=== PATIENT | male | born 1935 | race Caucasian/White ===

== ENCOUNTER 2017-02-12 16:46 | Inpatient (IN) | payer OTHER, MEDICARE ==
[~2017-02-12] VITALS: Ht 188 cm; Wt 109.4 kg
[~2017-02-12 16:46] MED LIST: ALLO300T2 PO; ASPI81TA82 PO; ATOR20TA PO; CALTTAB PO; FLOR250C PO; HYDR-2768 PO; ISOS30 PO; LEVA500T PO; LEVO.025 PO; LOSA50TA PO; METO100T PO; NITR0.4S SL; PERC5TAB12 PO; POTA-267 PO; PROBCAP4 PO; SERT100 PO; TAB-TAB PO; TEMA15 PO; ULTR50TA PO
[2017-02-12 16:50] VITALS: BP 180/85; PULSE 120; RESP 19; TEMP 100.6; O2SAT 95
[2017-02-12 17:00] VITALS: BP 134/66; PULSE 111; RESP 22; TEMP 101.2; O2SAT 93
[2017-02-12] MEDS ORDERED: VANCOMYCIN INJ 1,000 MG in SODIUM CHLOR 0.9% 250 ML INJ 250 ML IV STA (17:00)
[2017-02-12] MEDS ORDERED: ACETAMINOPHEN 650 MG SUPP RECTAL ONE ×2 (17:00→17:15)
[2017-02-12] MEDS ORDERED: PIPERACIL-TAZO 4.5 GM PREMIX 100 ML IV STA (17:00)
--- NOTE | 2017-02-12 17:00 | PD ---
HPI Chief Complaint: GI Complaint Time Seen by Provider: 17:00 Travel History International Travel<30 days: No Contact w/Intl Traveler<30days: No Traveled to known affect area: No History of Present Illness HPI 81-year-old male with history of CAD, hypertension, A. fib, CABG, stent placement, COPD, diabetes, presents to the emergency department today for evaluation of "not feeling well." Patient is an overall or historian regarding his is going on however he states that he has felt well for the last month ever last few days and has gotten worse. He states that his entire body aches. He contacted his daughter and told her that he was cold so when she came and checked on him he had a low-grade temperature. They were headed to urgent care for evaluation when the patient began to vomit. At that time she decided to bring him to the emergency department. Over the last month, patient has had 2 rounds of antibiotics for possible pneumonia, upper respiratory infection. He has not had any diarrhea. He denies a chest x-ray or tightness. No difficulty breathing. No abdominal pain. He does report a darker color in his urine. No other symptoms to report at this time. PFSH Past Medical History Hx Anticoagulant Therapy: Yes Arthritis: Yes Asthma: No Autoimmune Disease: No Blood Disorders: No Anxiety: Yes Depression: Yes Heart Rhythm Problems: Yes Cancer: Yes (PROSTATE (RADIATION)) Cardiac Catheterization: Yes (Stents x 3) Cardiovascular Problems: Yes (IA, CABG, ATR. FIB) High Cholesterol: Yes Chemotherapy: No Chest Pain: No COPD: No Cerebrovascular Accident: Yes (TIA) Diabetes: No (BORDERLINE) Diminished Hearing: No Endocrine: Yes Gastrointestinal Disorders: No GERD: Yes Genitourinary: Yes ( SOME INCONTINENCE, CALCULI) Headaches: No Hepatitis: No Hiatal Hernia: No Hypertension: Yes Immune Disorder: No Implanted Vascular Access Dvce: No Kidney Stones: Yes Musculoskeletal: Yes (ARTHRITIS) Neurologic: Yes (STROKE (FULL RECOVERY)) Psychiatric: No Reproductive: No Respiratory: Yes (MILD COPD) Immunizations Current: Yes Migraines: No Myocardial Infarction: Yes Pneumonia: Yes Radiation Therapy: Yes Renal Failure: No Seizures: No Sleep Apnea: No Thyroid Disease: Yes Ulcer: No Tetanus Vaccination: > 5 Years Influenza Vaccination: Yes PNEUMOCCOCAL Vaccine (Year): 2008 Past Surgical History Abdominal Surgery: No AICD: No Arteriovenous Shunt: No Cardiac Surgery: Yes (CABG) Coronary Artery Bypass Graft: Yes (4 VESSEL) Coronary Stent: Yes (x 3) Ear Surgery: No Endocrine Surgery: No Eye Surgery: No Genitourinary Surgery: No Gynecologic Surgery: No Insulin Pump: No Joint Replacement: Yes (LEFT HIP) Neurologic Surgery: No Oral Surgery: Yes (TONSILLECTOMY) Pacemaker: No Thoracic Surgery: No Tonsillectomy: Yes Other Surgery: Yes (RIGHT KIDNEY STENT, REMOVED TODAY) Family History Family Myocardial Infarction: Yes Social History Alcohol Use: No Tobacco Use: No Substance Use: No Allergies-Medications (Allergen,Severity, Reaction): Coded Allergies: Keflex (Verified Allergy, Severe, 02/12/17) rash Plavix (Verified Allergy, Severe, 02/12/17) rash Sulfa (Verified Allergy, Severe, 02/12/17) rash Reported Meds & Prescriptions Reported Meds & Active Scripts Active Reported Stiolto Respimat Inh (Tiotropium-Olodaterol Inh) 2.5-2.5 Mcg/Act Aero 2.5 Puff INH DAILY Levothyroxine (Levothyroxine Sodium) 50 Mcg Tab 50 Mcg PO DAILY Aspir-81 (Aspirin) 81 Mg Tabdr 81 Mg PO DAILY Vitamin C (Ascorbic Acid) 250 Mg Tab 500 Mg PO Hydrochlorothiazide 25 Mg Tab 25 Mg PO DAILY Ginkgo Biloba 500 Mg Capsule 500 Mg PO DAILY Metoprolol Tartrate 100 Mg Tab 100 Mg PO DAILY Losartan (Losartan Potassium) 50 Mg Tab 50 Mg PO DAILY Potassium Chlorate 1 Gm Powder 10 Meq PO DAILY PRN Allopurinol 300 Mg Tab 300 Mg PO DAILY Isosorbide Mononitrate 20 Mg Tab 30 Mg PO DAILY Take 2 doses 7 hours apart. Atorvastatin (Atorvastatin Calcium) 20 Mg Tab 20 Mg PO HS Sertraline (Sertraline HCl) 100 Mg Tab 100 Mg PO DAILY Review of Systems Except as stated in HPI: all other systems reviewed are Neg Physical Exam Narrative GENERAL: Well-nourished well-developed elderly male patient, in no acute distress. Patient does appear as though he does not feel well. His teeth are chattering. SKIN: Focused skin assessment warm/dry. Brown pigmentation of the distal left lower extremity. HEAD: Atraumatic. Normocephalic. EYES: Pupils equal and round. No scleral icterus. No injection or drainage. ENT: No nasal bleeding or discharge. Mucous membranes pink and moist. NECK: Trachea midline. No JVD. CARDIOVASCULAR: Tachycardic rate and rhythm. RESPIRATORY: No accessory muscle use. Diminished, likely due to poor inspiratory effort.. Breath sounds equal bilaterally. GASTROINTESTINAL: Abdomen soft, nondistended. Tenderness elicited to palpation right upper quadrant. Guarding. No rebound tenderness. Hepatic and splenic margins not palpable. MUSCULOSKELETAL: No obvious deformities. No clubbing. No cyanosis. No edema. NEUROLOGICAL: Awake and alert. No obvious cranial nerve deficits. Motor grossly within normal limits. Normal speech. PSYCHIATRIC: Appropriate mood and affect; insight and judgment normal. Data Data Last Documented VS Vital Signs Date Time Temp Pulse Resp B/P Pulse Ox O2 Delivery O2 Flow Rate FiO2 02/12/17 17:05 96 Nasal Cannula 2 02/12/17 17:00 101.2 111 22 134/66 Orders Electrocardiogram (02/12/17 17:00) Complete Blood Count With Diff (02/12/17 17:00) Comprehensive Metabolic Panel (02/12/17:00) Prothrombin Time / Inr (Pt) (02/12/17:00) Act Partial Throm Time (Ptt) (02/12/17 17:00) Lactic Acid Sepsis Protocol (02/12/17 17:00) Lipase (02/12/17 17:00) Urinalysis - C+S If Indicated (02/12/17 17:00) Blood Culture (02/12/17 17:00) Chest, Single Ap (02/12/17 17:00) Blood Glucose (02/12/17 17:00) Ecg Monitoring (02/12/17 17:00) Iv Access Insert/Monitor (02/12/17:00) Oximetry (02/12/17 17:00) Oxygen Administration (02/12/17 17:00) Acetaminophen Supp (Tylenol Supp) (02/12/17 17:00) Ct Abd/Pel W Iv Contrast(Rout) (02/12/17 17:00) Vancomycin Inj (Vancomycin Inj) (02/12/17 17:00) Piperacil-Tazo 4.5 Gm Premix (Zosyn 4.5 (02/12/17 17:00) Sodium Chlor 0.9% 1000 Ml Inj (Ns 1000 M (02/12/17 17:15) Acetaminophen Supp (Tylenol Supp) (7/4/17 17:15) Iohexol 350 Inj (Omnipaque 350 Inj) (02/12/17 18:00) Urine Culture (02/12/17 17:30) Us Abdomen Gallbladder (02/12/17 ) Labs Laboratory Tests Test 02/12/17 02/12/17 17:05 17:30 White Blood Count 23.6 TH/MM3 Red Blood Count 4.50 MIL/MM3 Hemoglobin 13.5 GM/DL Hematocrit 41.3 % Mean Corpuscular Volume 91.7 FL Mean Corpuscular Hemoglobin 29.9 PG Mean Corpuscular Hemoglobin 32.6 % Concent Red Cell Distribution Width 12.9 % Platelet Count 146 TH/MM3 Mean Platelet Volume 7.7 FL Neutrophils (%) (Auto) 54.0 % Lymphocytes (%) (Auto) 33.1 % Monocytes (%) (Auto) 12.4 % Eosinophils (%) (Auto) 0.2 % Basophils (%) (Auto) 0.3 % Neutrophils # (Auto) 12.8 TH/MM3 Lymphocytes # (Auto) 7.8 TH/MM3 Monocytes # (Auto) 2.9 TH/MM3 Eosinophils # (Auto) 0.1 TH/MM3 Basophils # (Auto) 0.1 TH/MM3 CBC Comment AUTO DIFF Differential Total Cells 100 Counted Neutrophils % (Manual) 71 % Band Neutrophils % 1 % Lymphocytes % 12 % Monocytes % 16 % Neutrophils # (Manual) 17.0 TH/MM3 Differential Comment FINAL DIFF MANUAL Platelet Estimate LOW Platelet Morphology Comment NORMAL Red Cell Morphology Comment NORMAL Prothrombin Time 10.7 SEC Prothromb Time International 1.0 RATIO Ratio Activated Partial 25.5 SEC Thromboplast Time Sodium Level 138 MEQ/L Potassium Level 4.0 MEQ/L Chloride Level 100 MEQ/L Carbon Dioxide Level 23.7 MEQ/L Anion Gap 14 MEQ/L Blood Urea Nitrogen 17 MG/DL Creatinine 0.96 MG/DL Estimat Glomerular Filtration 75 ML/MIN Rate Random Glucose 163 MG/DL Lactic Acid Level 2.1 mmol/L Calcium Level 9.5 MG/DL Total Bilirubin 1.0 MG/DL Aspartate Amino Transf 26 U/L (AST/SGOT) Alanine Aminotransferase 24 U/L (ALT/SGPT) Alkaline Phosphatase 94 U/L Total Protein 8.0 GM/DL Albumin 3.8 GM/DL Lipase 147 U/L Urine Color YELLOW Urine Turbidity HAZY Urine pH 6.0 Urine Specific [place] 1.014 Urine Protein 100 mg/dL Urine Glucose (UA) NEG mg/dL Urine Ketones 10 mg/dL Urine Occult Blood SMALL Urine Nitrite NEG Urine Bilirubin NEG Urine Urobilinogen LESS THAN 2.0 MG/DL Urine Leukocyte Esterase LARGE Urine RBC 17 /hpf Urine WBC /hpf Urine Bacteria MANY /hpf Microscopic Urinalysis Comment CATH-CULTURE IND MDM Medical Decision Making Medical Screen Exam Complete: Yes Emergency Medical Condition: Yes Medical Record Reviewed: Yes Differential Diagnosis Sepsis versus electrolyte abnormality versus pneumonia versus UTI versus cholecystitis versus pancreatitis Narrative Course 81-year-old male presents to the emergency department for evaluation. Patient appears as though he does not feel well. He is tachycardic and febrile. Sepsis workup was initiated. Patient is given 1 L of normal saline fluid at this time based on age and significant cardiac history. He is given Zosyn and vancomycin IV as we do not have it definitive source at this time. Patient does have right upper quadrant tenderness to palpation and he has been vomiting. CT imaging of the abdomen is ordered. Patient has a leukocytosis of 23.6. Neutrophilia of 17. CMP is without acute concern. Lactic acid is 2.1. Patient 's urine is hazy with 100 proteinuria, small occult blood, large leukocyte esterase, 17 RBC, innumerable WBC, culture is indicated. Laboratory Tests Test 02/12/17 02/12/17 17:05 17:30 White Blood Count 23.6 TH/MM3 Red Blood Count 4.50 MIL/MM3 Hemoglobin 13.5 GM/DL Hematocrit 41.3 % Mean Corpuscular Volume 91.7 FL Mean Corpuscular Hemoglobin 29.9 PG Mean Corpuscular Hemoglobin 32.6 % Concent Red Cell Distribution Width 12.9 % Platelet Count 146 TH/MM3 Mean Platelet Volume 7.7 FL Neutrophils (%) (Auto) 54.0 % Lymphocytes (%) (Auto) 33.1 % Monocytes (%) (Auto) 12.4 % Eosinophils (%) (Auto) 0.2 % Basophils (%) (Auto) 0.3 % Neutrophils # (Auto) 12.8 TH/MM3 Lymphocytes # (Auto) 7.8 TH/MM3 Monocytes # (Auto) 2.9 TH/MM3 Eosinophils # (Auto) 0.1 TH/MM3 Basophils # (Auto) 0.1 TH/MM3 CBC Comment AUTO DIFF Differential Total Cells 100 Counted Neutrophils % (Manual) 71 % Band Neutrophils % 1 % Lymphocytes % 12 % Monocytes % 16 % Neutrophils # (Manual) 17.0 TH/MM3 Differential Comment FINAL DIFF MANUAL Platelet Estimate LOW Platelet Morphology Comment NORMAL Red Cell Morphology Comment NORMAL Prothrombin Time 10.7 SEC Prothromb Time International 1.0 RATIO Ratio Activated Partial 25.5 SEC Thromboplast Time Sodium Level 138 MEQ/L Potassium Level 4.0 MEQ/L Chloride Level 100 MEQ/L Carbon Dioxide Level 23.7 MEQ/L Anion Gap 14 MEQ/L Blood Urea Nitrogen 17 MG/DL Creatinine 0.96 MG/DL Estimat Glomerular Filtration 75 ML/MIN Rate Random Glucose 163 MG/DL Lactic Acid Level 2.1 mmol/L Calcium Level 9.5 MG/DL Total Bilirubin 1.0 MG/DL Aspartate Amino Transf 26 U/L (AST/SGOT) Alanine Aminotransferase 24 U/L (ALT/SGPT) Alkaline Phosphatase 94 U/L Total Protein 8.0 GM/DL Albumin 3.8 GM/DL Lipase 147 U/L Urine Color YELLOW Urine Turbidity HAZY Urine pH 6.0 Urine Specific [place] 1.014 Urine Protein 100 mg/dL Urine Glucose (UA) NEG mg/dL Urine Ketones 10 mg/dL Urine Occult Blood SMALL Urine Nitrite NEG Urine Bilirubin NEG Urine Urobilinogen LESS THAN 2.0 MG/DL Urine Leukocyte Esterase LARGE Urine RBC 17 /hpf Urine WBC /hpf Urine Bacteria MANY /hpf Microscopic Urinalysis Comment CATH-CULTURE IND Last Impressions Chest X-Ray 02/12/[id number] Signed Impressions: Service Date/Time: Sunday, February 12, 2017 17:05 - CONCLUSION: Mild atelectasis or consolidation at the right medial base. Memo Washburn MD Abdomen/Pelvis CT [id number]/[id number] Signed Impressions: Service Date/Time: Sunday, February 12, 2017 17:55 - CONCLUSION: 1. No acute findings with an abdomen and pelvic CT. Stable rim calcified lower pole right renal cyst with nonobstructing renal calcifications. Colonic diverticula. Previous left hip replacement. Mild fatty liver. Advanced osteoarthritis right hip. Chris Palafox MD I discussed the patient my attending physician. Due to the patient having right upper quadrant tenderness, ultrasound is ordered. A call has been placed to [facility] for admission. The patient and his daughter are aware that he will be admitted to the hospital. Sepsis Criteria SIRS Criteria (2 or more): Temp > 100.9 or < 96.8, Heart rate over 90, WBC > 51291, < 4000 or > 10% bands Sepsis Criteria (SIRS+source): Infect source susp/known Severe Sepsis (+one): Lactate >2 Diagnosis Primary Impression: Severe sepsis Additional Impression: UTI (urinary tract infection) Qualified Code: N39.0 - Urinary tract infection with hematuria, site unspecified Admitting Information Admitting Physician Requests: Admit Condition: Stable Taylor Knowles Feb 12, 2017 17:00
[2017-02-12] MEDS ORDERED: SODIUM CHLOR 0.9% 1000 ML INJ 1,000 ML IV ONE ×2 (17:15→18:45)
[2017-02-12 17:16] LABS: AUTOMATED NEUTROPHIL # 12.8 TH/MM3 (1.8-7.7); BASOPHIL # 0.1 TH/MM3 (0-0.2); BASOPHIL % 0.3 % (0.0-2.0); EOSINOPHIL # 0.1 TH/MM3 (0-0.4); EOSINOPHIL % 0.2 % (0.0-4.0); HEMATOCRIT 41.3 % (39.0-51.0); LYMPH % 33.1 % (9.0-44.0); LYMPHOCYTE # 7.8 TH/MM3 (1.0-4.8); MEAN CELL VOLUME 91.7 FL (80.0-100.0); MEAN CORPUSCULAR HEMOGLOBIN 29.9 PG (27.0-34.0); MEAN CORPUSCULAR HGB CONC 32.6 % (32.0-36.0); MONO % 12.4 % (0.0-8.0); PLATELET COUNT 146 TH/MM3 (150-450); RED CELL DISTRIBUTION WIDTH 12.9 % (11.6-17.2); WHITE BLOOD COUNT 23.6 TH/MM3 (4.0-11.0)
[2017-02-12 17:18] LABS: HEMO FLAGS AUTO DIFF
[2017-02-12 17:28] LABS: APTT (PATIENT) 25.5 SEC (24.3-30.1); PROTHROMBIN TIME - PATIENT 10.7 SEC (9.8-11.6)
--- NOTE | 2017-02-12 17:29 | RADRPT ---
EXAM DATE/TIME: 02/12/2017 17:05 [facility] COMPARISON: CHEST SINGLE AP, October 12, 2015, 21:44. INDICATIONS : Fever, vomitting, chest pain. MEDICAL HISTORY : None. SURGICAL HISTORY : CABG. Stents. ENCOUNTER: Initial ACUITY: 1 day PAIN SCORE: 8/10 LOCATION: Left chest FINDINGS: The patient is status post sternotomy in the past. The heart size is normal. There is minimal increas ed density at the right medial base. The left lung is clear. CONCLUSION: Mild atelectasis or consolidation at the right medial base. Memo Washburn MD on February 12, 2017 at 17:26 Board Certified Radiologist. This report was verified electronically.
[2017-02-12 17:31] LABS: ANION GAP 14 MEQ/L (5-15); AST (GOT) 26 U/L (15-37); BICARBONATE 23.7 MEQ/L (21.0-32.0); BLOOD UREA NITROGEN 17 MG/DL (7-18); CHLORIDE 100 MEQ/L (98-107); GLOMERULAR FILTRATION RATE 75 ML/MIN (>89); SODIUM (NA) 138 MEQ/L (136-145)
[2017-02-12 17:35] LABS: ALKALINE PHOSPHATASE 94 U/L (45-117); ALT (GPT) 24 U/L (12-78)
[2017-02-12] MEDS ORDERED: ALLO300T2 PO (17:48)
[2017-02-12] MEDS ORDERED: HYDR25TA5 PO (17:48)
[2017-02-12] MEDS ORDERED: METO100T PO (17:48)
[2017-02-12] MEDS ORDERED: LOSA50TA PO (17:48)
[2017-02-12] MEDS ORDERED: TIOT1AER INH (17:48)
[2017-02-12] MEDS ORDERED: ISOS20TA PO (17:48)
[2017-02-12] MEDS ORDERED: POTA1POW PO (17:48)
[2017-02-12] MEDS ORDERED: SERT-129 PO (17:48)
[2017-02-12] MEDS ORDERED: VITA250T3 PO (17:48)
[2017-02-12] MEDS ORDERED: ASPI81TA81 PO (17:48)
[2017-02-12] MEDS ORDERED: GINK500C3 PO (17:48)
[2017-02-12] MEDS ORDERED: ATOR20TA15 PO (17:48)
[2017-02-12] MEDS ORDERED: LEVO50TA4 PO (17:48)
[2017-02-12] MEDS ORDERED: IOHEXOL 350 MG/ML 10 ML VIAL (for RAD DIAG) IV ONE (18:00)
[2017-02-12 18:09] LABS: BANDS 1 % (0-6); POLYS (SEG NEUTROPHILS) 71 % (16-70); WBC DIFF SAMPLE 100
[2017-02-12 18:10] LABS: PLATELET ESTIMATE SMEAR LOW (NORMAL); PLATELET MORPHOLOGY NORMAL (NORMAL); SCAN/DIFF FINAL DIFF MANUAL
[2017-02-12 18:17] LABS: BACTERIA, URINE MANY /hpf; BLOOD, URINE SMALL (NEG); GLUCOSE,URINE NEG (NEG); KETONE, URINE 10 mg/dL (NEG); NITRITE,URINE NEG (NEG); URINE COLOR YELLOW (YELLW/STRAW)
[2017-02-12 18:19] LABS: COMMENT (UR) CATH-CULTURE IND; CULTURE IF INDICATED CATH CULTURE IND
--- NOTE | 2017-02-12 18:31 | RADRPT ---
EXAM DATE/TIME: 02/12/2017 17:55 [facility] COMPARISON: No previous studies available for comparison. INDICATIONS : Abdomen pain with vomiting. IV CONTRAST: 95 cc Omnipaque 350 (iohexol) IV ORAL CONTRAST: No oral contrast ingested. RADIATION DOSE: 17.00 CTDIvol (mGy) MEDICAL HISTORY : Cardiovascular disease. Cerebrovascular disease. Carcinoma, prostate. SURGICAL HISTORY : CABG Renal Stent Left hip. ENCOUNTER: Initial ACUITY: 1 day PAIN SCALE: 7/10 LOCATION: Bilateral abdomen TECHNIQUE: Volumetric scanning of the abdomen and pelvis was performed. Using automated exposure control and ad justment of the mA and/or kV according to patient size, radiation dose was kept as low as reasonably achievable to obtain optimal diagnostic quality images. DICOM format image data is available electro nically for review and comparison. FINDINGS: There is dependent atelectasis in lungs. No pleural pericardial effusion. Previous median sternotomy. There is mild fatty liver. Spleen, adrenals and pancreas unremarkable. Rim calcified cyst lower pole right kidney similar to October 2015. Nonobstructing 4 mm calcification midpole right kidney and 1 mm n onobstructing calcification upper pole left kidney. No free fluid. No bowel obstruction. No free air. Previous left hip replacement. CONCLUSION: 1. No acute findings with an abdomen and pelvic CT. Stable rim calcified lower pole right renal cyst with nonobstructing renal calcifications. Colonic diverticula. Previous left hip replacement. Mild fa tty liver. Advanced osteoarthritis right hip. Chris Palafox MD on February 12, 2017 at 18:21 Board Certified Radiologist. This report was verified electronically.
[2017-02-12 19:02] VITALS: TEMP 99.8
[2017-02-12 19:12] LABS: LACTIC ACID GHOST NOT REPORTABLE
[2017-02-12] MEDS ORDERED: ACETAMINOPHEN 325 MG TAB PO PRN (19:45)
[2017-02-12] MEDS ORDERED: MAGNESIUM HYDROXIDE SUSP 30 ML CUP PO PRN (19:45)
[2017-02-12] MEDS ORDERED: SENNOSIDES 8.6 MG TAB PO PRN (19:45)
[2017-02-12] MEDS ORDERED: NALOXONE HCL 0.4 MG/ML AMP IV PRN (19:45)
[2017-02-12 20:00] VITALS: BP 181/72; PULSE 96; RESP 20; TEMP 97.4; O2SAT 100
[2017-02-12 20:15] VITALS: BP 152/67; PULSE 89; RESP 18; O2SAT 98
--- NOTE | 2017-02-12 20:25 | RADRPT ---
EXAM DATE/TIME: 02/12/2017 19:39 [facility] COMPARISON: CT ABDOMEN & PELVIS W CONTRAST, February 12, 2017, 17:55. INDICATIONS : Right upper quadrant pain. MEDICAL HISTORY : Myocardial infarction. Congestive heart failure. Hypercholesterolemia. Hearing loss. TIA. Hypertensio n. Afib. Pneumonia. Anticoagulant therapy. Thyroid disease. COPD. GERD. Renal calculi. Arthritis. Lady betes. Depression. Anxiety. Prostate cancer. Radiation therapy. Blood transfusion. Sepsis. SURGICAL HISTORY : Tonsillectomy. Coronary artery stent. CABG. Right kidney stent. Left hip replacement. ENCOUNTER: Initial ACUITY: 1 day PAIN SCORE: 4/10 LOCATION: Right upper quadrant MEASUREMENTS: LIVER: 13.5 cm length COMMON DUCT: 12 mm RIGHT KIDNEY: 10.8 x 5.7 x 5.3 cm FINDINGS: LIVER: There is diffuse increased echogenicity to the liver without focal lesion or intrahepatic ductal dila tation. COMMON DUCT: Common bile duct is distended measuring [address] examination, there is a questionable filling defect in the distal common bile duct. GALLBLADDER: The gallbladder is distended. No gallstones are seen. PANCREAS: Pancreas is not visualized. RIGHT KIDNEY: There is a 4.8 cm cyst at the lower pole, and 1.9 cm cyst at the lower pole, and a 0.9 cm nonobstruct ing renal stone. No hydronephrosis is seen. CONCLUSION: 1. Distended gallbladder and common bile duct. There is a questionable filling defect in the distal c ommon bile duct on the CT examination. Gallstones are not seen. 2. Right renal cyst and a nonobstructing right renal stone. 3. Hepatic steatosis. Memo Washburn MD on February 12, 2017 at 20:16 Board Certified Radiologist. This report was verified electronically.
[2017-02-12] MEDS: SODIUM CHLORIDE 0.9% FLUSH 10 ML FLUSH IV FLUSH SCH (21:14)
[2017-02-12] MEDS: HEPARIN SODIUM - SQ 10,000 UNITS/ML VIAL SQ SCH (23:30)
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
[2017-02-13] VITALS: BP 141/60; PULSE 99; RESP 20; TEMP 101.1; O2SAT 96
[2017-02-13] MEDS ORDERED: TEMAZEPAM 7.5 MG CAP PO ONE (01:00)
[2017-02-13] MEDS: LEVOFLOXACIN 750 MG PREMIX INJ 150 ML IV SCH (01:33)
[2017-02-13 04:00] VITALS: BP 169/70; PULSE 88; RESP 20; TEMP 98.9; O2SAT 98
[2017-02-13 04:15] LABS: AUTOMATED NEUTROPHIL # 14.7 TH/MM3 (1.8-7.7); BASOPHIL # 0.1 TH/MM3 (0-0.2); BASOPHIL % 0.3 % (0.0-2.0); HEMATOCRIT 40.3 % (39.0-51.0); LYMPH % 27.9 % (9.0-44.0); MEAN CELL VOLUME 92.6 FL (80.0-100.0); MEAN CORPUSCULAR HEMOGLOBIN 30.3 PG (27.0-34.0); MEAN CORPUSCULAR HGB CONC 32.7 % (32.0-36.0); MONO % 12.8 % (0.0-8.0); PLATELET COUNT 139 TH/MM3 (150-450); RED BLOOD COUNT 4.35 MIL/MM3 (4.50-5.90); RED CELL DISTRIBUTION WIDTH 13.3 % (11.6-17.2); WHITE BLOOD COUNT 24.9 TH/MM3 (4.0-11.0)
[2017-02-13 04:16] LABS: HEMO FLAGS AUTO DIFF
[2017-02-13 04:39] LABS: BICARBONATE 24.1 MEQ/L (21.0-32.0); POTASSIUM 3.7 MEQ/L (3.5-5.1)
[2017-02-13] MEDS: ISOSORBIDE MONONITRATE 30 MG TAB PO SCH (05:27)
[2017-02-13] MEDS: LEVOTHYROXINE SODIUM 50 MCG TAB PO SCH (05:28)
[2017-02-13 05:44] LABS: BANDS 10 % (0-6); NEUTROPHIL # MANUAL DIFF 17.7 TH/MM3 (1.8-7.7); PLATELET ESTIMATE SMEAR LOW (NORMAL); PLATELET MORPHOLOGY NORMAL (NORMAL); POLYS (SEG NEUTROPHILS) 61 % (16-70); SCAN/DIFF FINAL DIFF MANUAL; WBC DIFF SAMPLE 100
[2017-02-13 08:00] VITALS: BP 132/61; PULSE 87; RESP 18; TEMP 99; O2SAT 93
[2017-02-13] MEDS: SODIUM CHLORIDE 0.9% FLUSH 10 ML FLUSH IV FLUSH SCH ×2 (08:30→19:56)
[2017-02-13] MEDS: SERTRALINE HCL 100 MG TAB PO SCH (08:30)
[2017-02-13] MEDS: METOPROLOL TARTRATE 100 MG TAB PO SCH (08:30)
[2017-02-13] MEDS: LOSARTAN 50 MG TAB PO SCH (08:30)
[2017-02-13] MEDS: ASPIRIN EC 81 MG TABEC PO SCH (08:30)
[2017-02-13] MEDS: ALLOPURINOL 300 MG TAB PO SCH (08:30)
[2017-02-13] MEDS: HYDROCHLOROTHIAZIDE 25 MG TAB PO SCH (08:30)
[2017-02-13] MEDS ORDERED: TIOTROPIUM OLODATEROL INH SCH (09:00)
--- NOTE | 2017-02-13 09:50 | EKG ---
Date Performed: 02/12/2017 Time Performed: 17:09:02 PTAGE: 81 years EKG: SINUS TACHYCARDIA POSSIBLE LEFT ATRIAL ENLARGEMENT POSSIBLE RIGHT VENTRICULAR CONDUCTION DE LAY PROBABLE INFERIOR MYOCARDIAL INFARCTION MODERATE T-WAVE ABNORMALITY, CONSIDER ANTERIOR ISCHEMIA A BNORMAL ECG PREVIOUS TRACING : 10/12/2015 17.38 DOCTOR: Carlos Demarco Interpretating Date/Time 02/13/2017 09:48:52
--- NOTE | 2017-02-13 10:05 | RADRPT ---
EXAM DATE/TIME: 02/13/2017 08:59 [facility] COMPARISON: No previous studies available for comparison. INDICATIONS : History of prostate cancer. Cough for 6 months and loss of appetite. Evaluate for mass. RADIATION DOSE: 7.52 CTDIvol (mGy) MEDICAL HISTORY : Carcinoma, prostate. Chronic obstructive pulmonary disease. Ex-smoker SURGICAL HISTORY : CABG ENCOUNTER: Initial ACUITY: 4 - 6 months PAIN SCALE: 0/10 LOCATION: chest TECHNIQUE: Volumetric scanning of the chest was performed. Using automated exposure control and adjustment of t he mA and/or kV according to patient size, radiation dose was kept as low as reasonably achievable to obtain optimal diagnostic quality images. DICOM format image data is available electronically for r eview and comparison. FINDINGS: LUNGS: There is no consolidation or pneumothorax. No concerning pulmonary nodule is visualized. Small righ t upper lobe granuloma is noted. PLEURAE: There is no pleural thickening or pleural effusion. MEDIASTINUM: The heart and great vessels demonstrate no acute abnormality. There is no mediastinal or hilar lymph adenopathy. Moderate coronary artery calcifications are noted. AXILLAE: Within normal limits. No lymphadenopathy. MUSCULOSKELETAL: Within normal limits for patient age with moderate degenerative changes in the thoracic spine. MISCELLANEOUS: The visualized upper abdominal organs demonstrate no acute abnormality. CONCLUSION: Negative for acute process. Tano Ames MD FACR on February 13, 2017 at 10:01 Board Certified Radiologist. This report was verified electronically.
--- NOTE | 2017-02-13 10:18 | RADRPT ---
EXAM DATE/TIME: 02/13/2017 09:11 [facility] COMPARISON: No previous studies available for comparison. INDICATIONS : Left foot pain with history of diabetes. MEDICAL HISTORY : Carcinoma, prostatic. Chronic obstructive pulmonary disease. diabetes SURGICAL HISTORY : CABG. ENCOUNTER: Initial ACUITY: 1 month PAIN SCORE: 7/10 LOCATION: Left foot FINDINGS: Three view examination of the left foot demonstrates no soft tissue swelling, dislocation, or fractur e. The tarsal bones appear intact. There is some primary degenerative changes involving the foot. N o radiopaque foreign bodies are demonstrated. Small heel spur. Vascular calcifications are seen in th e soft tissues. CONCLUSION: 1. No acute fracture or joint dislocation. 2. Primary degenerative type changes. 3. PVD. Jeremiah Singh MD on February 13, 2017 at 10:14 Board Certified Radiologist. This report was verified electronically.
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
--- NOTE | 2017-02-13 10:46 | RADRPT ---
EXAM DATE/TIME: 02/13/2017 09:19 [facility] COMPARISON: No previous studies available for comparison. INDICATIONS : Carotid bruit. MEDICAL HISTORY : Myocardial infarction. Congestive heart failure. Renal calculi. Carcinoma, prostate. Thyroid disease. CVA. Afib. HTN. COPD. Pneumonia. Dyspnea. GERD. Arthritis. Diabetes. UTI Sepsis. Depression. Anxiety . Anticoagulant therapy. SURGICAL HISTORY : Tonsillectomy. CABG. Coronary artery stent. Cataract. Cardiac cath. Left hip replacement. Right kidne y stent. Radiation therapy. Blood transfusions. ENCOUNTER: Initial ACUITY: 1 day PAIN SCORE: 7/10 LOCATION: Bilateral neck PEAK SYSTOLIC VELOCITIES (cm/sec): ICA/CCA RATIO: Right: 1.6 Left: 0.9 ICA: Right: 106 Left: 122 CCA: Right: 65 Left: 140 ECA: Right: 126 Left: 122 VERTEBRAL: Right: 41 antegrade Left: 44 antegrade Elevated flow velocities and ICA/CCA ratios have been found to correlate with increased degrees of vessel stenosis, calculated as percentage of diameter relative to a normal segment of distal ICA/CCA FINDINGS: Ultrasound of the carotid arteries was performed bilaterally using real-time Doppler and color Dopple r imaging. Examination of the right carotid artery demonstrates mild fibrous plaque within the bifurcation. No w aveform abnormalities are identified and no spectral broadening is seen. Examination of the left trujillo tid artery demonstrates mild fibrous plaque within the bulb. No waveform abnormalities are identified and no spectral broadening is seen. There is antegrade flow in both vertebral arteries. CONCLUSION: No evidence of hemodynamically significant lesion. Ron Garcia MD on February 13, 2017 at 10:42 Board Certified Radiologist. This report was verified electronically.
[2017-02-13 11:10] LABS: INDIRECT BILIRUBIN 0.7 MG/DL (0.0-0.8); TOTAL BILIRUBIN ADULT 0.9 MG/DL (0.2-1.0)
[2017-02-13] MEDS: HEPARIN SODIUM - SQ 10,000 UNITS/ML VIAL SQ SCH ×2 (11:57→22:02)
[2017-02-13 12:00] VITALS: BP 110/58; PULSE 74; RESP 17; TEMP 96.9; O2SAT 94
--- NOTE | 2017-02-13 12:36 | HHI.PR ---
Subjective Remarks feeling better, no fever or chills minimal nausea +epigastric and right upper quadrant pain +burning on urination Objective Vitals Vital Signs Date Time Temp Pulse Resp B/P Pulse Ox O2 Delivery O2 Flow Rate FiO2 02/13/17 12:00 96.9 74 17 110/58 94 02/13/17 08:00 99.0 87 18 132/61 93 02/13/17 04:00 98.9 88 20 169/70 98 02/13/17 00:00 101.1 99 20 141/60 96 02/12/17 20:15 89 18 152/67 98 Nasal Cannula 2 02/12/17 20:00 97.4 96 20 181/72 100 02/12/17 19:02 99.8 02/12/17 17:05 96 Nasal Cannula 2 02/12/17 17:00 101.2 111 22 134/66 93 Nasal Cannula 2 02/12/17 16:57 20 02/12/17 16:50 100.6 120 19 180/85 95 Room Air I/O 02/12/17 02/12/17 02/12/17 02/13/17 02/13/17 02/13/17 07:00 15:00 23:00 07:00 15:00 23:00 Intake Total 240 ml 150 ml 120 ml Output Total 25 ml Balance 240 ml 150 ml 95 ml Intake Oral 240 ml 120 ml IV Total 150 ml Output Urine Total 25 ml # Voids 1 # Bowel Movements 0 Result Diagram: 02/13/17 0353 02/13/17 0353 Imaging Last Impressions Foot X-Ray 02/13/17 0000 Signed Impressions: Service Date/Time: Monday, February 13, 2017 09:11 - CONCLUSION: 1. No acute fracture or joint dislocation. 2. Primary degenerative type changes. 3. PVD. Jeremiah Singh MD Chest CT 02/13/17 0000 Signed Impressions: Service Date/Time: Monday, February 13, 2017 08:59 - CONCLUSION: Negative for acute process. Tano Ames MD FACR Carotid Artery Ultrasound 02/13/17 0000 Signed Impressions: Service Date/Time: Monday, February 13, 2017 09:19 - CONCLUSION: No evidence of hemodynamically significant lesion. Ron Garcia MD Chest X-Ray 02/12/17 1700 Signed Impressions: Service Date/Time: Sunday, February 12, 2017 17:05 - CONCLUSION: Mild atelectasis or consolidation at the right medial base. Memo Washburn MD Abdomen/Pelvis CT 02/12/17 1700 Signed Impressions: Service Date/Time: Sunday, February 12, 2017 17:55 - CONCLUSION: 1. No acute findings with an abdomen and pelvic CT. Stable rim calcified lower pole right renal cyst with nonobstructing renal calcifications. Colonic diverticula. Previous left hip replacement. Mild fatty liver. Advanced osteoarthritis right hip. Chris Palafox MD Gall Bladder Ultrasound 02/12/17 0000 Signed Impressions: Service Date/Time: Sunday, February 12, 2017 19:39 - CONCLUSION: 1. Distended gallbladder and common bile duct. There is a questionable filling defect in the distal common bile duct on the CT examination. Gallstones are not seen. 2. Right renal cyst and a nonobstructing right renal stone. 3. Hepatic steatosis. Memo Washburn MD Objective Remarks awake and alert, oriented x 3, NAD anicteric lungs no rales or wheezes regular rhythm abdomen+ tenderness on palpation of epigastric and right Upper quadrant area no flank tenderness extremities no edema neuro exam- non focal A/P Problem List: (1) UTI (urinary tract infection) ICD Code: N39.0 Status: Acute (2) Hypothyroidism ICD Code: E03.9 Status: Chronic (3) Fatigue ICD Code: R53.83 Status: Acute (4) Shortness of breath ICD Code: R06.02 Status: Acute (5) Carotid bruit ICD Code: R09.89 Status: Acute (6) Traumatic loss of toenail ICD Code: S91.203A Status: Acute Assessment and Plan Mr. Molina is an 81 y/o male with a history of CAD and DM who presented to the ER for evaluation of body aches, weakness, nausea with vomiting, and productive cough. Sepsis - - multifactorial - Urinary Tract Infection + GB pathology - Acute cholecystitis Persistent leukocytosis - leukocytosis - WBC 23.6. LFTs normal - Lactic acid 2.1 on admission, 1.2 on repeat - Levaquin 750 mg IV every 24 hours + IV Flagyl - recheck UA now - CT some renal cyst no hydronephrosis no obstruction - GS consult to evaluate for GB disease-/surgery - ID consult for recommendation Shortness of breath with fatigue, loss of appetite - check echocardiogram to evaluate cardiac structure and function - evaluate for possible endocarditis- pending - CXR with small consolidation vs atelectasis - order for Incentive spirometry hourly- patient no complains of cough - chest CT - - negative for any acute process - monitor I and O - BNP on admission normal at 61 - continuous cardiac telemetry to monitor for cardiac arrhythmias Carotid bruit bilateral - followed by Dr. Lester - patient states he is due for outpatient ultrasound - rept Bilateral carotid ultrasound - no significantly hemodynamic disease Hypothyroidism - - TSH- normal - continue home Synthroid left second toe with traumatic nail removal - consult podiatry - x-ray left foot - negative DVT prophylaxis - Heparin 5000 units subq q24h Problem Qualifiers (1) UTI (urinary tract infection): Qualified Code: N39.0 - Urinary tract infection with hematuria, site unspecified Hilda Panchal MD Feb 13, 2017 12:36
[2017-02-13] MEDS: metroNIDAZOLE 500 MG INJ 100 ML IV SCH ×2 (14:08→21:48)
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
--- NOTE | 2017-02-13 15:00 | MB ---
cc: RAÚL TOBIN M.D. DATE OF CONSULTATION: 02/13/2017 REASON FOR CONSULTATION Abnormal gallbladder. HISTORY OF PRESENT ILLNESS Mr. Molina is a very pleasant and entertaining 81-year-old gentleman who was admitted to the hospital on February 12 with complaints of not feeling well. Specifically, he reports he had some chills with associated nausea and vomiting. He reports this has been going on off and on for the last 6 months. He specifically denied any epigastric or right upper quadrant abdominal pain when I asked him about this. He states he is able to eat whatever he wants and as far as he knows has never had a problem with his gallbladder. He denies any fatty food intolerance. He denies any episodes of jaundice or acholic stools. He reports that he has had some changes in his appetite recently but as far as he knows he has never had a gallbladder attack or any problems with his gallbladder. Apparently, during his workup and evaluation, at some point ultrasound of the abdomen was ordered which showed a distended gallbladder and enlarged common bile duct but no obvious filling defect seen. He also had a CT scan of the abdomen and pelvis which was unremarkable. I was asked to see the patient for the ultrasound finding of the gallbladder. In reviewing the notes, I do not see any documentation of any epigastric or right upper quadrant abdominal pain on exam. As stated the patient denies any epigastric or right upper quadrant abdominal pain to me on several occasions. PAST MEDICAL HISTORY Past medical history includes: 1. Stroke. 2. Coronary artery disease. 3. Diabetes. 4. Atrial fib. 5. COPD. 6. Reflux. 7. Arthritis. 8. Hypothyroidism. 9. Hypertension. 10. Prostate cancer. PAST SURGICAL HISTORY 1. He reports a tonsillectomy. 2. He has had a previous cardiac bypass. 3. He has had a left total hip replacement. MEDICATION His medication list is well documented in the chart. ALLERGIES He reports KEFLEX, PLAVIX AND SULFA. SOCIAL HISTORY He lives here locally. Does not smoke, does not drink. FAMILY HISTORY Noncontributory. REVIEW OF SYSTEMS Please see HPI. PHYSICAL EXAMINATION VITAL SIGNS: Temperature is 96.9, his T-max documented is 101. His vital signs are stable. He has no evidence of tachycardia or hypotension. He is sating 94% on 2 liters nasal cannula. GENERAL: This is a pleasant elderly gentleman who likes to tell a lot of jokes and kid around, who does not appear to be in any distress whatsoever. He is currently watching television. HEENT: Sclerae are white. Oropharynx is clear and moist. NECK: Neck is supple. No masses. LUNGS: Clear to auscultation bilaterally. HEART: S1-S2, no murmur. ABDOMEN: Abdomen is completely soft, nontender, nondistended. Active bowel sounds are noted. No obvious hernias. Negative right upper quadrant pain. Negative Blum's sign. EXTREMITIES: Free range of motion x4. NEUROLOGIC: Alert and oriented x3. IMAGING STUDIES Gallbladder ultrasound reviewed, does show slightly enlarged gallbladder and common bile duct is 12 mm. There is no evidence of gallbladder wall thickening or pericholecystic fluid. CT abdomen and pelvis was reviewed. I see no gross abnormalities on the CT. Specifically no evidence of gallstones and no evidence of free air or free fluid. No edema is noted. LABORATORY DATA White blood cell count on admission 23, is currently 24, platelet counts are slightly low at 139. Electrolytes are unremarkable. LFTs are completely normal. IMPRESSION Abnormal ultrasound with no clinical signs or symptoms of cholecystitis. PLAN At this point I advised the patient I do not recommend cholecystectomy at this time. He essentially appears asymptomatic from this slightly enlarged gallbladder which could be secondary to a chronic cholecystitis. The patient gives no history of chronic cholecystitis of note. Apparently, an MRCP has been ordered for the dilated common bile duct to further evaluate it. I would find it interesting that the patient would have a dilated common bile duct with normal LFTs. At this point I advised him I would not recommend any surgical intervention at this time. We will gladly follow up on the MRCP tomorrow and if there is no gross abnormalities will likely defer any surgical intervention at this time. Thank you so much for allowing me to participate in his care. MD KLAUDIA Woods/THOMAS /1:37 PM /2:42 PM
--- NOTE | 2017-02-13 17:22 | RADRPT ---
EXAM DATE/TIME: 02/13/2017 16:03 [facility] COMPARISON: US ABDOMEN - GALLBLADDER, February 12, 2017, 19:39. CT ABDOMEN & PELVIS W CONTRAST, February 12, 2017, 17:[address] THORAX W/O CONTRAST, February 13, 2017, 8:59. INDICATIONS : Abdominal pain. MEDICAL HISTORY : Hypertension. Diabetes mellitus type 2. Chronic obstructive pulmonary disease. SURGICAL HISTORY : Tonsillectomy. CABG Left hip replacement. ENCOUNTER: Initial ACUITY: 2 day PAIN SCORE: 4/10 LOCATION: abdomen TECHNIQUE: Multiplanar, multisequence magnetic resonance imaging of the abdomen was performed. High-resolution 3D dataset was utilized to reconstruct maximum-intensity projection (MIP) images. FINDINGS: INTRAHEPATIC BILE DUCTS: Within normal limits. No significant anatomical variant is present. EXTRAHEPATIC BILE DUCTS: The common bile duct measures 9 mm. There appears to be a filling defect in the mid common bile duct. GALLBLADDER: No stones, wall thickening, or pericholecystic fluid. LIVER: Normal size and signal intensity. No concerning liver lesion is identified on this non-contrast exam. PANCREAS: The main pancreatic duct is normal in size. There is no significant anatomical variant. Signal inte nsity is within normal limits. No mass is visualized on this non-contrast exam. OTHER: Bilateral renal cysts. The largest cyst measures 4.9 cm along the lower pole the right kidney. CONCLUSION: 1. There is dilatation the common bile duct at approximately 9 mm. 2. There appears to be a filling defect within the mid common bile duct. This is suspicious for a com mon bile duct stone. 3. No definite gallstones are seen in the gallbladder. 4. Bilateral renal cysts. Jeremiah Singh MD on February 13, 2017 at 17:12 Board Certified Radiologist. This report was verified electronically.
[2017-02-13] MEDS: ACETAMINOPHEN/HYDROcodone 325 MG/5 MG TAB PO PRN (19:55)
[2017-02-13] MEDS: ATORVASTATIN 20 MG TAB PO SCH (19:56)
[2017-02-13 20:00] VITALS: BP 122/59; PULSE 69; PULSE 75; RESP 18; TEMP 97.2; O2SAT 97
[2017-02-13] MEDS: AZTREONAM INJ 2,000 MG in SODIUM CHLORIDE 0.9% INJ 100 ML IV SCH (21:48)
--- NOTE | 2017-02-13 22:09 | MB ---
cc: ROSEMARY MOSES DPM DATE OF CONSULTATION 02/13/17 TIME OF CONSULTATION 18:30 DATE OF 1935 REASON FOR PODIATRIC RELATED CONSULTATION Left second digit infection. HISTORY OF PRESENT ILLNESS The patient is an 81-year-old male with a history of prostate cancer status post XRT presented 1 day with nausea, vomiting, abdominal pain, leukocytosis. The reason for podiatric related consultation was left second digit infection. The patient notes that his toenail was loose, then he ___avulsed. No pain at the digit. REVIEW OF SYSTEMS Poor historian. ALLERGIES TO MEDICATIONS 1. KEFLEX. 2. PLAVIX. 3. SULFA. PAST MEDICAL HISTORY Hyperthyroidism, hypertension, CVA, CAD, DM, AF, hyperlipidemia, COPD, gastroesophageal reflux disease, DJD, prostate cancer. PAST SURGICAL HISTORY Tonsillectomy, CABG, coronary stents, left hip replacement, left eye surgery. MEDICATIONS Per EMR. FAMILY HISTORY Family history noncontributory. SOCIAL HISTORY Very remote EtOH, tobacco greater than 40 years. Denies alcohol, illicit drugs. PHYSICAL EXAMINATION DIRECTED EXAMINATION: DP and PT on the left foot is palpable. There is no erythema. The left second digit nail bed is well granulated. No erythema, no drainage. No acute sign of infection. There is no pain on palpation. No pain with range of motion. ASSESSMENT/PLAN 1. Diabetes. 2. Left second digit status post __ avulsion nail plate. There is no contributing infection to the left foot and to his WBC. There is no acute sign of infection. The nail bed is well granular, it is dry. My expectation is that a nail will populate itself in about 3-4 months. There is no additional treatment that is needed at this point in time. The patient continue activity as tolerated regarding left foot. Rosemary Moses DPM SR/EO /9:18 PM /9:54 PM
[2017-02-14] VITALS: BP 129/60; PULSE 72; RESP 18; TEMP 97.9; O2SAT 95
[2017-02-14] MEDS: LEVOFLOXACIN 750 MG PREMIX INJ 150 ML IV SCH (01:16)
[2017-02-14] MEDS: SODIUM CHLORIDE 0.9% FLUSH 10 ML FLUSH IV FLUSH PRN ×2 (01:16→06:20)
[2017-02-14] MEDS: AZTREONAM INJ 2,000 MG in SODIUM CHLORIDE 0.9% INJ 100 ML IV SCH ×4 (01:25→20:27)
[2017-02-14] MEDS: ACETAMINOPHEN/HYDROcodone 325 MG/5 MG TAB PO PRN ×4 (01:30→18:19)
[2017-02-14 05:43] LABS: AUTOMATED NEUTROPHIL # 6.8 TH/MM3 (1.8-7.7); BASOPHIL % 0.2 % (0.0-2.0); EOSINOPHIL # 0.2 TH/MM3 (0-0.4); EOSINOPHIL % 1.2 % (0.0-4.0); LYMPH % 32.1 % (9.0-44.0); LYMPHOCYTE # 4.3 TH/MM3 (1.0-4.8); MEAN CELL VOLUME 92.5 FL (80.0-100.0); MEAN CORPUSCULAR HEMOGLOBIN 29.7 PG (27.0-34.0); MEAN CORPUSCULAR HGB CONC 32.2 % (32.0-36.0); NEUT % 50.5 % (16.0-70.0); PLATELET COUNT 122 TH/MM3 (150-450); WHITE BLOOD COUNT 13.5 TH/MM3 (4.0-11.0)
[2017-02-14 05:52] LABS: HEMO FLAGS AUTO DIFF
[2017-02-14] MEDS: LEVOTHYROXINE SODIUM 50 MCG TAB PO SCH (06:19)
[2017-02-14] MEDS: ISOSORBIDE MONONITRATE 30 MG TAB PO SCH (06:19)
[2017-02-14] MEDS: metroNIDAZOLE 500 MG INJ 100 ML IV SCH ×3 (06:20→20:29)
[2017-02-14 08:00] VITALS: BP 118/58; PULSE 76; RESP 16; TEMP 96.1; O2SAT 96
[2017-02-14 09:11] LABS: BANDS 8 % (0-6); EOSINOPHILS 1 % (0-4); NEUTROPHIL # MANUAL DIFF 6.9 TH/MM3 (1.8-7.7); PLATELET ESTIMATE SMEAR LOW (NORMAL); PLATELET MORPHOLOGY NORMAL (NORMAL); POLYS (SEG NEUTROPHILS) 43 % (16-70); SMUDGE CELLS PRESENT PRESENT; WBC DIFF SAMPLE 100
[2017-02-14 09:12] LABS: SCAN/DIFF FINAL DIFF MANUAL
[2017-02-14] MEDS ORDERED: SINCALIDE 5 MCG/5 ML VIAL IV PUSH ONE (09:32)
--- NOTE | 2017-02-14 10:04 | HHI.PR ---
Addendum to Inpatient Note Additional Information Attempted to see the pt Pt is in HIDA scan judith RN and Dr Wong pt is afebrile cont current abx will see pt tomorrow Yael Turner MD Feb 14, 2017 10:04
[2017-02-14] MEDS: HEPARIN SODIUM - SQ 10,000 UNITS/ML VIAL SQ SCH ×2 (10:28→20:29)
[2017-02-14] MEDS: METOPROLOL TARTRATE 100 MG TAB PO SCH (10:29)
[2017-02-14] MEDS: SERTRALINE HCL 100 MG TAB PO SCH (10:29)
[2017-02-14] MEDS: ASPIRIN EC 81 MG TABEC PO SCH (10:29)
[2017-02-14] MEDS: LOSARTAN 50 MG TAB PO SCH (10:29)
[2017-02-14] MEDS: HYDROCHLOROTHIAZIDE 25 MG TAB PO SCH (10:29)
[2017-02-14] MEDS: ALLOPURINOL 300 MG TAB PO SCH (10:29)
[2017-02-14] MEDS: SODIUM CHLORIDE 0.9% FLUSH 10 ML FLUSH IV FLUSH SCH ×2 (10:30→20:28)
[2017-02-14 12:00] VITALS: BP 116/58; PULSE 68; RESP 18; TEMP 96.7; O2SAT 95
--- NOTE | 2017-02-14 12:54 | RADRPT ---
EXAM DATE/TIME: 02/14/2017 08:18 [facility] COMPARISON: No previous studies available for comparison. INDICATIONS : Abdominal pain, nausea and vomiting. MRCP exam demonstrated a filling defect in the distal common roseann e duct consistent with potential choledocholithiasis. DOSE: 4.1 mCi Tc99m Mebrofenin IV MEDICATION: 2.2 mcg Cholecystokinin IV; No symptomatic response. Cholecystokinin was administered by slow infusion over 8 minutes beginning at 60 minutes. MEDICAL HISTORY : Myocardial infarction. Cardiovascular disease Carcinoma, prostate. SURGICAL HISTORY : CABG Coronary artery stent. ENCOUNTER: Initial ACUITY: 1 day PAIN SCALE: 1/10 LOCATION: Right upper quadrant TECHNIQUE: Following the intravenous administration of radiotracer, dynamic sequential image were performed with continuous acquisition. Time-activity curves were generated. FINDINGS: HEPATIIC KINETICS: There is prompt uptake of radiotracer in the liver. No focal defects are seen. There is normal rate of washout from the hepatic parenchyma. BILIARY CLEARANCE: Activity is first seen in the extrahepatic biliary system at 15 minutes. There is normal excretion i nto the small bowel. GALLBLADDER: Activity is first seen in the gallbladder at 25 minutes. POST CHOLECYSTOKININ: After Cholecystokinin administration, there is delayed emptying of the gallbladder with a 25% ejectio n fraction. Common bile duct kinetics are normal and there is no evidence of biliary obstruction. BILIARY ENTERIC REFLUX: Minimal. CLINICAL: The patient was asymptomatic after Cholecystokinin administration. CONCLUSION: 1. Normal common bile duct kinetics without significant CBD obstruction. 2. Poor gallbladder contractility with 25% EF consistent with functional gallbladder disorder. Patien t was asymptomatic with CCK administration. Clint Medina MD on February 14, 2017 at 10:20 Board Certified Radiologist. This report was verified electronically.
--- NOTE | 2017-02-14 14:06 | HHI.PR ---
Subjective Subjective Notes Just back from HIDA scan No abdominal pain Objective Vitals/I&O Vital Signs Date Time Temp Pulse Resp B/P Pulse Ox O2 Delivery O2 Flow Rate FiO2 02/14/17 12:00 96.7 68 18 116/58 95 02/12/17 20:15 Nasal Cannula 2 Labs Laboratory Tests Test 02/14/17 03:53 White Blood Count 13.5 Red Blood Count 3.90 Hemoglobin 11.6 Hematocrit 36.0 Mean Corpuscular Volume 92.5 Mean Corpuscular Hemoglobin 29.7 Mean Corpuscular Hemoglobin 32.2 Concent Red Cell Distribution Width 13.0 Platelet Count 122 Mean Platelet Volume 8.4 Neutrophils (%) (Auto) 50.5 Lymphocytes (%) (Auto) 32.1 Monocytes (%) (Auto) 16.0 Eosinophils (%) (Auto) 1.2 Basophils (%) (Auto) 0.2 Neutrophils # (Auto) 6.8 Lymphocytes # (Auto) 4.3 Monocytes # (Auto) 2.2 Eosinophils # (Auto) 0.2 Basophils # (Auto) 0.0 CBC Comment AUTO DIFF Differential Total Cells 100 Counted Neutrophils % (Manual) 43 Band Neutrophils % 8 Lymphocytes % 39 Monocytes % 9 Eosinophils % 1 Neutrophils # (Manual) 6.9 Differential Comment FINAL DIFF MANUAL Smudge Cells PRESENT Platelet Estimate LOW Platelet Morphology Comment NORMAL Red Cell Morphology Comment NORMAL Date/Time Procedure Status Source Growth 02/12/17 17:30 Urine Culture - Final Complete Urine Catheterized Urine Escherichia Coli 02/12/17 17:05 Aerobic Blood Culture - Preliminary Resulted Blood Peripheral NO GROWTH IN 2 DAYS 02/12/17 17:05 Anaerobic Blood Culture - Preliminary Resulted Blood Peripheral NO GROWTH IN 2 DAYS Cardiovascular: Regular Lungs: Clear Abdomen: Non-distended, Non-tender Extremities: No edema A/P Assessment and Plan 81 year old male with malaise; abnormal gallbladder -Labs reviewed -Would recommend ERCP -CARLY -No operative plans for laparoscopic cholecystectomy Xochitl Franks Feb 14, 2017 14:05
--- NOTE | 2017-02-14 14:14 | HHI.PR ---
Subjective Remarks Follow-up for abdominal pain and infection Patient just Back from a HIDA scan. He denies any abdominal pain, nausea vomiting. Patient remains afebrile. He stated that he hit his left knee yesterday against the bed and started to have pain. She and is icing at the moment. Patient also complained of lower back pain after getting multiple imaging study. He stated that he feels like the bed worsened his back pain. Otherwise denies any lower extremity weakness or any urinary or fecal incontinence. Patient also complained of a chronic cough. He says sometimes he has clear mucus and sometimes he doesn't. He thinks he feels congested. Patient also asking medication for insomnia. Objective Vitals Vital Signs Date Time Temp Pulse Resp B/P Pulse Ox O2 Delivery O2 Flow Rate FiO2 02/14/17 12:00 96.7 68 18 116/58 95 02/14/17 08:00 96.1 76 16 118/58 96 02/14/17 00:00 97.9 72 18 129/60 95 02/13/17 20:00 69 02/13/17 20:00 97.2 75 18 122/59 97 I/O 02/13/17 02/13/17 02/13/17 02/14/17 02/14/17 02/14/17 07:00 15:00 23:00 07:00 15:00 23:00 Intake Total 150 ml 120 ml 240 ml 240 ml Output Total 575 ml 450 ml Balance 150 ml -455 ml 240 ml -210 ml Intake Oral 120 ml 240 ml 240 ml IV Total 150 ml Output Urine Total 575 ml 450 ml # Voids 1 # Bowel Movements 0 1 Result Diagram: 02/14/17 0353 02/13/17 0353 Imaging Last Impressions Hepatobiliary Scan Nuclear Medicine 02/14/17 0000 Signed Impressions: Service Date/Time: February 08:18 - CONCLUSION: 1. Normal common bile duct kinetics without significant CBD obstruction. 2. Poor gallbladder contractility with 25%% EF consistent with functional gallbladder disorder. Patient was asymptomatic with CCK administration. Clint Medina MD Foot X-Ray 02/13/17 0000 Signed Impressions: Service Date/Time: Monday, February 13, 2017 09:11 - CONCLUSION: 1. No acute fracture or joint dislocation. 2. Primary degenerative type changes. 3. PVD. Jeremiah J. Siragusa, MD Cholangiopancreatography MRI 02/13/17 Signed Impressions: Service Date/Time: Monday, February 13, 2017 16:03 - CONCLUSION: 1. There is dilatation the common bile duct at approximately 9 mm. 2. There appears to be a filling defect within the mid common bile duct. This is suspicious for a common bile duct stone. 3. No definite gallstones are seen in the gallbladder. 4. Bilateral renal cysts. Jeremiah Singh MD Chest CT 02/13/17 Signed Impressions: Service Date/Time: Monday, February 13, 2017 08:59 - CONCLUSION: Negative for acute process. Tano Ames MD FACR Carotid Artery Ultrasound 02/13/17 Signed Impressions: Service Date/Time: Monday, February 13, 2017 09:19 - CONCLUSION: No evidence of hemodynamically significant lesion. Ron Garcia MD Chest X-Ray [id number] Signed Impressions: Service Date/Time: Sunday, February 12, 2017 17:05 - CONCLUSION: Mild atelectasis or consolidation at the right medial base. Memo Washburn MD Abdomen/Pelvis CT [id number] Signed Impressions: Service Date/Time: Sunday, February 12, 2017 17:55 - CONCLUSION: 1. No acute findings with an abdomen and pelvic CT. Stable rim calcified lower pole right renal cyst with nonobstructing renal calcifications. Colonic diverticula. Previous left hip replacement. Mild fatty liver. Advanced osteoarthritis right hip. Chris Palafox MD Gall Bladder Ultrasound 02/12/17 Signed Impressions: Service Date/Time: Sunday, February 12, 2017 19:39 - CONCLUSION: 1. Distended gallbladder and common bile duct. There is a questionable filling defect in the distal common bile duct on the CT examination. Gallstones are not seen. 2. Right renal cyst and a nonobstructing right renal stone. 3. Hepatic steatosis. Memo Washburn MD Objective Remarks GENERAL: in NAD SKIN: Warm and dry. HEAD: Normocephalic. EYES: No scleral icterus. No injection or drainage. NECK: Supple, trachea midline. No JVD or lymphadenopathy. CARDIOVASCULAR: Regular rate and rhythm without murmurs, gallops, or rubs. RESPIRATORY: Breath sounds equal bilaterally. No accessory muscle use. GASTROINTESTINAL: Abdomen soft, non-tender, nondistended. MUSCULOSKELETAL: No cyanosis, or edema. BACK: Nontender without obvious deformity. No CVA tenderness. Medications and IVs Current Medications Acetaminophen 650 mg 650 mg ONCE ONCE RECTAL ; Start 02/12/17 at 17:00; Stop 02/12/17 at 17:08; Status DC Vancomycin HCl 1000 mg/Sodium Chloride 250 ml @ 250 mls/hr ONCE STAT IV Last administered on 02/12/17 17:23; Start 02/12/17 at 17:00; Stop 02/12/17 at 17:59; Status DC Piperacillin Sod/ Tazobactam Sod 100 ml @ 200 mls/hr ONCE STAT IV Last administered on 02/12/17 17:23; Start 02/12/17 at 17:00; Stop 02/12/17 at 17:29; Status DC Sodium Chloride (NS 1000 ml Inj) 1,000 ml @ 999 mls/hr BOLUS ONCE IV Last administered on 02/12/17 17:24; Start 02/12/17 at 17:15; Stop 02/12/17 at 18:15; Status DC Acetaminophen (Tylenol Supp) 650 mg ONCE ONCE RECTAL Last administered on 17:24; Start 02/12/17 at 17:15; Stop 02/12/17 at 17:16; Status DC Iohexol 95 ml 95 ml STK-MED ONCE IV Last administered on 02/12/17 18:00; Start 02/12/17 at 18:00; Stop 02/12/17 at 18:01; Status DC Sodium Chloride (NS 1000 ml Inj) 1,000 ml @ 999 mls/hr BOLUS ONCE IV Last administered on 02/12/17 18:45; Start 02/12/17 at 18:45; Stop 02/12/17 at 19:45; Status DC Sodium Chloride (NS Flush) 2 ml UNSCH PRN IV FLUSH FLUSH AFTER USING IV ACCESS Last administered on 02/14/17 06:20; Start 02/12/17 at 19:45 Sodium Chloride (NS Flush) 2 ml BID IV FLUSH Last administered on 02/14/17 10: 30; Start 02/12/17 at 21:00 Acetaminophen (Tylenol) 650 mg Q4H PRN PO TEMP > 100.4 Last administered on 02/12 23:30; Start 02/12/17 at 19:45 Ondansetron HCl (Zofran Inj) 4 mg Q6H PRN IVP NAUSEA OR VOMITING; Start at 19:45 Heparin Sodium (Porcine) (Heparin Inj) 5,000 units Q12H SQ Last administered on 02/14/17 10:28; Start 02/12/17 at 23:00 Naloxone HCl (Narcan Inj) 0.4 mg UNSCH PRN IV SEE LABEL COMMENTS; Start at 19:45 Magnesium Hydroxide (Milk Of Magnesia Liq) 30 ml Q12H PRN PO MILD - MODERATE CONSTIPATION; Start 02/12/17 at 19:45 Sennosides (Senokot) 17.2 mg Q12H PRN PO NAUSEA OR VOMITING; Start 02/12/17 at 19:45 Temazepam 7.5 mg 7.5 mg ONCE ONCE PO Last administered on 02/13/17 01:33; Start 02/13/17 at 01:00; Stop 02/13/17 at 01:01; Status DC Levofloxacin/ Dextrose (Levaquin 750 Mg Premix Inj) 150 ml @ 100 mls/hr Q24H IV Last administered on 02/14/17 01:16; Start 02/13/17 at 02:00 Allopurinol (Zyloprim) 300 mg DAILY PO Last administered on 02/14/17 10:29; Start 02/13/17 at 09:00 Aspirin (Ecotrin Ec) 81 mg DAILY PO Last administered on 02/14/17 10:29; Start 02/13/17 at 09:00 Atorvastatin Calcium (Lipitor) 20 mg HS PO Last administered on 02/13/17 19:56 ; Start 02/13/17 at 21:00 Hydrochlorothiazide (Hydrodiuril) 25 mg DAILY PO Last administered on 02/14/17 10:29; Start 02/13/17 at 09:00 Isosorbide Mononitrate (Imdur) 30 mg DAILY@0700 PO Last administered on 06:19; Start 02/13/17 at 07:00 Levothyroxine Sodium (Synthroid) 50 mcg DAILY@0600 PO Last administered on 06:19; Start 02/13/17 at 06:00 Losartan Potassium (Cozaar) 50 mg DAILY PO Last administered on 02/14/17 10:29 ; Start 02/13/17 at 09:00 Metoprolol Tartrate (Lopressor) 100 mg DAILY PO Last administered on 02/14/17 10:29; Start 02/13/17 at 09:00 Sertraline HCl (Zoloft) 100 mg DAILY PO Last administered on 02/14/17 10:29; Start 02/13/17 at 09:00 Patient Own Medication PT OWN [email or web address]... DAILY INH ; Start 02/13/17 at 09:00; Status Hold Metronidazole (Flagyl 500 Mg Inj) 100 ml @ 100 mls/hr Q8H IV Last administered on 02/14/17 13:56; Start 02/13/17 at 14:00 Acetaminophen/ Hydrocodone Bitart 1 tab 1 tab Q4H PRN PO PAIN SCALE 1 TO 7 Last administered on 02/14/17 10:28; Start 02/13/17 at 18:30 Aztreonam/Sodium Chloride (Azactam Inj/NS Inj) 100 ml @ 200 mls/hr Q6H IV Last administered on 02/14/17 10:37; Start 02/13/17 at 21:00 Sincalide (Kinevac Inj) 2.2 mcg STK-MED ONCE IV PUSH Last administered on 09:32; Start 02/14/17 at 09:32; Stop 02/14/17 at 09:33; Status DC A/P Problem List: (1) UTI (urinary tract infection) ICD Code: N39.0 Status: Acute (2) Hypothyroidism ICD Code: E03.9 Status: Chronic (3) Fatigue ICD Code: R53.83 Status: Acute (4) Shortness of breath ICD Code: R06.02 Status: Acute (5) Carotid bruit ICD Code: R09.89 Status: Acute (6) Traumatic loss of toenail ICD Code: S91.203A Status: Acute Assessment and Plan Mr. Molina is an 81 y/o male with a history of CAD and DM who presented to the ER for evaluation of body aches, weakness, nausea with vomiting, and productive cough Sepsis - - multifactorial - Urinary Tract Infection + GB pathology - Acute cholecystitis - leukocytosis - WBC 23.6. LFTs normal. Leukocytosis is improving. - Lactic acid 2.1 on admission, 1.2 on repeat - Levaquin 750 mg IV every 24 hours + IV Flagyl - UA suggest UTI. - CT some renal cyst no hydronephrosis no obstruction - HIDA scan showed poor gallbladder contractility. General surgeon recommend ERCP. GI is following. He is asymptomatic. Shortness of breath with fatigue, loss of appetite -Today patient seems to be complaining more of cough. - Pending echo. - CXR with small consolidation vs atelectasis - order for Incentive spirometry hourly- patient no complains of cough - chest CT - - negative for any acute process - monitor I and O - BNP on admission normal at 61 - continuous cardiac telemetry to monitor for cardiac arrhythmias -Will give Tessalon Perles. Carotid bruit bilateral - followed by Dr. 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 DVT prophylaxis - Heparin 5000 units subq q24h Problem Qualifiers (1) UTI (urinary tract infection): Qualified Code: N39.0 - Urinary tract infection with hematuria, site unspecified Abeab Wong MD Feb 14, 2017 14:14
[2017-02-14] MEDS ORDERED: TEMAZEPAM 7.5 MG CAP PO PRN (14:15)
--- NOTE | 2017-02-14 15:52 | HHI.GIFU ---
Subjective Remarks Resting in bed. States he is sick of the clear liquid diet, would like diet advanced. No n/v. Does have some epigastric/ruq/luq discomfort- mild. Dr. Lovett reviewed MRCP with radiology- has common bile duct stone. Objective Vitals I&O Vital Signs Date Time Temp Pulse Resp B/P Pulse Ox O2 Delivery O2 Flow Rate FiO2 02/14/17 12:00 96.7 68 18 116/58 95 02/14/17 08:00 96.1 76 16 118/58 96 02/14/17 00:00 97.9 72 18 129/60 95 02/13/17 20:00 69 02/13/17 20:00 97.2 75 18 122/59 97 I/O 02/13/17 02/13/17 02/13/17 02/14/17 02/14/17 02/14/17 07:00 15:00 23:00 07:00 15:00 23:00 Intake Total 150 ml 120 ml 240 ml 240 ml 240 ml Output Total 575 ml 450 ml 300 ml Balance 150 ml -455 ml 240 ml -210 ml -60 ml Intake Oral 120 ml 240 ml 240 ml 240 ml IV Total 150 ml Output Urine Total 575 ml 450 ml 300 ml # Voids 1 # Bowel Movements 0 1 0 Laboratory Laboratory Tests Test 02/14/17 03:53 White Blood Count 13.5 Red Blood Count 3.90 Hemoglobin 11.6 Hematocrit 36.0 Mean Corpuscular Volume 92.5 Mean Corpuscular Hemoglobin 29.7 Mean Corpuscular Hemoglobin 32.2 Concent Red Cell Distribution Width 13.0 Platelet Count 122 Mean Platelet Volume 8.4 Neutrophils (%) (Auto) 50.5 Lymphocytes (%) (Auto) 32.1 Monocytes (%) (Auto) 16.0 Eosinophils (%) (Auto) 1.2 Basophils (%) (Auto) 0.2 Neutrophils # (Auto) 6.8 Lymphocytes # (Auto) 4.3 Monocytes # (Auto) 2.2 Eosinophils # (Auto) 0.2 Basophils # (Auto) 0.0 CBC Comment AUTO DIFF Differential Total Cells 100 Counted Neutrophils % (Manual) 43 Band Neutrophils % 8 Lymphocytes % 39 Monocytes % 9 Eosinophils % 1 Neutrophils # (Manual) 6.9 Differential Comment FINAL DIFF MANUAL Smudge Cells PRESENT Platelet Estimate LOW Platelet Morphology Comment NORMAL Red Cell Morphology Comment NORMAL Date/Time Procedure Status Source Growth 02/12/17 17:30 Urine Culture - Final Complete Urine Catheterized Urine Escherichia Coli 02/12/17 17:05 Aerobic Blood Culture - Preliminary Resulted Blood Peripheral NO GROWTH IN 2 DAYS 02/12/17 17:05 Anaerobic Blood Culture - Preliminary Resulted Blood Peripheral NO GROWTH IN 2 DAYS Imaging Last Impressions Hepatobiliary Scan Nuclear Medicine 02/14/17 0000 Signed Impressions: Service Date/Time: February 08:18 - CONCLUSION: 1. Normal common bile duct kinetics without significant CBD obstruction. 2. Poor gallbladder contractility with 25%% EF consistent with functional gallbladder disorder. Patient was asymptomatic with CCK administration. Clint Medina MD Foot X-Ray 02/13/17 0000 Signed Impressions: Service Date/Time: Monday, February 13, 2017 09:11 - CONCLUSION: 1. No acute fracture or joint dislocation. 2. Primary degenerative type changes. 3. PVD. Jeremiah Singh MD Cholangiopancreatography MRI 02/13/17 0000 Signed Impressions: Service Date/Time: Monday, February 13, 2017 16:03 - CONCLUSION: 1. There is dilatation the common bile duct at approximately 9 mm. 2. There appears to be a filling defect within the mid common bile duct. This is suspicious for a common bile duct stone. 3. No definite gallstones are seen in the gallbladder. 4. Bilateral renal cysts. Jeremiah Singh MD Chest CT 02/13/17 0000 Signed Impressions: Service Date/Time: Monday, February 13, 2017 08:59 - CONCLUSION: Negative for acute process. Tano Ames MD FACR Carotid Artery Ultrasound 02/13/17 0000 Signed Impressions: Service Date/Time: Monday, February 13, 2017 09:19 - CONCLUSION: No evidence of hemodynamically significant lesion. Ron Garcia MD Chest X-Ray 02/12/17 1700 Signed Impressions: Service Date/Time: Sunday, February 12, 2017 17:05 - CONCLUSION: Mild atelectasis or consolidation at the right medial base. Memo Washburn MD Abdomen/Pelvis CT 02/12/17 1700 Signed Impressions: Service Date/Time: Sunday, February 12, 2017 17:55 - CONCLUSION: 1. No acute findings with an abdomen and pelvic CT. Stable rim calcified lower pole right renal cyst with nonobstructing renal calcifications. Colonic diverticula. Previous left hip replacement. Mild fatty liver. Advanced osteoarthritis right hip. Chris Palafox MD Gall Bladder Ultrasound 02/12/17 0000 Signed Impressions: Service Date/Time: Sunday, February 12, 2017 19:39 - CONCLUSION: 1. Distended gallbladder and common bile duct. There is a questionable filling defect in the distal common bile duct on the CT examination. Gallstones are not seen. 2. Right renal cyst and a nonobstructing right renal stone. 3. Hepatic steatosis. Memo Washburn MD Physical Exam HEENT: Normocephalic; atraumatic; no jaundice. CHEST: CTA CARDIAC: RRR ABDOMEN: Soft, nondistended, mild RUQ/LUQ/epigastric discomfort; no hepatosplenomegaly; bowel sounds are present in all four quadrants. EXTREMITIES: No clubbing, cyanosis, or edema. SKIN: Normal; no rash; no jaundice. MEDICAL ADVISOR: No focal deficits; alert and oriented times three. Assessment and Plan Plan ASSESSMENT: - RUQ tenderness, N/V with decreased appetite/fever/chills with abnormal imaging of the biliary tract. Pt has had intermittent symptoms x 6 months. He does not know if he has lost weight. CT scan abdomen and pelvis (02/10/17)-----> right lower quadrant hematoma involving the iliac is musculature extending inferiorly to the hip as well as adjacent to hematoma along the superior margin. This is best appreciated on coronal images, small amount of ascites and body wall edema, bilateral pleural effusions, right greater than left with basilar atelectasis and airspace disease, cholelithiasis. Gallbladder ultrasound (02/12/17)----> 1. Distended gallbladder and common bile duct. There is a questionable filling defect in the distal common bile duct on the CT examination. Gallstones are not seen. 2. Right renal cyst and a nonobstructing right renal stone. 3. Hepatic steatosis. He denies any known history of gallbladder issues or pancreatitis in the past. No ETOH use. He does not drink any alcohol. MRCP (02/13/17)------> 1. There is dilatation the common bile duct at approximately 9 mm. 2. There appears to be a filling defect within the mid common bile duct. This is suspicious for a common bile duct stone. 3. No definite gallstones are seen in the gallbladder. 4. Bilateral renal cysts. HIDA (02/14/17)----> 1. Normal common bile duct kinetics without significant CBD obstruction. 2. Poor gallbladder contractility with 25%% EF consistent with functional gallbladder disorder. Patient was asymptomatic with CCK administration. MRCP reviewed by Dr. Lovett/radiology, does have CBD stone. LFT stable, within normal limit. Plan for ERCP tomorrow- d/w patient procedure, risks, benefits and he is agreeable. Azactam, levaquin. - Dilated CBD with distended GB. CT report mentions cholelithiasis, US with distended gb and cbd, a notes questionable filling defect in the distal common bile duct on the CT examination. LFT were normal on exam. Will recheck LFT and get MRCP. - Leukocytosis, fevers, chills. WBC 13.5. U/A abnormal, urine cx pending. Bcx pending. Questionable biliary obstruction noted as above. MRCP with CBD stone. Will plan for ERCP tomorrow. On levaquin, azactam. - UTI, E.coli. Levaquin, Azactam. - CAD, Hx CVA, DM, Hypothyroidism, HTN, DM, Atrial fibrillation, Hyperlipidemia , COPD per attending. PLAN: - Plan for ERCP with possible sphincterotomy, possible stent placement- d/w patient procedure, risks, benefits and he would like to proceed. - Obtain consents - NPO after MN - Can have heart healthy diet today (diabetic) - Hold heparin after MN - Cont. Levaquin, Azactam - PPI - Monitor labs - Supportive care - Further recommendations to follow based on results of above - Pt seen and examined by Dr. Lovett and myself and this note is written on his behalf Krystina Crump Feb 14, 2017 15:52
[2017-02-14 16:00] VITALS: BP 122/60; PULSE 68; RESP 17; TEMP 96.3; O2SAT 99
[2017-02-14] MEDS: BENZONATATE 100 MG CAP PO PRN ×2 (16:16→16:36)
[2017-02-14] MEDS: LIDOCAINE HCL 5% PATCH T-DERMAL SCH (16:36)
--- NOTE | 2017-02-14 18:55 | ECHRPT ---
Indication: LVEF, ?VALVES CONCLUSIONS Normal left ventricular size. The left ventricular systolic function is hyperdynamic with an estimated ejection fraction in the ra nge of 65- 70%. No regional wall motion abnormalities are present. Left ventricular diastolic function parameters are normal. . There is trace tricuspid valve regurgitation. Normal estimated pulmonary pressures. BP: 169 / 70 HR: 88 Rhythm: Atrial fibrillation MEASUREMENTS (Male / Female) Normal Values Technical Quality:Fair 2D ECHO LV Diastolic Diameter PLAX 4.8 cm 4.2 - 5.9 / 3.9 - 5.3 cm LV Systolic Diameter PLAX 3.1 cm IVS Diastolic Thickness 1.1 cm 0.6 - 1.0 / 0.6 - 0.9 cm LVPW Diastolic Thickness 1.1 cm 0.6 - 1.0 / 0.6 - 0.9 cm LV Relative Wall Thickness 0.4 RV Internal Dim ED PLAX 3.5 cm LVOT Diameter 1.9 cm Aortic Root Diameter 3.3 cm LA Systolic Diameter LX 3.4 cm 3.0 - 4.0 / 2.7 - 3.8 cm M-MODE AV Cusp Separation MM 2.0 cm DOPPLER AV Peak Velocity 105.0 cm/s AV Peak Gradient 4.4 mmHg AV Mean Gradient 3.0 mmHg AV Velocity Time Integral 23.1 cm LVOT Peak Velocity 85.0 cm/s LVOT Peak Gradient 2.9 mmHg LVOT Velocity Time Integral 17.3 cm LVOT Cardiac Index 1811.3 cm/minm AV Area Cont Eq vti 2.1 cm AV Area Cont Eq pk 2.3 cm Mitral E Point Velocity 74.5 cm/s Mitral A Point Velocity 59.2 cm/s Mitral E to A Ratio 1.3 LV E' Lateral Velocity 10.7 cm/s Mitral E to LV E' Lateral Ratio 7.0 LV E' Septal Velocity 7.1 cm/s Mitral E to LV E' Septal Ratio 10.5 TR Peak Velocity 238.0 cm/s TR Peak Gradient 22.7 mmHg PV Peak Velocity 36.8 cm/s PV Peak Gradient 0.5 mmHg FINDINGS LEFT VENTRICLE Normal left ventricular size. Mild concentric left ventricular hypertrophy. The left ventricular systolic function is hyperdynamic with an estimated ejection fraction in the ra nge of 65- 70%. No regional wall motion abnormalities are present. Left ventricular diastolic function parameters are normal. . RIGHT VENTRICLE Normal right ventricular size and systolic function. LEFT ATRIUM The left atrial size is normal. RIGHT ATRIUM The right atrial size is normal. ATRIAL SEPTUM Normal atrial septal thickness without atrial level shunting by limited color doppler interrogation. AORTA The aortic root and proximal ascending aorta are normal in size on limited imaging. MITRAL VALVE Structurally normal mitral valve. No mitral valve stenosis or regurgitation. AORTIC VALVE Trileaflet aortic valve. No aortic valve stenosis or regurgitation. TRICUSPID VALVE Structurally normal tricuspid valve. There is trace tricuspid valve regurgitation. Normal estimated pulmonary pressures. PULMONARY VALVE The pulmonary valve is not well visualized. VESSELS The inferior vena cava is normal in size. PERICARDIUM No pericardial effusion. Hunter Gonzalez MD (Electronically Signed) Final Date:14 February 2017 18:53
[2017-02-14 19:59] VITALS: PULSE 58
[2017-02-14 20:00] VITALS: BP 137/63; PULSE 66; RESP 20; TEMP 97.1; O2SAT 99
[2017-02-14] MEDS: ATORVASTATIN 20 MG TAB PO SCH (20:28)
[2017-02-14] MEDS ORDERED: POVIDONE IODINE 5% (ANTISEPSIS KIT) 4 APPLICATIONS EACH NARE PRN (23:00)
[2017-02-14] MEDS ORDERED: INSULIN HUMAN REGULAR 1,000 UNITS/10 ML VIAL SQ PRN (23:00)
[2017-02-14] MEDS ORDERED: LACTATED RINGER'S 1000 ML IV PRN (23:00)
[2017-02-14] MEDS ORDERED: SODIUM CHLORID 0.9% 500 ML IV PRN (23:00)
[2017-02-14] MEDS ORDERED: METOPROLOL TARTRATE 25 MG TAB PO PRN (23:00)
[2017-02-14] MEDS ORDERED: CHLORHEXIDINE GLUCONATE 2 % 1 PACK (2 CLOTHS) TOPICAL PRN (23:00)
[2017-02-14] MEDS: DEXT 5%-NACL 0.45% 1000 ML INJ 1,000 ML IV SCH (23:26)
[2017-02-15] VITALS (8 sets, daily range): BP systolic 127–174; BP diastolic 60–74; PULSE 60–66; RESP 11–20; TEMP 96.2–97.5; O2SAT 95–97
[2017-02-15] MEDS: AZTREONAM INJ 2,000 MG in SODIUM CHLORIDE 0.9% INJ 100 ML IV SCH ×5 (02:05→20:26)
[2017-02-15] MEDS: LEVOFLOXACIN 750 MG PREMIX INJ 150 ML IV SCH (02:05)
[2017-02-15] MEDS: LEVOTHYROXINE SODIUM 50 MCG TAB PO SCH (04:44)
[2017-02-15] MEDS: metroNIDAZOLE 500 MG INJ 100 ML IV SCH (04:44)
[2017-02-15] MEDS: ISOSORBIDE MONONITRATE 30 MG TAB PO SCH (05:28)
[2017-02-15 05:41] LABS: HEMATOCRIT 35.3 % (39.0-51.0); MEAN CELL VOLUME 92.7 FL (80.0-100.0); MEAN CORPUSCULAR HGB CONC 32.3 % (32.0-36.0); PLATELET COUNT 146 TH/MM3 (150-450); RED CELL DISTRIBUTION WIDTH 13.1 % (11.6-17.2); REVIEW FLAG FINAL; WHITE BLOOD COUNT 9.7 TH/MM3 (4.0-11.0)
[2017-02-15 05:59] LABS: BICARBONATE 30.1 MEQ/L (21.0-32.0); POTASSIUM 3.6 MEQ/L (3.5-5.1)
[2017-02-15] MEDS: SERTRALINE HCL 100 MG TAB PO SCH (08:18)
[2017-02-15] MEDS: ALLOPURINOL 300 MG TAB PO SCH (08:18)
[2017-02-15] MEDS: LOSARTAN 50 MG TAB PO SCH (08:18)
[2017-02-15] MEDS: HYDROCHLOROTHIAZIDE 25 MG TAB PO SCH (08:18)
[2017-02-15] MEDS: ASPIRIN EC 81 MG TABEC PO SCH (08:18)
[2017-02-15] MEDS: METOPROLOL TARTRATE 100 MG TAB PO SCH (08:18)
[2017-02-15] MEDS: SODIUM CHLORIDE 0.9% FLUSH 10 ML FLUSH IV FLUSH SCH ×2 (08:19→20:26)
[2017-02-15] MEDS: LIDOCAINE HCL 5% PATCH T-DERMAL SCH (08:20)
[2017-02-15] MEDS: REMOVE OLD LIDOCAINE PATCH T-DERMAL SCH (08:20)
--- NOTE | 2017-02-15 10:24 | HHI.PR ---
Subjective Remarks Patient continued to complain of left knee pain. He stated that he feels worse. Patient also stated that Restoril did help with his insomnia but is asking for increased dosage. He said it only lasted for 2 hours. Denies any abdominal pain, nausea vomiting. Patient remains afebrile. Objective Vitals Vital Signs Date Time Temp Pulse Resp B/P Pulse Ox O2 Delivery O2 Flow Rate FiO2 02/15/17 08:00 96.6 64 11 127/60 96 02/15/17 04:00 97.2 65 20 147/67 97 02/15/17 00:00 97.2 62 20 143/66 96 02/14/17 20:00 97.1 66 20 137/63 99 02/14/17 19:59 58 02/14/17 16:00 96.3 68 17 122/60 99 02/14/17 12:00 96.7 68 18 116/58 95 I/O 02/14/17 02/14/17 02/14/17 02/15/17 02/15/17 02/15/17 07:00 15:00 23:00 07:00 15:00 23:00 Intake Total 240 ml 240 ml 1407 ml 492 ml Output Total 450 ml 300 ml 600 ml 700 ml Balance -210 ml -60 ml 807 ml -208 ml Intake Oral 240 ml 240 ml 240 ml 0 ml IV Total 1167 ml 492 ml Output Urine Total 450 ml 300 ml 600 ml 700 ml # Bowel Movements 0 Result Diagram: 02/15/17 0454 02/15/17 0454 Objective Remarks GENERAL: in NAD CARDIOVASCULAR: Regular rate and rhythm without murmurs, gallops, or rubs. RESPIRATORY: Breath sounds equal bilaterally. No accessory muscle use. GASTROINTESTINAL: Abdomen soft, non-tender, nondistended. MUSCULOSKELETAL: left knee no swelling noted. Pain with range of motion. No erythema the joint. BACK: Nontender without obvious deformity. No CVA tenderness. Medications and IVs Current Medications Acetaminophen 650 mg 650 mg ONCE ONCE RECTAL ; Start 02/12/17 at 17:00; Stop 02/12/17 at 17:08; Status DC Vancomycin HCl 1000 mg/Sodium Chloride 250 ml @ 250 mls/hr ONCE STAT IV Last administered on 02/12/17t 17:23; Start 02/12/17 at 17:00; Stop 02/12/17 at 17:59; Status DC Piperacillin Sod/ Tazobactam Sod 100 ml @ 200 mls/hr ONCE STAT IV Last administered on 02/12/17 17:23; Start 02/12/17 at 17:00; Stop 02/12/17 at 17:29; Status DC Sodium Chloride (NS 1000 ml Inj) 1,000 ml @ 999 mls/hr BOLUS ONCE IV Last administered on 02/12/17 17:24; Start 02/12/17 at 17:15; Stop 02/12/17 at 18:15; Status DC Acetaminophen (Tylenol Supp) 650 mg ONCE ONCE RECTAL Last administered on 17:24; Start 02/12/17 at 17:15; Stop 02/12/17 at 17:16; Status DC Iohexol 95 ml 95 ml STK-MED ONCE IV Last administered on 02/12/17 18:00; Start 02/12/17 at 18:00; Stop 02/12/17 at 18:01; Status DC Sodium Chloride (NS 1000 ml Inj) 1,000 ml @ 999 mls/hr BOLUS ONCE IV Last administered on 02/12/17 18:45; Start 02/12/17 at 18:45; Stop 02/12/17 at 19:45; Status DC Sodium Chloride (NS Flush) 2 ml UNSCH PRN IV FLUSH FLUSH AFTER USING IV ACCESS Last administered on 02/14/17 06:20; Start 02/12/17 at 19:45 Sodium Chloride (NS Flush) 2 ml BID IV FLUSH Last administered on 02/14/17 20: 28; Start 02/12/17 at 21:00 Acetaminophen (Tylenol) 650 mg Q4H PRN PO TEMP > 100.4 Last administered on 02/12 23:30; Start 02/12/17 at 19:45 Ondansetron HCl (Zofran Inj) 4 mg Q6H PRN IVP NAUSEA OR VOMITING; Start at 19:45 Heparin Sodium (Porcine) (Heparin Inj) 5,000 units Q12H SQ Last administered on 02/14/17 10:28; Start 02/12/17 at 23:00; Status Hold Naloxone HCl (Narcan Inj) 0.4 mg UNSCH PRN IV SEE LABEL COMMENTS; Start at 19:45 Magnesium Hydroxide (Milk Of Magnsoumya Liq) 30 ml Q12H PRN PO MILD - MODERATE CONSTIPATION; Start 02/12/17 at 19:45 Sennosides (Senokot) 17.2 mg Q12H PRN PO NAUSEA OR VOMITING; Start 02/12/17 at 19:45 Temazepam 7.5 mg 7.5 mg ONCE ONCE PO Last administered on 02/13/17 01:33; Start 02/13/17 at 01:00; Stop 02/13/17 at 01:01; Status DC Levofloxacin/ Dextrose (Levaquin 750 Mg Premix Inj) 150 ml @ 100 mls/hr Q24H IV Last administered on 02/15/17 02:05; Start 02/13/17 at 02:00 Allopurinol (Zyloprim) 300 mg DAILY PO Last administered on 02/15/17 08:18; Start 02/13/17 at 09:00 Aspirin (Ecotrin Ec) 81 mg DAILY PO Last administered on 02/15/17 08:18; Start 02/13/17 at 09:00 Atorvastatin Calcium (Lipitor) 20 mg HS PO Last administered on 02/14/17 20:28 ; Start 02/13/17 at 21:00 Hydrochlorothiazide (Hydrodiuril) 25 mg DAILY PO Last administered on 02/15/17 08:18; Start 02/13/17 at 09:00 Isosorbide Mononitrate (Imdur) 30 mg DAILY@0700 PO Last administered on 05:28; Start 02/13/17 at 07:00 Levothyroxine Sodium (Synthroid) 50 mcg DAILY@0600 PO Last administered on 04:44; Start 02/13/17 at 06:00 Losartan Potassium (Cozaar) 50 mg DAILY PO Last administered on 02/15/17 08:18 ; Start 02/13/17 at 09:00 Metoprolol Tartrate (Lopressor) 100 mg DAILY PO Last administered on 02/15/17 08:18; Start 02/13/17 at 09:00 Sertraline HCl (Zoloft) 100 mg DAILY PO Last administered on 02/15/17 08:18; Start 02/13/17 at 09:00 Patient Own Medication PT [facility]WN [facility] D... DAILY INH ; Start 02/13/17 at 09:00; Status Hold Metronidazole (Flagyl 500 Mg Inj) 100 ml @ 100 mls/hr Q8H IV Last administered on 02/15/17 04:44; Start 02/13/17 at 14:00 Acetaminophen/ Hydrocodone Bitart 1 tab 1 tab Q4H PRN PO PAIN SCALE 1 TO 7 Last administered on 02/14/17 18:19; Start 02/13/17 at 18:30 Aztreonam/Sodium Chloride (Azactam Inj/NS Inj) 100 ml @ 200 mls/hr Q6H IV Last administered on 02/15/17 08:17; Start 02/13/17 at 21:00 Sincalide (Kinevac Inj) 2.2 mcg STK-MED ONCE IV PUSH Last administered on 09:32; Start 02/14/17 at 09:32; Stop 02/14/17 at 09:33; Status DC Benzonatate (Tessalon) 100 mg Q8H PRN PO COUGH Last administered on 02/14/17 16 :36; Start 02/14/17 at 14:15 Temazepam (Restoril) 7.5 mg HS PRN PO insomnia; Start 02/14/17 at 14:15 Lidocaine HCl (Lidoderm 5% Patch.12 Hr) 1 patch DAILY T-DERMAL Last administered on 02/15/17 08:20; Start 02/14/17 at 14:15 Miscellaneous Information 1 1 Q24H T-DERMAL Last administered on 02/15/17 08:20 ; Start 02/15/17 at 09:00 Lactated Ringer's 1,000 ml @ 30 mls/hr Q24H PRN IV SEE LABEL COMMENTS; Start at 23:00; Stop 02/17/17 at 22:59 Sodium Chloride (NS 500 ml Inj) 500 ml @ 30 mls/hr [id number] PRN IV SEE LABEL COMMENTS; Start 02/14/17 at 23:00; Stop 02/17/17 at 22:59 Metoprolol Tartrate (Lopressor) 25 mg BUCKET HOOKER PRN PO SEE LABEL COMMENTS; Start 02/14/17 at 23:00; Stop 02/17/17 at 22:59 Povidone Iodine (Betadine 5% Antisepsis Kit) 1 applic BUCKET HOOKER PRN EACH NARE SEE LABEL COMMENTS; Start 02/14/17 at 23:00; Stop 02/17/17 at 22:59 Chlorhexidine Gluconate (Chlorhexidine 2% Cloth) 3 pack BUCKET HOOKER PRN TOPICAL SEE LABEL COMMENTS; Start 02/14/17 at 23:00; Stop 02/17/17 at 22:59 Insulin Human Regular See Protocol Table ... BUCKET HOOKER PRN SQ SEE PROTOCOL TABLE ; Start 02/14/17 at 23:00; Stop 02/17/17 at 22:59 Dextrose/Sodium Chloride (D5W-1/2 NS 1000 ml Inj) 1,000 ml @ 42 mls/hr [id number] IV Last administered on 02/14/17t 23:26; Start 02/14/17 at 23:15 A/P Problem List: (1) UTI (urinary tract infection) ICD Code: N39.0 Status: Acute (2) Hypothyroidism ICD Code: E03.9 Status: Chronic (3) Fatigue ICD Code: R53.83 Status: Acute (4) Shortness of breath ICD Code: R06.02 Status: Acute (5) Carotid bruit ICD Code: R09.89 Status: Acute (6) Traumatic loss of toenail ICD Code: S91.203A Status: Acute Assessment and Plan Mr. Molina is an 81 y/o male with a history of CAD and DM who presented to the ER for evaluation of body aches, weakness, nausea with vomiting, and productive cough Sepsis -multifactorial - Urinary Tract Infection + GB pathology - Acute cholecystitis - leukocytosis resolved. - Lactic acid 2.1 on admission, 1.2 on repeat - on Levaquin 750 mg IV every 24 hours + IV Flagyl + aztreonam - UA suggest UTI. - CT some renal cyst no hydronephrosis no obstruction - HIDA scan showed poor gallbladder contractility. -Patient schedule for ERCP this morning. Cough -Seemed to resolve. - ECHO on 02/14 EF 65-70%. Otherwise echo was normal. - CXR with small consolidation vs atelectasis - on Incentive spirometry hourly- patient no complains of cough - chest CT - - negative for any acute process - monitor I and O - BNP on admission normal at 61 - continuous cardiac telemetry to monitor for cardiac arrhythmias -on Tessalon Perles. Carotid bruit bilateral - followed by Dr. Lester - patient states he is due for outpatient ultrasound - rept Bilateral carotid ultrasound - no significantly hemodynamic disease Hypothyroidism - - TSH- normal - continue home Synthroid left second toe with traumatic nail removal - x-ray left foot - negative -Staff Scientist's cleared patient. Left knee pain -Most likely secondary to osteoarthritis. Will get an x-ray. Continue with icing, elevation and rest. DVT prophylaxis - Heparin 5000 units subq q24h Discharge Planning Patient scheduled for ERCP today. Problem Qualifiers (1) UTI (urinary tract infection): Qualified Code: N39.0 - Urinary tract infection with hematuria, site unspecified Abeba Wong MD Feb 15, 2017 10:24
--- NOTE | 2017-02-15 11:28 | RADRPT ---
EXAM DATE/TIME: 02/15/2017 11:11 [facility] COMPARISON: No previous studies available for comparison. INDICATIONS : Left knee pain after bumping it. MEDICAL HISTORY : Carcinoma, prostate. Chronic obstructive pulmonary disease. SURGICAL HISTORY : CABG. ENCOUNTER: Initial ACUITY: 2 days PAIN SCORE: 8/10 LOCATION: Left Knee. FINDINGS: Four view examination of the left knee demonstrates no evidence of fracture or dislocation. Bony min eralization is normal. The articular surfaces are intact. There are some mild primary degenerative c hanges at the knee joint. No joint effusion is seen. The suprapatellar soft tissues have a normal con figuration. There are vascular calcifications in the soft tissues. CONCLUSION: Normal examination for a patient of this age. Jeremiah Singh MD on February 15, 2017 at 11:24 Board Certified Radiologist. This report was verified electronically.
--- NOTE | 2017-02-15 11:37 | HHI.IDPN ---
Subjective Subjective Remarks doing good HIDA negative for obstruction afebrile co LLE pain Antibiotics azactam levaquine Allergies: Coded Allergies: Keflex (Verified Allergy, Severe, 02/12/17) rash Plavix (Verified Allergy, Severe, 02/12/17) rash Sulfa (Verified Allergy, Severe, 02/12/17) rash Objective . Vital Signs Date Time Temp Pulse Resp B/P Pulse Ox O2 Delivery O2 Flow Rate FiO2 02/15/17 08:00 96.6 64 11 127/60 96 02/15/17 04:00 97.2 65 20 147/67 97 02/15/17 00:00 97.2 62 20 143/66 96 02/14/17 20:00 97.1 66 20 137/63 99 02/14/17 19:59 58 02/14/17 16:00 96.3 68 17 122/60 99 02/14/17 12:00 96.7 68 18 116/58 95 02/14/17 02/14/17 02/15/17 15:00 23:00 07:00 Intake Total 240 ml 1407 ml 492 ml Output Total 300 ml 600 ml 700 ml Balance -60 ml 807 ml -208 ml Intake Oral 240 ml 240 ml 0 ml IV Total 1167 ml 492 ml Output Urine Total 300 ml 600 ml 700 ml # Bowel Movements 0 . Laboratory Tests Test 02/14/17 02/15/17 03:53 04:54 White Blood Count 13.5 TH/MM3 9.7 TH/MM3 Red Blood Count 3.90 MIL/MM3 3.80 MIL/MM3 Hemoglobin 11.6 GM/DL 11.4 GM/DL Hematocrit 36.0 % 35.3 % Mean Corpuscular Volume 92.5 FL 92.7 FL Mean Corpuscular Hemoglobin 29.7 PG 30.0 PG Mean Corpuscular Hemoglobin 32.2 % 32.3 % Concent Red Cell Distribution Width 13.0 % 13.1 % Platelet Count 122 TH/MM3 146 TH/MM3 Mean Platelet Volume 8.4 FL 8.0 FL Neutrophils (%) (Auto) 50.5 % Lymphocytes (%) (Auto) 32.1 % Monocytes (%) (Auto) 16.0 % Eosinophils (%) (Auto) 1.2 % Basophils (%) (Auto) 0.2 % Neutrophils # (Auto) 6.8 TH/MM3 Lymphocytes # (Auto) 4.3 TH/MM3 Monocytes # (Auto) 2.2 TH/MM3 Eosinophils # (Auto) 0.2 TH/MM3 Basophils # (Auto) 0.0 TH/MM3 CBC Comment AUTO DIFF Differential Total Cells 100 Counted Neutrophils % (Manual) 43 % Band Neutrophils % 8 % Lymphocytes % 39 % Monocytes % 9 % Eosinophils % 1 % Neutrophils # (Manual) 6.9 TH/MM3 Differential Comment FINAL DIFF MANUAL Smudge Cells PRESENT Platelet Estimate LOW Platelet Morphology Comment NORMAL Red Cell Morphology Comment NORMAL Laboratory Tests Test 02/15/17 04:54 Sodium Level 140 MEQ/L Potassium Level 3.6 MEQ/L Chloride Level 104 MEQ/L Carbon Dioxide Level 30.1 MEQ/L Anion Gap 6 MEQ/L Blood Urea Nitrogen 22 MG/DL Creatinine 1.07 MG/DL Estimat Glomerular Filtration 66 ML/MIN Rate Random Glucose 120 MG/DL Calcium Level 8.6 MG/DL Microbiology Date/Time Procedure Status Source Growth 02/12/17 17:00 Aerobic Blood Culture - Preliminary Resulted Blood Peripheral NO GROWTH IN 3 DAYS 02/12/17 17:00 Anaerobic Blood Culture - Preliminary Resulted Blood Peripheral NO GROWTH IN 3 DAYS 02/12/17 17:05 Aerobic Blood Culture - Preliminary Resulted Blood Peripheral NO GROWTH IN 3 DAYS 02/12/17 17:05 Anaerobic Blood Culture - Preliminary Resulted Blood Peripheral NO GROWTH IN 3 DAYS 02/12/17 17:30 Urine Culture - Final Complete Urine Catheterized Urine Escherichia Coli Imaging Last Impressions Hepatobiliary Scan Nuclear Medicine 02/14/17 0000 Signed Impressions: Service Date/Time: February 08:18 - CONCLUSION: 1. Normal common bile duct kinetics without significant CBD obstruction. 2. Poor gallbladder contractility with 25%% EF consistent with functional gallbladder disorder. Patient was asymptomatic with CCK administration. Clint Medina MD Foot X-Ray 02/13/17 0000 Signed Impressions: Service Date/Time: Monday, February 13, 2017 09:11 - CONCLUSION: 1. No acute fracture or joint dislocation. 2. Primary degenerative type changes. 3. PVD. Jeremiah Singh MD Cholangiopancreatography MRI 02/13/17 0000 Signed Impressions: Service Date/Time: Monday, February 13, 2017 16:03 - CONCLUSION: 1. There is dilatation the common bile duct at approximately 9 mm. 2. There appears to be a filling defect within the mid common bile duct. This is suspicious for a common bile duct stone. 3. No definite gallstones are seen in the gallbladder. 4. Bilateral renal cysts. Jeremiah Singh MD Chest CT 02/13/17 0000 Signed Impressions: Service Date/Time: Monday, February 13, 2017 08:59 - CONCLUSION: Negative for acute process. Tano Ames MD FACR Carotid Artery Ultrasound 02/13/17 0000 Signed Impressions: Service Date/Time: Monday, February 13, 2017 09:19 - CONCLUSION: No evidence of hemodynamically significant lesion. Ron Garcia MD Chest X-Ray 02/12/17 1700 Signed Impressions: Service Date/Time: Sunday, February 12, 2017 17:05 - CONCLUSION: Mild atelectasis or consolidation at the right medial base. Memo Washburn MD Abdomen/Pelvis CT 02/12/17 1700 Signed Impressions: Service Date/Time: Sunday, February 12, 2017 17:55 - CONCLUSION: 1. No acute findings with an abdomen and pelvic CT. Stable rim calcified lower pole right renal cyst with nonobstructing renal calcifications. Colonic diverticula. Previous left hip replacement. Mild fatty liver. Advanced osteoarthritis right hip. Chris Palafox MD Gall Bladder Ultrasound 02/12/17 0000 Signed Impressions: Service Date/Time: Sunday, February 12, 2017 19:39 - CONCLUSION: 1. Distended gallbladder and common bile duct. There is a questionable filling defect in the distal common bile duct on the CT examination. Gallstones are not seen. 2. Right renal cyst and a nonobstructing right renal stone. 3. Hepatic steatosis. Memo Washburn MD Physical Exam CONSTITUTIONAL/GENERAL: This is an adequately nourished patient, in no apparent distress. SKIN: No jaundice, rashes, or lesions. Ecchymoses on upper extremities. No wounds seen anteriorly. Skin temperature appropriate. Not diaphoretic. EYES: Pupils equal and round and reactive. Extraocular motions intact. No scleral icterus. No injection or drainage. Fundi not examined. ENT: Hearing grossly normal.Oral mucosae moist without visible erythema, exudates, masses, or lesions. CARDIOVASCULAR: Regular rate and rhythm without murmurs, gallops, or rubs. No JVD. Peripheral pulses symmetric. RESPIRATORY/CHEST: Symmetric, unlabored respirations. Clear to auscultation. Breath sounds equal bilaterally. No wheezes, rales, or rhonchi. GASTROINTESTINAL: Abdomen soft, minimal RUQ tenderness, nondistended. No hepato- splenomegaly, or palpable masses. No guarding. Bowel sounds present. GENITOURINARY: Without palpable bladder distension. No CBVA tenderness b/l MUSCULOSKELETAL: Extremities without clubbing, + b/l feet cyanosis joseline feet in dependent position + avulsion of 2nd toe nail, toe is not appearing infected , + trace edema. No mottling or clubbing. NEUROLOGICAL: Awake and alert. Motor and sensory grossly within normal limits. Follows commands. Clear speech. Moves all extremities. PSYCHIATRIC: No obvious anxiety/depression. no apparent hallucinations or other psychotic thought process. Assessment & Plan Remarks UTI, E.coli allergic to cephalosporins R T/S and levaquine pt has infx with the same organism back in October (severe compliated bacteremic UTI in the settings of urolithiasis with obstructions) Clinically asymptomatic CBD dilation MRCP with filing defect Sepsis - source is urinary Keflex allergic reaction, type reaction unknown karmen levaquine cont azactam for now - o/p tx options will be azactam vs ertapenem 2/2 allergic rx and known resistance Yael Jason MD Feb 15, 2017 11:36
--- NOTE | 2017-02-15 14:24 | HHI.PR ---
Subjective Subjective Notes hungry, wants to eat. denies RUQ pain Objective Vitals/I&O Vital Signs Date Time Temp Pulse Resp B/P Pulse Ox O2 Delivery O2 Flow Rate FiO2 02/15/17 12:00 97.1 60 12 140/64 95 02/12/17 20:15 Nasal Cannula 2 Labs Laboratory Tests Test 02/15/17 04:54 White Blood Count 9.7 Red Blood Count 3.80 Hemoglobin 11.4 Hematocrit 35.3 Mean Corpuscular Volume 92.7 Mean Corpuscular Hemoglobin 30.0 Mean Corpuscular Hemoglobin 32.3 Concent Red Cell Distribution Width 13.1 Platelet Count 146 Mean Platelet Volume 8.0 Sodium Level 140 Potassium Level 3.6 Chloride Level 104 Carbon Dioxide Level 30.1 Anion Gap 6 Blood Urea Nitrogen 22 Creatinine 1.07 Estimat Glomerular Filtration 66 Rate Random Glucose 120 Calcium Level 8.6 Date/Time Procedure Status Source Growth 02/12/17 17:30 Urine Culture - Final Complete Urine Catheterized Urine Escherichia Coli 02/12/17 17:05 Aerobic Blood Culture - Preliminary Resulted Blood Peripheral NO GROWTH IN 3 DAYS 02/12/17 17:05 Anaerobic Blood Culture - Preliminary Resulted Blood Peripheral NO GROWTH IN 3 DAYS Abdomen: Non-distended, Non-tender, BS normal A/P Assessment and Plan dilated CBD - ? etiology. normal LFTS, HIDA does not show any obstruction, was asymptomatic with CCK. no indications for surgical intervention - all gallbladder studies normal, pt denies RUQ pain/fatty food intolerance. recommend ERCP to evaluate CBD will FU next week. please call supervisor wire rope fabrication surgeon for any questions over the weekend Lauro Simmons MD Feb 15, 2017 14:24
--- NOTE | 2017-02-15 15:53 | GIPROC ---
[facility] [address] [facility]. [facility], [address] ERCP PROCEDURE REPORT EXAM DATE: 02/15/2017 PATIENT NAME: Fbaiano Molina MR #: [id number] BIRTHDATE: 1935 ATTENDING: Jovany Ball MD ORDER #: [id number] [place] CREWMEMBER: Eliceo Cage and Park Deras STATUS: inpatient INDICATIONS: The patient is a 81 yr old male here for an ERCP due to abdominal pain of suspected biliary origin, abnormal MRCP, and suspected or rule out bile duct stones PROCEDURE PERFORMED: ERCP with sphincterotomy/papillotomy ERCP with stent placement ERCP with balloon dilation MEDICATIONS: None and Per Anesthesia. CONSENT: The patient understands the risks and benefits of the procedure and understands that these risks include, but are not limited to: sedation, allergic reaction, infection, perforation and/or bleeding. Alternative means of evaluation and treatment include, among others: physical exam, x-rays, and/or surgical intervention. The patient elects to proceed with this endoscopic procedure. medical equipment was checked for proper function. Hand hygiene and appropriate measures for infection prevention was taken. After the risks, benefits and alternatives of the procedure were thoroughly explained, Informed was verified, confirmed and timeout was successfully executed by the treatment team. With the patient in left semi-prone position, medications were administered intravenously.The Pentax [id number] was passed from the mouth into the esophagus and further advanced from the esophagus into the stomach. From stomach scope was directed to the second portion of the duodenum. Major papilla was aligned with the duodenoscope. The scope position was confirmed fluoroscopically. Rest of the findings/therapeutics are given below. The scope was then completely withdrawn from the patient and the procedure completed. The pulse, BP, and O2 saturation were monitored and documented by the physician and the nursing staff throughout the entire procedure. The patient was cared for as planned according to standard protocol. The patient was then discharged to recovery in stable condition and with appropriate post procedure care. There was a medium sized periampullary diverticulum. A short stricture was noted in the distal common bile duct with upstream dilation. Dilated CBD to 9mm, No clear filling defect seen but very tight ampulla. Dilated with 8mm balloon, and sphincterotomy made. Balloon sweep didnot result in drainage of CBD. 8.5 x 9 cm stent left in place with good drainage. ADVERSE EVENT: There were no complications. IMPRESSIONS: 1. Medium periampullary diverticulum 2. 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 Dilated CBD to 9mm, No clear filling defect seen but very tight ampulla. Dilated with 8mm balloon, and sphincterotomy made. Balloon sweep didnot result in drainage of CBD. 8.5 x 9 cm stent left in place with good drainage RECOMMENDATIONS: Liver enzymes REPEAT EXAM: Return 3 months ERCP Jovany Ball MD eSigned: Jovany Ball MD 02/15/2017 3:53 PM cc: PATIENT NAME: Fabiano Molina MR#: [id number]
[2017-02-15] MEDS ORDERED: PROPOFOL 200 MG/20 ML AMP IV ONE (16:33)
[2017-02-15] MEDS: ONDANSETRON HCL 4 MG/2 ML VIAL IVP PRN ×2 (16:52→22:56)
--- NOTE | 2017-02-15 16:59 | RADRPT ---
EXAM DATE/TIME: 02/15/2017 15:37 [facility] COMPARISON: No previous studies available for comparison. INDICATIONS : Biliary obstruction, stent placement FLUORO TIME: 2.6 minutes IMAGE COUNT: 5 CONTRAST: Instilled by Ordering Physician MEDICAL HISTORY : Sepsis. Urinary tract infection, Myocardial infarction. Cardiovascular disease Carcinoma, prost ate SURGICAL HISTORY : CABG. ENCOUNTER: Subsequent ACUITY: 3 days PAIN SCORE: Non-responsive. LOCATION: Bilateral abdomen FINDINGS: An ERCP was performed by the ordering physician. The images demonstrate contrast in the common bile duct. An internal biliary stent has been placed on the final image. CONCLUSION: ERCP as above. Jeremiah Singh MD on February 15, 2017 at 16:57 Board Certified Radiologist. This report was verified electronically.
[2017-02-15] MEDS: ACETAMINOPHEN/HYDROcodone 325 MG/5 MG TAB PO PRN ×2 (17:07→22:56)
[2017-02-15] MEDS ORDERED: DO NOT ADM ANY ANTICOAGULANT DRUGS PRN (19:00)
[2017-02-15] MEDS: ATORVASTATIN 20 MG TAB PO SCH (20:27)
[2017-02-15] MEDS: DEXT 5%-NACL 0.45% 1000 ML INJ 1,000 ML IV SCH (22:57)
[2017-02-16] VITALS (9 sets, daily range): BP systolic 100–141; BP diastolic 48–63; PULSE 60–68; RESP 16–20; TEMP 95.3–98; O2SAT 93–98
[2017-02-16] MEDS: TEMAZEPAM 15 MG CAP PO PRN (00:09)
[2017-02-16] MEDS: AZTREONAM INJ 2,000 MG in SODIUM CHLORIDE 0.9% INJ 100 ML IV SCH ×3 (02:32→15:37)
[2017-02-16] MEDS: ISOSORBIDE MONONITRATE 30 MG TAB PO SCH ×2 (04:47→11:22)
[2017-02-16] MEDS: LEVOTHYROXINE SODIUM 50 MCG TAB PO SCH (04:47)
[2017-02-16] MEDS: ACETAMINOPHEN/HYDROcodone 325 MG/5 MG TAB PO PRN ×2 (04:47→21:01)
[2017-02-16 05:37] LABS: HEMATOCRIT 38.1 % (39.0-51.0); MEAN CELL VOLUME 93.1 FL (80.0-100.0); MEAN CORPUSCULAR HEMOGLOBIN 29.4 PG (27.0-34.0); MEAN CORPUSCULAR HGB CONC 31.6 % (32.0-36.0); PLATELET COUNT 179 TH/MM3 (150-450); RED BLOOD COUNT 4.09 MIL/MM3 (4.50-5.90); RED CELL DISTRIBUTION WIDTH 13.1 % (11.6-17.2); REVIEW FLAG FINAL; WHITE BLOOD COUNT 12.9 TH/MM3 (4.0-11.0)
[2017-02-16 06:59] LABS: BICARBONATE 26.8 MEQ/L (21.0-32.0); POTASSIUM 3.6 MEQ/L (3.5-5.1)
[2017-02-16] MEDS: SODIUM CHLORIDE 0.9% FLUSH 10 ML FLUSH IV FLUSH SCH ×2 (09:00→21:00)
[2017-02-16] MEDS: REMOVE OLD LIDOCAINE PATCH T-DERMAL SCH (09:00)
--- NOTE | 2017-02-16 09:01 | HHI.PR ---
Subjective Remarks Follow-up for abdominal pain and UTI Patient very upset because he stated that he did not like the diet that he was put on. When I explained his diet he stated that the grits is not cook. He also complains of lower abdominal pain. Denied any nausea or vomiting. He remains afebrile. Dealt with patient's nurse Krystina. Objective Vitals Vital Signs Date Time Temp Pulse Resp B/P Pulse Ox O2 Delivery O2 Flow Rate FiO2 02/16/17 08:00 96.9 60 20 100/48 93 02/16/17 04:00 97.9 67 20 109/63 93 02/16/17 00:00 97.4 60 20 141/63 98 02/15/17 20:53 21 02/15/17 20:30 66 02/15/17 20:00 97.5 65 20 131/63 95 02/15/17 18:00 96.2 62 15 174/74 96 02/15/17 17:00 97 Nasal Cannula 2.00 02/15/17 16:33 97.7 62 18 123/59 98 Nasal Cannula 2 02/15/17 16:15 67 16 136/56 99 Nasal Cannula 2 02/15/17 16:12 97.7 68 12 148/65 98 Nasal Cannula 2 02/15/17 12:00 97.1 60 12 140/64 95 I/O 02/15/17 02/15/17 02/15/17 02/16/17 02/16/17 02/16/17 07:00 15:00 23:00 07:00 15:00 23:00 Intake Total 492 ml 442 ml 1250 ml 569 ml Output Total 700 ml 650 ml 200 ml 700 ml Balance -208 ml -208 ml 1050 ml -131 ml Intake Oral 0 ml 240 ml 120 ml IV Total 492 ml 442 ml 210 ml 449 ml Other 800 ml Output Urine Total 700 ml 650 ml 200 ml 700 ml Result Diagram: 02/16/17 0443 02/16/173 Imaging Last Impressions Knee X-Ray 02/15/17 0000 Signed Impressions: Service Date/Time: Wednesday, February 15, 2017 11:11 - CONCLUSION: Normal examination for a patient of this age. Jeremiah Singh MD GI Procedure 02/15/17 0000 Signed Impressions: Service Date/Time: Wednesday, February 15, 2017 15:37 - CONCLUSION: ERCP as above. Jeremiah Singh MD Hepatobiliary Scan Nuclear Medicine 02/14/17 Signed Impressions: Service Date/Time: February 08:18 - CONCLUSION: 1. Normal common bile duct kinetics without significant CBD obstruction. 2. Poor gallbladder contractility with 25%% EF consistent with functional gallbladder disorder. Patient was asymptomatic with CCK administration. Clint Medina MD Foot X-Ray 02/13/17 Signed Impressions: Service Date/Time: Monday, February 13, 2017 09:11 - CONCLUSION: 1. No acute fracture or joint dislocation. 2. Primary degenerative type changes. 3. PVD. Jeremiah Singh MD Cholangiopancreatography MRI 02/13/17 Signed Impressions: Service Date/Time: Monday, February 13, 2017 16:03 - CONCLUSION: 1. There is dilatation the common bile duct at approximately 9 mm. 2. There appears to be a filling defect within the mid common bile duct. This is suspicious for a common bile duct stone. 3. No definite gallstones are seen in the gallbladder. 4. Bilateral renal cysts. Jeremiah Singh MD Chest CT 02/13/17 Signed Impressions: Service Date/Time: Monday, February 13, 2017 08:59 - CONCLUSION: Negative for acute process. Tano Ames MD FACR Carotid Artery Ultrasound 02/13/17 Signed Impressions: Service Date/Time: Monday, February 13, 2017 09:19 - CONCLUSION: No evidence of hemodynamically significant lesion. Ron Garcia MD Chest X-Ray [id number]/12/[id number] Signed Impressions: Service Date/Time: Sunday, February 12, 2017 17:05 - CONCLUSION: Mild atelectasis or consolidation at the right medial base. Memo Washburn MD Abdomen/Pelvis CT [id number]/[id number] Signed Impressions: Service Date/Time: Sunday, February 12, 2017 17:55 - CONCLUSION: 1. No acute findings with an abdomen and pelvic CT. Stable rim calcified lower pole right renal cyst with nonobstructing renal calcifications. Colonic diverticula. Previous left hip replacement. Mild fatty liver. Advanced osteoarthritis right hip. Chris Palafox MD Gall Bladder Ultrasound 02/12/17 0000 Signed Impressions: Service Date/Time: Sunday, February 12, 2017 19:39 - CONCLUSION: 1. Distended gallbladder and common bile duct. There is a questionable filling defect in the distal common bile duct on the CT examination. Gallstones are not seen. 2. Right renal cyst and a nonobstructing right renal stone. 3. Hepatic steatosis. Memo Washburn MD Objective Remarks GENERAL: in NAD CARDIOVASCULAR: Regular rate and rhythm without murmurs, gallops, or rubs. RESPIRATORY: Breath sounds equal bilaterally. No accessory muscle use. GASTROINTESTINAL: Abdomen soft, nondistended. Mild suprapubic tenderness palpation. MUSCULOSKELETAL: left knee no swelling noted. Pain with range of motion. No erythema the joint. BACK: Nontender without obvious deformity. No CVA tenderness. Medications and IVs Current Medications Acetaminophen 650 mg 650 mg ONCE ONCE RECTAL ; Start 02/12/17 at 17:00; Stop 02/12/17 at 17:08; Status DC Vancomycin HCl 1000 mg/Sodium Chloride 250 ml @ 250 mls/hr ONCE STAT IV Last administered on 02/12/17 17:23; Start 02/12/17 at 17:00; Stop 02/12/17 at 17:59; Status DC Piperacillin Sod/ Tazobactam Sod 100 ml @ 200 mls/hr ONCE STAT IV Last administered on 02/12/17 17:23; Start 02/12/17 at 17:00; Stop 02/12/17 at 17:29; Status DC Sodium Chloride (NS 1000 ml Inj) 1,000 ml @ 999 mls/hr BOLUS ONCE IV Last administered on 02/12/17 17:24; Start 02/12/17 at 17:15; Stop 02/12/17 at 18:15; Status DC Acetaminophen (Tylenol Supp) 650 mg ONCE ONCE RECTAL Last administered on 17:24; Start 02/12/17 at 17:15; Stop 02/12/17 at 17:16; Status DC Iohexol 95 ml 95 ml STK-MED ONCE IV Last administered on 02/12/17 18:00; Start 02/12/17 at 18:00; Stop 02/12/17 at 18:01; Status DC Sodium Chloride (NS 1000 ml Inj) 1,000 ml @ 999 mls/hr BOLUS ONCE IV Last administered on 02/12/17 18:45; Start 02/12/17 at 18:45; Stop 02/12/17 at 19:45; Status DC Sodium Chloride (NS Flush) 2 ml UNSCH PRN IV FLUSH FLUSH AFTER USING IV ACCESS Last administered on 02/14/17 06:20; Start 02/12/17 at 19:45 Sodium Chloride (NS Flush) 2 ml BID IV FLUSH Last administered on 02/14/17 20: 28; Start 02/12/17 at 21:00 Acetaminophen (Tylenol) 650 mg Q4H PRN PO TEMP > 100.4 Last administered on 02/12 23:30; Start 02/12/17 at 19:45 Ondansetron HCl (Zofran Inj) 4 mg Q6H PRN IVP NAUSEA OR VOMITING Last administered on 02/15/17 22:56; Start 02/12/17 at 19:45 Heparin Sodium (Porcine) (Heparin Inj) 5,000 units Q12H SQ Last administered on 02/14/17 10:28; Start 02/12/17 at 23:00; Status Hold Naloxone HCl (Narcan Inj) 0.4 mg UNSCH PRN IV SEE LABEL COMMENTS; Start at 19:45 Magnesium Hydroxide (Milk Of Magnsoumya Liq) 30 ml Q12H PRN PO MILD - MODERATE CONSTIPATION; Start 02/12/17 at 19:45 Sennosides (Senokot) 17.2 mg Q12H PRN PO NAUSEA OR VOMITING; Start 02/12/17 at 19:45 Temazepam 7.5 mg 7.5 mg ONCE ONCE PO Last administered on 02/13/17 01:33; Start 02/13/17 at 01:00; Stop 02/13/17 at 01:01; Status DC Levofloxacin/ Dextrose (Levaquin 750 Mg Premix Inj) 150 ml @ 100 mls/hr Q24H IV Last administered on 02/15/17 02:05; Start 02/13/17 at 02:00; Stop 02/15/17 at 11:37; Status DC Allopurinol (Zyloprim) 300 mg DAILY PO Last administered on 02/15/17 08:18; Start 02/13/17 at 09:00 Aspirin (Ecotrin Ec) 81 mg DAILY PO Last administered on 02/15/17 08:18; Start 02/13/17 at 09:00 Atorvastatin Calcium (Lipitor) 20 mg HS PO Last administered on 02/15/17 20:27 ; Start 02/13/17 at 21:00 Hydrochlorothiazide (Hydrodiuril) 25 mg DAILY PO Last administered on 02/15/17 08:18; Start 02/13/17 at 09:00 Isosorbide Mononitrate (Imdur) 30 mg DAILY@0700 PO Last administered on 04:47; Start 02/13/17 at 07:00 Levothyroxine Sodium (Synthroid) 50 mcg DAILY@0600 PO Last administered on 04:47; Start 02/13/17 at 06:00 Losartan Potassium (Cozaar) 50 mg DAILY PO Last administered on 02/15/17 08:18 ; Start 02/13/17 at 09:00 Metoprolol Tartrate (Lopressor) 100 mg DAILY PO Last administered on 02/15/17 08:18; Start 02/13/17 at 09:00 Sertraline HCl (Zoloft) 100 mg DAILY PO Last administered on 02/15/17 08:18; Start 02/13/17 at 09:00 Patient Own Medication PT OWN [employer]-FORMULARY D... DAILY INH ; Start 02/13/17 at 09:00; Status Hold Metronidazole (Flagyl 500 Mg Inj) 100 ml @ 100 mls/hr Q8H IV Last administered on 02/15/17 04:44; Start 02/13/17 at 14:00; Stop 02/15/17 at 11:38; Status DC Acetaminophen/ Hydrocodone Bitart 1 tab 1 tab Q4H PRN PO PAIN SCALE 1 TO 7 Last administered on 02/16/17 04:47; Start 02/13/17 at 18:30 Aztreonam/Sodium Chloride (Azactam Inj/NS Inj) 100 ml @ 200 mls/hr Q6H IV Last administered on 02/16/17 02:32; Start 02/13/17 at 21:00 Sincalide (Kinevac Inj) 2.2 mcg STK-MED ONCE IV PUSH Last administered on 09:32; Start 02/14/17 at 09:32; Stop 02/14/17 at 09:33; Status DC Benzonatate (Tessalon) 100 mg Q8H PRN PO COUGH Last administered on 02/14/17 16 :36; Start 02/14/17 at 14:15 Temazepam (Restoril) 7.5 mg HS PRN PO insomnia; Start 02/14/17 at 14:15; Stop at 10:20; Status DC Lidocaine HCl (Lidoderm 5% Patch.12 Hr) 1 patch DAILY T-DERMAL Last administered on 02/15/17 08:20; Start 02/14/17 at 14:15 Miscellaneous Information 1 1 Q24H T-DERMAL Last administered on 02/15/17 08:20 ; Start 02/15/17 at 09:00 Lactated Ringer's 1,000 ml @ 30 mls/hr Q24H PRN IV SEE LABEL COMMENTS; Start at 23:00; Stop 02/17/17 at 22:59 Sodium Chloride (NS 500 ml Inj) 500 ml @ 30 mls/hr [id number] PRN IV SEE LABEL COMMENTS; Start 02/14/17 at 23:00; Stop 02/17/17 at 22:59 Metoprolol Tartrate (Lopressor) 25 mg TORPEDO SHOOTER PRN PO SEE LABEL COMMENTS; Start 02/14/17 at 23:00; Stop 02/17/17 at 22:59 Povidone Iodine (Betadine 5% Antisepsis Kit) 1 applic TORPEDO SHOOTER PRN EACH NARE SEE LABEL COMMENTS; Start 02/14/17 at 23:00; Stop 02/17/17 at 22:59 Chlorhexidine Gluconate (Chlorhexidine 2% Cloth) 3 pack TORPEDO SHOOTER PRN TOPICAL SEE LABEL COMMENTS; Start 02/14/17 at 23:00; Stop 02/17/17 at 22:59 Insulin Human Regular See Protocol Table ... TORPEDO SHOOTER PRN SQ SEE PROTOCOL TABLE ; Start 02/14/17 at 23:00; Stop 02/17/17 at 22:59 Dextrose/Sodium Chloride (D5W-1/2 NS 1000 ml Inj) 1,000 ml @ 42 mls/hr [id number] IV Last administered on 02/15/17 22:57; Start 02/14/17 at 23:15 Temazepam (Restoril) 15 mg HS PRN PO insomnia Last administered on 02/16/17t 00: 09; Start 02/15/17 at 10:30 Fentanyl Citrate (fentaNYL INJ) 100 mcg STK-MED ONCE .ROUTE ; Start 02/15/17 at 16:28; Stop 02/15/17 at 16:29; Status DC Propofol (Diprivan 200 Mg/20 ml Inj) 200 mg STK-MED ONCE IV ; Start 02/15/17 at 16:33; Stop 02/15/17 at 16:34; Status DC Miscellaneous Information ALL NURSING DEPARTME... UNSCH PRN .XX SEE LABEL COMMENTS; Start 02/15/17 at 19:00; Stop 02/16/17 at 18:59 A/P Problem List: (1) UTI (urinary tract infection) ICD Code: N39.0 Status: Acute (2) Hypothyroidism ICD Code: E03.9 Status: Chronic (3) Fatigue ICD Code: R53.83 Status: Acute (4) Shortness of breath ICD Code: R06.02 Status: Acute (5) Carotid bruit ICD Code: R09.89 Status: Acute (6) Traumatic loss of toenail ICD Code: S91.203A Status: Acute Assessment and Plan Mr. Molina is an 81 y/o male with a history of CAD and DM who presented to the ER for evaluation of body aches, weakness, nausea with vomiting, and productive cough Sepsis -multifactorial - Urinary Tract Infection - leukocytosis mildly increased secondary to ERCP. - Lactic acid 2.1 on admission, 1.2 on repeat - s/ Levaquin 750 mg IV every 24 hours + IV Flagyl and not just on aztreonam -Urine cultures growing Escherichia coli. 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 --s/p ERCP with sphincterotomy/papillotomy on 02/15 Cough -Seemed to resolve. - ECHO on 02/14 EF 65-70%. Otherwise echo was normal. - CXR with small consolidation vs atelectasis - on Incentive spirometry hourly- patient no complains of cough - chest CT - - negative for any acute process - monitor I and O - BNP on admission normal at 61 - continuous cardiac telemetry to monitor for cardiac arrhythmias -on Tessalon Perles. Carotid bruit bilateral - followed by Dr. Lester - patient states he is due for outpatient ultrasound - rept Bilateral carotid ultrasound - no significantly hemodynamic disease Hypothyroidism - - TSH- normal - continue home Synthroid left second toe with traumatic nail removal - x-ray left foot - negative -Assistant City Attorney's cleared patient. Left knee pain -Most likely secondary to osteoarthritis. -X-ray negative. -No pain today. DVT prophylaxis - Heparin 5000 units subq q24h Discharge Planning Patient on aztreonam so requires continual hospitalization. Problem Qualifiers (1) UTI (urinary tract infection): Qualified Code: N39.0 - Urinary tract infection with hematuria, site unspecified Abeba Wong MD Feb 16, 2017 09:01
--- NOTE | 2017-02-16 09:46 | HHI.GIFU ---
Subjective Remarks Patient is resting in bed, with some abd pain, better than yesterday. Denies nausea or vomiting. (Nolvia Figueroa XOCHITL) Objective Vitals I&O Vital Signs Date Time Temp Pulse Resp B/P Pulse Ox O2 Delivery O2 Flow Rate FiO2 02/16/17 09:15 93 02/16/17 08:00 96.9 60 20 100/48 93 02/16/17 04:00 97.9 67 20 109/63 93 02/16/17 00:00 97.4 60 20 141/63 98 02/15/17 20:53 21 02/15/17 20:30 66 02/15/17 20:00 97.5 65 20 131/63 95 02/15/17 18:00 96.2 62 15 174/74 96 02/15/17 17:00 97 Nasal Cannula 2.00 02/15/17 16:33 97.7 62 18 123/59 98 Nasal Cannula 2 02/15/17 16:15 67 16 136/56 99 Nasal Cannula 2 02/15/17 16:12 97.7 68 12 148/65 98 Nasal Cannula 2 02/15/17 12:00 97.1 60 12 140/64 95 I/O 02/15/17 02/15/17 02/15/17 02/16/17 02/16/17 02/16/17 07:00 15:00 23:00 07:00 15:00 23:00 Intake Total 492 ml 442 ml 1250 ml 569 ml Output Total 700 ml 650 ml 200 ml 700 ml Balance -208 ml -208 ml 1050 ml -131 ml Intake Oral 0 ml 240 ml 120 ml IV Total 492 ml 442 ml 210 ml 449 ml Other 800 ml Output Urine Total 700 ml 650 ml 200 ml 700 ml Laboratory Laboratory Tests Test 02/16/17 04:43 White Blood Count 12.9 Red Blood Count 4.09 Hemoglobin 12.0 Hematocrit 38.1 Mean Corpuscular Volume 93.1 Mean Corpuscular Hemoglobin 29.4 Mean Corpuscular Hemoglobin 31.6 Concent Red Cell Distribution Width 13.1 Platelet Count 179 Mean Platelet Volume 7.9 Sodium Level 138 Potassium Level 3.6 Chloride Level 103 Carbon Dioxide Level 26.8 Anion Gap 8 Blood Urea Nitrogen 19 Creatinine 0.88 Estimat Glomerular Filtration 83 Rate Random Glucose 131 Calcium Level 8.8 Date/Time Procedure Status Source Growth 02/12/17 17:30 Urine Culture - Final Complete Urine Catheterized Urine Escherichia Coli 02/12/17 17:05 Aerobic Blood Culture - Preliminary Resulted Blood Peripheral NO GROWTH IN 3 DAYS 02/12/17 17:05 Anaerobic Blood Culture - Preliminary Resulted Blood Peripheral NO GROWTH IN 3 DAYS Imaging Last Impressions Knee X-Ray 02/15/17 0000 Signed Impressions: Service Date/Time: Wednesday, February 15, 2017 11:11 - CONCLUSION: Normal examination for a patient of this age. Jeremiah Singh MD GI Procedure 02/15/17 0000 Signed Impressions: Service Date/Time: Wednesday, February 15, 2017 15:37 - CONCLUSION: ERCP as above. Jeremiah Singh MD Hepatobiliary Scan Nuclear Medicine 02/14/17 Signed Impressions: Service Date/Time: February 08:18 - CONCLUSION: 1. Normal common bile duct kinetics without significant CBD obstruction. 2. Poor gallbladder contractility with 25%% EF consistent with functional gallbladder disorder. Patient was asymptomatic with CCK administration. Clint Medina MD Foot X-Ray 02/13/17 Signed Impressions: Service Date/Time: Monday, February 13, 2017 09:11 - CONCLUSION: 1. No acute fracture or joint dislocation. 2. Primary degenerative type changes. 3. PVD. Jeremiah Singh MD Cholangiopancreatography MRI 02/13/17 Signed Impressions: Service Date/Time: Monday, February 13, 2017 16:03 - CONCLUSION: 1. There is dilatation the common bile duct at approximately 9 mm. 2. There appears to be a filling defect within the mid common bile duct. This is suspicious for a common bile duct stone. 3. No definite gallstones are seen in the gallbladder. 4. Bilateral renal cysts. Jeremiah Singh MD Chest CT 02/13/17 Signed Impressions: Service Date/Time: Monday, February 13, 2017 08:59 - CONCLUSION: Negative for acute process. Tano Ames MD FACR Carotid Artery Ultrasound 02/13/17 0000 Signed Impressions: Service Date/Time: Monday, February 13, 2017 09:19 - CONCLUSION: No evidence of hemodynamically significant lesion. Ron Garcia MD Chest X-Ray 02/12/170 Signed Impressions: Service Date/Time: Sunday, February 12, 2017 17:05 - CONCLUSION: Mild atelectasis or consolidation at the right medial base. Memo Washburn MD Abdomen/Pelvis CT 02/12/17 1700 Signed Impressions: Service Date/Time: Sunday, February 12, 2017 17:55 - CONCLUSION: 1. No acute findings with an abdomen and pelvic CT. Stable rim calcified lower pole right renal cyst with nonobstructing renal calcifications. Colonic diverticula. Previous left hip replacement. Mild fatty liver. Advanced osteoarthritis right hip. Chris Palafox MD Gall Bladder Ultrasound 02/12/17 0000 Signed Impressions: Service Date/Time: Sunday, February 12, 2017 19:39 - CONCLUSION: 1. Distended gallbladder and common bile duct. There is a questionable filling defect in the distal common bile duct on the CT examination. Gallstones are not seen. 2. Right renal cyst and a nonobstructing right renal stone. 3. Hepatic steatosis. Memo Washburn MD Physical Exam HEENT: Normocephalic; atraumatic; no jaundice. CHEST: CTA CARDIAC: RRR ABDOMEN: Soft, nondistended, mild RUQ/LUQ/epigastric discomfort; no hepatosplenomegaly; bowel sounds are present in all four quadrants. EXTREMITIES: No clubbing, cyanosis, or edema. SKIN: Normal; no rash; no jaundice. CITY DRIVER: No focal deficits; alert and oriented times three. (Henry,Nolvia STRAP STITCHER) Assessment and Plan Plan ASSESSMENT: - RUQ tenderness, N/V with decreased appetite/fever/chills with abnormal imaging of the biliary tract. Pt has had intermittent symptoms x 6 months. He does not know if he has lost weight. CT scan abdomen and pelvis (02/10/17)-----> right lower quadrant hematoma involving the iliac is musculature extending inferiorly to the hip as well as adjacent to hematoma along the superior margin. This is best appreciated on coronal images, small amount of ascites and body wall edema, bilateral pleural effusions, right greater than left with basilar atelectasis and airspace disease, cholelithiasis. Gallbladder ultrasound (02/12/17)----> 1. Distended gallbladder and common bile duct. There is a questionable filling defect in the distal common bile duct on the CT examination. Gallstones are not seen. 2. Right renal cyst and a nonobstructing right renal stone. 3. Hepatic steatosis. He denies any known history of gallbladder issues or pancreatitis in the past. No ETOH use. He does not drink any alcohol. MRCP (02/13/17)------> 1. There is dilatation the common bile duct at approximately 9 mm. 2. There appears to be a filling defect within the mid common bile duct. This is suspicious for a common bile duct stone. 3. No definite gallstones are seen in the gallbladder. 4. Bilateral renal cysts. HIDA (02/14/17)----> 1. Normal common bile duct kinetics without significant CBD obstruction. 2. Poor gallbladder contractility with 25%% EF consistent with functional gallbladder disorder. Patient was asymptomatic with CCK administration. MRCP reviewed by Dr. Lovett/radiology, does have CBD stone. LFT stable, within normal limit. Plan for ERCP tomorrow- d/w patient procedure, risks, benefits and he is agreeable. Azactam, levaquin. - Dilated CBD with distended GB. CT report mentions cholelithiasis, US with distended gb and cbd, a notes questionable filling defect in the distal common bile duct on the CT examination. LFT were normal on exam. Will recheck LFT and get MRCP. - Leukocytosis, fevers, chills. WBC 13.5. U/A abnormal, urine cx pending. Bcx pending. Questionable biliary obstruction noted as above. MRCP with CBD stone. Will plan for ERCP tomorrow. On levaquin, azactam. - UTI, E.coli. Levaquin, Azactam. - CAD, Hx CVA, DM, Hypothyroidism, HTN, DM, Atrial fibrillation, Hyperlipidemia , COPD per attending. 02-16-17 Patient s/p ERCP/stent on (02/15/17)--->Medium periampullary diverticulum, Stricture in the distal common bile duct Dilated CBD to 9mm, No clear filling defect seen but very tight ampulla. Dilated with 8mm balloon, and sphincterotomy made. Balloon sweep did not result in drainage of CBD. 8.5 x 9 cm stent left in place with good drainage PLAN: - Full liquids - PPI - CBC, CMP - ERCP/stent removal in 3 months - Consider EUS - Surgery on the case, no plans for cholecystectomy - Supportive care - Further recommendations to follow based on results of above - Pt seen and examined by Dr. Alexander and myself and this note is written on her behalf (Nolvia Figueroa) Physician Comments seen, examined agree with above wants his food advanced tumor marker-ca 19-9, cea, AFP (Vianey Alexander MD) Nolvia Figueroa Feb 16, 2017 09:46 Vianey Alexander MD Feb 16, 2017 15:04
[2017-02-16] MEDS: ASPIRIN EC 81 MG TABEC PO SCH (11:22)
[2017-02-16] MEDS: METOPROLOL TARTRATE 100 MG TAB PO SCH (11:22)
[2017-02-16] MEDS: ALLOPURINOL 300 MG TAB PO SCH (11:22)
[2017-02-16] MEDS: HYDROCHLOROTHIAZIDE 25 MG TAB PO SCH (11:22)
[2017-02-16] MEDS: LOSARTAN 50 MG TAB PO SCH (11:22)
[2017-02-16] MEDS: SERTRALINE HCL 100 MG TAB PO SCH (11:22)
[2017-02-16] MEDS: LIDOCAINE HCL 5% PATCH T-DERMAL SCH (11:24)
[2017-02-16 13:05] LABS: AUTOMATED NEUTROPHIL # 4.1 TH/MM3 (1.8-7.7); BASOPHIL % 0.2 % (0.0-2.0); EOSINOPHIL # 0.4 TH/MM3 (0-0.4); EOSINOPHIL % 3.5 % (0.0-4.0); HEMATOCRIT 36.4 % (39.0-51.0); HEMO FLAGS DIFF FINAL; LYMPH % 47.3 % (9.0-44.0); LYMPHOCYTE # 4.8 TH/MM3 (1.0-4.8); MEAN CELL VOLUME 93.8 FL (80.0-100.0); MEAN CORPUSCULAR HEMOGLOBIN 29.7 PG (27.0-34.0); MEAN CORPUSCULAR HGB CONC 31.7 % (32.0-36.0); MONO % 8.6 % (0.0-8.0); NEUT % 40.4 % (16.0-70.0); PLATELET COUNT 175 TH/MM3 (150-450); RED BLOOD COUNT 3.88 MIL/MM3 (4.50-5.90); RED CELL DISTRIBUTION WIDTH 13.4 % (11.6-17.2); WHITE BLOOD COUNT 10.2 TH/MM3 (4.0-11.0)
[2017-02-16 13:34] LABS: ALKALINE PHOSPHATASE 70 U/L (45-117); ALT (GPT) 21 U/L (12-78); ANION GAP 6 MEQ/L (5-15); AST (GOT) 26 U/L (15-37); BICARBONATE 29.6 MEQ/L (21.0-32.0); BLOOD UREA NITROGEN 15 MG/DL (7-18); CHLORIDE 105 MEQ/L (98-107); GLOMERULAR FILTRATION RATE 86 ML/MIN (>89); POTASSIUM 3.7 MEQ/L (3.5-5.1); SODIUM (NA) 141 MEQ/L (136-145); TOTAL BILIRUBIN ADULT 0.4 MG/DL (0.2-1.0)
[2017-02-16] MEDS: ONDANSETRON HCL 4 MG/2 ML VIAL IVP PRN (15:37)
--- NOTE | 2017-02-16 17:08 | HHI.IDPN ---
Subjective Subjective Remarks doing good HIDA negative for obstruction afebrile co LLE pain WBC went slightly up now is paulette; Pt reports that he had rash with hives while taking keflex, unable to recall if he took PCN Antibiotics azactam Allergies: Coded Allergies: Keflex (Verified Allergy, Severe, 02/12/17) rash Plavix (Verified Allergy, Severe, 02/12/17) rash Sulfa (Verified Allergy, Severe, 02/12/17) rash Objective . Vital Signs Date Time Temp Pulse Resp B/P Pulse Ox O2 Delivery O2 Flow Rate FiO2 02/16/17 12:00 95.3 64 17 109/51 94 02/16/17 09:15 93 02/16/17 08:00 96.9 60 20 100/48 93 02/16/17 04:00 97.9 67 20 109/63 93 02/16/17 00:00 97.4 60 20 141/63 98 02/15/17 20:53 21 02/15/17 20:30 66 02/15/17 20:00 97.5 65 20 131/63 95 02/15/17 18:00 96.2 62 15 174/74 96 02/15/17 02/15/17 02/16/17 15:00 23:00 07:00 Intake Total 442 ml 1250 ml 569 ml Output Total 650 ml 200 ml 700 ml Balance -208 ml 1050 ml -131 ml Intake Oral 240 ml 120 ml IV Total 442 ml 210 ml 449 ml Other 800 ml Output Urine Total 650 ml 200 ml 700 ml . Laboratory Tests Test 02/15/17 02/16/17 02/16/17 04:54 04:43 12:00 White Blood Count 9.7 TH/MM3 12.9 TH/MM3 10.2 TH/MM3 Red Blood Count 3.80 MIL/MM3 4.09 MIL/MM3 3.88 MIL/MM3 Hemoglobin 11.4 GM/DL 12.0 GM/DL 11.5 GM/DL Hematocrit 35.3 % 38.1 % 36.4 % Mean Corpuscular Volume 92.7 FL 93.1 FL 93.8 FL Mean Corpuscular Hemoglobin 30.0 PG 29.4 PG 29.7 PG Mean Corpuscular Hemoglobin 32.3 % 31.6 % 31.7 % Concent Red Cell Distribution Width 13.1 % 13.1 % 13.4 % Platelet Count 146 TH/MM3 179 TH/MM3 175 TH/MM3 Mean Platelet Volume 8.0 FL 7.9 FL 8.0 FL Neutrophils (%) (Auto) 40.4 % Lymphocytes (%) (Auto) 47.3 % Monocytes (%) (Auto) 8.6 % Eosinophils (%) (Auto) 3.5 % Basophils (%) (Auto) 0.2 % Neutrophils # (Auto) 4.1 TH/MM3 Lymphocytes # (Auto) 4.8 TH/MM3 Monocytes # (Auto) 0.9 TH/MM3 Eosinophils # (Auto) 0.4 TH/MM3 Basophils # (Auto) 0.0 TH/MM3 CBC Comment DIFF FINAL Differential Comment Laboratory Tests Test 02/15/17 02/16/17 02/16/17 04:54 04:43 12:00 Sodium Level 140 MEQ/L 138 MEQ/L 141 MEQ/L Potassium Level 3.6 MEQ/L 3.6 MEQ/L 3.7 MEQ/L Chloride Level 104 MEQ/L 103 MEQ/L 105 MEQ/L Carbon Dioxide Level 30.1 MEQ/L 26.8 MEQ/L 29.6 MEQ/L Anion Gap 6 MEQ/L 8 MEQ/L 6 MEQ/L Blood Urea Nitrogen 22 MG/DL 19 MG/DL 15 MG/DL Creatinine 1.07 MG/DL 0.88 MG/DL 0.86 MG/DL Estimat Glomerular Filtration 66 ML/MIN 83 ML/MIN 86 ML/MIN Rate Random Glucose 120 MG/DL 131 MG/DL 143 MG/DL Calcium Level 8.6 MG/DL 8.8 MG/DL 8.7 MG/DL Total Bilirubin 0.4 MG/DL Aspartate Amino Transf 26 U/L (AST/SGOT) Alanine Aminotransferase 21 U/L (ALT/SGPT) Alkaline Phosphatase 70 U/L Total Protein 6.2 GM/DL Albumin 2.5 GM/DL Imaging Last Impressions Knee X-Ray 02/15/17 0000 Signed Impressions: Service Date/Time: Wednesday, February 15, 2017 11:11 - CONCLUSION: Normal examination for a patient of this age. Jeremiah Singh MD GI Procedure 02/15/17 0000 Signed Impressions: Service Date/Time: Wednesday, February 15, 2017 15:37 - CONCLUSION: ERCP as above. Jeremiah Singh MD Hepatobiliary Scan Nuclear Medicine 02/14/17 Signed Impressions: Service Date/Time: February 08:18 - CONCLUSION: 1. Normal common bile duct kinetics without significant CBD obstruction. 2. Poor gallbladder contractility with 25%% EF consistent with functional gallbladder disorder. Patient was asymptomatic with CCK administration. Clint Medina MD Foot X-Ray 02/13/17 Signed Impressions: Service Date/Time: Monday, February 13, 2017 09:11 - CONCLUSION: 1. No acute fracture or joint dislocation. 2. Primary degenerative type changes. 3. PVD. Jeremiah Singh MD Cholangiopancreatography MRI 02/13/17 Signed Impressions: Service Date/Time: Monday, February 13, 2017 16:03 - CONCLUSION: 1. There is dilatation the common bile duct at approximately 9 mm. 2. There appears to be a filling defect within the mid common bile duct. This is suspicious for a common bile duct stone. 3. No definite gallstones are seen in the gallbladder. 4. Bilateral renal cysts. Jeremiah Singh MD Chest CT 02/13/17 Signed Impressions: Service Date/Time: Monday, February 13, 2017 08:59 - CONCLUSION: Negative for acute process. Tano Ames MD FACR Carotid Artery Ultrasound 02/13/17 Signed Impressions: Service Date/Time: Monday, February 13, 2017 09:19 - CONCLUSION: No evidence of hemodynamically significant lesion. Ron Garcia MD Chest X-Ray 02/12/170 Signed Impressions: Service Date/Time: Sunday, February 12, 2017 17:05 - CONCLUSION: Mild atelectasis or consolidation at the right medial base. Memo Washburn MD Abdomen/Pelvis CT 02/12/170 Signed Impressions: Service Date/Time: Sunday, February 12, 2017 17:55 - CONCLUSION: 1. No acute findings with an abdomen and pelvic CT. Stable rim calcified lower pole right renal cyst with nonobstructing renal calcifications. Colonic diverticula. Previous left hip replacement. Mild fatty liver. Advanced osteoarthritis right hip. Chris Palafox MD Gall Bladder Ultrasound 02/12/17 0000 Signed Impressions: Service Date/Time: Sunday, February 12, 2017 19:39 - CONCLUSION: 1. Distended gallbladder and common bile duct. There is a questionable filling defect in the distal common bile duct on the CT examination. Gallstones are not seen. 2. Right renal cyst and a nonobstructing right renal stone. 3. Hepatic steatosis. Memo Washburn MD Physical Exam CONSTITUTIONAL/GENERAL: This is an adequately nourished patient, in no apparent distress. SKIN: No jaundice, rashes, or lesions. Ecchymoses on upper extremities. No wounds seen anteriorly. Skin temperature appropriate. Not diaphoretic. EYES: Pupils equal and round and reactive. Extraocular motions intact. No scleral icterus. No injection or drainage. Fundi not examined. ENT: Hearing decreased. Oral mucosae moist CARDIOVASCULAR: Regular rate and rhythm without murmurs, gallops, or rubs. No JVD. Peripheral pulses symmetric. RESPIRATORY/CHEST: Symmetric, unlabored respirations. Clear to auscultation. GASTROINTESTINAL: Abdomen soft, minimal RUQ tenderness, nondistended. Bowel sounds present. GENITOURINARY: Without palpable bladder distension. MUSCULOSKELETAL: Extremities without clubbing, trace edema. NEUROLOGICAL: Awake and alert. non focal Assessment & Plan Remarks UTI, E.coli allergic to cephalosporins, high grade allergy R T/S and levaquine pt has infx with the same organism back in October 2015 (severe compliated bacteremic UTI in the settings of urolithiasis with obstructions); was Rx with Levaquine Clinically asymptomatic CBD dilation sp ERCP with biliary stent placement Sepsis - source is urinary Keflex allergic reaction, type reaction hives switch to ertapenem 2/2 allergic rx and known resistance If toleartas OK will arrange d/c on Ertapenem to complete treatmetn for recurrnt UTI OK for PICC Yael Turner MD Feb 16, 2017 17:08
--- NOTE | 2017-02-16 17:12 | HHI.FF ---
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 [] May leave port accessed during therapy. [] May leave peripheral site accessed for duration of therapy. [x] If patient has SOB or respiratory distress, check oxygen saturation. If less than 90% or clinical signs of respiratory distress, administer oxygen at 2 L/min. via nasal cannula and notify physician. [x] Anaphylaxis/Reaction orders: * Stop infusion. * Keep IV line open with saline flush. * Notify physician. * Monitor vital signs every 15 minutes until symptoms resolve. * Check Oxygen saturation; Oxygen at 2 L/min. via nasal cannula if less than 90% or clinical signs of respiratory distress. * Administer diphenhydramine (Benadryl) 25 mg IV STAT, (unless patient has received as pre-med). May repeat once, if necessary. * Solu-Cortef 250 mg IVP over 30-60 seconds, use 100 mg vials for each dissolution. * Epinephrine (1mg/1 ml) 0.3 mg subcutaneously or IVP now with any signs of respiratory distress. * Check with physician for new additional pre-med orders if patient is re- challenged or re-treated. [x] May remove PICC line when treatment complete, after confirming with Physician. [x] If the patient is admitted to the hospital, the ED, or transferred via [facility] , complete transfer form including medication reconciliation order sheet. Laboratory Tests Weekly Labs: CBC w/diff, Creatinine Yael Turner MD Feb 16, 2017 17:12
[2017-02-16] MEDS ORDERED: ASP: Documented allergy to Penicillins or Cephalosporins PRN (17:15)
[2017-02-16] MEDS ORDERED: ASP: Path resistant to other antimicrobials, culture proven PRN (17:15)
[2017-02-16] MEDS ORDERED: MISCELLANEOUS PHARMACY INFORMATION XX PRN (17:15)
[2017-02-16] MEDS: ERTAPENEM INJ 1,000 MG in SODIUM CHLORIDE 0.9% INJ 100 ML IV SCH (18:53)
[2017-02-16] MEDS: ATORVASTATIN 20 MG TAB PO SCH (21:01)
[2017-02-16] MEDS: DEXT 5%-NACL 0.45% 1000 ML INJ 1,000 ML IV SCH (21:04)
[2017-02-17] VITALS (7 sets, daily range): BP systolic 122–168; BP diastolic 61–72; PULSE 61–76; RESP 17–20; TEMP 96.7–98.7; O2SAT 93–97
[2017-02-17] MEDS: TEMAZEPAM 15 MG CAP PO PRN ×2 (00:14→20:53)
[2017-02-17 04:14] LABS: HEMATOCRIT 35.8 % (39.0-51.0); MEAN CELL VOLUME 92.2 FL (80.0-100.0); MEAN CORPUSCULAR HEMOGLOBIN 30.7 PG (27.0-34.0); MEAN CORPUSCULAR HGB CONC 33.3 % (32.0-36.0); PLATELET COUNT 196 TH/MM3 (150-450); RED BLOOD COUNT 3.89 MIL/MM3 (4.50-5.90); RED CELL DISTRIBUTION WIDTH 13.4 % (11.6-17.2)
[2017-02-17 04:15] LABS: REVIEW FLAG FINAL
[2017-02-17 04:35] LABS: ALKALINE PHOSPHATASE 78 U/L (45-117); ALT (GPT) 44 U/L (12-78); ANION GAP 5 MEQ/L (5-15); AST (GOT) 67 U/L (15-37); BICARBONATE 31.3 MEQ/L (21.0-32.0); BLOOD UREA NITROGEN 15 MG/DL (7-18); CHLORIDE 104 MEQ/L (98-107); GLOMERULAR FILTRATION RATE 84 ML/MIN (>89); POTASSIUM 3.8 MEQ/L (3.5-5.1); SODIUM (NA) 140 MEQ/L (136-145); TOTAL BILIRUBIN ADULT 0.3 MG/DL (0.2-1.0)
[2017-02-17] MEDS: LEVOTHYROXINE SODIUM 50 MCG TAB PO SCH (06:06)
[2017-02-17] MEDS: ACETAMINOPHEN/HYDROcodone 325 MG/5 MG TAB PO PRN ×2 (06:06→17:23)
[2017-02-17] MEDS: SERTRALINE HCL 100 MG TAB PO SCH (08:03)
[2017-02-17] MEDS: SODIUM CHLORIDE 0.9% FLUSH 10 ML FLUSH IV FLUSH SCH ×2 (08:03→20:53)
[2017-02-17] MEDS: REMOVE OLD LIDOCAINE PATCH T-DERMAL SCH (08:04)
[2017-02-17] MEDS: ALLOPURINOL 300 MG TAB PO SCH (08:04)
[2017-02-17] MEDS: LOSARTAN 50 MG TAB PO SCH (08:04)
[2017-02-17] MEDS: LIDOCAINE HCL 5% PATCH T-DERMAL SCH (08:04)
[2017-02-17] MEDS: ASPIRIN EC 81 MG TABEC PO SCH (08:04)
[2017-02-17] MEDS: METOPROLOL TARTRATE 100 MG TAB PO SCH (08:04)
[2017-02-17] MEDS: HYDROCHLOROTHIAZIDE 25 MG TAB PO SCH (08:04)
[2017-02-17] MEDS ORDERED: COLA100C PO (10:44)
[2017-02-17] MEDS ORDERED: HYDR-3516 PO (10:44)
--- NOTE | 2017-02-17 10:49 | HHI.PR ---
Subjective Remarks Follow-up for abdominal pain Patient stated that abdominal pain has improved. Denied any nausea/ vomiting. Tolerating oral intake. Deny any rashes or any acute events. Patient's tolerating ertapenem. He remains afebrile. Objective Vitals Vital Signs Date Time Temp Pulse Resp B/P Pulse Ox O2 Delivery O2 Flow Rate FiO2 02/17/17 08:00 97.2 69 17 136/63 93 02/17/17 04:00 97.7 67 20 122/64 95 02/17/17 00:00 97.1 65 18 159/69 95 02/16/17 20:00 98.0 68 20 136/61 96 02/16/17 19:55 66 02/16/17 18:05 94 21 02/16/17 16:00 96.6 63 16 121/58 97 02/16/17 12:00 95.3 64 17 109/51 94 I/O 02/16/17 02/16/17 02/16/17 02/17/17 02/17/17 02/17/17 07:00 15:00 23:00 07:00 15:00 23:00 Intake Total 569 ml 1498 ml 320 ml 1057 ml Output Total 700 ml 900 ml 300 ml 1025 ml Balance -131 ml 598 ml 20 ml 32 ml Intake Oral 120 ml 1200 ml 320 ml 240 ml IV Total 449 ml 298 ml 817 ml Output Urine Total 700 ml 900 ml 300 ml 1025 ml # Bowel Movements 0 0 Result Diagram: 02/17/176 02/17/17315 Objective Remarks GENERAL: in NAD CARDIOVASCULAR: Regular rate and rhythm without murmurs, gallops, or rubs. RESPIRATORY: Breath sounds equal bilaterally. No accessory muscle use. GASTROINTESTINAL: Abdomen soft, nondistended. Mild TTP in mid abdomen. Negative for any peritoneal signs. MUSCULOSKELETAL: left knee no swelling noted. No pain with range of motion. BACK: Nontender without obvious deformity. No CVA tenderness. Medications and IVs Current Medications Acetaminophen 650 mg 650 mg ONCE ONCE RECTAL ; Start 02/12/17 at 17:00; Stop 02/12/17 at 17:08; Status DC Vancomycin HCl 1000 mg/Sodium Chloride 250 ml @ 250 mls/hr ONCE STAT IV Last administered on 02/12/17t 17:23; Start 02/12/17 at 17:00; Stop 02/12/17 at 17:59; Status DC Piperacillin Sod/ Tazobactam Sod 100 ml @ 200 mls/hr ONCE STAT IV Last administered on 02/12/17 17:23; Start 02/12/17 at 17:00; Stop 02/12/17 at 17:29; Status DC Sodium Chloride (NS 1000 ml Inj) 1,000 ml @ 999 mls/hr BOLUS ONCE IV Last administered on 02/12/17 17:24; Start 02/12/17 at 17:15; Stop 02/12/17 at 18:15; Status DC Acetaminophen (Tylenol Supp) 650 mg ONCE ONCE RECTAL Last administered on 17:24; Start 02/12/17 at 17:15; Stop 02/12/17 at 17:16; Status DC Iohexol 95 ml 95 ml STK-MED ONCE IV Last administered on 02/12/17 18:00; Start 02/12/17 at 18:00; Stop 02/12/17 at 18:01; Status DC Sodium Chloride (NS 1000 ml Inj) 1,000 ml @ 999 mls/hr BOLUS ONCE IV Last administered on 02/12/17 18:45; Start 02/12/17 at 18:45; Stop 02/12/17 at 19:45; Status DC Sodium Chloride (NS Flush) 2 ml UNSCH PRN IV FLUSH FLUSH AFTER USING IV ACCESS Last administered on 02/14/17 06:20; Start 02/12/17 at 19:45 Sodium Chloride (NS Flush) 2 ml BID IV FLUSH Last administered on 02/14/17 20: 28; Start 02/12/17 at 21:00 Acetaminophen (Tylenol) 650 mg Q4H PRN PO TEMP > 100.4 Last administered on 02/12 23:30; Start 02/12/17 at 19:45 Ondansetron HCl (Zofran Inj) 4 mg Q6H PRN IVP NAUSEA OR VOMITING Last administered on 02/16/17 15:37; Start 02/12/17 at 19:45 Heparin Sodium (Porcine) (Heparin Inj) 5,000 units Q12H SQ Last administered on 02/14/17 10:28; Start 02/12/17 at 23:00; Status Hold Naloxone HCl (Narcan Inj) 0.4 mg UNSCH PRN IV SEE LABEL COMMENTS; Start at 19:45 Magnesium Hydroxide (Milk Of Magnsoumya Liq) 30 ml Q12H PRN PO MILD - MODERATE CONSTIPATION; Start 02/12/17 at 19:45 Sennosides (Senokot) 17.2 mg Q12H PRN PO NAUSEA OR VOMITING; Start 02/12/17 at 19:45 Temazepam 7.5 mg 7.5 mg ONCE ONCE PO Last administered on 02/13/17 01:33; Start 02/13/17 at 01:00; Stop 02/13/17 at 01:01; Status DC Levofloxacin/ Dextrose (Levaquin 750 Mg Premix Inj) 150 ml @ 100 mls/hr Q24H IV Last administered on 02/15/17 02:05; Start 02/13/17 at 02:00; Stop 02/15/17 at 11:37; Status DC Allopurinol (Zyloprim) 300 mg DAILY PO Last administered on 02/17/17 08:04; Start 02/13/17 at 09:00 Aspirin (Ecotrin Ec) 81 mg DAILY PO Last administered on 02/17/17 08:04; Start 02/13/17 at 09:00 Atorvastatin Calcium (Lipitor) 20 mg HS PO Last administered on 02/16/17 21:01 ; Start 02/13/17 at 21:00 Hydrochlorothiazide (Hydrodiuril) 25 mg DAILY PO Last administered on 02/17/17 08:04; Start 02/13/17 at 09:00 Isosorbide Mononitrate (Imdur) 30 mg DAILY@0700 PO Last administered on 11:22; Start 02/13/17 at 07:00 Levothyroxine Sodium (Synthroid) 50 mcg DAILY@0600 PO Last administered on 06:06; Start 02/13/17 at 06:00 Losartan Potassium (Cozaar) 50 mg DAILY PO Last administered on 02/17/17 08:04 ; Start 02/13/17 at 09:00 Metoprolol Tartrate (Lopressor) 100 mg DAILY PO Last administered on 02/17/17 08:04; Start 02/13/17 at 09:00 Sertraline HCl (Zoloft) 100 mg DAILY PO Last administered on 02/17/17 08:03; Start 02/13/17 at 09:00 [facility] DAILY INH ; Start 02/13/17 at 09:00; Status Hold Metronidazole (Flagyl 500 Mg Inj) 100 ml @ 100 mls/hr Q8H IV Last administered on 02/15/17 04:44; Start 02/13/17 at 14:00; Stop 02/15/17 at 11:38; Status DC Acetaminophen/ Hydrocodone Bitart 1 tab 1 tab Q4H PRN PO PAIN SCALE 1 TO 7 Last administered on 02/17/17 06:06; Start 02/13/17 at 18:30 Aztreonam/Sodium Chloride (Azactam Inj/NS Inj) 100 ml @ 200 mls/hr Q6H IV Last administered on 02/16/17 15:37; Start 02/13/17 at 21:00; Stop 02/16/17 at 17: 11; Status DC Sincalide (Kinevac Inj) 2.2 mcg STK-MED ONCE IV PUSH Last administered on 09:32; Start 02/14/17 at 09:32; Stop 02/14/17 at 09:33; Status DC Benzonatate (Tessalon) 100 mg Q8H PRN PO COUGH Last administered on 02/14/17 16 :36; Start 02/14/17 at 14:15 Temazepam (Restoril) 7.5 mg HS PRN PO insomnia; Start 02/14/17 at 14:15; Stop at 10:20; Status DC Lidocaine HCl (Lidoderm 5% Patch.12 Hr) 1 patch DAILY T-DERMAL Last administered on 02/17/17 08:04; Start 02/14/17 at 14:15 Miscellaneous Information 1 1 Q24H T-DERMAL Last administered on 02/17/17 08:04 ; Start 02/15/17 at 09:00 Lactated Ringer's 1,000 ml @ 30 mls/hr Q24H PRN IV SEE LABEL COMMENTS; Start at 23:00; Stop 02/17/17 at 22:59 Sodium Chloride (NS 500 ml Inj) 500 ml @ 30 mls/hr [id number] PRN IV SEE LABEL COMMENTS; Start 02/14/17 at 23:00; Stop 02/17/17 at 22:59 Metoprolol Tartrate (Lopressor) 25 mg HOUSE PRINCIPAL PRN PO SEE LABEL COMMENTS; Start 02/14/17 at 23:00; Stop 02/17/17 at 22:59 Povidone Iodine (Betadine 5% Antisepsis Kit) 1 applic HOUSE PRINCIPAL PRN EACH NARE SEE LABEL COMMENTS; Start 02/14/17 at 23:00; Stop 02/17/17 at 22:59 Chlorhexidine Gluconate (Chlorhexidine 2% Cloth) 3 pack HOUSE PRINCIPAL PRN TOPICAL SEE LABEL COMMENTS; Start 02/14/17 at 23:00; Stop 02/17/17 at 22:59 Insulin Human Regular See Protocol Table ... HOUSE PRINCIPAL PRN SQ SEE PROTOCOL TABLE ; Start 02/14/17 at 23:00; Stop 02/17/17 at 22:59 Dextrose/Sodium Chloride (D5W-1/2 NS 1000 ml Inj) 1,000 ml @ 42 mls/hr [id number] IV Last administered on 02/16/17 21:04; Start 02/14/17 at 23:15 Temazepam (Restoril) 15 mg HS PRN PO insomnia Last administered on 02/17/17 00: 14; Start 02/15/17 at 10:30 Fentanyl Citrate (fentaNYL INJ) 100 mcg STK-MED ONCE .ROUTE ; Start 02/15/17 at 16:28; Stop 02/15/17 at 16:29; Status DC Propofol (Diprivan 200 Mg/20 ml Inj) 200 mg STK-MED ONCE IV ; Start 02/15/17 at 16:33; Stop 02/15/17 at 16:34; Status DC Miscellaneous Information ALL NURSING DEPARTME... UNSCH PRN .XX SEE LABEL COMMENTS; Start 02/15/17 at 19:00; Stop 02/16/17 at 19:00; Status DC Miscellaneous Medication (ASP Crit: Doc allergy to Penicillin/ Cephalosp) 1 UNSCH X1 PRN .XX PHARMACY DOCUMENTATION; Start 02/16/17 at 17:15; Stop 02/17/17 at 17:14 Miscellaneous Medication (ASP Crit: Path resist to other, cult proven) 1 UNSCH X1 PRN .XX PHARMACY DOCUMENTATION; Start 02/16/17 at 17:15; Stop 02/17/17 at 17: 14 Miscellaneous Medication 1 1 UNSCH X1 PRN XX PHARMACY DOCUMENTATION; Start 02/16 at 17:15; Stop 02/17/17 at 17:14 Ertapenem/Sodium Chloride (INVanz INJ/NS Inj) 100 ml @ 200 mls/hr Q24H IV Last administered on 02/16/17t 18:53; Start 02/16/17 at 18:00 A/P Problem List: (1) UTI (urinary tract infection) ICD Code: N39.0 Status: Acute (2) Hypothyroidism ICD Code: E03.9 Status: Chronic (3) Fatigue ICD Code: R53.83 Status: Acute (4) Shortness of breath ICD Code: R06.02 Status: Acute (5) Carotid bruit ICD Code: R09.89 Status: Acute (6) Traumatic loss of toenail ICD Code: S91.203A Status: Acute Assessment and Plan Mr. Molina is an 81 y/o male with a history of CAD and DM who presented to the ER for evaluation of body aches, weakness, nausea with vomiting, and productive cough Sepsis -multifactorial - Urinary Tract Infection - leukocytosis mildly increased secondary to ERCP. - Lactic acid 2.1 on admission, 1.2 on repeat - s/ Levaquin 750 mg IV every 24 hours + IV Flagyl and aztreonam. -Urine cultures growing Escherichia coli. -Patient was started on ertapenem on 02/16/2017 and continues to do well. -Per Dr. Yue buckley to place PICC line. PICC line ordered. Abdominal pain -Due to procedure. Improving. Continue pain control. -Clinically doing well. 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 -s/p ERCP with sphincterotomy/papillotomy on 02/15 -Per GI patient can have EUS done as outpatient in 2 weeks. Tumor markers ordered by GI in which AFP 1.6, CEA 1, CA 199 67.8. Follow-up with GI in regards to results and biopsy results. Cough -Resolved. - ECHO on 02/14 EF 65-70%. Otherwise echo was normal. - CXR with small consolidation vs atelectasis - on Incentive spirometry hourly- patient no complains of cough - chest CT - - negative for any acute process - monitor I and O - BNP on admission normal at 61 - continuous cardiac telemetry to monitor for cardiac arrhythmias -on Tessalon Perles. Carotid bruit bilateral - followed by Dr. 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 Left knee pain -Most likely secondary to osteoarthritis. -X-ray negative. -No pain today. DVT prophylaxis - Heparin 5000 units subq q24h Discharge Planning Patient medically clear for discharge once PICC line is place and IV infusion set up by case management. Dealt with patient's nurse. Problem Qualifiers (1) UTI (urinary tract infection): Qualified Code: N39.0 - Urinary tract infection with hematuria, site unspecified Abeba Wong MD Feb 17, 2017 10:49
--- NOTE | 2017-02-17 10:51 | HHI.FF ---
Face to Face Verification Diagnosis: (1) UTI (urinary tract infection) Home Health Nursing Order: Medical education Signs/symptoms of disease process Medication education-adverse effect IV medication administration I have seen patient Fabiano Molina on 02/17/17. My clinical findings support the need for the requested home health care services because: Infection w/ risk of complications Injectable med education/admin I certify that my clinical findings support that this patient is homebound because: Post-op weakness Abeba Wong MD Feb 17, 2017 10:51
[2017-02-17] MEDS ORDERED: INVA1INJ IV (13:14)
[2017-02-17] MEDS ORDERED: EPIN1INJ21 IV PUSH (13:14)
[2017-02-17] MEDS ORDERED: SOLU250I IV PUSH (13:14)
[2017-02-17] MEDS ORDERED: EPIN1INJ21 SQ (13:14)
--- NOTE | 2017-02-17 13:29 | HHI.DS ---
Discharge Summary Admission Date Feb 12, 2017 at 19:19 Admitting Diagnosis SEPSIS; UTI; RUQ pain (1) UTI (urinary tract infection) ICD Code: N39.0 (2) Hypothyroidism ICD Code: E03.9 (3) Fatigue ICD Code: R53.83 (4) Shortness of breath ICD Code: R06.02 (5) Carotid bruit ICD Code: R09.89 (6) Traumatic loss of toenail ICD Code: S91.203A Brief History - From Admission Written by Celine Burrell, acting as scribe for Dr. Atwood on 02/12/17 at 12:58. Mr. Molina reports that he was "getting cold, couldn't get warm, and hurting all over my body" followed by episode of nausea with vomiting. He reports appetite prior to coming to hospital. Chills have been intermittently occurring for the past 6 months to a year according to the patient. Coughed and sneezed "all night long" with expectoration of barron to yellowish and at times clear sputum. Complains of shortness of breath. Denies hemoptysis. He doesn't know if he's lost weight. Appetite loss for the past 6 months. Denies diarrhea. Reports dysuria described as burning with urination. Reports fatigue , loss of energy. Reports some generalized weakness and inability to stand "like I used to" - needs support to stand up. Some back pain radiating into legs. Patient reports he is supposed to have DARON done by Dr. Lester. CBC/BMP: 02/17/17 0316 02/17/17 0316 Significant Findings Laboratory Tests Test 02/15/17 02/16/17 02/16/17 02/16/17 04:54 04:43 12:00 18:00 Red Blood Count 3.80 MIL/MM3 4.09 MIL/MM3 3.88 MIL/MM3 (4.50-5.90) (4.50-5.90) (4.50-5.90) Hemoglobin 11.4 GM/DL 12.0 GM/DL 11.5 GM/DL (13.0-17.0) (13.0-17.0) (13.0-17.0) Hematocrit 35.3 % 38.1 % 36.4 % (39.0-51.0) (39.0-51.0) (39.0-51.0) Platelet Count 146 TH/MM3 (150-450) Blood Urea Nitrogen 22 MG/DL (7-18) 19 MG/DL (7-18) Estimat Glomerular Filtration 66 ML/MIN (>89) 83 ML/MIN (>89) 86 ML/MIN (>89) Rate Random Glucose 120 MG/DL 131 MG/DL 143 MG/DL (74-106) (74-106) (74-106) White Blood Count 12.9 TH/MM3 (4.0-11.0) Mean Corpuscular Hemoglobin 31.6 % 31.7 % Concent (32.0-36.0) (32.0-36.0) Lymphocytes (%) (Auto) 47.3 % (9.0-44.0) Monocytes (%) (Auto) 8.6 % (0.0-8.0) Total Protein 6.2 GM/DL (6.4-8.2) Albumin 2.5 GM/DL (3.4-5.0) CA 19-9 Antigen 67.8 U/ML (0.0-35.0) Test 02/17/17 03:16 White Blood Count 13.0 TH/MM3 (4.0-11.0) Red Blood Count 3.89 MIL/MM3 (4.50-5.90) Hemoglobin 11.9 GM/DL (13.0-17.0) Hematocrit 35.8 % (39.0-51.0) Estimat Glomerular Filtration 84 ML/MIN (>89) Rate Random Glucose 140 MG/DL (74-106) Aspartate Amino Transf 67 U/L (15-37) (AST/SGOT) Albumin 2.7 GM/DL (3.4-5.0) PE at Discharge GENERAL: in NAD CARDIOVASCULAR: Regular rate and rhythm without murmurs, gallops, or rubs. RESPIRATORY: Breath sounds equal bilaterally. No accessory muscle use. GASTROINTESTINAL: Abdomen soft, nondistended. Mild TTP in mid abdomen. Negative for any peritoneal signs. MUSCULOSKELETAL: left knee no swelling noted. No pain with range of motion. BACK: Nontender without obvious deformity. No CVA tenderness. Discharge Disposition: Discharge Home Discharge Instructions DIET: Follow Instructions for: Heart Healthy Diet Activities you can perform: Regular-No Restrictions Abeba Wong MD Feb 17, 2017 13:29
--- NOTE | 2017-02-17 17:14 | HHI.GIFU ---
GI Follow-up Note Consult Follow-up Subjective: Patient laying in bed comfortably, feeling better .Waiting to be discharged home on IV antibiotics.Tolerating diet well Objective: PHYSICAL EXAMINATION: Vitals signs stable No fever Vital Signs Date Time Temp Pulse Resp B/P Pulse Ox O2 Delivery O2 Flow Rate FiO2 02/17/17 16:00 98.7 72 17 132/63 96 02/17/17 12:00 96.7 61 17 130/61 97 02/17/17 10:56 97 21 HEENT: Pupils round and reactive to light; normocephalic; atraumatic; no jaundice. Throat is clear. NECK: Neck is supple, no JVD, no lymphadenopathy. CHEST: Chest is clear to auscultation and percussion. CARDIAC: Regular rate and rhythm with no murmur gallop or rubs. ABDOMEN: Soft, nondistended, nontender; no hepatosplenomegaly; bowel sounds are present in all four quadrants. EXTREMITIES: No clubbing, cyanosis, or edema. SKIN: Normal; no rash; no jaundice. FRUIT VENDOR: No focal deficits; alert and oriented times three. Available Data (labs, X- Rays, Procedues) : Laboratory Tests Test 02/16/17 02/16/17 02/16/17 02/17/17 04:43 12:00 18:00 03:16 White Blood Count 12.9 TH/MM3 10.2 TH/MM3 13.0 TH/MM3 Red Blood Count 4.09 MIL/MM3 3.88 MIL/MM3 3.89 MIL/MM3 Hemoglobin 12.0 GM/DL 11.5 GM/DL 11.9 GM/DL Hematocrit 38.1 % 36.4 % 35.8 % Mean Corpuscular Volume 93.1 FL 93.8 FL 92.2 FL Mean Corpuscular Hemoglobin 29.4 PG 29.7 PG 30.7 PG Mean Corpuscular Hemoglobin 31.6 % 31.7 % 33.3 % Concent Red Cell Distribution Width 13.1 % 13.4 % 13.4 % Platelet Count 179 TH/MM3 175 TH/MM3 196 TH/MM3 Mean Platelet Volume 7.9 FL 8.0 FL 8.0 FL Sodium Level 138 MEQ/L 141 MEQ/L 140 MEQ/L Potassium Level 3.6 MEQ/L 3.7 MEQ/L 3.8 MEQ/L Chloride Level 103 MEQ/L 105 MEQ/L 104 MEQ/L Carbon Dioxide Level 26.8 MEQ/L 29.6 MEQ/L 31.3 MEQ/L Anion Gap 8 MEQ/L 6 MEQ/L 5 MEQ/L Blood Urea Nitrogen 19 MG/DL 15 MG/DL 15 MG/DL Creatinine 0.88 MG/DL 0.86 MG/DL 0.87 MG/DL Estimat Glomerular Filtration 83 ML/MIN 86 ML/MIN 84 ML/MIN Rate Random Glucose 131 MG/DL 143 MG/DL 140 MG/DL Calcium Level 8.8 MG/DL 8.7 MG/DL 8.9 MG/DL Neutrophils (%) (Auto) 40.4 % Lymphocytes (%) (Auto) 47.3 % Monocytes (%) (Auto) 8.6 % Eosinophils (%) (Auto) 3.5 % Basophils (%) (Auto) 0.2 % Neutrophils # (Auto) 4.1 TH/MM3 Lymphocytes # (Auto) 4.8 TH/MM3 Monocytes # (Auto) 0.9 TH/MM3 Eosinophils # (Auto) 0.4 TH/MM3 Basophils # (Auto) 0.0 TH/MM3 CBC Comment DIFF FINAL Differential Comment Total Bilirubin 0.4 MG/DL 0.3 MG/DL Aspartate Amino Transf 26 U/L 67 U/L (AST/SGOT) Alanine Aminotransferase 21 U/L 44 U/L (ALT/SGPT) Alkaline Phosphatase 70 U/L 78 U/L Total Protein 6.2 GM/DL 6.8 GM/DL Albumin 2.5 GM/DL 2.7 GM/DL Tumor Marker Alpha Fetoprotein 1.6 NG/ML Carcinoembryonic Antigen 1.0 NG/ML CA 19-9 Antigen 67.8 U/ML ASSESSMENT/PLAN: sepsis multifactorial on antibiotics , ID following cbd stricture s/p stent Recommendations ok to dc home from gi point gi will sign off fu office ercp with stent removal;/change in 3 month eus op monitor lfts closely It was a pleasure seeing Fabiano Molina. Thank you for this consult. Entered by: Vianey Law MD Feb 17, 2017 17:14
[2017-02-17] MEDS: ERTAPENEM INJ 1,000 MG in SODIUM CHLORIDE 0.9% INJ 100 ML IV SCH (17:23)
[2017-02-17] MEDS: ATORVASTATIN 20 MG TAB PO SCH (20:53)
[2017-02-17] MEDS: DEXT 5%-NACL 0.45% 1000 ML INJ 1,000 ML IV SCH (20:54)
[2017-02-18] VITALS (7 sets, daily range): BP systolic 122–186; BP diastolic 57–66; PULSE 66–74; RESP 16–22; TEMP 96–97; O2SAT 93–97
[2017-02-18] MEDS: LEVOTHYROXINE SODIUM 50 MCG TAB PO SCH (06:14)
[2017-02-18] MEDS: ISOSORBIDE MONONITRATE 30 MG TAB PO SCH (06:14)
[2017-02-18] MEDS: SERTRALINE HCL 100 MG TAB PO SCH (08:32)
[2017-02-18] MEDS: LOSARTAN 50 MG TAB PO SCH (08:32)
[2017-02-18] MEDS: SODIUM CHLORIDE 0.9% FLUSH 10 ML FLUSH IV FLUSH SCH (08:32)
[2017-02-18] MEDS: METOPROLOL TARTRATE 100 MG TAB PO SCH (08:32)
[2017-02-18] MEDS: ASPIRIN EC 81 MG TABEC PO SCH (08:32)
[2017-02-18] MEDS: HYDROCHLOROTHIAZIDE 25 MG TAB PO SCH (08:32)
[2017-02-18] MEDS: ALLOPURINOL 300 MG TAB PO SCH (08:32)
[2017-02-18] MEDS: REMOVE OLD LIDOCAINE PATCH T-DERMAL SCH (08:34)
[2017-02-18] MEDS: LIDOCAINE HCL 5% PATCH T-DERMAL SCH (08:34)
--- NOTE | 2017-02-18 09:43 | HHI.PR ---
Subjective Remarks Follow-up for abdominal pain and UTI Patient stated that he feels a lot better today. He denies any abdominal pain. Denies any nausea or vomiting. He is tolerating oral intake. He has no questions or concerns. Patient remained afebrile. Objective Vitals Vital Signs Date Time Temp Pulse Resp B/P Pulse Ox O2 Delivery O2 Flow Rate FiO2 02/18/17 08:00 96.2 74 16 136/61 93 02/18/17 04:00 97.0 71 22 127/58 95 02/18/17 00:00 97.0 72 22 149/66 95 02/17/17 20:00 97.5 75 20 168/72 96 02/17/17 20:00 76 02/17/17 16:00 98.7 72 17 132/63 96 02/17/17 12:00 96.7 61 17 130/61 97 02/17/17 10:56 97 21 I/O 02/17/17 02/17/17 02/17/17 02/18/17 02/18/17 02/18/17 07:00 15:00 23:00 07:00 15:00 23:00 Intake Total 1057 ml 480 ml 480 ml 1187 ml Output Total 1025 ml 575 ml 425 ml 1250 ml Balance 32 ml -95 ml 55 ml -63 ml Intake Oral 240 ml 480 ml 480 ml 240 ml IV Total 817 ml 947 ml Output Urine Total 1025 ml 575 ml 425 ml 1250 ml # Bowel Movements 0 0 0 0 Result Diagram: 02/17/1731502/17/17315 Objective Remarks GENERAL: in NAD CARDIOVASCULAR: Regular rate and rhythm without murmurs, gallops, or rubs. RESPIRATORY: Breath sounds equal bilaterally. No accessory muscle use. GASTROINTESTINAL: Abdomen soft, nondistended. no TTP. Negative for any peritoneal signs. MUSCULOSKELETAL: left knee no swelling noted. No pain with range of motion. BACK: Nontender without obvious deformity. No CVA tenderness. Medications and IVs Current Medications Acetaminophen 650 mg 650 mg ONCE ONCE RECTAL ; Start 02/12/17 at 17:00; Stop 02/12/17 at 17:08; Status DC Vancomycin HCl 1000 mg/Sodium Chloride 250 ml @ 250 mls/hr ONCE STAT IV Last administered on 02/12/17t 17:23; Start 02/12/17 at 17:00; Stop 02/12/17 at 17:59; Status DC Piperacillin Sod/ Tazobactam Sod 100 ml @ 200 mls/hr ONCE STAT IV Last administered on 02/12/17 17:23; Start 02/12/17 at 17:00; Stop 02/12/17 at 17:29; Status DC Sodium Chloride (NS 1000 ml Inj) 1,000 ml @ 999 mls/hr BOLUS ONCE IV Last administered on 02/12/17 17:24; Start 02/12/17 at 17:15; Stop 02/12/17 at 18:15; Status DC Acetaminophen (Tylenol Supp) 650 mg ONCE ONCE RECTAL Last administered on 17:24; Start 02/12/17 at 17:15; Stop 02/12/17 at 17:16; Status DC Iohexol 95 ml 95 ml STK-MED ONCE IV Last administered on 02/12/17 18:00; Start 02/12/17 at 18:00; Stop 02/12/17 at 18:01; Status DC Sodium Chloride (NS 1000 ml Inj) 1,000 ml @ 999 mls/hr BOLUS ONCE IV Last administered on 02/12/17 18:45; Start 02/12/17 at 18:45; Stop 02/12/17 at 19:45; Status DC Sodium Chloride (NS Flush) 2 ml UNSCH PRN IV FLUSH FLUSH AFTER USING IV ACCESS Last administered on 02/14/17 06:20; Start 02/12/17 at 19:45 Sodium Chloride (NS Flush) 2 ml BID IV FLUSH Last administered on 02/18/17 08: 32; Start 02/12/17 at 21:00 Acetaminophen (Tylenol) 650 mg Q4H PRN PO TEMP > 100.4 Last administered on 02/12 23:30; Start 02/12/17 at 19:45 Ondansetron HCl (Zofran Inj) 4 mg Q6H PRN IVP NAUSEA OR VOMITING Last administered on 02/16/17 15:37; Start 02/12/17 at 19:45 Heparin Sodium (Porcine) (Heparin Inj) 5,000 units Q12H SQ Last administered on 02/14/17 10:28; Start 02/12/17 at 23:00; Status Hold Naloxone HCl (Narcan Inj) 0.4 mg UNSCH PRN IV SEE LABEL COMMENTS; Start at 19:45 Magnesium Hydroxide (Milk Of Magnesia Liq) 30 ml Q12H PRN PO MILD - MODERATE CONSTIPATION; Start 02/12/17 at 19:45 Sennosides (Senokot) 17.2 mg Q12H PRN PO NAUSEA OR VOMITING; Start 02/12/17 at 19:45 Temazepam 7.5 mg 7.5 mg ONCE ONCE PO Last administered on 02/13/17 01:33; Start 02/13/17 at 01:00; Stop 02/13/17 at 01:01; Status DC Levofloxacin/ Dextrose (Levaquin 750 Mg Premix Inj) 150 ml @ 100 mls/hr Q24H IV Last administered on 02/15/17 02:05; Start 02/13/17 at 02:00; Stop 02/15/17 at 11:37; Status DC Allopurinol (Zyloprim) 300 mg DAILY PO Last administered on 02/18/17 08:32; Start 02/13/17 at 09:00 Aspirin (Ecotrin Ec) 81 mg DAILY PO Last administered on 02/18/17 08:32; Start 02/13/17 at 09:00 Atorvastatin Calcium (Lipitor) 20 mg HS PO Last administered on 02/17/17 20:53 ; Start 02/13/17 at 21:00 Hydrochlorothiazide (Hydrodiuril) 25 mg DAILY PO Last administered on 08:32; Start 02/13/17 at 09:00 Isosorbide Mononitrate (Imdur) 30 mg DAILY@0700 PO Last administered on 06:14; Start 02/13/17 at 07:00 Levothyroxine Sodium (Synthroid) 50 mcg DAILY@0600 PO Last administered on 02/18 06:14; Start 02/13/17 at 06:00 Losartan Potassium (Cozaar) 50 mg DAILY PO Last administered on 02/18/17 08:32 ; Start 02/13/17 at 09:00 Metoprolol Tartrate (Lopressor) 100 mg DAILY PO Last administered on 02/18/17 08:32; Start 02/13/17 at 09:00 Sertraline HCl (Zoloft) 100 mg DAILY PO Last administered on 02/18/17 08:32; Start 02/13/17 at 09:00 Patient Own Medication PT OWN MEDNON-FORMULARY D... DAILY INH ; Start 02/13/17 at 09:00; Status Hold Metronidazole (Flagyl 500 Mg Inj) 100 ml @ 100 mls/hr Q8H IV Last administered on 02/15/17 04:44; Start 02/13/17 at 14:00; Stop 02/15/17 at 11:38; Status DC Acetaminophen/ Hydrocodone Bitart 1 tab 1 tab Q4H PRN PO PAIN SCALE 1 TO 7 Last administered on 02/17/17 17:23; Start 02/13/17 at 18:30 Aztreonam/Sodium Chloride (Azactam Inj/NS Inj) 100 ml @ 200 mls/hr Q6H IV Last administered on 02/16/17 15:37; Start 02/13/17 at 21:00; Stop 02/16/17 at 17: 11; Status DC Sincalide (Kinevac Inj) 2.2 mcg STK-MED ONCE IV PUSH Last administered on 09:32; Start 02/14/17 at 09:32; Stop 02/14/17 at 09:33; Status DC Benzonatate (Tessalon) 100 mg Q8H PRN PO COUGH Last administered on 02/14/17 16 :36; Start 02/14/17 at 14:15 Temazepam (Restoril) 7.5 mg HS PRN PO insomnia; Start 02/14/17 at 14:15; Stop at 10:20; Status DC Lidocaine HCl (Lidoderm 5% Patch.12 Hr) 1 patch DAILY T-DERMAL Last administered on 02/18/17 08:34; Start 02/14/17 at 14:15 Miscellaneous Information 1 1 Q24H T-DERMAL Last administered on 02/18/17 08: 34; Start 02/15/17 at 09:00 Lactated Ringer's 1,000 ml @ 30 mls/hr Q24H PRN IV SEE LABEL COMMENTS; Start at 23:00; Stop 02/17/17 at 22:59; Status DC Sodium Chloride (NS 500 ml Inj) 500 ml @ 30 mls/hr [id number] PRN IV SEE LABEL COMMENTS; Start 02/14/17 at 23:00; Stop 02/17/17 at 22:59; Status DC Metoprolol Tartrate (Lopressor) 25 mg MENTAL HE[employer] PROFESSIONAL PRN PO SEE LABEL COMMENTS; Start 02/14/17 at 23:00; Stop 02/17/17 at 22:59; Status DC Povidone Iodine (Betadine 5% Antisepsis Kit) 1 applic MENTAL HE[employer] PROFESSIONAL PRN EACH NARE SEE LABEL COMMENTS; Start 02/14/17 at 23:00; Stop 02/17/17 at 22:59; Status DC Chlorhexidine Gluconate (Chlorhexidine 2% Cloth) 3 pack MENTAL HE[employer] PROFESSIONAL PRN TOPICAL SEE LABEL COMMENTS; Start 02/14/17 at 23:00; Stop 02/17/17 at 22:59; Status DC Insulin Human Regular See Protocol Table ... MENTAL HE[employer] PROFESSIONAL PRN SQ SEE PROTOCOL TABLE ; Start 02/14/17 at 23:00; Stop 02/17/17 at 22:59; Status DC Dextrose/Sodium Chloride (D5W-1/2 NS 1000 ml Inj) 1,000 ml @ 42 mls/hr [id number] IV Last administered on 02/17/17 20:54; Start 02/14/17 at 23:15 Temazepam (Restoril) 15 mg HS PRN PO insomnia Last administered on 02/17/17 20: 53; Start 02/15/17 at 10:30 Fentanyl Citrate (fentaNYL INJ) 100 mcg STK-MED ONCE .ROUTE ; Start 02/15/17 at 16:28; Stop 02/15/17 at 16:29; Status DC Propofol (Diprivan 200 Mg/20 ml Inj) 200 mg STK-MED ONCE IV ; Start 02/15/17 at 16:33; Stop 02/15/17 at 16:34; Status DC Miscellaneous Information ALL NURSING DEPARTME... UNSCH PRN .XX SEE LABEL COMMENTS; Start 02/15/17 at 19:00; Stop 02/16/17 at 19:00; Status DC Miscellaneous Medication (ASP Crit: Doc allergy to Penicillin/ Cephalosp) 1 UNSCH X1 PRN .XX PHARMACY DOCUMENTATION; Start 02/16/17 at 17:15; Stop 02/17/17 at 17:14; Status DC Miscellaneous Medication (ASP Crit: Path resist to other, cult proven) 1 UNSCH X1 PRN .XX PHARMACY DOCUMENTATION; Start 02/16/17 at 17:15; Stop 02/17/17 at 17: 14; Status DC Miscellaneous Medication 1 1 UNSCH X1 PRN XX PHARMACY DOCUMENTATION; Start 02/16 at 17:15; Stop 02/17/17 at 17:14; Status DC Ertapenem/Sodium Chloride (INVanz INJ/NS Inj) 100 ml @ 200 mls/hr Q24H IV Last administered on 02/17/17t 17:23; Start 02/16/17 at 18:00 A/P Problem List: (1) UTI (urinary tract infection) ICD Code: N39.0 Status: Acute (2) Hypothyroidism ICD Code: E03.9 Status: Chronic (3) Fatigue ICD Code: R53.83 Status: Acute (4) Shortness of breath ICD Code: R06.02 Status: Acute (5) Carotid bruit ICD Code: R09.89 Status: Acute (6) Traumatic loss of toenail ICD Code: S91.203A Status: Acute Assessment and Plan Mr. Molina is an 81 y/o male with a history of CAD and DM who presented to the ER for evaluation of body aches, weakness, nausea with vomiting, and productive cough Sepsis -multifactorial - Urinary Tract Infection - leukocytosis mildly increased secondary to ERCP. - Lactic acid 2.1 on admission, 1.2 on repeat - s/ Levaquin 750 mg IV every 24 hours + IV Flagyl and aztreonam. -Urine cultures growing Escherichia coli. -Patient was started on ertapenem on 02/16/2017 and continues to do well. -Patient has midline place pending home health for ertapenem infusion. Abdominal pain -Due to procedure. Improving. Continue pain control. -Clinically doing well. 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 -s/p ERCP with sphincterotomy/papillotomy on 02/15 -Per GI patient can have EUS done as outpatient in 2 weeks. Tumor markers ordered by GI in which AFP 1.6, CEA 1, CA 199 67.8. Follow-up with GI in regards to results and biopsy results. -Educated patient on results of tumor marker CA-19-9. Told him the importance of follow-up with GI in regards to this ruling out cancer since CA 19-9 is elevated. Patient stated that he understood. Cough -Resolved. - ECHO on 02/14 EF 65-70%. Otherwise echo was normal. - CXR with small consolidation vs atelectasis - on Incentive spirometry hourly- patient no complains of cough - chest CT - - negative for any acute process - monitor I and O - BNP on admission normal at 61 - continuous cardiac telemetry to monitor for cardiac arrhythmias -on Tessalon Perles. Carotid bruit bilateral - followed by Dr. Lester - patient states he is due for outpatient ultrasound - rept Bilateral carotid ultrasound - no significantly hemodynamic disease Hypothyroidism - - TSH- normal - continue home Synthroid left second toe with traumatic nail removal - x-ray left foot - negative -Engineering Drafter's cleared patient. Left knee pain -Most likely secondary to osteoarthritis. -X-ray negative. -No pain today. DVT prophylaxis - Heparin 5000 units subq q24h Discharge Planning Waiting for home health to be set up before discharge. Patient is medically clear for discharge. Problem Qualifiers (1) UTI (urinary tract infection): Qualified Code: N39.0 - Urinary tract infection with hematuria, site unspecified Abeba Wong MD Feb 18, 2017 09:43
--- NOTE | 2017-02-18 15:25 | HHI.PR ---
Subjective Subjective Notes No complaints Planning to go home today Objective Vitals/I&O Vital Signs Date Time Temp Pulse Resp B/P Pulse Ox O2 Delivery O2 Flow Rate FiO2 02/18/17 13:00 145/65 02/18/17 12:00 96.4 72 16 95 02/17/17 10:56 21 02/15/17 17:00 Nasal Cannula 2.00 Cardiovascular: Regular Lungs: Clear Abdomen: Non-distended, Non-tender Extremities: No edema A/P Assessment and Plan 81 year old male with malaise; +UTI; abnormal gallbladder -s/p ERCP with stent placement -Tolerating regular diet -Plan for PICC placement and IV antibiotics per ID for UTI -No operative plans for laparoscopic cholecystectomy -GS clear for Xochitl Sharif [facility] Feb 18, 2017 15:25
[2017-02-18] MEDS: ACETAMINOPHEN/HYDROcodone 325 MG/5 MG TAB PO PRN (15:34)
[2017-02-18] MEDS: ERTAPENEM INJ 1,000 MG in SODIUM CHLORIDE 0.9% INJ 100 ML IV SCH (17:17)
== END 2017-02-18 18:13 | disposition home or self-care (01) | DRG 871 ==
LOC: NEPE 16:46 → NEDA 19:19 → N07A 20:37
PROVIDERS: ADMIT Family Medicine; ATTEND Family Medicine
PROC: 0F798DZ Dilation of Common Bile Duct with Intraluminal Device, Via Natural or Artificial Opening Endoscopic (ICD-10-PCS; principal; 2017-02-15 14:49)
DX: A41.51 Sepsis due to Escherichia coli [E. coli] (principal); K83.1 Obstruction of bile duct; J90 Pleural effusion, not elsewhere classified; N39.0 Urinary tract infection, site not specified; J98.11 Atelectasis; N28.1 Cyst of kidney, acquired; J44.9 Chronic obstructive pulmonary disease, unspecified; K76.0 Fatty (change of) liver, not elsewhere classified; E03.9 Hypothyroidism, unspecified; I25.10 Atherosclerotic heart disease of native coronary artery without angina pectoris; E11.9 Type 2 diabetes mellitus without complications; E78.5 Hyperlipidemia, unspecified; I10 Essential (primary) hypertension; K21.9 Gastro-esophageal reflux disease without esophagitis; I25.2 Old myocardial infarction; R32 Unspecified urinary incontinence; R63.0 Anorexia; K82.8 Other specified diseases of gallbladder; S91.202A Unspecified open wound of left great toe with damage to nail, initial encounter; R09.89 Other specified symptoms and signs involving the circulatory and respiratory systems; G47.00 Insomnia, unspecified; M79.81 Nontraumatic hematoma of soft tissue; N20.0 Calculus of kidney; M17.11 Unilateral primary osteoarthritis, right knee; K57.90 Diverticulosis of intestine, part unspecified, without perforation or abscess without bleeding; F32.9 Major depressive disorder, single episode, unspecified; F41.9 Anxiety disorder, unspecified; Z85.46 Personal history of malignant neoplasm of prostate; Z82.49 Family history of ischemic heart disease and other diseases of the circulatory system; Z86.73 Personal history of transient ischemic attack (TIA), and cerebral infarction without residual deficits; Z87.891 Personal history of nicotine dependence; Z88.1 Allergy status to other antibiotic agents; Z88.2 Allergy status to sulfonamides; Z92.3 Personal history of irradiation; Z95.1 Presence of aortocoronary bypass graft; Z95.5 Presence of coronary angioplasty implant and graft; Z96.642 Presence of left artificial hip joint
CPT/HCPCS: 36569; 71010; 71250; 73564; 73630; 74177; 74181; 74330; 76377; 76705; 76937; 78227; 80048; 80053; 80076; 81001; 82105; 82378; 82948; 83605; 83690; 83880; 84443; 85007; 85025; 85027; 85610; 85730; 86301; 87040; 87077; 87086; 87186; 93005; 93306; 93880; 96365; 96375; A9537; C1769; C2625; J1335; J1644; J1956; J2405; J2543; J2805; J3010; J3370; J7030; J7050; Q9967

== ENCOUNTER 2017-02-23 17:45 | Inpatient (IN) | payer OTHER, MEDICARE ==
[~2017-02-23] VITALS: Ht 188 cm; Wt 116.2 kg
[~2017-02-23 17:45] MED LIST changes: +ASPI81TA81 PO; -ASPI81TA82 PO; -ATOR20TA PO; +ATOR20TA15 PO; -CALTTAB PO; +COLA100C PO; +EPIN1INJ21 IV PUSH; +EPIN1INJ21 SQ; -FLOR250C PO; -HYDR-2768 PO; +HYDR-3516 PO; +HYDR25TA5 PO; +INVA1INJ IV; +ISOS20TA PO; -ISOS30 PO; -LEVA500T PO; -LEVO.025 PO; +LEVO50TA4 PO; -NITR0.4S SL; -PERC5TAB12 PO; -POTA-267 PO; +POTA1POW PO; -PROBCAP4 PO; +SERT-129 PO; -SERT100 PO; +SOLU250I IV PUSH; -TAB-TAB PO; -TEMA15 PO; +TIOT1AER INH; -ULTR50TA PO; +VITA250T3 PO
[2017-02-23 17:48] VITALS: BP 153/70; PULSE 64; RESP 24; TEMP 97.8; O2SAT 97
[2017-02-23] MEDS ORDERED: SODIUM CHLORIDE 0.9% FLUSH 10 ML FLUSH IV FLUSH PRN ×2 (18:45→23:15)
[2017-02-23 18:47] VITALS: RESP 18; O2SAT 96
[2017-02-23 19:00] VITALS: BP 147/67; PULSE 59; RESP 16; O2SAT 96
[2017-02-23 19:09] LABS: AUTOMATED NEUTROPHIL # 4.8 TH/MM3 (1.8-7.7); BASOPHIL # 0.1 TH/MM3 (0-0.2); BASOPHIL % 0.3 % (0.0-2.0); EOSINOPHIL # 0.5 TH/MM3 (0-0.4); EOSINOPHIL % 2.5 % (0.0-4.0); HEMATOCRIT 36.6 % (39.0-51.0); MEAN CELL VOLUME 91.5 FL (80.0-100.0); MEAN CORPUSCULAR HEMOGLOBIN 30.9 PG (27.0-34.0); MEAN CORPUSCULAR HGB CONC 33.8 % (32.0-36.0); NEUT % 26.2 % (16.0-70.0); PLATELET COUNT 366 TH/MM3 (150-450); RED CELL DISTRIBUTION WIDTH 12.9 % (11.6-17.2); WHITE BLOOD COUNT 18.2 TH/MM3 (4.0-11.0)
[2017-02-23 19:13] LABS: HEMO FLAGS AUTO DIFF
[2017-02-23] MEDS ORDERED: MORPHINE SULFATE 4 MG/ML INJ IV PUSH ONE (19:15)
[2017-02-23] MEDS ORDERED: ONDANSETRON HCL 4 MG/2 ML VIAL IVP ONE (19:15)
[2017-02-23 19:21] LABS: ANION GAP 5 MEQ/L (5-15); AST (GOT) 32 U/L (15-37); BICARBONATE 29.7 MEQ/L (21.0-32.0); BLOOD UREA NITROGEN 22 MG/DL (7-18); CHLORIDE 101 MEQ/L (98-107); GLOMERULAR FILTRATION RATE 72 ML/MIN (>89); POTASSIUM 4.6 MEQ/L (3.5-5.1); SODIUM (NA) 136 MEQ/L (136-145)
[2017-02-23 19:22] LABS: ALT (GPT) 40 U/L (12-78)
[2017-02-23 19:24] LABS: ALKALINE PHOSPHATASE 90 U/L (45-117); APTT (PATIENT) 25.3 SEC (24.3-30.1); INTERNATIONAL NORMALIZED RATIO 0.9 RATIO; PROTHROMBIN TIME - PATIENT 10.3 SEC (9.8-11.6); TOTAL BILIRUBIN ADULT 0.3 MG/DL (0.2-1.0)
[2017-02-23] MEDS ORDERED: MORPHINE SULFATE 8 MG/ML INJ IV PUSH ONE (19:30)
--- NOTE | 2017-02-23 20:03 | PD ---
HPI Chief Complaint: Abdominal Pain Time Seen by Provider: 19:02 Travel History International Travel<30 days: No Contact w/Intl Traveler<30days: No Traveled to known affect area: No History of Present Illness HPI Patient is a 81-year-old male who presents to the emergency department with complaint of abdominal pain. Patient was recently hospitalized here, discharged on February 19 for sepsis. Patient had Escherichia coli UTI, and ultimately was treated with ertapenem, discharged with PICC line for IV ertapenem which patient has been getting. During his hospital stay he did also have common bile duct dilatation and common bile duct stone, and had ERCP with sphincterotomy/papillotomy and stent placement. Patient states that really ever since he was discharged home he has not felt well. He describes pain primarily in the lower abdomen, left greater than right. This is an achy pressure. He notes some burning with urination and despite drinking 4 large bottles of water daily states that he does not feel he is making appropriate amount of urine. PICC line in the right upper extremity, patient has not noticed any redness. No fevers or chills. No nausea or vomiting. PFSH Past Medical History Hx Anticoagulant Therapy: Yes Arthritis: Yes Asthma: No Autoimmune Disease: No Blood Disorders: No Anxiety: Yes Depression: Yes Heart Rhythm Problems: Yes (AFIB) Cancer: Yes (prostate, thyroid) Cardiac Catheterization: Yes (Stents x 3) Cardiovascular Problems: Yes High Cholesterol: Yes Chemotherapy: No Chest Pain: No COPD: Yes Cerebrovascular Accident: Yes (NO RESIDUAL ) Diabetes: Yes (DIET CONTROLLED) Patient Takes Glucophage: No Diminished Hearing: No Endocrine: Yes Gastrointestinal Disorders: No GERD: Yes Genitourinary: Yes Headaches: No Hepatitis: No Hiatal Hernia: Yes Hypertension: Yes Immune Disorder: No Implanted Vascular Access Dvce: Yes Kidney Stones: Yes Musculoskeletal: Yes Neurologic: No Psychiatric: No Reproductive: No Respiratory: Yes Immunizations Current: Yes Migraines: No Myocardial Infarction: Yes Pneumonia: Yes Radiation Therapy: No Renal Failure: No Seizures: No Sleep Apnea: No Thyroid Disease: Yes Ulcer: Yes Tetanus Vaccination: > 5 Years Influenza Vaccination: Yes PNEUMOCCOCAL Vaccine (Year): 2008 Past Surgical History Abdominal Surgery: Yes (appendectomy) AICD: No Arteriovenous Shunt: No Body Medical Devices: cardiac stents Cardiac Surgery: Yes Coronary Artery Bypass Graft: Yes (4 VESSEL) Coronary Stent: Yes (x 3) Ear Surgery: No Endocrine Surgery: Yes Eye Surgery: No Genitourinary Surgery: Yes (prostatectomy) Gynecologic Surgery: No Insulin Pump: No Joint Replacement: Yes (LEFT HIP) Neurologic Surgery: No Oral Surgery: No Pacemaker: No Thoracic Surgery: No Tonsillectomy: Yes Other Surgery: Yes (RIGHT KIDNEY STENT, REMOVED TODAY) Family History Family Myocardial Infarction: Yes Social History Alcohol Use: No (PT DENIES) Tobacco Use: No Substance Use: No (PT DENIES ) Allergies-Medications (Allergen,Severity, Reaction): Coded Allergies: Keflex (Verified Allergy, Severe, RASH, 02/23/17) rash Plavix (Verified Allergy, Severe, RASH, 02/23/17) Sulfa (Verified Allergy, Severe, RASH, 02/23/17) Reported Meds & Prescriptions Reported Meds & Active Scripts Active Invanz Inj (Ertapenem) 1 Gm Addvial 1 Gm IV Q24H 10 Days ADMINISTER IN 100ML NS Colace (Docusate Sodium) 100 Mg Capsule 100 Mg PO BID PRN Hydrocodone-Acetaminophen 5-325 mg Tab 1 Tab PO Q4H PRN Reported Stiolto Respimat Inh (Tiotropium-Olodaterol Inh) 2.5-2.5 Mcg/Act Aero 2.5 Puff INH DAILY Levothyroxine (Levothyroxine Sodium) 50 Mcg Tab 50 Mcg PO DAILY Aspir-81 (Aspirin) 81 Mg Tabdr 81 Mg PO DAILY Vitamin C (Ascorbic Acid) 250 Mg Tab 500 Mg PO Hydrochlorothiazide 25 Mg Tab 25 Mg PO DAILY Metoprolol Tartrate 100 Mg Tab 100 Mg PO DAILY Losartan (Losartan Potassium) 50 Mg Tab 50 Mg PO DAILY Allopurinol 300 Mg Tab 300 Mg PO DAILY Isosorbide Mononitrate 20 Mg Tab 30 Mg PO DAILY Take 2 doses 7 hours apart. Atorvastatin (Atorvastatin Calcium) 20 Mg Tab 20 Mg PO HS Sertraline (Sertraline HCl) 100 Mg Tab 100 Mg PO DAILY Review of Systems Except as stated in HPI: all other systems reviewed are Neg Physical Exam Narrative GENERAL: Well-appearing male in no acute distress SKIN: Focused skin assessment warm/dry. HEAD: Normocephalic. EYES: No scleral icterus. No injection or drainage. ENT: Mucous membranes pink and moist. NECK: Supple CARDIOVASCULAR: Regular rate and rhythm. No murmur appreciated. RESPIRATORY: No accessory muscle use. Clear to auscultation. Breath sounds equal bilaterally. GASTROINTESTINAL: Abdomen soft, low abdominal tenderness to palpation without rebound or guarding, greatest left lower quadrant/suprapubic abdomen. He does have ecchymosis of the abdominal wall from Lovenox injections from previous hospitalization MUSCULOSKELETAL: No obvious deformities. No edema. NEUROLOGICAL: Awake and alert. Normal speech. PSYCHIATRIC: Appropriate mood and affect; insight and judgment normal. Data Data Last Documented VS Vital Signs Date Time Temp Pulse Resp B/P Pulse Ox O2 Delivery O2 Flow Rate FiO2 02/23/17 18:47 18 96 02/23/17 17:48 97.8 64 153/70 Room Air Orders Complete Blood Count With Diff (02/23/17 18:41) Comprehensive Metabolic Panel (02/23/17 18:41) Lipase (02/23/17 18:41) Prothrombin Time / Inr (Pt) (02/23/17 18:41) Act Partial Throm Time (Ptt) (02/23/17 18:41) Urinalysis - C+S If Indicated (02/23/17 18:41) Iv Access Insert/Monitor (02/23/17 18:41) Ecg Monitoring (02/23/17 18:41) Oximetry (02/23/17 18:41) NPO (02/23/17 18:41) Sodium Chloride 0.9% Flush (Ns Flush) (02/23/17 18:45) Electrocardiogram (02/23/17 18:41) Lactic Acid Sepsis Protocol (02/23/17 19:04) Blood Culture (02/23/17 19:04) Cath For Specimen (02/23/17 19:11) Ct Abd/Pel W/O Iv Contrast (02/23/17 19:11) Ondansetron Inj (Zofran Inj) (02/23/17 19:15) Morphine Inj (Morphine Inj) (02/23/17 19:30) Sodium Chlorid 0.9% 500 Ml Inj (Ns 500 M (02/23/17 20:15) Urine Culture (02/23/17 22:00) Labs Laboratory Tests Test 02/23/17 02/23/17 02/23/17 18:41 19:15 22:00 White Blood Count 18.2 TH/MM3 Red Blood Count 4.00 MIL/MM3 Hemoglobin 12.4 GM/DL Hematocrit 36.6 % Mean Corpuscular Volume 91.5 FL Mean Corpuscular Hemoglobin 30.9 PG Mean Corpuscular Hemoglobin 33.8 % Concent Red Cell Distribution Width 12.9 % Platelet Count 366 TH/MM3 Mean Platelet Volume 7.6 FL Neutrophils (%) (Auto) 26.2 % Lymphocytes (%) (Auto) 66.0 % Monocytes (%) (Auto) 5.0 % Eosinophils (%) (Auto) 2.5 % Basophils (%) (Auto) 0.3 % Neutrophils # (Auto) 4.8 TH/MM3 Lymphocytes # (Auto) 12.0 TH/MM3 Monocytes # (Auto) 0.9 TH/MM3 Eosinophils # (Auto) 0.5 TH/MM3 Basophils # (Auto) 0.1 TH/MM3 CBC Comment AUTO DIFF Differential Total Cells 100 Counted Neutrophils % (Manual) 25 % Lymphocytes % 68 % Monocytes % 7 % Neutrophils # (Manual) 4.6 TH/MM3 Differential Comment FINAL DIFF MANUAL Platelet Estimate NORMAL Platelet Morphology Comment NORMAL Red Cell Morphology Comment NORMAL Prothrombin Time 10.3 SEC Prothromb Time International 0.9 RATIO Ratio Activated Partial 25.3 SEC Thromboplast Time Sodium Level 136 MEQ/L Potassium Level 4.6 MEQ/L Chloride Level 101 MEQ/L Carbon Dioxide Level 29.7 MEQ/L Anion Gap 5 MEQ/L Blood Urea Nitrogen 22 MG/DL Creatinine 1.00 MG/DL Estimat Glomerular Filtration 72 ML/MIN Rate Random Glucose 125 MG/DL Calcium Level 9.0 MG/DL Total Bilirubin 0.3 MG/DL Aspartate Amino Transf 32 U/L (AST/SGOT) Alanine Aminotransferase 40 U/L (ALT/SGPT) Alkaline Phosphatase 90 U/L Total Protein 7.2 GM/DL Albumin 3.1 GM/DL Lipase 423 U/L Lactic Acid Level 1.3 mmol/L Urine Color YELLOW Urine Turbidity HAZY Urine pH 6.0 Urine Specific [place] 1.016 Urine Protein 30 mg/dL Urine Glucose (UA) NEG mg/dL Urine Ketones NEG mg/dL Urine Occult Blood MOD Urine Nitrite NEG Urine Bilirubin NEG Urine Urobilinogen LESS THAN 2.0 MG/DL Urine Leukocyte Esterase SMALL Urine RBC 146 /hpf Urine WBC 32 /hpf Urine Squamous Epithelial 1 /hpf Cells Urine Bacteria RARE /hpf Urine Hyaline Casts 16 /lpf Microscopic Urinalysis Comment CULTURE INDICATED MDM Medical Decision Making Medical Screen Exam Complete: Yes Emergency Medical Condition: Yes Medical Record Reviewed: Yes Differential Diagnosis 81-year-old male here with abdominal pain after recent admission for Escherichia coli UTI sepsis, common bile duct stone/fracture status post stent placement. Differential includes persistent UTI, urosepsis, ureterolithiasis, pancreatitis, hepatobiliary pathology, bacteremia, line infection, bowel obstruction Narrative Course Patient placed on monitor, IV established and blood obtained. Patient was given 4 mg morphine, 4 mg Zofran. Twelve-lead EKG showed sinus rhythm with first-degree AV block, right bundle branch block but no acute ST abnormality's, normal intervals. CBC, CMP, lipase, coags, lactate, blood cultures and urinalysis were notable for WBC 18.2, up from 13 on 02/17 prior to discharge. Patient does have a lymphocytosis on differential. CT of the abdomen and pelvis showed left inguinal hernia not present previously. Placement of biliary stent otherwise unchanged. Urine is improving but still appears infected with red cells, white cells and rare bacteria. Patient however is well -appearing. I called to speak with Dr. Turner of infectious disease, but she stated that she could not consult and given an opinion over the phone despite knowing the patient's case. Unfortunately with his new leukocytosis and persistent UTI I feel patient warrants admission. Diagnosis Primary Impression: UTI (urinary tract infection) Qualified Code: N30.01 - Acute cystitis with hematuria Additional Impressions: Leukocytosis Qualified Code: D72.829 - Leukocytosis, unspecified type Abdominal pain Qualified Code: R10.30 - Lower abdominal pain Admitting Information Admitting Physician Requests: Admit Silke Hughes MD Feb 23, 2017 20:02
--- NOTE | 2017-02-23 20:06 | RADRPT ---
EXAM DATE/TIME: 02/23/2017 19:44 [facility] COMPARISON: CT ABDOMEN & PELVIS W CONTRAST, February 12, 2017, 17:55. INDICATIONS : Abdominal pain and vomiting after gallbladder stent removal. ORAL CONTRAST: No oral contrast ingested. RADIATION DOSE: 17.00 CTDIvol (mGy) MEDICAL HISTORY : Cardiovascular disease. Congestive heart failure. Hypertension. SURGICAL HISTORY : Prostatectomy. Appendectomy.CABG ENCOUNTER: Initial ACUITY: 1 week PAIN SCALE: 8/10 LOCATION: abdomen TECHNIQUE: Volumetric scanning of the abdomen and pelvis was performed. Using automated exposure control and ad justment of the mA and/or kV according to patient size, radiation dose was kept as low as reasonably achievable to obtain optimal diagnostic quality images. DICOM format image data is available electro nically for review and comparison. FINDINGS: CT Abdomen: There is an approximate 2 mm stone in the left kidney with an approximate 4 mm stone in r ight kidney. Approximate 5 cm cyst is present in the right lower pole exophytically rim like calcific ations and scattered smaller cysts in both kidneys. The liver, spleen, pancreas, adrenals are unremar kable. There is no evidence for any appreciable pathological adenopathy, free fluid, or bowel obstruc tion. Slight degree of somewhat linear irregular opacity is seen in the right lung base mostly consis tent with scarring. Slight bibasilar dependent atelectasis is seen. Coronary artery calcifications ar e seen typically seen with CAD and need to be evaluated clinically. There is pneumobilia with gas wit hin the gallbladder. Biliary stent is in place. Chronic vascular calcifications are present involving the aorta, iliac arteries without any significant stenosis or aneurysmal dilatations for technique. CT pelvis: There is no evidence for mass, abscess formation, or any significant adenopathy within the pelvis. There are degenerative changes and possible bulging discs in the lower lumbosacral spine not adequately characterized. Left inguinal hernia is present with herniation loops of bowel and no sign s of incarceration or obstruction. CONCLUSION: 1. Left inguinal hernia not present previously. 2. Placement of a biliary stent, otherwise not changed. Lev Dueñas MD on February 23, 2017 at 19:58 Board Certified Radiologist. This report was verified electronically.
[2017-02-23] MEDS ORDERED: SODIUM CHLORID 0.9% 500 ML INJ 500 ML IV ONE (20:15)
[2017-02-23 20:54] LABS: NEUTROPHIL # MANUAL DIFF 4.6 TH/MM3 (1.8-7.7); PLATELET ESTIMATE SMEAR NORMAL (NORMAL); PLATELET MORPHOLOGY NORMAL (NORMAL); POLYS (SEG NEUTROPHILS) 25 % (16-70); SCAN/DIFF FINAL DIFF MANUAL; WBC DIFF SAMPLE 100
[2017-02-23 21:00] VITALS: BP 133/63; PULSE 53; RESP 18; O2SAT 96
[2017-02-23 22:26] LABS: BACTERIA, URINE RARE /hpf; BLOOD, URINE MOD (NEG); COMMENT (UR) CULTURE INDICATED; CULTURE IF INDICATED CULTURE INDICATED; GLUCOSE,URINE NEG (NEG); HYALINE CAST, URINE 16 /lpf (RARE); KETONE, URINE NEG (NEG); NITRITE,URINE NEG (NEG); SQUAMOUS EPITHELIAL CELL URINE 1 /hpf (0-5); URINE COLOR YELLOW (YELLW/STRAW)
[2017-02-23] MEDS ORDERED: BISACODYL 10 MG SUPP RECTAL PRN (23:15)
[2017-02-23] MEDS ORDERED: LACTULOSE SYRUP 20 GM/30 ML CUP PO PRN (23:15)
[2017-02-23] MEDS ORDERED: SENNOSIDES 8.6 MG TAB PO PRN (23:15)
[2017-02-23] MEDS ORDERED: ACETAMINOPHEN 325 MG TAB PO PRN (23:15)
[2017-02-23] MEDS ORDERED: MAGNESIUM HYDROXIDE SUSP 30 ML CUP PO PRN (23:15)
[2017-02-24] VITALS (7 sets, daily range): BP systolic 130–161; BP diastolic 53–70; PULSE 42–93; RESP 16–18; TEMP 96–97; O2SAT 96–100
[2017-02-24] MEDS: SODIUM CHLOR 0.9% 1000 ML INJ 1,000 ML IV SCH ×3 (00:43→23:49)
[2017-02-24] MEDS: ACETAMINOPHEN/HYDROcodone 325 MG/10 MG TAB PO PRN ×5 (01:17→20:37)
--- NOTE | 2017-02-24 02:08 | HHI.HP ---
H[facility]ician Sapna Gardner MD Admission Diagnosis UTI failing outpt, leukocytosis Diagnoses: (1) UTI (urinary tract infection) Diagnosis: Principal (2) Failure of outpatient treatment Diagnosis: Principal (3) Symptomatic bradycardia Diagnosis: Principal Travel History International Travel<30 Days: No Contact w/Intl Traveler <30 Da: No Traveled to Known Affected Are: No History of Present Illness This is an 81-year-old male with a PMH of Anxiety, Depression, A. fib, HTN, Diet Controlled DM, COPD and UTI who presented to the ER with complaints of abdominal pain. Recent admit 02/12-02/18/17 for similar complaints, found to have UTI and abnormal Gallbladder US w/ questionable filling defect, s/p ERCP 02/13/17 w/ findings suspicious for CBD stone, s/p Stent Placement. Eval by ID for E. Coli UTI, +Allergy to Keflex, ultimately d/c'd home w/ Ertapenem 1gm IV qd via PICC Line. Today w/ abdominal pain and some dysuria. Denies fever, chills. On arrival, BP 153/70, HR 64, O2 sat 97% on RA, Afebrile. While in ER, patient noted to have episodes of bradycardia with HR 40s. Does report associated dizziness/lightheadedness x4 days when standing from sitting position. Denies syncope. No h/o similar symptoms, does not follow w/ Cardiology. WBC 18.2. Chemistry essentially unremarkable except for GFR 72. Lactic Acid normal. Lipase 423. INR 0.9. UA positive for UTI. CT Abd/Pelvis with inguinal hernia not present previously, biliary stent otherwise not changed. S/p Blood/Urine Culture in ER. Review of Systems Except as stated in HPI: all other systems reviewed are Neg ROS: 14 point review of systems otherwise negative. Past Family Social History Past Medical History PMH: Anxiety, Depression, A. fib, HTN, Diet Controlled DM, COPD and UTI Past Surgical History PAST SURGICAL HISTORY: CABG, Prostatectomy, Left Hip Replacement Allergies: Coded Allergies: Keflex (Verified Allergy, Severe, RASH, 02/23/17) rash Plavix (Verified Allergy, Severe, RASH, 02/23/17) Sulfa (Verified Allergy, Severe, RASH, 02/23/17) Family History PAST FAMILY HISTORY: Reviewed. No h/o DM or CAD Social History PAST SOCIAL HISTORY: Negative for alcohol, tobacco or drugs. Physical Exam Vital Signs Vital Signs Date Time Temp Pulse Resp B/P Pulse Ox O2 Delivery O2 Flow Rate FiO2 02/24/17 00:30 42 16 130/59 96 Nasal Cannula 2 02/23/17 21:00 53 18 133/63 96 Nasal Cannula 2 02/23/17 19:00 59 16 147/67 96 Nasal Cannula 2 02/23/17 18:47 18 96 02/23/17 18:29 18 02/23/17 17:48 97.8 64 24 153/70 97 Room Air Physical Exam PE: GENERAL: Very pleasant elderly white male in no acute distress. HEENT: PERRLA, EOMI. No scleral icterus or conjunctival pallor. No lid lag or facial droop. CARDIOVASCULAR: Bradycardia, HR 40-50's. No obvious murmurs to auscultation. No chest tenderness to palpation. RESPIRATORY: No obvious rhonchi or wheezing. Clear to auscultation. Breath sounds equal bilaterally. GASTROINTESTINAL: Abdomen soft, generalized tenderness to palpation, nondistended. BS normal. MUSCULOSKELETAL: Extremities without clubbing, cyanosis, or edema. No obvious deformities. NEUROLOGICAL: Awake, alert and oriented x4. No focal neurologic deficits. Moving both upper and lower extremities spontaneously. Laboratory Laboratory Tests Test 02/23/17 02/23/17 02/23/17 18:41 19:15 22:00 White Blood Count 18.2 Red Blood Count 4.00 Hemoglobin 12.4 Hematocrit 36.6 Mean Corpuscular Volume 91.5 Mean Corpuscular Hemoglobin 30.9 Mean Corpuscular Hemoglobin 33.8 Concent Red Cell Distribution Width 12.9 Platelet Count 366 Mean Platelet Volume 7.6 Neutrophils (%) (Auto) 26.2 Lymphocytes (%) (Auto) 66.0 Monocytes (%) (Auto) 5.0 Eosinophils (%) (Auto) 2.5 Basophils (%) (Auto) 0.3 Neutrophils # (Auto) 4.8 Lymphocytes # (Auto) 12.0 Monocytes # (Auto) 0.9 Eosinophils # (Auto) 0.5 Basophils # (Auto) 0.1 CBC Comment AUTO DIFF Differential Total Cells 100 Counted Neutrophils % (Manual) 25 Lymphocytes % 68 Monocytes % 7 Neutrophils # (Manual) 4.6 Differential Comment FINAL DIFF MANUAL Platelet Estimate NORMAL Platelet Morphology Comment NORMAL Red Cell Morphology Comment NORMAL Prothrombin Time 10.3 Prothromb Time International 0.9 Ratio Activated Partial 25.3 Thromboplast Time Sodium Level 136 Potassium Level 4.6 Chloride Level 101 Carbon Dioxide Level 29.7 Anion Gap 5 Blood Urea Nitrogen 22 Creatinine 1.00 Estimat Glomerular Filtration 72 Rate Random Glucose 125 Calcium Level 9.0 Total Bilirubin 0.3 Aspartate Amino Transf 32 (AST/SGOT) Alanine Aminotransferase 40 (ALT/SGPT) Alkaline Phosphatase 90 Total Protein 7.2 Albumin 3.1 Lipase 423 Lactic Acid Level 1.3 Urine Color YELLOW Urine Turbidity HAZY Urine pH 6.0 Urine Specific [place] 1.016 Urine Protein 30 Urine Glucose (UA) NEG Urine Ketones NEG Urine Occult Blood MOD Urine Nitrite NEG Urine Bilirubin NEG Urine Urobilinogen LESS THAN 2.0 Urine Leukocyte Esterase SMALL Urine RBC 146 Urine WBC 32 Urine Squamous Epithelial 1 Cells Urine Bacteria RARE Urine Hyaline Casts 16 Microscopic Urinalysis Comment CULTURE INDICATED Date/Time Procedure Status Source Growth 02/23/17 22:00 Urine Culture Received Urine Clean Catch Pending 02/23/17 19:15 Aerobic Blood Culture Received Blood Peripheral Pending 02/23/17 19:15 Anaerobic Blood Culture Received Blood Peripheral Pending Result Diagram: 02/23/17 1841 02/23/17 1841 Assessment and Plan Problem List: (1) UTI (urinary tract infection) ICD Code: N39.0 Status: Acute (2) Failure of outpatient treatment ICD Code: Z78.9 Status: Acute (3) Symptomatic bradycardia ICD Code: R00.1 Status: Acute Assessment and Plan A/P: 1. UTI: Recurrent. +dysuria/abdominal pain, U/a w/ UTI. WBC 18. Afebrile. Recent admit 02/12-02/18/17 w/ E. Coli UTI, currently on Ertapenem 1gm IV qd per ID , following w/ Dr. Turner. Will consult ID for further recommendations, continue w/ Ertapenem for the time being as pt w/ Keflex Allergy. Follow up Blood/Urine Cultures. Repeat labs in am. 2. Failed Outpt Tx: Recent admit w/ E. Coli UTI, +dysuria, U/a w/ persistent UTI. Will continue w/ treatment as above. Follow up cultures. 3. Symptomatic Bradycardia: HR 40-50's while in ER, c/o dizziness/ lightheadedness upon standing x4 days. Will monitor. Check Echo. Cardiology consult for further eval. Hold Metoprolol. 4. DVT Prophylaxis: SCD/Teds. 5. Social work for d/c planning as needed. 6. Case discussed w/ ER physician at length. Physician Certification 2 Midnight Certification Type: Admission for Inpatient Services Order for Inpatient Services The services are ordered in accordance with Medicare regulations or non- Medicare payer requirements, as applicable. In the case of services not specified as inpatient-only, they are appropriately provided as inpatient services in accordance with the 2-midnight benchmark. Estimated LOS (days): 2 days is the estimated time the patient will need to remain in the hospital, assuming treatment plan goals are met and no additional complications. Post-Hospital Plan: Not yet determined Problem Qualifiers (1) UTI (urinary tract infection): Qualified Code: N30.01 - Acute cystitis with hematuria Evon Banuelos MD Feb 24, 2017 02:08
[2017-02-24] MEDS: LEVOTHYROXINE SODIUM 50 MCG TAB PO SCH (06:16)
[2017-02-24 07:12] LABS: AUTOMATED NEUTROPHIL # 4.3 TH/MM3 (1.8-7.7); BASOPHIL % 0.3 % (0.0-2.0); EOSINOPHIL # 0.5 TH/MM3 (0-0.4); EOSINOPHIL % 3.1 % (0.0-4.0); HEMATOCRIT 37.4 % (39.0-51.0); LYMPH % 61.2 % (9.0-44.0); LYMPHOCYTE # 9.4 TH/MM3 (1.0-4.8); MEAN CELL VOLUME 94.4 FL (80.0-100.0); MEAN CORPUSCULAR HEMOGLOBIN 30.6 PG (27.0-34.0); MEAN CORPUSCULAR HGB CONC 32.4 % (32.0-36.0); MONO % 7.5 % (0.0-8.0); NEUT % 27.9 % (16.0-70.0); PLATELET COUNT 326 TH/MM3 (150-450); RED BLOOD COUNT 3.96 MIL/MM3 (4.50-5.90); WHITE BLOOD COUNT 15.3 TH/MM3 (4.0-11.0)
[2017-02-24 07:18] LABS: HEMO FLAGS AUTO DIFF
[2017-02-24 07:35] LABS: ANION GAP 5 MEQ/L (5-15); AST (GOT) 28 U/L (15-37); BICARBONATE 27.8 MEQ/L (21.0-32.0); BLOOD UREA NITROGEN 24 MG/DL (7-18); CHLORIDE 104 MEQ/L (98-107); GLOMERULAR FILTRATION RATE 71 ML/MIN (>89); POTASSIUM 4.1 MEQ/L (3.5-5.1); SODIUM (NA) 137 MEQ/L (136-145)
[2017-02-24 07:37] LABS: ALT (GPT) 34 U/L (12-78)
[2017-02-24 07:39] LABS: ALKALINE PHOSPHATASE 84 U/L (45-117); TOTAL BILIRUBIN ADULT 0.2 MG/DL (0.2-1.0)
[2017-02-24 08:56] LABS: EOSINOPHILS 5 % (0-4); MYELOCYTES 1 % (0-0); NEUTROPHIL # MANUAL DIFF 4.1 TH/MM3 (1.8-7.7); POLYS (SEG NEUTROPHILS) 26 % (16-70); WBC DIFF SAMPLE 100
[2017-02-24 09:00] LABS: SCAN/DIFF FINAL DIFF MANUAL
[2017-02-24] MEDS: SERTRALINE HCL 100 MG TAB PO SCH (09:00)
[2017-02-24] MEDS ORDERED: TIOTROPIUM OLODATEROL INH SCH (09:00)
[2017-02-24] MEDS ORDERED: ERTAPENEM 1,000 MG/NS 100 ML IV SCH ×2 (09:00)
[2017-02-24] MEDS ORDERED: METOPROLOL TARTRATE 100 MG TAB PO SCH (09:00)
--- NOTE | 2017-02-24 11:14 | HHI.PR ---
Subjective Remarks No acute events overnight. Afebrile, vital signs stable. Patient complains of dysuria; pain on urination and urinary leakage. He also complains of intermittent back pain. He states he feels very tired and complains of a cough productive of yellow/green sputum. Denies subjective fever/chills. Denies nausea vomiting today. Objective Vitals Vital Signs Date Time Temp Pulse Resp B/P Pulse Ox O2 Delivery O2 Flow Rate FiO2 02/24/17 08:00 96.5 48 18 132/57 100 02/24/17 04:25 96.2 56 18 147/64 99 02/24/17 00:55 96.0 45 18 147/60 96 02/24/17 00:30 42 16 130/59 96 Nasal Cannula 2 02/23/17 21:00 53 18 133/63 96 Nasal Cannula 2 02/23/17 19:00 59 16 147/67 96 Nasal Cannula 2 02/23/17 18:47 18 96 02/23/17 18:29 18 02/23/17 17:48 97.8 64 24 153/70 97 Room Air I/O 02/23/17 02/23/17 02/23/17 02/24/17 02/24/17 02/24/17 07:00 15:00 23:00 07:00 15:00 23:00 Intake Total 480 ml Output Total 250 ml Balance 230 ml Intake Oral 480 ml Output Urine Total 250 ml # Bowel Movements 0 Result Diagram: 02/24/1761802/24/1719 Objective Remarks Gen.: No acute distress Head: Normocephalic. Atraumatic. EENT: Pupils equal round and reactive to light. Nose without drainage. Airway intact. Throat without injection. Cardiovascular: Regular rate and rhythm. No murmurs, rubs or gallops. Respiratory: Lungs clear to auscultation bilaterally. No wheezes or rhonchi. Productive cough. Abdomen: Soft, nontender, nondistended. No peritoneal signs. Musculoskeletal: No gross deformities. No edema. Skin: No obvious rashes or erythema. Neuro: Sensory and motor grossly intact. Cranial nerves II through XII grossly intact. Psych: Appropriate mood and affect A/P Problem List: (1) UTI (urinary tract infection) ICD Code: N39.0 Status: Acute (2) Failure of outpatient treatment ICD Code: Z78.9 Status: Acute (3) Symptomatic bradycardia ICD Code: R00.1 Status: Acute Assessment and Plan 1. UTI: Recurrent. +dysuria/abdominal pain, U/a w/ UTI. Leukocytosis downtrending. Afebrile. Recent admit 02/12-02/18/17 w/ E. Coli UTI, currently on Ertapenem 1gm IV qd per ID, following w/ Dr. Turner. Will consult ID for further recommendations, continue w/ Ertapenem for the time being as pt w/ Keflex Allergy. Follow up Blood/Urine Cultures. 2. Failed Outpt Tx: Recent admit w/ E. Coli UTI, +dysuria, U/a w/ persistent UTI. Will continue w/ treatment as above. Follow up cultures. 3. Symptomatic Bradycardia: HR 40-50's while in ER, c/o dizziness/ lightheadedness upon standing x4 days. Will monitor. Check Echo. Cardiology consult for further eval. Hold Metoprolol. 4. Productive cough: Concern for pneumonia, sputum culture pending. Check chest x-ray. 5. DVT Prophylaxis: SCD/Teds. 6. Social work for d/c planning as needed. Problem Qualifiers (1) UTI (urinary tract infection): Qualified Code: N30.01 - Acute cystitis with hematuria Lurdes Calderón MD R3 Feb 24, 2017 11:14
[2017-02-24] MEDS: ONDANSETRON HCL 4 MG/2 ML VIAL IVP PRN (12:00)
[2017-02-24] MEDS: HYDROCHLOROTHIAZIDE 25 MG TAB PO SCH (12:05)
[2017-02-24] MEDS: DOCUSATE SODIUM 50 MG/SENNA 8.6 MG TAB PO SCH ×2 (12:05→20:11)
[2017-02-24] MEDS: ISOSORBIDE MONONITRATE 30 MG TAB PO SCH (12:05)
[2017-02-24] MEDS: ASPIRIN EC 81 MG TABEC PO SCH (12:06)
[2017-02-24] MEDS: LOSARTAN 50 MG TAB PO SCH (12:06)
[2017-02-24] MEDS: ALLOPURINOL 300 MG TAB PO SCH (12:06)
[2017-02-24] MEDS: SODIUM CHLORIDE 0.9% FLUSH 10 ML FLUSH IV FLUSH SCH ×2 (12:07→20:11)
--- NOTE | 2017-02-24 13:13 | EKG ---
Date Performed: 02/23/2017 Time Performed: 18:56:52 PTAGE: 81 years EKG: SINUS BRADYCARDIA WITH FIRST DEGREE AV BLOCK WITH OCCASIONAL SUPRAVENTRICULAR PREMATURE COM PLEXES POSSIBLE RIGHT VENTRICULAR CONDUCTION DELAY INFERIOR MYOCARDIAL INFARCTION Compared to PREVIOUS TRACING , sinus rate has slowed. Previously seen precordial ST depression has im proved though V6 is absent ABNORMAL ECG WARNING: DATA QUALITY MAY AFFECT INTERPRETATION PREVIOUS TRAC IN02/12/2017 17.09 DOCTOR: Chinedu Masterson Interpretating Date/Time 02/24/2017 13:13:11
--- NOTE | 2017-02-24 13:15 | EKG ---
Date Performed: 02/23/2017 Time Performed: 20:02:09 PTAGE: 81 years EKG: Sinus rhythm WITH FIRST DEGREE AV BLOCK WITH OCCASIONAL SUPRAVENTRICULAR PREMATURE COMPLEXES RIGHT BUNDLE BRANCH BLOCK Compared to previous tracing, QRS duration is minimally longer, now qualifying for Right bundle branch block ABNORMAL ECG PREVIOUS TRACING : 02/23/2017 18.56 DOCTOR: Chinedu Masterson Interpretating Date/Time 02/24/2017 13:13:57
--- NOTE | 2017-02-24 15:13 | RADRPT ---
EXAM DATE/TIME: 02/24/2017 13:28 [facility] COMPARISON: CHEST SINGLE AP, February 12, 2017, 17:05. INDICATIONS : Cough. MEDICAL HISTORY : Myocardial infarction. Congestive heart failure. Carcinoma, prostatic. SURGICAL HISTORY : CABG. Coronary artery stent. ENCOUNTER: Subsequent ACUITY: 2 days PAIN SCORE: 0/10 LOCATION: Bilateral chest FINDINGS: There is slight cardiomegaly and perivascular pulmonary edema. Focal consolidation is not seen. There is evidence for prior median sternotomy. CONCLUSION: Slight CHF. K. Rishi Dueñas MD on February 24, 2017 at 15:11 Board Certified Radiologist. This report was verified electronically.
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
--- NOTE | 2017-02-24 17:37 | MB ---
cc: KALINA FUENTES MD DATE OF CONSULTATION 02/24/2017 REASON FOR CONSULTATION Bradycardia and atypical chest pain. HISTORY OF PRESENT ILLNESS The patient is a pleasant 81-year-old gentleman with a complex past medical history but apparently a cardiac history for atrial fibrillation. The patient is unclear of this diagnosis. He presented with vague abdominal pain and was found to have fairly low heart rates in sinus rhythm. His beta jaiden was held and his heart rates have improved. The patient is a rather difficult historian as he essentially has a positive review of symptoms. He says that he has a lot of chronic pain including sharp pain in the chest as well as lightheadedness, dizziness and coughing all of which have lasted the better part of a year, though he endorses all of these symptoms currently he does appear nontoxic. PAST MEDICAL HISTORY 1. Anxiety. 2. Depression. 3. History of atrial fibrillation although I do not see any anticoagulation. 4. Hypertension. 5. Diabetes. 6. COPD. 7. UTI. CURRENT MEDICATIONS 1. Lipitor. 2. Aztreonam. 3. Allopurinol. 4. Aspirin. 5. Hydrochlorothiazide. 6. Imdur. 7. Losartan. 8. Zoloft. 9. Synthroid. ALLERGIES KEFLEX, PLAVIX, SULFA. PHYSICAL EXAMINATION VITAL SIGNS: Afebrile, pulse 60, respiratory rate 18, BP 145/60, sating 99% on 2 liters. GENERAL: Pleasant, elderly gentleman in no distress. NECK: No JVD. LUNGS: Clear to auscultation bilaterally. CARDIOVASCULAR: Regular rhythm. No significant murmur is appreciated. ABDOMEN: Benign. EXTREMITIES: No edema. LABORATORY DATA White count 15.3 down from 18.2, hematocrit 37.4, platelets 326. Sodium 137, potassium 4.1, chloride 104, bicarb 27.8, BUN 24, creatinine 1.01, glucose 132. EKG shows sinus rhythm with first-degree AV block and right bundle-branch block. IMPRESSION 1. Bradycardia. The patient apparently had bradycardia questionably symptomatic as he is poly symptomatic. It is difficult to tell but his beta jaiden was held and his heart rates have improved. 2. Atrial fibrillation. This is unclear diagnosis. I will see if he has ever been to our office. 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 3. Atypical chest pain. I will have undergo nuclear stress test. Further recommendations based on his clinical course. Thank you again for the opportunity to participate in this patient's care. MD LIVIER Camargo/ADIEL /5:27 PM /5:34 PM
[2017-02-24] MEDS: AZTREONAM INJ 2,000 MG in SODIUM CHLORIDE 0.9% INJ 100 ML IV SCH (20:09)
[2017-02-24] MEDS: ATORVASTATIN 20 MG TAB PO SCH (20:10)
[2017-02-25 00:40] VITALS: BP 163/66; PULSE 59; RESP 17; TEMP 96.9; O2SAT 98
[2017-02-25] MEDS: ACETAMINOPHEN/HYDROcodone 325 MG/10 MG TAB PO PRN ×4 (00:55→20:30)
[2017-02-25] MEDS: AZTREONAM INJ 2,000 MG in SODIUM CHLORIDE 0.9% INJ 100 ML IV SCH ×3 (03:05→18:00)
[2017-02-25] MEDS: SODIUM CHLOR 0.9% 1000 ML INJ 1,000 ML IV SCH ×3 (05:13→20:19)
[2017-02-25] MEDS: LEVOTHYROXINE SODIUM 50 MCG TAB PO SCH (05:51)
[2017-02-25 08:00] VITALS: BP 138/65; PULSE 54; RESP 17; TEMP 95.7; O2SAT 100
[2017-02-25] MEDS: SODIUM CHLORIDE 0.9% FLUSH 10 ML FLUSH IV FLUSH SCH ×2 (09:00→20:19)
[2017-02-25] MEDS: HYDROCHLOROTHIAZIDE 25 MG TAB PO SCH (10:20)
[2017-02-25] MEDS: DOCUSATE SODIUM 50 MG/SENNA 8.6 MG TAB PO SCH ×2 (10:21→20:19)
[2017-02-25] MEDS: ALLOPURINOL 300 MG TAB PO SCH (10:21)
[2017-02-25] MEDS: ASPIRIN EC 81 MG TABEC PO SCH (10:21)
[2017-02-25] MEDS: LOSARTAN 50 MG TAB PO SCH (10:21)
[2017-02-25] MEDS: SERTRALINE HCL 100 MG TAB PO SCH (10:22)
[2017-02-25] MEDS ORDERED: REGADENOSON INJ 0.4 MG/5 ML SYR ONE (11:44)
[2017-02-25 12:55] VITALS: BP 144/65; PULSE 66; RESP 18; TEMP 95.6; O2SAT 98
--- NOTE | 2017-02-25 13:09 | RADRPT ---
EXAM DATE/TIME: 02/25/2017 10:43 [facility] COMPARISON: No previous studies available for comparison. INDICATIONS : Susbternal chest pain with dizziness. CABG and coronary artery disease. Angina. Abnormal EKG. DOSE: 30.1 mCi Tc99m Myoview at stress. 10.0 mCi Tc99m Myoview at rest. 0.4 mg Lexiscan STRESS SYMPTOMS: Dyspnea. EJECTION FRACTION: 66% MEDICAL HISTORY : Hypertension. Diabetes mellitus type 2. Chronic obstructive pulmonary disease. Prostate cancer. SURGICAL HISTORY : Tonsillectomy. CABG Coronary artery stent. ENCOUNTER: Initial ACUITY: 3 days PAIN SCALE: 5/10 LOCATION: Substernal chest TECHNIQUE: The patient underwent pharmacologic stress with infusion of prescribed dose. Continuous ECG tracing was monitored during stress. Gated SPECT imaging was performed after stress and conventional SPECT i maging was performed at rest. The examination was performed on a SPECT/CT scanner, both attenuation and non-corrected datasets were reviewed. FINDINGS: DISTRIBUTION: The maximum perfused segment at stress is in the <mid anterior and mid posterior galan. PERFUSION STUDY: There is marked decreased perfusion to the septum beginning in the mid heart extending into the apex. There is better perfusion at rest. GATED STUDY: There is intact wall motion and thickening without hypokinetic or dyskinetic segments despite the pat ient's had a CABG. CONCLUSION: There is decreased perfusion at stress to the septum which appears to heart at rest suggesting LAD is chemia to the septum. Ejection fraction is normal at 66%. It is new since 2013. RISK CATEGORY: Intermediate (1-3% Annual Mortality Rate) Carlos Israel MD on February 25, 2017 at 13:04 Board Certified Radiologist. This report was verified electronically.
[2017-02-25] MEDS: ISOSORBIDE MONONITRATE 30 MG TAB PO SCH (13:38)
[2017-02-25] MEDS ORDERED: CYCLOBENZAPRINE HCL 10 MG TAB PO ONE (14:30)
--- NOTE | 2017-02-25 14:38 | HHI.PR ---
Subjective Remarks Pt tells me that he is having terrible back pain, rates it a 8/10 mid back down the lower back. denies any current chest pain, SOB, nausea or vomiting. Objective Vitals Vital Signs Date Time Temp Pulse Resp B/P Pulse Ox O2 Delivery O2 Flow Rate FiO2 02/25/17 12:55 95.6 66 18 144/65 98 02/25/17 08:00 95.7 54 17 138/65 100 02/25/17 00:40 96.9 59 17 163/66 98 02/24/17 20:40 97.0 57 17 161/70 99 02/24/17 16:00 96.3 60 18 145/60 99 I/O 02/24/17 02/24/17 02/24/17 02/25/17 02/25/17 02/25/17 07:00 15:00 23:00 07:00 15:00 23:00 Intake Total 2207 ml 600 ml 740 ml 240 ml Output Total 1500 ml 650 ml 300 ml Balance 707 ml -50 ml 740 ml -60 ml Intake Oral 1200 ml 600 ml 240 ml IV Total 1007 ml 740 ml Output Urine Total 1500 ml 650 ml 300 ml # Bowel Movements 0 0 0 Result Diagram: 02/24/17 0619 02/24/17 0619 Imaging Last Impressions Myocardial Perfusion Scan Nuc Med 02/25/17 0000 Signed Impressions: Service Date/Time: Saturday, February 25, 2017 10:43 - CONCLUSION: There is decreased perfusion at stress to the septum which appears to heart at rest suggesting LAD ischemia to the septum. Ejection fraction is normal at 66%%. It is new since 2013. RISK CATEGORY: Intermediate (1-3%% Annual Mortality Rate) Carlos Israel MD Chest X-Ray 02/24/17 0000 Signed Impressions: Service Date/Time: Friday, February 24, 2017 13:28 - CONCLUSION: Slight CHF. Lev Dueñas MD Abdomen/Pelvis CT 02/23/17 191 Signed Impressions: Service Date/Time: Thursday, February 23, 2017 19:44 - CONCLUSION: 1. Left inguinal hernia not present previously. 2. Placement of a biliary stent, otherwise not changed. Lev Dueñas MD Objective Remarks Gen.: No acute distress Head: Normocephalic. Atraumatic. EENT: EOMI. Nose without drainage. Airway intact. Throat without injection. Cardiovascular: Regular rate and rhythm. No murmurs Respiratory: Lungs clear to auscultation bilaterally. No wheezes or rhonchi. Productive cough. Abdomen: Soft, some discomfort w deep palpation mid abdomen, right lower quadrant, nondistended. No peritoneal signs. Musculoskeletal: tenderness along the paraspinal muscles bilaterally mid back to lower back Skin: No obvious rashes or erythema. Neuro: Sensory and motor grossly intact. Cranial nerves II through XII grossly intact. Psych: Appropriate mood and affect A/P Problem List: (1) UTI (urinary tract infection) ICD Code: N39.0 Status: Acute (2) Failure of outpatient treatment ICD Code: Z78.9 Status: Acute (3) Symptomatic bradycardia ICD Code: R00.1 Status: Acute Assessment and Plan 1. UTI: Recurrent. +dysuria/abdominal pain, U/a w/ UTI. Leukocytosis downtrending. Afebrile. Recent admit 02/12-02/18/17 w/ E. Coli UTI, currently on Ertapenem 1gm IV qd per ID, following w/ Dr. Turner. ID following, abx switched to aztreonam. Blood/Urine Cultures neg x 2 days. Per their rec, anticipate to be d/c on ertapenen if clx either remai negative or have the same isolate. awaiting final recs 2. Failed Outpt Tx: Recent admit w/ E. Coli UTI, +dysuria, U/a w/ persistent UTI. Will continue w/ treatment as above. 3. Symptomatic Bradycardia: HR 40-50's while in ER, c/o dizziness/ lightheadedness upon standing x4 days. cards following, nuclear stress test "There is decreased perfusion at stress to the septum which appears to heart at rest suggesting LAD ischemia to the septum". ECHO pending. Cardiology following, awaiting final recs. Hold Metoprolol. 4. Productive cough: Concern for pneumonia, sputum culture pending. Chest x- ray concerning for slight CHF. 5. DVT Prophylaxis: SCD/Teds. 6. Back pain, per exam, concerning for muscle spasms, will try short course of flexeril and monitor. Discharge Planning awaiting final recs from ID and cards Problem Qualifiers (1) UTI (urinary tract infection): Qualified Code: N30.01 - Acute cystitis with hematuria Cha Huitron MD Feb 25, 2017 14:38
[2017-02-25 16:00] VITALS: BP 160/59; PULSE 70; RESP 18; TEMP 97.5; O2SAT 98
--- NOTE | 2017-02-25 16:06 | PD.CARD.PN ---
Subjective Subjective Remarks Patient this morning, resting comfortably, no complaints Objective Medications Current Medications Medications (Trade) Dose Ordered Sig/Emily Route Start Time Stop Time Status Last Admin (NS 1000 ml Inj) 1,000 ml @ 100 mls/hr Q10H IV 02/23/17 23:13 02/24/17 23:49 (NS Flush) 2 ml UNSCH PRN IV FLUSH 02/23/17 23:15 (NS Flush) 2 ml BID IV FLUSH 02/24/17 09:00 02/25/17 09:00 (Zofran Inj) 4 mg Q6H PRN IVP 02/23/17 23:15 02/24/17 12:00 (Tylenol) 650 mg Q6H PRN PO 02/23/17 23:15 ([place] 5-325 Mg) 1 tab Q4H PRN PO 02/23/17 23:15 ([place] 10-325 Mg) 1 tab Q4H PRN PO 02/23/17 23:15 02/25/17 13:11 (Christina-Colace) 1 tab BID PO 02/24/17 09:00 02/25/17 10:21 (Milk Of Magnesia Liq) 30 ml Q12H PRN PO 02/23/17 23:15 (Senokot) 17.2 mg Q12H PRN PO 02/23/17 23:15 (Dulcolax Supp) 10 mg DAILY PRN RECTAL 02/23/17 23:15 (Lactulose Liq) 30 ml DAILY PRN PO 02/23/17 23:15 (Zyloprim) 300 mg DAILY PO 02/24/17 09:00 02/25/17 10:21 (Ecotrin Ec) 81 mg DAILY PO 02/24/17 09:00 02/25/17 10:21 (Lipitor) 20 mg HS PO 02/24/17 21:00 02/24/17 20:10 (Hydrodiuril) 25 mg DAILY PO 02/24/17 09:00 02/25/17 10:20 (Imdur) 30 mg DAILY PO 02/24/17 09:00 02/25/17 13:38 (Synthroid) 50 mcg DAILY@0600 PO 02/24/17 06:00 02/25/17 05:51 (Cozaar) 50 mg DAILY PO 02/24/17 09:00 02/25/17 10:21 (Lopressor) 100 mg DAILY PO 02/24/17 09:00 Hold (Zoloft) 100 mg DAILY PO 02/24/17 09:00 02/25/17 10:22 Patient Own Medication PT OWN MED: NON-FORMULARY ... DAILY INH 02/24/17 09:00 Hold (Azactam Inj/NS Inj) 100 ml @ 200 mls/hr Q8H IV 02/24/17 18:00 02/25/17 13:39 (Flexeril) 10 mg Q8H PRN PO 02/25/17 14:30 Vital Signs / I&O Vital Signs Date Time Temp Pulse Resp B/P Pulse Ox O2 Delivery O2 Flow Rate FiO2 02/25/17 15:05 16 02/25/17 12:55 95.6 66 18 144/65 98 02/25/17 08:00 95.7 54 17 138/65 100 02/25/17 00:40 96.9 59 17 163/66 98 02/24/17 20:40 97.0 57 17 161/70 99 I/O 02/24/17 02/24/17 02/24/17 02/25/17 02/25/17 02/25/17 07:00 15:00 23:00 07:00 15:00 23:00 Intake Total 2207 ml 600 ml 740 ml 240 ml Output Total 1500 ml 650 ml 300 ml Balance 707 ml -50 ml 740 ml -60 ml Intake Oral 1200 ml 600 ml 240 ml IV Total 1007 ml 740 ml Output Urine Total 1500 ml 650 ml 300 ml # Bowel Movements 0 0 0 Physical Exam GENERAL: AAO, NAD SKIN: Warm and dry. HEAD: Atraumatic. Normocephalic. EYES: Pupils equal and round. No scleral icterus. No injection or drainage. ENT: No nasal bleeding or discharge. Mucous membranes pink and moist. NECK: Trachea midline. No JVD. CARDIOVASCULAR: Regularly regular RESPIRATORY: No accessory muscle use. Decreased breath sounds bilaterally GASTROINTESTINAL: Abdomen soft, non-tender, nondistended. Hepatic and splenic margins not palpable. MUSCULOSKELETAL: Extremities without clubbing, cyanosis, or edema. No obvious deformities. NEUROLOGICAL: Awake and alert. No obvious cranial nerve deficits. Motor grossly within normal limits. Five out of 5 muscle strength in the arms and legs. Normal speech. PSYCHIATRIC: Appropriate mood and affect; insight and judgment normal. Assessment and Plan Problem List: (1) Chest pain (2) HTN (hypertension) (3) HLD (hyperlipidemia) (4) UTI (urinary tract infection) (5) Abdominal pain Assessment and Plan 1) ?Sympotomatic bradycardia, but appears to have multiple symptoms Heart rates better off BB 2) ?Afib by history Patient unsure where this is from No previous notes showing Afib Patient previously saw Dr. Tinoco in the office (2014) and no documentation of Afib, would not anticoagulate unless further evidence 3) Abnormal stress test, anterior ischemia Will make NPO after midnight Plan cath tomorrow, called [id number] who takes care of his medical issues, but no answer, will attempt to reach again Problem Qualifiers (1) UTI (urinary tract infection): Qualified Code: N30.01 - Acute cystitis with hematuria (2) Abdominal pain: Qualified Code: R10.30 - Lower abdominal pain Dakota Carmen DO Feb 25, 2017 16:06
[2017-02-25 17:49] LABS: AUTOMATED NEUTROPHIL # 6.4 TH/MM3 (1.8-7.7); BASOPHIL # 0.1 TH/MM3 (0-0.2); BASOPHIL % 0.3 % (0.0-2.0); EOSINOPHIL # 0.4 TH/MM3 (0-0.4); EOSINOPHIL % 2.7 % (0.0-4.0); HEMATOCRIT 35.8 % (39.0-51.0); LYMPH % 52.3 % (9.0-44.0); LYMPHOCYTE # 8.4 TH/MM3 (1.0-4.8); MEAN CELL VOLUME 93.1 FL (80.0-100.0); MEAN CORPUSCULAR HEMOGLOBIN 31.2 PG (27.0-34.0); MEAN CORPUSCULAR HGB CONC 33.5 % (32.0-36.0); MONO % 5.1 % (0.0-8.0); NEUT % 39.6 % (16.0-70.0); PLATELET COUNT 310 TH/MM3 (150-450); RED BLOOD COUNT 3.85 MIL/MM3 (4.50-5.90); WHITE BLOOD COUNT 16.1 TH/MM3 (4.0-11.0)
[2017-02-25 17:52] LABS: HEMO FLAGS AUTO DIFF
[2017-02-25 18:02] LABS: ANION GAP 7 MEQ/L (5-15); BICARBONATE 27.4 MEQ/L (21.0-32.0); BLOOD UREA NITROGEN 19 MG/DL (7-18); CHLORIDE 104 MEQ/L (98-107); POTASSIUM 4.6 MEQ/L (3.5-5.1); SODIUM (NA) 138 MEQ/L (136-145)
[2017-02-25 18:05] LABS: ALKALINE PHOSPHATASE 93 U/L (45-117); ALT (GPT) 31 U/L (12-78); AST (GOT) 22 U/L (15-37); GLOMERULAR FILTRATION RATE 86 ML/MIN (>89); TOTAL BILIRUBIN ADULT 0.2 MG/DL (0.2-1.0)
[2017-02-25 18:45] LABS: BASOPHILS 1 % (0-2); EOSINOPHILS 5 % (0-4); NEUTROPHIL # MANUAL DIFF 8.1 TH/MM3 (1.8-7.7); PLATELET ESTIMATE SMEAR NORMAL (NORMAL); PLATELET MORPHOLOGY NORMAL (NORMAL); POLYS (SEG NEUTROPHILS) 50 % (16-70); SCAN/DIFF FINAL DIFF MANUAL; WBC DIFF SAMPLE 100
[2017-02-25 20:00] VITALS: BP 189/74; PULSE 66; RESP 16; TEMP 96.4; O2SAT 94
[2017-02-25] MEDS: ATORVASTATIN 20 MG TAB PO SCH (20:19)
--- NOTE | 2017-02-25 21:42 | ECHRPT ---
Indication: CARDIOMYOPATHY CONCLUSIONS Normal left ventricular size. The left ventricular systolic function is grossly normal on limited imaging. No regional wall motion abnormalities are present. Doppler parameters are consistent with a restrictive left ventricular filling pattern indicative of decreased left ventricular diastolic compliance and increase left atrial pressure (grade 3 diastolic dysfuncti on). Mild to moderate concentric left ventricular hypertrophy. Aortic sclerosis without stenosis. BP: 163 / 66 HR: 59 Rhythm: Sinus MEASUREMENTS (Male / Female) Normal Values Technical Quality:Technically difficult study 2D ECHO LV Diastolic Diameter PLAX 4.4 cm 4.2 - 5.9 / 3.9 - 5.3 cm LV Systolic Diameter PLAX 2.7 cm IVS Diastolic Thickness 1.3 cm 0.6 - 1.0 / 0.6 - 0.9 cm LVPW Diastolic Thickness 1.3 cm 0.6 - 1.0 / 0.6 - 0.9 cm LV Relative Wall Thickness 0.6 LVOT Diameter 1.7 cm Aortic Root Diameter 2.5 cm LA Systolic Diameter LX 4.0 cm 3.0 - 4.0 / 2.7 - 3.8 cm M-MODE AV Cusp Separation MM 1.6 cm DOPPLER AV Peak Velocity 131.0 cm/s AV Peak Gradient 6.9 mmHg AV Mean Gradient 4.0 mmHg AV Velocity Time Integral 25.2 cm LVOT Peak Velocity 67.7 cm/s LVOT Peak Gradient 1.8 mmHg LVOT Velocity Time Integral 14.9 cm LVOT Cardiac Index 813.9 cm/minm AV Area Cont Eq vti 1.3 cm AV Area Cont Eq pk 1.2 cm Mitral E Point Velocity 65.2 cm/s Mitral A Point Velocity 62.7 cm/s Mitral E to A Ratio 1.0 PV Peak Velocity 103.0 cm/s PV Peak Gradient 4.2 mmHg FINDINGS LEFT VENTRICLE Normal left ventricular size. The left ventricular systolic function is grossly normal on limited imaging. No regional wall motion abnormalities are present. Doppler parameters are consistent with a restrictive left ventricular filling pattern indicative of decreased left ventricular diastolic compliance and increase left atrial pressure (grade 3 diastolic dysfuncti on). Mild to moderate concentric left ventricular hypertrophy. Kemi Velez MD, FACC (Electronically Signed) Final Date:25 February 2017 21:41
[2017-02-26] VITALS (7 sets, daily range): BP systolic 145–177; BP diastolic 55–74; PULSE 57–81; RESP 17–19; TEMP 95.7–96.9; O2SAT 94–99
[2017-02-26] MEDS: AZTREONAM INJ 2,000 MG in SODIUM CHLORIDE 0.9% INJ 100 ML IV SCH ×3 (00:28→18:00)
[2017-02-26] MEDS: CYCLOBENZAPRINE HCL 10 MG TAB PO PRN ×2 (00:29→21:03)
[2017-02-26] MEDS: ACETAMINOPHEN/HYDROcodone 325 MG/10 MG TAB PO PRN ×3 (00:29→21:04)
[2017-02-26] MEDS: LEVOTHYROXINE SODIUM 50 MCG TAB PO SCH (05:46)
[2017-02-26 05:55] LABS: AUTOMATED NEUTROPHIL # 4.4 TH/MM3 (1.8-7.7); BASOPHIL # 0.1 TH/MM3 (0-0.2); BASOPHIL % 0.7 % (0.0-2.0); EOSINOPHIL # 0.5 TH/MM3 (0-0.4); EOSINOPHIL % 3.5 % (0.0-4.0); LYMPHOCYTE # 8.5 TH/MM3 (1.0-4.8); MEAN CELL VOLUME 93.6 FL (80.0-100.0); MONO % 6.1 % (0.0-8.0); NEUT % 30.7 % (16.0-70.0); PLATELET COUNT 316 TH/MM3 (150-450); RED BLOOD COUNT 3.85 MIL/MM3 (4.50-5.90); RED CELL DISTRIBUTION WIDTH 12.9 % (11.6-17.2); WHITE BLOOD COUNT 14.4 TH/MM3 (4.0-11.0)
[2017-02-26 06:02] LABS: HEMO FLAGS AUTO DIFF
[2017-02-26 06:25] LABS: BICARBONATE 29.5 MEQ/L (21.0-32.0); POTASSIUM 5.3 MEQ/L (3.5-5.1)
[2017-02-26 06:40] LABS: CORRECTED NUCLEATED RBC 1 /100 WBC (0-0); EOSINOPHILS 3 % (0-4); METAMYELOCYTES 1 % (0-1); NEUTROPHIL # MANUAL DIFF 6.6 TH/MM3 (1.8-7.7); POLYS (SEG NEUTROPHILS) 45 % (16-70); WBC DIFF SAMPLE 100
[2017-02-26 06:41] LABS: PLATELET ESTIMATE SMEAR NORMAL (NORMAL); PLATELET MORPHOLOGY NORMAL (NORMAL); SCAN/DIFF FINAL DIFF MANUAL
[2017-02-26] MEDS: ASPIRIN EC 81 MG TABEC PO SCH (08:48)
[2017-02-26] MEDS: SERTRALINE HCL 100 MG TAB PO SCH (08:48)
[2017-02-26] MEDS: HYDROCHLOROTHIAZIDE 25 MG TAB PO SCH (08:48)
[2017-02-26] MEDS: ISOSORBIDE MONONITRATE 30 MG TAB PO SCH (08:48)
[2017-02-26] MEDS: ALLOPURINOL 300 MG TAB PO SCH (08:48)
[2017-02-26] MEDS: LOSARTAN 50 MG TAB PO SCH (08:48)
[2017-02-26] MEDS: DOCUSATE SODIUM 50 MG/SENNA 8.6 MG TAB PO SCH ×2 (08:48→21:01)
[2017-02-26] MEDS: SODIUM CHLORIDE 0.9% FLUSH 10 ML FLUSH IV FLUSH SCH ×2 (08:55→21:00)
[2017-02-26] MEDS: SODIUM CHLOR 0.9% 1000 ML INJ 1,000 ML IV SCH ×2 (11:13→21:04)
--- NOTE | 2017-02-26 11:53 | PD.CARD.PN ---
Subjective Subjective Remarks No events overnight Less back pain ?Chest pain Objective Medications Current Medications Medications (Trade) Dose Ordered Sig/Emily Route Start Time Stop Time Status Last Admin (NS 1000 ml Inj) 1,000 ml @ 100 mls/hr Q10H IV 02/23/17 23:13 02/24/17 23:49 (NS Flush) 2 ml UNSCH PRN IV FLUSH 02/23/17 23:15 (NS Flush) 2 ml BID IV FLUSH 02/24/17 09:00 02/26/17 08:55 (Zofran Inj) 4 mg Q6H PRN IVP 02/23/17 23:15 02/24/17 12:00 (Tylenol) 650 mg Q6H PRN PO 02/23/17 23:15 (Constantia 5-325 Mg) 1 tab Q4H PRN PO 02/23/17 23:15 (Constantia 10-325 Mg) 1 tab Q4H PRN PO 02/23/17 23:15 02/26/17 08:49 (Christina-Colace) 1 tab BID PO 02/24/17 09:00 02/26/17 08:48 (Milk Of Magnesia Liq) 30 ml Q12H PRN PO 02/23/17 23:15 (Senokot) 17.2 mg Q12H PRN PO 02/23/17 23:15 (Dulcolax Supp) 10 mg DAILY PRN RECTAL 02/23/17 23:15 (Lactulose Liq) 30 ml DAILY PRN PO 02/23/17 23:15 (Zyloprim) 300 mg DAILY PO 02/24/17 09:00 02/26/17 08:48 (Ecotrin Ec) 81 mg DAILY PO 02/24/17 09:00 02/26/17 08:48 (Lipitor) 20 mg HS PO 02/24/17 21:00 02/25/17 20:19 (Hydrodiuril) 25 mg DAILY PO 02/24/17 09:00 Future Hold 02/26/17 08:48 (Imdur) 30 mg DAILY PO 02/24/17 09:00 02/26/17 08:48 (Synthroid) 50 mcg DAILY@0600 PO 02/24/17 06:00 02/26/17 05:46 (Cozaar) 50 mg DAILY PO 02/24/17 09:00 Future Hold 02/26/17 08:48 (Lopressor) 100 mg DAILY PO 02/24/17 09:00 Hold (Zoloft) 100 mg DAILY PO 02/24/17 09:00 02/26/17 08:48 Patient Own Medication PT OWN MED: NON-FORMULARY ... DAILY INH 02/24/17 09:00 Hold (Azactam Inj/NS Inj) 100 ml @ 200 mls/hr Q8H IV 02/24/17 18:00 02/26/17 08:52 (Flexeril) 10 mg Q8H PRN PO 02/25/17 14:30 02/26/17 00:29 Vital Signs / I&O Vital Signs Date Time Temp Pulse Resp B/P Pulse Ox O2 Delivery O2 Flow Rate FiO2 02/26/17 08:00 95.9 61 18 174/74 99 02/26/17 04:05 96.1 57 18 146/68 94 02/26/17 00:10 96.9 60 17 145/67 97 02/25/17 20:00 96.4 66 16 189/74 94 02/25/17 16:00 97.5 70 18 160/59 98 02/25/17 15:05 16 02/25/17 12:55 95.6 66 18 144/65 98 I/O 02/25/17 02/25/17 02/25/17 02/26/17 02/26/17 02/26/17 06:59 14:59 22:59 06:59 14:59 22:59 Intake Total 740 ml 240 ml 720 ml 0 ml Output Total 300 ml 600 ml Balance 740 ml -60 ml 120 ml 0 ml Intake Oral 240 ml 720 ml 0 ml IV Total 740 ml Output Urine Total 300 ml 600 ml # Voids 1 4 # Bowel Movements 0 0 0 Physical Exam GENERAL: AAO, NAD SKIN: Warm and dry. HEAD: Atraumatic. Normocephalic. EYES: Pupils equal and round. No scleral icterus. No injection or drainage. ENT: No nasal bleeding or discharge. Mucous membranes pink and moist. NECK: Trachea midline. No JVD. CARDIOVASCULAR: Regularly regular RESPIRATORY: No accessory muscle use. Decreased breath sounds bilaterally GASTROINTESTINAL: Abdomen soft, non-tender, nondistended. Hepatic and splenic margins not palpable. MUSCULOSKELETAL: Extremities without clubbing, cyanosis, or edema. No obvious deformities. NEUROLOGICAL: Awake and alert. No obvious cranial nerve deficits. Motor grossly within normal limits. Five out of 5 muscle strength in the arms and legs. Normal speech. PSYCHIATRIC: Appropriate mood and affect; insight and judgment normal. Laboratory Laboratory Tests Test 02/25/17 02/26/17 17:04 05:45 White Blood Count 16.1 TH/MM3 14.4 TH/MM3 Red Blood Count 3.85 MIL/MM3 3.85 MIL/MM3 Hemoglobin 12.0 GM/DL 11.5 GM/DL Hematocrit 35.8 % 36.0 % Mean Corpuscular Volume 93.1 FL 93.6 FL Mean Corpuscular Hemoglobin 31.2 PG 30.0 PG Mean Corpuscular Hemoglobin 33.5 % 32.0 % Concent Red Cell Distribution Width 13.0 % 12.9 % Platelet Count 310 TH/MM3 316 TH/MM3 Mean Platelet Volume 7.6 FL 7.3 FL Neutrophils (%) (Auto) 39.6 % 30.7 % Lymphocytes (%) (Auto) 52.3 % 59.0 % Monocytes (%) (Auto) 5.1 % 6.1 % Eosinophils (%) (Auto) 2.7 % 3.5 % Basophils (%) (Auto) 0.3 % 0.7 % Neutrophils # (Auto) 6.4 TH/MM3 4.4 TH/MM3 Lymphocytes # (Auto) 8.4 TH/MM3 8.5 TH/MM3 Monocytes # (Auto) 0.8 TH/MM3 0.9 TH/MM3 Eosinophils # (Auto) 0.4 TH/MM3 0.5 TH/MM3 Basophils # (Auto) 0.1 TH/MM3 0.1 TH/MM3 CBC Comment AUTO DIFF AUTO DIFF Differential Total Cells 100 100 Counted Neutrophils % (Manual) 50 % 45 % Lymphocytes % 41 % 45 % Monocytes % 3 % 6 % Eosinophils % 5 % 3 % Basophils % 1 % Neutrophils # (Manual) 8.1 TH/MM3 6.6 TH/MM3 Differential Comment FINAL DIFF FINAL DIFF MANUAL MANUAL Platelet Estimate NORMAL NORMAL Platelet Morphology Comment NORMAL NORMAL Red Cell Morphology Comment NORMAL NORMAL Sodium Level 138 MEQ/L 139 MEQ/L Potassium Level 4.6 MEQ/L 5.3 MEQ/L Chloride Level 104 MEQ/L 105 MEQ/L Carbon Dioxide Level 27.4 MEQ/L 29.5 MEQ/L Anion Gap 7 MEQ/L 5 MEQ/L Blood Urea Nitrogen 19 MG/DL 18 MG/DL Creatinine 0.86 MG/DL 0.78 MG/DL Estimat Glomerular Filtration 86 ML/MIN 96 ML/MIN Rate Random Glucose 113 MG/DL 105 MG/DL Calcium Level 9.0 MG/DL 8.9 MG/DL Total Bilirubin 0.2 MG/DL Aspartate Amino Transf 22 U/L (AST/SGOT) Alanine Aminotransferase 31 U/L (ALT/SGPT) Alkaline Phosphatase 93 U/L Total Protein 7.1 GM/DL Albumin 3.1 GM/DL Metamyelocytes 1 % Nucleated Red Blood Cells 1 /100 WBC Assessment and Plan Problem List: (1) Chest pain (2) HTN (hypertension) (3) HLD (hyperlipidemia) (4) UTI (urinary tract infection) (5) Abdominal pain Assessment and Plan 1) ?Sympotomatic bradycardia, but appears to have multiple symptoms Heart rates better off BB Appeared to be a combination of BB and Morphine 2) ?Afib by history Patient unsure where this is from No previous notes showing Afib Patient previously saw Dr. Tinoco in the office (2014) and no documentation of Afib, would not anticoagulate unless further evidence 3) Abnormal stress test, anterior ischemia Will make NPO after midnight Plan cath tomorrow (Sat), called [id number] who takes care of his medical issues, agrees that it is reasonable for cardiac catheterization Will hold Losartan/HCTZ in the am Plavix allergy, [id number] is unsure of allergy... will most likely need Brilinta if intervention Problem Qualifiers (1) UTI (urinary tract infection): Qualified Code: N30.01 - Acute cystitis with hematuria (2) Abdominal pain: Qualified Code: R10.30 - Lower abdominal pain Dakota Carmen DO Feb 26, 2017 11:52
--- NOTE | 2017-02-26 16:49 | HHI.PR ---
Subjective Remarks Patient denies any chest pain, shortness of breath, nausea or vomiting. He has no concerns at this time except wonders if he will be asleep during the cardiac catheter. Objective Vitals Vital Signs Date Time Temp Pulse Resp B/P Pulse Ox O2 Delivery O2 Flow Rate FiO2 02/26/17 12:00 95.7 73 18 158/55 95 02/26/17 08:00 95.9 61 18 174/74 99 02/26/17 04:05 96.1 57 18 146/68 94 02/26/17 00:10 96.9 60 17 145/67 97 02/25/17 20:00 96.4 66 16 189/74 94 I/O 02/25/17 02/25/17 02/25/17 02/26/17 02/26/17 02/26/17 07:00 15:00 23:00 07:00 15:00 23:00 Intake Total 740 ml 240 ml 720 ml 0 ml Output Total 300 ml 600 ml Balance 740 ml -60 ml 120 ml 0 ml Intake Oral 240 ml 720 ml 0 ml IV Total 740 ml Output Urine Total 300 ml 600 ml # Voids 1 4 # Bowel Movements 0 0 0 Result Diagram: 02/26/17 0545 02/26/17 0545 Imaging Last Impressions Myocardial Perfusion Scan Nuc Med 02/25/17 0000 Signed Impressions: Service Date/Time: Saturday, February 25, 2017 10:43 - CONCLUSION: There is decreased perfusion at stress to the septum which appears to heart at rest suggesting LAD ischemia to the septum. Ejection fraction is normal at 66%%. It is new since 2013. RISK CATEGORY: Intermediate (1-3%% Annual Mortality Rate) Carlos Israel MD Chest X-Ray 02/24/17 0000 Signed Impressions: Service Date/Time: Friday, February 24, 2017 13:28 - CONCLUSION: Slight CHF. Lev Dueñas MD Abdomen/Pelvis CT 02/23/17 191 Signed Impressions: Service Date/Time: Thursday, February 23, 2017 19:44 - CONCLUSION: 1. Left inguinal hernia not present previously. 2. Placement of a biliary stent, otherwise not changed. Lev Dueñas MD Objective Remarks Gen.: No acute distress Head: Normocephalic. Atraumatic. EENT: EOMI. Nose without drainage. Airway intact. Throat without injection. Cardiovascular: Regular rate and rhythm. No murmurs Respiratory: Lungs clear to auscultation bilaterally. No wheezes or rhonchi. Productive cough. Abdomen: Soft, nontender, right lower quadrant, nondistended. No peritoneal signs. Musculoskeletal: No complaints of back pain today. Able to sit up without difficulty. Skin: No obvious rashes or erythema. Neuro: Sensory and motor grossly intact. Cranial nerves II through XII grossly intact. Psych: Appropriate mood and affect A/P Problem List: (1) UTI (urinary tract infection) ICD Code: N39.0 Status: Acute (2) Failure of outpatient treatment ICD Code: Z78.9 Status: Acute (3) Symptomatic bradycardia ICD Code: R00.1 Status: Acute Assessment and Plan 1. UTI: Recurrent. +dysuria/abdominal pain, U/a w/ UTI. Leukocytosis downtrending. Afebrile. Recent admit 02/12-02/18/17 w/ E. Coli UTI, currently on Ertapenem 1gm IV qd per ID, following w/ Dr. Turner. ID following, abx switched to aztreonam. Blood/Urine Cultures neg x 2 days. Per their rec, anticipate to be d/c on ertapenen if clx either remai negative or have the same isolate. awaiting final recs 2. Failed Outpt Tx: Recent admit w/ E. Coli UTI, +dysuria, U/a w/ persistent UTI. Will continue w/ treatment as above. 3. Symptomatic Bradycardia: HR 40-50's while in ER, c/o dizziness/ lightheadedness upon standing x4 days. cards following, nuclear stress test "There is decreased perfusion at stress to the septum which appears to heart at rest suggesting LAD ischemia to the septum". ECHO showed grade 3 diastolic dysfunction with concentric ventricular hypertrophy. Cardiology following, scheduled for cardiac cath tomorrow. Hold Metoprolol. 4. Productive cough: Resolved. 5. DVT Prophylaxis: SCD/Teds. 6. Back pain, resolved. Discharge Planning Going for cardiac catheterization tomorrow Problem Qualifiers (1) UTI (urinary tract infection): Qualified Code: N30.01 - Acute cystitis with hematuria Cha Huitron MD Feb 26, 2017 16:49
[2017-02-26] MEDS: ATORVASTATIN 20 MG TAB PO SCH (21:01)
[2017-02-27] MEDS: AZTREONAM INJ 2,000 MG in SODIUM CHLORIDE 0.9% INJ 100 ML IV SCH ×3 (02:32→17:47)
[2017-02-27] MEDS: ACETAMINOPHEN/HYDROcodone 325 MG/10 MG TAB PO PRN (02:33)
[2017-02-27 03:00] VITALS: BP 164/66; PULSE 68; RESP 18; TEMP 96.3; O2SAT 97
[2017-02-27] MEDS: LEVOTHYROXINE SODIUM 50 MCG TAB PO SCH (05:55)
[2017-02-27] MEDS: SODIUM CHLOR 0.9% 1000 ML INJ 1,000 ML IV SCH ×2 (05:55→17:52)
[2017-02-27 06:58] LABS: BICARBONATE 28.1 MEQ/L (21.0-32.0); POTASSIUM 4.5 MEQ/L (3.5-5.1)
[2017-02-27 07:13] LABS: AUTOMATED NEUTROPHIL # 4.6 TH/MM3 (1.8-7.7); BASOPHIL % 0.3 % (0.0-2.0); EOSINOPHIL # 0.5 TH/MM3 (0-0.4); EOSINOPHIL % 3.2 % (0.0-4.0); LYMPH % 58.2 % (9.0-44.0); LYMPHOCYTE # 8.5 TH/MM3 (1.0-4.8); MEAN CELL VOLUME 92.5 FL (80.0-100.0); MEAN CORPUSCULAR HEMOGLOBIN 30.5 PG (27.0-34.0); MONO % 6.7 % (0.0-8.0); NEUT % 31.6 % (16.0-70.0); PLATELET COUNT 294 TH/MM3 (150-450); RED BLOOD COUNT 3.89 MIL/MM3 (4.50-5.90); RED CELL DISTRIBUTION WIDTH 12.6 % (11.6-17.2); WHITE BLOOD COUNT 14.6 TH/MM3 (4.0-11.0)
[2017-02-27 08:00] VITALS: BP 161/69; PULSE 65; RESP 18; TEMP 96.4; O2SAT 97
[2017-02-27 08:04] LABS: HEMO FLAGS AUTO DIFF
[2017-02-27] MEDS: SODIUM CHLORIDE 0.9% FLUSH 10 ML FLUSH IV FLUSH SCH ×2 (09:00→20:44)
[2017-02-27] MEDS: DOCUSATE SODIUM 50 MG/SENNA 8.6 MG TAB PO SCH ×2 (10:09→20:44)
[2017-02-27] MEDS: ISOSORBIDE MONONITRATE 30 MG TAB PO SCH (10:09)
[2017-02-27] MEDS: ASPIRIN EC 81 MG TABEC PO SCH (10:10)
[2017-02-27] MEDS: SERTRALINE HCL 100 MG TAB PO SCH (10:10)
[2017-02-27] MEDS: ALLOPURINOL 300 MG TAB PO SCH (10:10)
[2017-02-27] MEDS ORDERED: MIDAZOLAM HCL 2 MG/2 ML VIAL ONE (11:07)
[2017-02-27] MEDS ORDERED: HEPARIN-NS/PF INJ 500 ML ONE (11:07)
[2017-02-27 11:23] LABS: BANDS 1 % (0-6); BASOPHILS 1 % (0-2); EOSINOPHILS 3 % (0-4); NEUTROPHIL # MANUAL DIFF 4.4 TH/MM3 (1.8-7.7); POLYS (SEG NEUTROPHILS) 29 % (16-70); WBC DIFF SAMPLE 100
[2017-02-27 11:24] LABS: PLATELET ESTIMATE SMEAR NORMAL (NORMAL); PLATELET MORPHOLOGY NORMAL (NORMAL); SCAN/DIFF FINAL DIFF MANUAL; SMUDGE CELLS PRESENT PRESENT
[2017-02-27] MEDS ORDERED: VERAPAMIL HCL 5 MG/2 ML VIAL ONE (11:26)
[2017-02-27] MEDS ORDERED: HEPARIN SODIUM - IV 10,000 UNITS/10 ML VIAL ONE (11:26)
[2017-02-27] MEDS ORDERED: NITROGLYCERIN INJ 5 ML ONE (11:26)
[2017-02-27] MEDS ORDERED: hydrALAZINE HCL 20 MG/ML VIAL ONE (11:30)
[2017-02-27] MEDS ORDERED: ONDANSETRON HCL 4 MG/2 ML VIAL ONE (11:48)
--- NOTE | 2017-02-27 13:20 | CATHPROC ---
[facility] HIS Report Study Information Study Number Admission Scheduled Start Study Start [id number] Feb 23 2017 10:57PM 02/27/2017 Feb 27 2017 11:05AM [place] [facility] Cardiac Catheterization Admit Source Facility Department Emergency department [facility] - [facility] [employer] Supervisor Physician and Clinical Staff Initial Dakota Lam Ct Scan Special Procedures Technologist Abdulaziz RN, Garcia Ct Scan Special Procedures TechnologistJuanjo Sanchez,GERMANIA Recorder Mal Srinivasan,RT(R) Recorder Milla Beasley,SKIVER HAND TECH2 Scrub Chelsea Carvajal RCIS TECH2 Procedures Performed Procedure Location (Site) Vessel Name Coronary Angiograms LCA Left Coronary Coronary Angiograms RCA Right Coronary Coronary Angiograms CALVILLO-LAD Left Coronary Coronary Angiograms SVG-OM CIRC Coronary Angiograms SVG-RCA Right Coronary Coronary Angiograms DIAG Prox Left Coronary Coronary Angiograms Gft, CIRC Mid CIRC Coronary Angiograms Subclav. Art. (Lft.) Subclavian Art. L Heart Cath Wire insertion Fem Art (right) Femoral Art Wire insertion Radial (left) Radial Art. Equipment Time Home Day Care Provider Description Size Mfg Part Number Used/Scraped TRANSDUCER, TRUWAVE [id number] 11:13 CAMPA HUYNH * Used W/STOCKCOCK *[id number] [id number] *[id number] 534-548T *[id number] 534-560T *[id number] 534-520T *[id number] 534-521T *[id number] [id number] *[id number] 11:13 [employer] IND[employer] PACK, CCL CUSTOM * Used *[id number] 11:13 [employer] SUPPORT, ARTERIAL ADULT [id number] Used BAND, RADIAL COMPRESSION TR [id number] 12:55 [employer] MEDICAL 29CM Used LARGE 29 *[id number] 11:17 [employer] WIRE, EXCHANGE 260CM 3MMJ 260CM Used *[id number] 11:13 NAMIC MANIFOLD, 4 PORT * Used *[id number] 12:55 NAMIC TUBING, HIGH PRESSURE 20" 20" Used *[id number] 11:13 [employer] OMNIPAQUE, 350 MG, 150ML 150ML [id number] Used 12:51 [employer] OMNIPAQUE, 350 MG, 50ML 50ML [id number] Used [id number] 11:13 [facility] BLANKET,WARM AIR CCL * Used *[id number] SHEATH, FR6 TRANSRADIAL 11:13 [employer] FR 6 [id number] Used SLENDER 10CM SHEATH, FR6 TRANSRADIAL 11:17 [employer] FR 6 [id number] Used SLENDER 10CM Equipment Model, Serial, Lot Number and Expiration Data Description Model Number Serial Number Lot Number Expiration Date WIRE, EXCHANGE 260CM 3MMJ [id number] 12-10-2019 History: Current Medications Medication Dosage/Unit Route Frequency Last Date/Time Taken ASA Statins (any) History: Allergies Allergy Reaction Keflex RASH Plavix RASH Sulfa RASH History: Risk Factors Family History of Hypertension Dyslipidemia Previous PA Previous Heart Failure Premature CAD Yes Yes Yes Yes Yes Prior Valve Prior PCI Prior CABG Prior CABGDate Surgery No No Yes 04/17/2005 Cerebrovascular Peripheral Artery Chronic Lung On Dialysis Diabetes Diabetes Therapy Disease Disease Disease No Yes No Yes Yes Diet History: Symptoms/Diagnosis Selection Items Chest pain History: CV Disease Selection Items Known CAD History: Stress Tests Stress or Imaging Studies Performed Yes Standard Exercise Stress Test No Stress Echo No Stress Test SPECT Stress Test SPECT Result Stress Test SPECT Ischemia Risk/Extent Yes Positive Intermediate Stress Test CMR No Cardiac CTA Coronary Calcium Score No No History: Arrhythmias Selection Items Atrial fibrillation History: Other Disease Selection Items CAD COPD HTN History: Other Current Smoker Method Quit Packs a Day Years Used Pack Years No Cigarettes 4 Years Ago 1 15 15 Labs Hgb (g/dl) Hct (%) RBC (MIL/MM3) WBC (l/cumm) Platelets (thousands) 11.60-17.00 35.00-51.00 4.00-5.90 4.00-11.00 150.00-450.00 12.4 36.6 4 18.2 366 Glucose (mg/dl) BUN (mg/dl) Creatinine (mg/dl) BUN:Creatinine (1:x) 74.00-106.00 7.00-18.00 0.50-1.30 10.00-20.00 125 22 1.0 22 Na (meq/l) K (meq/l) Cl (meq/l) CO2 (mmol/L) Ca (mg/dl) 136.00-145.00 3.50-5.10 98.00-107.00 21.00-32.00 8.50-10.10 136 4.6 101 29.7 9 PT (sec) PTT (sec) INR (PTT:PT) 9.80-11.60 24.30-30.10 0.90-1.10 10.3 25.3 0.9 Troponin I (ng/ml) CPK-MB (ng/ML) 0.02-0.05 0.50-3.60 0.02 Not Drawn Medication Medication Total Dose (Bolus/Oral) Medication Total Dosage/Unit 1% XYLOCAINE 5 mL FENTANYL 100 mcg HYDRALAZINE 20 mg RADIAL COCKTAIL 5 mL (Bolus) VERSED 0.5 mg ZOFRAN 4 mg Medications (Bolus/Oral) Medication Time Given Dosage/Unit Administered By Reason FENTANYL 02/27/2017 11:24:32 AM 50 mcg Juanjo Nava 50 mcg FENTANYL given in lab by Juanjo Nava RN in Right Arm via Peripheral IV. VERSED 02/27/2017 11:25:50 AM 0.5 mg Garcia Cintron RN 0.5 mg VERSED given in lab by Garcia Cintron RN via Peripheral IV. 1% XYLOCAINE 02/27/2017 11:26:34 AM 5 mL Patient arrived on 5 mL 1% XYLOCAINE via Subcutaneous. Ntg 200mcg Verapamil 2.5mg Heparin RADIAL COCKTAIL 02/27/2017 11:30:25 AM 5 mL (Bolus) Dakota Carmen 2000U Patient arrived on 5 mL (Bolus) RADIAL COCKTAIL given by Dakota Carmen via Radial. Using [Solutio n Name]. Reason: Ntg 200mcg Verapamil 2.5mg Heparin 2000U. HYDRALAZINE 02/27/2017 11:30:46 AM 10 mg Garcia Cintron RN 10 mg HYDRALAZINE given in lab by Garcia Cintron RN in Right Arm via Peripheral IV. HYDRALAZINE 02/27/2017 11:35:14 AM 10 mg Garcia Cintron RN 10 mg HYDRALAZINE given in lab by Garcia Cintron RN in Right Arm via Peripheral IV. FENTANYL 02/27/2017 11:42:33 AM 25 mcg Garcia Cintron RN 25 mcg FENTANYL given in lab by Garcia Cintron RN in Right Antecubital via Peripheral IV. ZOFRAN 02/27/2017 12:02:27 PM 4 mg Garcia Cintron RN 4 mg ZOFRAN given in lab by Garcia Cintron RN in Right Antecubital via Central IV. FENTANYL 02/27/2017 12:15:49 PM 25 mcg Ferlitto, Juanjo 25 mcg FENTANYL given in lab by Juanjo Nava, RN in Right Arm via Peripheral IV. Medication (Drip) Medication Time Given Dosage/Unit Concentration/Unit Diluent (ml) Solution IV Solutions 02/27/2017 11:08:54 AM 0 mL (IV) 500 NaCl .9 Patient arrived on IV Solutions in Right Arm via Peripheral IV. Pump/Drip Flow = 20 ml/hr using NaCl .9. Initial Case Assessment Cardiovascular HR Rhythm NIBP Chest Pain 81 Sinus 224/107 0 Edema Present Skin color Skin None Normal Warm Dry Circulatory - Right Pulses Dorsalis Pedis Femoral 1 1 Scale (0,1,2,3,4,d) Circulatory - Left Pulses Dorsalis Pedis Femoral 1 1 Scale (0,1,2,3,4,d) Neurological State Oriented to time-place- Alert Moves all extremities person Respiration - General Respiration Rate SpO2 (%) O2 (lpm) (B/min) 24 95 0 Final Case Assessment Cardiovascular HR Rhythm NIBP Chest Pain 24 sinus 130/60 0 Edema Present Skin color Skin None Normal Warm Dry Circulatory - Right Pulses Dorsalis Pedis Femoral 1 1 Scale (0,1,2,3,4,d) Circulatory - Left Pulses Dorsalis Pedis Femoral 1 1 Scale (0,1,2,3,4,d) Neurological State Oriented to time-place- Alert Moves all extremities person Respiration - General Respiration Rate O2 (lpm) (B/min) 12 2 Chronological Log Time Study Chronological Log 10:57:31 Patient arrived via Bed. 11:00:08 MD arrived. 11:05:32 Patient Name, D.O.B, / Armband Verified By R.N. 11:05:33 Consent signed by the physician and the patient and verified by the [employer] Supervisor staff. 11:05:34 Pre-op and post- op instructions given; patient acknowledges understanding of instructions. 11:05:36 Verbal Stimulation=2 Physical Stimulation=2 Airway=2 Respiration=2 TOTAL=8. (0=absent, 1=li mited, 2=present) 11:06:25 Presedation assessment performed by [employer] Supervisor RN. 11:06:30 Patient has been NPO for More than 6Hrs. 11:06:31 Skin Breakdown- red inflamed groins. 11:08:42 Allens test performed on the right radial and ulnar artery. 11:08:45 Osmin Prominences Protected 11:08:47 Patient Warmer Placed on the Table. 11:08:52 A Picc line IV was noted in the Brach. Vein (right). 11:08:54 Patient arrived on IV Solutions in Right Arm via Peripheral IV. Pump/Drip Flow = 20 ml/hr u sing NaCl .9. 11:08:55 History and physical on the chart or being dictated. Assessment: Initial Case, HR=81 BPM, Rhythm=Sinus, HFAR=243/107 mmhg, Chest Pain=0, Edema=None, Color=Normal, Skin = Warm, Dry Right Pulses: Dylan Ped=1, Femoral=1 11:09:20 Left Pulses: Dylan Ped=1, Femoral=1, Radial=2 Neurological: State=Alert, Ox3, CHÁVEZ Respiration: Resp=24 B/min, SpO2=95 %, O2=0 lpm Vitals capture started with the following parameters, Patient=Adult, Interval=5 min, Initial Pr tfxkvp=439 mmHg, ::22 Deflation Rate=5 mmHg 11:09:29 Vitals capture stopped. 11:09:43 Reference ECG taken Vitals capture started with the following parameters, Patient=Adult, Interval=5 min, Initial Pr wwvchq=211 mmHg, 11:11:20 Deflation Rate=5 mmHg 11:12:46 ADCF=990/107 mmhg, SpO2=96.0 %, Pain=0, Liz=10, Willis=2 11:17:08 Left Radial and groin(s) prepped with 2% chlorhexidine, and with a 3 min. waiting time. 11:17:14 HR=83 bpm, DXRO=116/109 mmhg, SpO2=94.0 %, Resp=18 B/min, Pain=0, Liz=10, Willis=2 11:22:15 HR=91 bpm, BOCD=446/103 mmhg, SpO2=97.0 %, Resp=18 B/min, Pain=0, Liz=10, Willis=2 Time Out. Correct patient, correct procedure,correct physician, ,power injector loaded or not l oaded with contrast with 11:23:53 surgical team present. Time Out Concurred by MD, individual staff and REPAIRER CONTROLLER TESTER in procedure 11:24:16 Pressure channel 1 zeroed. 11:24:32 50 mcg FENTANYL given in lab by Juanjo Nava RN in Right Arm via Peripheral IV. 11:25:50 0.5 mg VERSED given in lab by Garcia Cintron RN via Peripheral IV. 11:25:51 Case Start 11:26:34 Patient arrived on 5 mL 1% XYLOCAINE via Subcutaneous. 11:27:16 HR=87 bpm, NNFH=905/102 mmhg, SpO2=95.0 %, Resp=21 B/min, Pain=0, Liz=10, Willis=2 11:29:08 Access site was Radial Artery. A SHEATH, FR6 TRANSRADIAL SLENDER 10CM FR 6 was advanced into the Radial (left) using the Gigi castillo 11:30:06 technique. Patient arrived on 5 mL (Bolus) RADIAL COCKTAIL given by Dakota Carmen via Radial. Using [S olution Name]. 11:30:25 Reason: Ntg 200mcg Verapamil 2.5mg Heparin 2000U. 11:30:46 10 mg HYDRALAZINE given in lab by Garcia Cintron RN in Right Arm via Peripheral IV. 11:32:13 HR=88 bpm, XFOU=511/89 mmhg, SpO2=92.0 %, Resp=20 B/min, Pain=0, Liz=10, Willis=2 A JR 4.0 INFINITI CATHETER FR 5 was advanced over a wire. OMNIPAQUE, 350 MG, 150ML 150ML was us ed for 11:33:17 injections. 11:35:14 10 mg HYDRALAZINE given in lab by Garcia Cintron RN in Right Arm via Peripheral IV. 11:37:10 HR=83 bpm, JLLJ=800/77 mmhg, SpO2=96.0 %, Resp=15 B/min, Pain=0, Liz=10, Willis=2 11:42:11 HR=86 bpm, VOAW=295/77 mmhg, SpO2=98.0 %, Resp=14 B/min, Pain=0, Liz=10, Willis=2 11:42:33 25 mcg FENTANYL given in lab by Garcia Cintron RN in Right Antecubital via Peripheral IV. 11:43:17 A WIRE, EXCHANGE 260CM 3MMJ 260CM was inserted via Radial (left). 11:45:55 The RCA was injected and visualized at various angles. OMNIPAQUE, 350 MG, 150ML 150ML used . 11:47:08 HR=94 bpm, TMLF=467/95 mmhg, SpO2=98.0 %, Resp=15 B/min, Pain=0, Liz=10, Willis=2 11:47:23 The DIAG Prox was injected and visualized at various angles. OMNIPAQUE, 350 MG, 150ML 150ML used. 11:49:11 The SVG-RCA was injected and visualized at various angles. OMNIPAQUE, 350 MG, 150ML 150ML u sed. 11:52:48 HR=96 bpm, LVWB=146/74 mmhg, SpO2=97.0 %, Resp=15 B/min, Pain=0, Liz=10, Willis=2 Recorded Pressure: Ao, HR=95, Condition=Condition 1 11:52:59 (Aorta) Ao 164/64/107 After removing the current catheter a JL 4.0 INFINITI CATHETER FR 5 was advanced over a WIRE, E XCHANGE 260CM 11:55:47 3MMJ 260CM. 11:57:02 HR=92 bpm, BKTV=411/70 mmhg, SpO2=97.0 %, Resp=15 B/min, Pain=0, Liz=10, Willis=2 11:57:46 The LCA was injected and visualized at various angles. OMNIPAQUE, 350 MG, 150ML 150ML used . After removing the current catheter a AR MOD INFINITI CATHETER FR 5 was advanced over a WIRE, E XCHANGE 260CM 11:58:59 3MMJ 260CM. 12:02:08 HR=86 bpm, XIFS=399/63 mmhg, SpO2=98.0 %, Resp=15 B/min, Pain=0, Liz=10, Willis=2 12:02:27 4 mg ZOFRAN given in lab by Garcia Cintron RN in Right Antecubital via Central IV. After removing the current catheter a AL 1 INFINITI CATHETER FR 5 was advanced over a WIRE, EXC HANGE 260CM 12:05:02 3MMJ 260CM. 12:07:02 HR=84 bpm, XWHC=214/57 mmhg, SpO2=97.0 %, Resp=20 B/min, Pain=0, Liz=10, Willis=2 12:08:31 The SVG-OM was injected and visualized at various angles. OMNIPAQUE, 350 MG, 150ML 150ML us ed. 12:08:45 The Gft, CIRC Mid was injected and visualized at various angles. OMNIPAQUE, 350 MG, 150ML 1 50ML used. After removing the current catheter a PIGTAIL ANG. INFINITI CATHETER FR 5 was advanced over a W BERNADETTE, EXCHANGE 12:09:38 260CM 3MMJ 260CM. Recorded Pressure: LV, HR=82, Condition=Condition 1 12:11:57 (Left Ventricle) LV 118/13/18 12:12:02 HR=80 bpm, OBRD=865/53 mmhg, SpO2=97.0 %, Resp=12 B/min, Pain=0, Liz=10, Willis=2 Recorded Pressure: LV, Ao, HR=75, Condition=Condition 1 12:12:19 (Left Ventricle) LV 119/11/19, (Aorta) Ao 88/35/60 12:13:25 A WIRE, EXCHANGE 260CM 3MMJ 260CM was inserted via Fem Art (right). After removing the current catheter a ELIANA INFINITI CATHETER FR 5 was advanced over a WIRE, EXCH DEVAN 260CM 12:13:55 3MMJ 260CM. 12:15:49 25 mcg FENTANYL given in lab by Juanjo Nava RN in Right Arm via Peripheral IV. 12:16:56 HR=83 bpm, ZHEB=419/65 mmhg, SpO2=97.0 %, Resp=33 B/min, Pain=0, Liz=10, Willis=2 12:22:02 HR=82 bpm, RUVJ=692/56 mmhg, SpO2=96.0 %, Resp=25 B/min, Pain=0, Liz=10, Willis=2 12:27:03 HR=83 bpm, JFCH=879/55 mmhg, SpO2=97.0 %, Resp=30 B/min, Pain=0, Liz=10, Willis=2 12:28:19 The Subclav. Art. (Lft.) was injected and visualized at various angles. OMNIPAQUE, 350 MG, 150ML 150ML used. 12:32:02 HR=82 bpm, AMYJ=528/60 mmhg, SpO2=96.0 %, Resp=22 B/min, Pain=0, Liz=10, Willis=2 12:37:05 HR=80 bpm, UITX=189/53 mmhg, SpO2=97.0 %, Resp=25 B/min, Pain=0, Liz=10, Willis=2 After removing the current catheter a PIGTAIL ANG. INFINITI CATHETER FR 5 was advanced over a W BERNADETTE, EXCHANGE 12:41:44 260CM 3MMJ 260CM. 12:42:00 HR=84 bpm, BJUG=251/55 mmhg, SpO2=96.0 %, Resp=30 B/min, Pain=0, Liz=10, Willis=2 12:42:56 The Subclav. Art. (Lft.) was injected and visualized at various angles. OMNIPAQUE, 350 MG, 150ML 150ML used. 12:47:01 HR=83 bpm, EJPK=438/57 mmhg, SpO2=97.0 %, Resp=33 B/min, Pain=0, Liz=10, Willis=2 12:49:45 The Subclav. Art. (Lft.) was injected and visualized at various angles. OMNIPAQUE, 350 MG, 50ML 50ML used. After removing the current catheter a ELIANA INFINITI CATHETER FR 5 was advanced over a WIRE, EXCH DEVAN 260CM 12:51:37 3MMJ 260CM. 12:52:04 HR=86 bpm, MSUL=680/59 mmhg, SpO2=96.0 %, Resp=24 B/min, Pain=0, Liz=10, Willis=2 12:53:28 The CALVILLO-LAD was injected and visualized at various angles. OMNIPAQUE, 350 MG, 150ML 150ML used. 12:55:32 Catheter was removed 12:57:05 HR=83 bpm, QHDJ=742/60 mmhg, SpO2=96.0 %, Resp=15 B/min, Pain=0, Liz=10, Willis=2 Radial Compression Device Used. 10 mLs of air placed in BAND, RADIAL COMPRESSION TR LARGE 29 29 CM. Affected 12:57:29 hand ~O2 SATURATION~ % O2 saturation. 12:59:38 Case End Assessment: Final Case, HR=24 BPM, Rhythm=sinus, BYLU=948/60 mmhg, Chest Pain=0, Edema=None, Color=Normal, Skin = Warm, Dry Right Pulses: Dylan Ped=1, Femoral=1 13:00:43 Left Pulses: Dylan Ped=1, Femoral=1, Radial=2 Neurological: State=Alert, Ox3, CHÁVEZ Respiration: Resp=12 B/min, O2=2 lpm 13:01:59 Vitals capture stopped. 13:03:20 No case complications noted. 13:03:22 Cine recording checked. 13:03:24 Bedside Report will be given. 13:03:33 A Left Heart Cath was performed. 13:03:[facility] - Contrast Media Used In Study Contrast Total Opened (mL) Total Used (mL) Total Wasted (mL) Omnipaque 300 250 50 End Study - Maximum Contrast Load Max Contrast Load (mL) 575.0 End Study - Radiation Exposure Fluoro Time (minutes) 35.7 End Study - Patient Disposition Complications Transferred To Interventional Outcome No Telemetry Bed No attempt made
[2017-02-27] MEDS ORDERED: SODIUM CHLORID 0.9% 500 ML INJ 500 ML IV SCH (13:30)
[2017-02-27] MEDS: CYCLOBENZAPRINE HCL 10 MG TAB PO PRN ×2 (13:42→20:47)
--- NOTE | 2017-02-27 15:22 | PD.CARD.PN ---
Subjective Subjective Remarks Post-cath, doing well other than back pain Objective Medications Current Medications Medications (Trade) Dose Ordered Sig/Emily Route Start Time Stop Time Status Last Admin (NS 1000 ml Inj) 1,000 ml @ 100 mls/hr Q10H IV 02/23/17 23:13 02/27/17 05:55 (NS Flush) 2 ml UNSCH PRN IV FLUSH 02/23/17 23:15 (NS Flush) 2 ml BID IV FLUSH 02/24/17 09:00 02/26/17 08:55 (Zofran Inj) 4 mg Q6H PRN IVP 02/23/17 23:15 02/24/17 12:00 (Tylenol) 650 mg Q6H PRN PO 02/23/17 23:15 (Bern 5-325 Mg) 1 tab Q4H PRN PO 02/23/17 23:15 (Bern 10-325 Mg) 1 tab Q4H PRN PO 02/23/17 23:15 02/27/17 02:33 (Christina-Colace) 1 tab BID PO 02/24/17 09:00 02/27/17 10:09 (Milk Of Magnesia Liq) 30 ml Q12H PRN PO 02/23/17 23:15 (Senokot) 17.2 mg Q12H PRN PO 02/23/17 23:15 (Dulcolax Supp) 10 mg DAILY PRN RECTAL 02/23/17 23:15 (Lactulose Liq) 30 ml DAILY PRN PO 02/23/17 23:15 (Zyloprim) 300 mg DAILY PO 02/24/17 09:00 02/27/17 10:10 (Ecotrin Ec) 81 mg DAILY PO 02/24/17 09:00 02/27/17 10:10 (Lipitor) 20 mg HS PO 02/24/17 21:00 02/26/17 21:01 (Hydrodiuril) 25 mg DAILY PO 02/24/17 09:00 Hold 02/26/17 08:48 (Imdur) 30 mg DAILY PO 02/24/17 09:00 02/27/17 10:09 (Synthroid) 50 mcg DAILY@0600 PO 02/24/17 06:00 02/27/17 05:55 (Cozaar) 50 mg DAILY PO 02/24/17 09:00 Hold 02/26/17 08:48 (Lopressor) 100 mg DAILY PO 02/24/17 09:00 Hold (Zoloft) 100 mg DAILY PO 02/24/17 09:00 02/27/17 10:10 Patient Own Medication PT OWN MED: NON-FORMULARY ... DAILY INH 02/24/17 09:00 Hold (Azactam Inj/NS Inj) 100 ml @ 200 mls/hr Q8H IV 02/24/17 18:00 02/27/17 10:10 Cyclobenzaprine HCl 10 mg 10 mg Q8H PRN PO 02/25/17 14:30 02/27/17 13:42 (NS 500 ml Inj) 500 ml @ 50 mls/hr Q10H IV 02/27/17 13:30 02/27/17 23:29 Vital Signs / I&O Vital Signs Date Time Temp Pulse Resp B/P Pulse Ox O2 Delivery O2 Flow Rate FiO2 02/27/17 13:17 98 Room Air 02/27/17 08:00 96.4 65 18 161/69 97 02/27/17 03:00 96.3 68 18 164/66 97 02/26/17 23:49 96.7 79 18 177/70 98 02/26/17 20:41 96.7 81 19 171/68 97 02/26/17 16:00 96.3 71 18 161/62 99 I/O 02/26/17 02/26/17 02/26/17 02/27/17 02/27/17 02/27/17 07:00 15:00 23:00 07:00 15:00 23:00 Intake Total 0 ml 1991 ml 971 ml Output Total 1600 ml 600 ml Balance 0 ml 391 ml 371 ml Intake Oral 0 ml 1320 ml 360 ml IV Total 671 ml 611 ml Output Urine Total 1600 ml 600 ml # Voids 4 2 # Bowel Movements 0 0 0 Physical Exam GENERAL: AAO, NAD SKIN: Warm and dry. HEAD: Atraumatic. Normocephalic. EYES: Pupils equal and round. No scleral icterus. No injection or drainage. ENT: No nasal bleeding or discharge. Mucous membranes pink and moist. NECK: Trachea midline. No JVD. CARDIOVASCULAR: Regularly regular RESPIRATORY: No accessory muscle use. Decreased breath sounds bilaterally GASTROINTESTINAL: Abdomen soft, non-tender, nondistended. Hepatic and splenic margins not palpable. MUSCULOSKELETAL: Extremities without clubbing, cyanosis, or edema. No obvious deformities. Left radial no hematoma, neurovascularly intact distally NEUROLOGICAL: Awake and alert. No obvious cranial nerve deficits. Motor grossly within normal limits. Five out of 5 muscle strength in the arms and legs. Normal speech. PSYCHIATRIC: Appropriate mood and affect; insight and judgment normal. Laboratory Laboratory Tests Test 02/27/17 05:20 White Blood Count 14.6 TH/MM3 Red Blood Count 3.89 MIL/MM3 Hemoglobin 11.9 GM/DL Hematocrit 36.0 % Mean Corpuscular Volume 92.5 FL Mean Corpuscular Hemoglobin 30.5 PG Mean Corpuscular Hemoglobin 33.0 % Concent Red Cell Distribution Width 12.6 % Platelet Count 294 TH/MM3 Mean Platelet Volume 7.8 FL Neutrophils (%) (Auto) 31.6 % Lymphocytes (%) (Auto) 58.2 % Monocytes (%) (Auto) 6.7 % Eosinophils (%) (Auto) 3.2 % Basophils (%) (Auto) 0.3 % Neutrophils # (Auto) 4.6 TH/MM3 Lymphocytes # (Auto) 8.5 TH/MM3 Monocytes # (Auto) 1.0 TH/MM3 Eosinophils # (Auto) 0.5 TH/MM3 Basophils # (Auto) 0.0 TH/MM3 CBC Comment AUTO DIFF Differential Total Cells 100 Counted Neutrophils % (Manual) 29 % Band Neutrophils % 1 % Lymphocytes % 60 % Monocytes % 6 % Eosinophils % 3 % Basophils % 1 % Neutrophils # (Manual) 4.4 TH/MM3 Differential Comment FINAL DIFF MANUAL Smudge Cells PRESENT Platelet Estimate NORMAL Platelet Morphology Comment NORMAL Red Cell Morphology Comment NORMAL Sodium Level 139 MEQ/L Potassium Level 4.5 MEQ/L Chloride Level 104 MEQ/L Carbon Dioxide Level 28.1 MEQ/L Anion Gap 7 MEQ/L Blood Urea Nitrogen 19 MG/DL Creatinine 0.75 MG/DL Estimat Glomerular Filtration 100 ML/MIN Rate Random Glucose 105 MG/DL Calcium Level 9.1 MG/DL Magnesium Level 2.0 MG/DL Assessment and Plan Problem List: (1) Chest pain (2) HTN (hypertension) (3) HLD (hyperlipidemia) (4) UTI (urinary tract infection) (5) Abdominal pain Assessment and Plan 1) ?Sympotomatic bradycardia, but appears to have multiple symptoms Heart rates better off BB Appeared to be a combination of BB and Morphine 2) ?Afib by history Patient unsure where this is from No previous notes showing Afib Patient previously saw Dr. Tinoco in the office (2014) and no documentation of Afib, would not anticoagulate unless further evidence 3) Abnormal stress test, anterior ischemia Post-cath showing no significant lesions, con't with medical management of CAD Did receive a large dose of contrast (250 cc) due to difficult anatomy Will plan on gentle hydration Hold HCTZ, Losartan in the morning until BUN/Cr back and relatively stable Problem Qualifiers (1) UTI (urinary tract infection): Qualified Code: N30.01 - Acute cystitis with hematuria (2) Abdominal pain: Qualified Code: R10.30 - Lower abdominal pain Dakota Carmen DO Feb 27, 2017 15:22
[2017-02-27 16:00] VITALS: BP 132/69; PULSE 85; RESP 20; TEMP 97.2; O2SAT 95
[2017-02-27] MEDS ORDERED: IOHEXOL 350 MG/ML 100 ML BTL (for Cath Lab) OTHER ONE (16:15)
--- NOTE | 2017-02-27 17:57 | MA ---
cc: DAKOTA FERGUSON DO DATE February 27, 2017 PROCEDURE Left heart catheterization, coronary angiogram, coronary bypass angiogram, moderate sedation 90 minutes. PREPROCEDURE DIAGNOSIS Chest pain which was atypical for insufficiency, abnormal stress test, history of coronary artery bypass grafting x4 (2004). POSTPROCEDURE DIAGNOSIS History of coronary artery bypass grafting x4 (2004, 4/4 bypasses patent), no significant lesions for intervention. MEDICATIONS 1. Verapamil 2.5 milligrams. 2. Nitro 200 micrograms. 3. Heparin 5000 units. 4. Hydralazine 20 milligrams. 5. Fentanyl 100 micrograms. 6. Versed 0.5 milligrams. 7. Zofran 4 milligrams. CONTRAST 250 cc. FLUOROSCOPY 35.7 minutes. SEDATION Moderate sedation 90 minutes. ESTIMATED BLOOD LOSS 20 cc. PROCEDURAL SUMMARY Fabiano Molina is a pleasant 81-year-old male who came in with multiple complaints but one of them being chest pain and so he was recommended pharmacologic nuclear stress testing. On this they noted some possible septal ischemia and because of this he was recommended cardiac catheterization. I did speak to Mr. Molina about the procedure and he asked that I touch such base with the [id number] as he has a limited education and does not understand any of this. I did discuss this with his [id number], Noelle, and she agreed that this was a reasonable consideration. Risks, benefits and alternatives were discussed and he consented after talking with his [id number]. He was brought to the lab and prepped in the usual sterile fashion. As he does have extensive back pain and a history of coronary artery bypass grafting I felt left radial access was a better option than him having to lay flat after a femoral stick. Left radial artery was accessed using a modified Seldinger technique and placement of a 5/6 [place] sheath. This was easily aspirated and flushed. A JR-4 was advanced over a J-wire to the left subclavian but was unable to access the CALVILLO. JR-4 was then advanced into the ascending aorta and was used for selective angiography of the [place] RCA, SVG to diagonal and SVG to PDA. JR-4 was unable to access the SVG to the obtuse marginal and at that time a JR-4 was then exchanged for a JL-4 which was used for selective angiography of the [place] left coronary system. JL-4 was exchanged out for an AR mod which was unable to access the SVG to obtuse marginal and so this was exchanged for an AL-1 which was used for selective angiography of the SVG to the obtuse marginal. The AL-1 was exchanged for a pigtail which was advanced into the left ventricle for measurement of left ventricular end-diastolic pressure. This was pulled back across the aortic valve showing no significant gradient of aortic stenosis. The takeoff of the CALVILLO was difficult to find and so an IM catheter was used but was unable to find the takeoff. Finally, this was exchanged for a pigtail catheter and with arteriotomy of the subclavian the takeoff of the CALVILLO was found. Pigtail was then exchanged for the IM catheter which was used for selective angiography of the [place] to LAD. The IM catheter was then removed over a J-wire. A radial sheath was placed over the arteriotomy site for hemostasis. The patient left the central lab technician cardiovascularly stable. FINDINGS LEFT MAIN Overall small vessel with 30% disease distally. It bifurcates into an LAD and circumflex. LAD 99% proximal disease with competitive flow distally from the CALVILLO. This portion of the LAD does not seem to apply much other than a small septal metal spinner. LEFT CIRCUMFLEX Small vessel with a 90% lesion at the proximal portion and 100% just distal to that. RCA 100% occluded at the proximal portion. CALVILLO to LAD No significant disease throughout the CALVILLO. At the anastomosis there does not appear to be a significant disease and it fills retrogradely into the mid-LAD. There is a 50% lesion in the distal LAD but overall this is a small vessel around 2 mm. SVG to diagonal with no significant disease throughout. Overall, the diagonal is diffusely diseased 70%. It does retrogradely fills but appears to be a second diagonal. SVG to OM shows no significant disease. Overall, the obtuse marginal is a relatively small vessel which retrogradely fills one other obtuse marginal which is overall small. SVG to PDA with no significant disease. It does retrogradely fill part of the distal and midportion of the RCA. LVEDP 18. IMPRESSION 1. Chest pain atypical for coronary insufficiency. 2. Abnormal stress test showing possible septal ischemia. 3. Coronary artery disease with a history of coronary artery bypass grafting x4 (2004, / bypass grafts patent). RECOMMENDATIONS 1. Mr. Molina' catheterization shows no significant disease correlating with his current ischemia. At this time he has no significant lesions that need to be intervened upon. 2. We will continue medical management of his coronary artery disease. 3. He did receive a large amount of contrast as his overall anatomy was difficult. We will plan on watching him overnight and gently hydrating him and if stable in the morning can be discharged from a cardiovascular standpoint. I will have them hold his hydrochlorothiazide and losartan in the morning to make sure that his creatinine is within an acceptable range before giving his medications. 4. I discussed this with the primary team and his [id number] about my findings. 5. Upon discharge, the patient can follow up with Dr. Tinoco in the outpatient office. Thank you for allowing me to see Fabiano Jesse. If there are any questions please do not hesitate to call. Dakota Ferguson DO VGP/EO /3:30 PM /5:38 PM
--- NOTE | 2017-02-27 18:56 | HHI.PR ---
Subjective Remarks Patient complaining of some back pain however he says "I will survive ". Denies any chest pain, shortness of breath, nausea or vomiting. He complains about the food he is eating, wishes to have something else to eat. Objective Vitals Vital Signs Date Time Temp Pulse Resp B/P Pulse Ox O2 Delivery O2 Flow Rate FiO2 02/27/17 16:00 97.2 85 20 132/69 95 02/27/17 13:17 98 Room Air 02/27/17 08:00 96.4 65 18 161/69 97 02/27/17 03:00 96.3 68 18 164/66 97 02/26/17 23:49 96.7 79 18 177/70 98 02/26/17 20:41 96.7 81 19 171/68 97 I/O 02/26/17 02/26/17 02/26/17 02/27/17 02/27/17 02/27/17 07:00 15:00 23:00 07:00 15:00 23:00 Intake Total 0 ml 1991 ml 971 ml 0 ml Output Total 1600 ml 600 ml 850 ml Balance 0 ml 391 ml 371 ml -850 ml Intake Oral 0 ml 1320 ml 360 ml 0 ml IV Total 671 ml 611 ml Output Urine Total 1600 ml 600 ml 850 ml # Voids 4 2 # Bowel Movements 0 0 0 1 Result Diagram: 02/27/17 0520 02/27/17 0520 Imaging Last Impressions Myocardial Perfusion Scan Nuc Med 02/25/17 0000 Signed Impressions: Service Date/Time: Saturday, February 25, 2017 10:43 - CONCLUSION: There is decreased perfusion at stress to the septum which appears to heart at rest suggesting LAD ischemia to the septum. Ejection fraction is normal at 66%%. It is new since 2013. RISK CATEGORY: Intermediate (1-3%% Annual Mortality Rate) Carlos Israel MD Chest X-Ray 02/24/17 0000 Signed Impressions: Service Date/Time: Friday, February 24, 2017 13:28 - CONCLUSION: Slight CHF. Lev Dueñas MD Abdomen/Pelvis CT 02/23/17 1911 Signed Impressions: Service Date/Time: Thursday, February 23, 2017 19:44 - CONCLUSION: 1. Left inguinal hernia not present previously. 2. Placement of a biliary stent, otherwise not changed. Lev Dueñas MD Objective Remarks Gen.: No acute distress Head: Normocephalic. Atraumatic. EENT: EOMI. Nose without drainage. Airway intact. Cardiovascular: Regular rate and rhythm. No murmurs Respiratory: Lungs clear to auscultation bilaterally. No wheezes or rhonchi. Abdomen: Soft, nontender nondistended. No peritoneal signs. Musculoskeletal: back pain today. Skin: No obvious rashes or erythema. Neuro: Sensory and motor grossly intact. Cranial nerves II through XII grossly intact. Psych: Appropriate mood and affect A/P Problem List: (1) UTI (urinary tract infection) ICD Code: N39.0 Status: Acute (2) Failure of outpatient treatment ICD Code: Z78.9 Status: Acute (3) Symptomatic bradycardia ICD Code: R00.1 Status: Acute Assessment and Plan 1. UTI: Recurrent. +dysuria/abdominal pain, U/a w/ UTI. Leukocytosis downtrending. Afebrile. Recent admit 02/12-02/18/17 w/ E. Coli UTI, currently on Ertapenem 1gm IV qd per ID, following w/ Dr. Turner. ID following, abx switched to aztreonam. Blood/Urine Cultures neg x 2 days. Per their rec, anticipate to be d/c on ertapenen if clx either remai negative or have the same isolate. awaiting final recs 2. Failed Outpt Tx: Recent admit w/ E. Coli UTI, +dysuria, U/a w/ persistent UTI. Will continue w/ treatment as above. 3. Symptomatic Bradycardia: HR 40-50's while in ER, c/o dizziness/ lightheadedness upon standing x4 days. per cards bradycardia could be a combination of BB and morphine. hold BB Nuclear stress test showed "decreased perfusion at stress to the septum which appears to heart at rest suggesting LAD ischemia to the septum". ECHO showed grade 3 diastolic dysfunction with concentric ventricular hypertrophy. Cardiology following, he is s/p cardiac cath today which showed no significant lesions, con't with medical management of CAD. Discussed w Dr. Carmen, and since pt did receive a large dose of contrast due to difficult anatomy, he recommended monitoring BUN/Cr level tomorrow morning, give gentle hydration and holding HCTZ, Losartan in the morning until BUN/Cr back and relatively stable 4. Productive cough: Resolved. 5. DVT Prophylaxis: SCD/Teds. 6. Back pain, improved but still present post cardiac cath. suspect spasms, flexeril available prn. Discharge Planning s/p cardiac cath today medical management. monitor overnight and repeat BMP to monitor kidney function in AM. May be discharge tomorrow if stable. Problem Qualifiers (1) UTI (urinary tract infection): Qualified Code: N30.01 - Acute cystitis with hematuria Cha Huitron MD Feb 27, 2017 18:56
[2017-02-27 19:20] VITALS: BP 157/68; PULSE 87; RESP 19; TEMP 96.4; O2SAT 98
[2017-02-27] MEDS: ATORVASTATIN 20 MG TAB PO SCH (20:44)
[2017-02-27] MEDS: ACETAMINOPHEN/HYDROcodone 325 MG/5 MG TAB PO PRN (20:48)
[2017-02-28 00:04] VITALS: BP 171/62; PULSE 79; RESP 18; TEMP 97; O2SAT 99
[2017-02-28] MEDS: AZTREONAM INJ 2,000 MG in SODIUM CHLORIDE 0.9% INJ 100 ML IV SCH ×2 (02:10→10:14)
[2017-02-28] MEDS: SODIUM CHLOR 0.9% 1000 ML INJ 1,000 ML IV SCH ×2 (02:13→13:45)
[2017-02-28] MEDS: LEVOTHYROXINE SODIUM 50 MCG TAB PO SCH (05:19)
[2017-02-28] MEDS: ACETAMINOPHEN/HYDROcodone 325 MG/5 MG TAB PO PRN (05:19)
[2017-02-28] MEDS: CYCLOBENZAPRINE HCL 10 MG TAB PO PRN ×3 (05:19→23:53)
[2017-02-28 06:01] LABS: AUTOMATED NEUTROPHIL # 5.8 TH/MM3 (1.8-7.7); BASOPHIL % 0.2 % (0.0-2.0); EOSINOPHIL # 0.3 TH/MM3 (0-0.4); EOSINOPHIL % 1.7 % (0.0-4.0); HEMATOCRIT 35.3 % (39.0-51.0); LYMPH % 51.2 % (9.0-44.0); LYMPHOCYTE # 7.7 TH/MM3 (1.0-4.8); MEAN CELL VOLUME 92.3 FL (80.0-100.0); MEAN CORPUSCULAR HEMOGLOBIN 30.1 PG (27.0-34.0); MEAN CORPUSCULAR HGB CONC 32.7 % (32.0-36.0); MONO % 8.4 % (0.0-8.0); NEUT % 38.5 % (16.0-70.0); PLATELET COUNT 276 TH/MM3 (150-450); RED BLOOD COUNT 3.83 MIL/MM3 (4.50-5.90); RED CELL DISTRIBUTION WIDTH 12.7 % (11.6-17.2)
[2017-02-28 06:18] LABS: HEMO FLAGS AUTO DIFF
[2017-02-28 06:26] LABS: BICARBONATE 27.9 MEQ/L (21.0-32.0); POTASSIUM 4.4 MEQ/L (3.5-5.1)
[2017-02-28 08:00] VITALS: BP 151/58; PULSE 68; RESP 20; TEMP 95.6; O2SAT 94
[2017-02-28 08:56] LABS: EOSINOPHILS 1 % (0-4); METAMYELOCYTES 1 % (0-1); NEUTROPHIL # MANUAL DIFF 10.7 TH/MM3 (1.8-7.7); POLYS (SEG NEUTROPHILS) 70 % (16-70); WBC DIFF SAMPLE 100
[2017-02-28 08:57] LABS: PLATELET ESTIMATE SMEAR NORMAL (NORMAL); PLATELET MORPHOLOGY NORMAL (NORMAL); SCAN/DIFF FINAL DIFF MANUAL; SMUDGE CELLS PRESENT PRESENT
[2017-02-28] MEDS: SODIUM CHLORIDE 0.9% FLUSH 10 ML FLUSH IV FLUSH SCH ×2 (09:00→21:00)
[2017-02-28] MEDS: SERTRALINE HCL 100 MG TAB PO SCH (10:14)
[2017-02-28] MEDS: HYDROCHLOROTHIAZIDE 25 MG TAB PO SCH (10:15)
--- NOTE | 2017-02-28 10:15 | PD.CARD.PN ---
Subjective Subjective Remarks No chest pain, no shortness of breath Some of his normal back pain, sat up in bed and felt better Objective Medications Current Medications Medications (Trade) Dose Ordered Sig/Emily Route Start Time Stop Time Status Last Admin (NS 1000 ml Inj) 1,000 ml @ 100 mls/hr Q10H IV 02/23/17 23:13 02/28/17 02:13 (NS Flush) 2 ml UNSCH PRN IV FLUSH 02/23/17 23:15 (NS Flush) 2 ml BID IV FLUSH 02/24/17 09:00 02/26/17 08:55 (Zofran Inj) 4 mg Q6H PRN IVP 02/23/17 23:15 02/24/17 12:00 (Tylenol) 650 mg Q6H PRN PO 02/23/17 23:15 ([place] 5-325 Mg) 1 tab Q4H PRN PO 02/23/17 23:15 02/28/17 05:19 (Christina-Colace) 1 tab BID PO 02/24/17 09:00 02/27/17 20:44 (Milk Of Magnesia Liq) 30 ml Q12H PRN PO 02/23/17 23:15 (Senokot) 17.2 mg Q12H PRN PO 02/23/17 23:15 (Dulcolax Supp) 10 mg DAILY PRN RECTAL 02/23/17 23:15 (Lactulose Liq) 30 ml DAILY PRN PO 02/23/17 23:15 (Zyloprim) 300 mg DAILY PO 02/24/17 09:00 02/27/17 10:10 (Ecotrin Ec) 81 mg DAILY PO 02/24/17 09:00 02/27/17 10:10 (Lipitor) 20 mg HS PO 02/24/17 21:00 02/27/17 20:44 (Hydrodiuril) 25 mg DAILY PO 02/24/17 09:00 02/26/17 08:48 (Imdur) 30 mg DAILY PO 02/24/17 09:00 02/27/17 10:09 (Synthroid) 50 mcg DAILY@0600 PO 02/24/17 06:00 02/28/17 05:19 (Cozaar) 50 mg DAILY PO 02/24/17 09:00 02/26/17 08:48 (Lopressor) 100 mg DAILY PO 02/24/17 09:00 Hold (Zoloft) 100 mg DAILY PO 02/24/17 09:00 02/27/17 10:10 Patient Own Medication PT OWN MED: NON-FORMULARY ... DAILY INH 02/24/17 09:00 Hold (Azactam Inj/NS Inj) 100 ml @ 200 mls/hr Q8H IV 02/24/17 18:00 02/28/17 02:10 (Flexeril) 10 mg Q8H PRN PO 02/25/17 14:30 02/28/17 05:19 ([place] 10-325 Mg) 1 tab Q6H PRN PO 02/28/17 01:15 Vital Signs / I&O Vital Signs Date Time Temp Pulse Resp B/P Pulse Ox O2 Delivery O2 Flow Rate FiO2 02/28/17 08:00 95.6 68 20 151/58 94 02/28/17 00:04 97.0 79 18 171/62 99 02/27/17 19:20 96.4 87 19 157/68 98 02/27/17 16:00 97.2 85 20 132/69 95 02/27/17 13:17 98 Room Air I/O 02/27/17 02/27/17 02/27/17 02/28/17 02/28/17 02/28/17 07:00 15:00 23:00 07:00 15:00 23:00 Intake Total 971 ml 0 ml 480 ml 959 ml Output Total 600 ml 850 ml 250 ml 900 ml Balance 371 ml -850 ml 230 ml 59 ml Intake Oral 360 ml 0 ml 480 ml 480 ml IV Total 611 ml 479 ml Output Urine Total 600 ml 850 ml 250 ml 900 ml # Voids 2 # Bowel Movements 0 1 1 0 Physical Exam GENERAL: AAO, NAD SKIN: Warm and dry. HEAD: Atraumatic. Normocephalic. EYES: Pupils equal and round. No scleral icterus. No injection or drainage. ENT: No nasal bleeding or discharge. Mucous membranes pink and moist. NECK: Trachea midline. No JVD. CARDIOVASCULAR: Regularly regular RESPIRATORY: No accessory muscle use. Decreased breath sounds bilaterally GASTROINTESTINAL: Abdomen soft, non-tender, nondistended. Hepatic and splenic margins not palpable. MUSCULOSKELETAL: Extremities without clubbing, cyanosis, or edema. No obvious deformities. Left radial no hematoma, neurovascularly intact distally NEUROLOGICAL: Awake and alert. No obvious cranial nerve deficits. Motor grossly within normal limits. Five out of 5 muscle strength in the arms and legs. Normal speech. PSYCHIATRIC: Appropriate mood and affect; insight and judgment normal. Laboratory Laboratory Tests Test 02/28/17 05:28 White Blood Count 15.0 TH/MM3 Red Blood Count 3.83 MIL/MM3 Hemoglobin 11.5 GM/DL Hematocrit 35.3 % Mean Corpuscular Volume 92.3 FL Mean Corpuscular Hemoglobin 30.1 PG Mean Corpuscular Hemoglobin 32.7 % Concent Red Cell Distribution Width 12.7 % Platelet Count 276 TH/MM3 Mean Platelet Volume 7.5 FL Neutrophils (%) (Auto) 38.5 % Lymphocytes (%) (Auto) 51.2 % Monocytes (%) (Auto) 8.4 % Eosinophils (%) (Auto) 1.7 % Basophils (%) (Auto) 0.2 % Neutrophils # (Auto) 5.8 TH/MM3 Lymphocytes # (Auto) 7.7 TH/MM3 Monocytes # (Auto) 1.3 TH/MM3 Eosinophils # (Auto) 0.3 TH/MM3 Basophils # (Auto) 0.0 TH/MM3 CBC Comment AUTO DIFF Differential Total Cells 100 Counted Neutrophils % (Manual) 70 % Lymphocytes % 22 % Monocytes % 6 % Eosinophils % 1 % Neutrophils # (Manual) 10.7 TH/MM3 Metamyelocytes 1 % Differential Comment FINAL DIFF MANUAL Smudge Cells PRESENT Platelet Estimate NORMAL Platelet Morphology Comment NORMAL Red Cell Morphology Comment NORMAL Sodium Level 138 MEQ/L Potassium Level 4.4 MEQ/L Chloride Level 103 MEQ/L Carbon Dioxide Level 27.9 MEQ/L Anion Gap 7 MEQ/L Blood Urea Nitrogen 18 MG/DL Creatinine 0.84 MG/DL Estimat Glomerular Filtration 88 ML/MIN Rate Random Glucose 125 MG/DL Calcium Level 9.1 MG/DL Assessment and Plan Problem List: (1) Chest pain (2) HTN (hypertension) (3) HLD (hyperlipidemia) (4) UTI (urinary tract infection) (5) Abdominal pain Assessment and Plan 1) ?Sympotomatic bradycardia, but appears to have multiple symptoms Heart rates better off BB Appeared to be a combination of BB and Morphine 2) ?Afib by history Patient unsure where this is from No previous notes showing Afib Patient previously saw Dr. Tinoco in the office (2014) and no documentation of Afib, would not anticoagulate unless further evidence 3) Abnormal stress test, anterior ischemia Post-cath showing no significant lesions, con't with medical management of CAD Creatinine stable Mildly hypertensive, restarted on HCTZ/Losartan today Problem Qualifiers (1) UTI (urinary tract infection): Qualified Code: N30.01 - Acute cystitis with hematuria (2) Abdominal pain: Qualified Code: R10.30 - Lower abdominal pain Dakota Carmen DO Feb 28, 2017 10:15
[2017-02-28] MEDS: LOSARTAN 50 MG TAB PO SCH (10:16)
[2017-02-28] MEDS: ASPIRIN EC 81 MG TABEC PO SCH (10:16)
[2017-02-28] MEDS: ISOSORBIDE MONONITRATE 30 MG TAB PO SCH (10:16)
[2017-02-28] MEDS: ALLOPURINOL 300 MG TAB PO SCH (10:16)
[2017-02-28] MEDS: DOCUSATE SODIUM 50 MG/SENNA 8.6 MG TAB PO SCH ×2 (10:16→23:54)
[2017-02-28 12:00] VITALS: PULSE 74; RESP 22; TEMP 95.7; O2SAT 99
--- NOTE | 2017-02-28 12:01 | HHI.PR ---
Subjective Remarks Follow-up for back pain. The patient continues to complain of left flank pain, states it has improved some since admission, but is still present. He states that he had a normal bowel movement earlier this morning, and recently had one loose bowel movement. He is still having urinary frequency and difficulty holding his urine. He denies any fevers or chills. He denies any chest pain or shortness of breath. He states he hasn't really been able to ambulate much here. States he has been having generalized leg pain, which has been present for some time. He states he mostly lives alone. Objective Vitals Vital Signs Date Time Temp Pulse Resp B/P Pulse Ox O2 Delivery O2 Flow Rate FiO2 02/28/17 08:00 95.6 68 20 151/58 94 02/28/17 00:04 97.0 79 18 171/62 99 02/27/17 19:20 96.4 87 19 157/68 98 02/27/17 16:00 97.2 85 20 132/69 95 02/27/17 13:17 98 Room Air I/O 02/27/17 02/27/17 02/27/17 02/28/17 02/28/17 02/28/17 07:00 15:00 23:00 07:00 15:00 23:00 Intake Total 971 ml 0 ml 480 ml 959 ml Output Total 600 ml 850 ml 250 ml 900 ml Balance 371 ml -850 ml 230 ml 59 ml Intake Oral 360 ml 0 ml 480 ml 480 ml IV Total 611 ml 479 ml Output Urine Total 600 ml 850 ml 250 ml 900 ml # Voids 2 # Bowel Movements 0 1 1 0 Result Diagram: 02/28/17 0528 02/28/17 0528 Imaging Last Impressions Myocardial Perfusion Scan Nuc Med 02/25/17 0000 Signed Impressions: Service Date/Time: Saturday, February 25, 2017 10:43 - CONCLUSION: There is decreased perfusion at stress to the septum which appears to heart at rest suggesting LAD ischemia to the septum. Ejection fraction is normal at 66%%. It is new since 2013. RISK CATEGORY: Intermediate (1-3%% Annual Mortality Rate) Carlos Israel MD Chest X-Ray 02/24/17 0000 Signed Impressions: Service Date/Time: Friday, February 24, 2017 13:28 - CONCLUSION: Slight CHF. Lev Dueñas MD Abdomen/Pelvis CT 02/23/17 191 Signed Impressions: Service Date/Time: Thursday, February 23, 2017 19:44 - CONCLUSION: 1. Left inguinal hernia not present previously. 2. Placement of a biliary stent, otherwise not changed. Lev Dueñas MD Objective Remarks GENERAL: Well-developed well-nourished obese. In no acute distress. SKIN: Warm and dry. No lesions noted. HEENT: Normocephalic. Pupils equal and round. Mucous membranes pink and moist. CARDIOVASCULAR: Regular rate and rhythm. No murmur appreciated. RESPIRATORY: No accessory muscle use. Clear to auscultation. Breath sounds equal bilaterally. GASTROINTESTINAL: Abdomen soft, non-tender, nondistended. Bowel sounds x4. MUSCULOSKELETAL: No obvious deformities. No clubbing or cyanosis. No edema. NEUROLOGICAL: Awake and alert. Normal speech. Appears generally weak. Doesn't really persist the patient with neuro exam as he recently urinated and defecated himself. PSYCHIATRIC: Appropriate mood and affect; insight and judgment fair to normal. Procedures None Medications and IVs Current Medications Medications (Trade) Dose Ordered Sig/Emily Route Start Time Stop Time Status Last Admin (NS 1000 ml Inj) 1,000 ml @ 70 mls/hr [id number] IV 02/23/17 23:13 02/28/17 02:13 (NS Flush) 2 ml UNSCH PRN IV FLUSH 02/23/17 23:15 (NS Flush) 2 ml BID IV FLUSH 02/24/17 09:00 02/26/17 08:55 (Zofran Inj) 4 mg Q6H PRN IVP 02/23/17 23:15 02/24/17 12:00 (Tylenol) 650 mg Q6H PRN PO 02/23/17 23:15 ([place] 5-325 Mg) 1 tab Q4H PRN PO 02/23/17 23:15 02/28/17 05:19 (Christina-Colace) 1 tab BID PO 02/24/17 09:00 02/28/17 10:16 (Milk Of Magnesia Liq) 30 ml Q12H PRN PO 02/23/17 23:15 (Senokot) 17.2 mg Q12H PRN PO 02/23/17 23:15 (Dulcolax Supp) 10 mg DAILY PRN RECTAL 02/23/17 23:15 (Lactulose Liq) 30 ml DAILY PRN PO 02/23/17 23:15 (Zyloprim) 300 mg DAILY PO 02/24/17 09:00 02/28/17 10:16 (Ecotrin Ec) 81 mg DAILY PO 02/24/17 09:00 02/28/17 10:16 (Lipitor) 20 mg HS PO 02/24/17 21:00 02/27/17 20:44 (Hydrodiuril) 25 mg DAILY PO 02/24/17 09:00 02/28/17 10:15 (Imdur) 30 mg DAILY PO 02/24/17 09:00 02/28/17 10:16 (Synthroid) 50 mcg DAILY@0600 PO 02/24/17 06:00 02/28/17 05:19 (Cozaar) 50 mg DAILY PO 02/24/17 09:00 02/28/17 10:16 (Lopressor) 100 mg DAILY PO 02/24/17 09:00 Hold (Zoloft) 100 mg DAILY PO 02/24/17 09:00 02/28/17 10:14 Patient Own Medication PT OWN MED: NON-FORMULARY ... DAILY INH 02/24/17 09:00 Hold (Flexeril) 10 mg Q8H PRN PO 02/25/17 14:30 02/28/17 05:19 ([place] 10-325 Mg) 1 tab Q6H PRN PO 02/28/17 01:15 02/28/17 12:53 (Lactinex) 1 tab Q12HR PO 02/28/17 12:00 02/28/17 12:26 Urinary Catheter: No Vascular Central Line Catheter: No A/P Problem List: (1) UTI (urinary tract infection) ICD Code: N39.0 Status: Acute (2) Failure of outpatient treatment ICD Code: Z78.9 Status: Acute (3) Symptomatic bradycardia ICD Code: R00.1 Status: Resolved Assessment and Plan 81-year-old male with a PMH of Anxiety, Depression, HTN, Diet Controlled DM, COPD and UTI who presented with complaints of abdominal pain. UTI: Recurrent. +dysuria/abdominal pain, U/a w/ evidence of UTI. Leukocytosis slightly decreased from admission, but remains persistent. Afebrile. Recent admit 02/12-02/18/17 w/ E. Coli UTI, DC'd on Ertapenem 1gm IV qd per ID, following w/ Dr. Turner. ID consulted, abx switched to aztreonam, patient completed course, cultures negative, discussed with Dr. Turner, PATRICIA antibiotics. Symptomatic Bradycardia: HR 40-50's while in ER, c/o dizziness/lightheadedness upon standing x4 days. Cardiology consulted. Per cards bradycardia could be a combination of BB and morphine. Beta jaiden held. Nuclear stress performed and showed "decreased perfusion at stress to the septum which appears to heart at rest suggesting LAD ischemia to the septum". ECHO showed grade 3 diastolic dysfunction with concentric ventricular hypertrophy. Cardiology performed cardiac catheterization 02/27 which showed no significant lesions. Dr. Carmen recommends continued medical management for CAD. Hypertension: Not well controlled currently. Renal function stable, restarted on HCTZ and losartan. Continue Imdur. Monitor and adjust medications as needed. Back pain: Possible flank pain secondary to UTI vs chronic low back pain by history. Check lower back x-ray. Flexeril available prn for spasms. PT consulted, initially recommended SNF, will ask for reevaluation. [place] as needed. Loose stool: One episode. Possibly antibiotic associated. Start Lactinex. Rule out C. difficile. Dysphagia asked for Swallow test performed and at this time re started diet. DVT Prophylaxis: SCD/Teds. Discharge Planning Discharge planning to SNF, case management consulted. Attending Statement Patient seen in his bedroom examined and discussed with nurse and with PA he states had an episode of dysphagia but at this time able to take fluids. following specialist recommendations. will go to Rehab at discharge. Problem Qualifiers (1) UTI (urinary tract infection): Qualified Code: N30.01 - Acute cystitis with hematuria Oral Irby Feb 28, 2017 12:01 Mook Barton MD Feb 28, 2017 14:46
[2017-02-28] MEDS: LACTOBACILLUS ACIDOPHILUS TAB PO SCH ×2 (12:26→23:53)
[2017-02-28] MEDS: ACETAMINOPHEN/HYDROcodone 325 MG/10 MG TAB PO PRN ×2 (12:53→23:53)
--- NOTE | 2017-02-28 13:27 | HHI.PR ---
Addendum to Inpatient Note Additional Information repeat urine clx is negative pt has completed originally prescirbed 14 day course of abx - dc azactam Yael Paiz MD Feb 28, 2017 13:27
[2017-02-28 16:00] VITALS: BP 159/73; PULSE 76; RESP 18; TEMP 96.7; O2SAT 98
--- NOTE | 2017-02-28 17:06 | RADRPT ---
EXAM DATE/TIME: 02/28/2017 16:31 [facility] COMPARISON: No previous studies available for comparison. INDICATIONS : Lower back pain, unknown injury. MEDICAL HISTORY : None. SURGICAL HISTORY : None. ENCOUNTER: Initial ACUITY: >1 year PAIN SCORE: 10/10 LOCATION: Bilateral lower back. FINDINGS: There are five non-rib bearing vertebral bodies. Biliary stent was in place. The vertebral bodies a re in normal alignment without evidence of subluxation or scoliosis. There is mild wedging of L1, [place] pected chronic. The disc spaces are maintained. The posterior elements are intact without evidence of spondylolysis. The pedicles are intact. Bony mineralization is normal. No fracture is identifi ed. Severe osteoarthritis of the right hip. Left total hip arthroplasty. Large anterior osteophytes throughout the lumbar spine CONCLUSION: Mild wedging of L1. No acute fracture seen. Discogenic sclerosis at multiple levels. Severe right hip osteoarthritis. Carlos Israel MD on February 28, 2017 at 17:03 Board Certified Radiologist. This report was verified electronically.
[2017-02-28 19:00] VITALS: BP 118/52; PULSE 75; RESP 17; TEMP 96.5; O2SAT 99
[2017-02-28] MEDS: ATORVASTATIN 20 MG TAB PO SCH (23:53)
[2017-03-01] VITALS: BP 185/77; PULSE 75; RESP 18; TEMP 96.9; O2SAT 100
[2017-03-01] MEDS: LEVOTHYROXINE SODIUM 50 MCG TAB PO SCH (05:35)
[2017-03-01 08:00] VITALS: BP 182/80; PULSE 68; RESP 18; TEMP 96; O2SAT 99
[2017-03-01] MEDS: HYDROCHLOROTHIAZIDE 25 MG TAB PO SCH (08:12)
[2017-03-01] MEDS: LACTOBACILLUS ACIDOPHILUS TAB PO SCH ×2 (08:12→23:13)
[2017-03-01] MEDS: ALLOPURINOL 300 MG TAB PO SCH (08:12)
[2017-03-01] MEDS: CYCLOBENZAPRINE HCL 10 MG TAB PO PRN ×2 (08:12→16:23)
[2017-03-01] MEDS: LOSARTAN 50 MG TAB PO SCH (08:12)
[2017-03-01] MEDS: ASPIRIN EC 81 MG TABEC PO SCH (08:12)
[2017-03-01] MEDS: SERTRALINE HCL 100 MG TAB PO SCH (08:12)
[2017-03-01] MEDS: ISOSORBIDE MONONITRATE 30 MG TAB PO SCH (08:13)
[2017-03-01] MEDS: DOCUSATE SODIUM 50 MG/SENNA 8.6 MG TAB PO SCH ×2 (08:14→23:13)
[2017-03-01] MEDS: SODIUM CHLORIDE 0.9% FLUSH 10 ML FLUSH IV FLUSH SCH ×2 (08:14→21:00)
[2017-03-01] MEDS: ACETAMINOPHEN/HYDROcodone 325 MG/10 MG TAB PO PRN ×3 (09:10→23:13)
[2017-03-01] MEDS: ONDANSETRON HCL 4 MG/2 ML VIAL IVP PRN (09:18)
--- NOTE | 2017-03-01 09:26 | HHI.PR ---
Subjective Remarks Follow-up for back pain. The patient continues to complain of left flank pain, states it has improved some since admission, but is still present. He states that he had a normal bowel movement earlier this morning, and recently had one loose bowel movement. He is still having urinary frequency and difficulty holding his urine. He denies any fevers or chills. He denies any chest pain or shortness of breath. He states he hasn't really been able to ambulate much here. States he has been having generalized leg pain, which has been present for some time. He states he mostly lives alone. 03/01: Seen in his bedroom discussed with Speech therapy recommended to get GI specialist consult. tried to contact his relative Noelle Molina or Mr. Quincy Molina but no answer to both phones called I left a message on [phone], he states is having some abdominal pain and nausea, shocking with solid food on liquid diet at this time. Objective Vital Signs Date Time Temp Pulse Resp B/P Pulse Ox O2 Delivery O2 Flow Rate FiO2 03/01/17 03:20 Nasal Cannula 2.00 03/01/17 01:02 18 03/01/17 00:00 96.9 75 18 185/77 100 02/28/17 19:00 96.5 75 17 118/52 99 02/28/17 16:00 96.7 76 18 159/73 98 02/28/17 12:00 95.7 74 22 99 I/O 02/28/17 02/28/17 02/28/17 03/01/17 03/01/17 03/01/17 07:00 15:00 23:00 07:00 15:00 23:00 Intake Total 959 ml 240 ml 1290 ml 666 ml Output Total 900 ml 650 ml 700 ml Balance 59 ml -410 ml 590 ml 666 ml Intake Oral 480 ml 240 ml 480 ml 480 ml IV Total 479 ml 810 ml 186 ml Output Urine Total 900 ml 650 ml 700 ml # Voids 3 3 # Bowel Movements 0 1 0 0 Result Diagram: 02/28/17 0528 02/28/17 0528 Imaging Last Impressions Lumbar Spine X-Ray 02/28/17 0000 Signed Impressions: Service Date/Time: February 16:31 - CONCLUSION: Mild wedging of L1. No acute fracture seen. Discogenic sclerosis at multiple levels. Severe right hip osteoarthritis. Carlos Israel MD Myocardial Perfusion Scan Nuc Med 02/25/17 0000 Signed Impressions: Service Date/Time: Saturday, February 25, 2017 10:43 - CONCLUSION: There is decreased perfusion at stress to the septum which appears to heart at rest suggesting LAD ischemia to the septum. Ejection fraction is normal at 66%%. It is new since 2013. RISK CATEGORY: Intermediate (1-3%% Annual Mortality Rate) Carlos Israel MD Chest X-Ray 02/24/17 0000 Signed Impressions: Service Date/Time: Friday, February 24, 2017 13:28 - CONCLUSION: Slight CHF. Lev Dueñas MD Abdomen/Pelvis CT 02/23/17 191 Signed Impressions: Service Date/Time: Thursday, February 23, 2017 19:44 - CONCLUSION: 1. Left inguinal hernia not present previously. 2. Placement of a biliary stent, otherwise not changed. Lev Dueñas MD Procedures None Other Results Laboratory Tests Test 02/25/17 02/26/17 02/27/17 02/28/17 17:04 05:45 05:20 05:28 Total Bilirubin 0.2 MG/DL Aspartate Amino Transf 22 U/L (AST/SGOT) Alanine Aminotransferase 31 U/L (ALT/SGPT) Alkaline Phosphatase 93 U/L Total Protein 7.1 GM/DL Albumin 3.1 GM/DL Nucleated Red Blood Cells 1 /100 WBC Band Neutrophils % 1 % Basophils % 1 % Magnesium Level 2.0 MG/DL White Blood Count 15.0 TH/MM3 Red Blood Count 3.83 MIL/MM3 Hemoglobin 11.5 GM/DL Hematocrit 35.3 % Mean Corpuscular Volume 92.3 FL Mean Corpuscular Hemoglobin 30.1 PG Mean Corpuscular Hemoglobin 32.7 % Concent Red Cell Distribution Width 12.7 % Platelet Count 276 TH/MM3 Mean Platelet Volume 7.5 FL Neutrophils (%) (Auto) 38.5 % Lymphocytes (%) (Auto) 51.2 % Monocytes (%) (Auto) 8.4 % Eosinophils (%) (Auto) 1.7 % Basophils (%) (Auto) 0.2 % Neutrophils # (Auto) 5.8 TH/MM3 Lymphocytes # (Auto) 7.7 TH/MM3 Monocytes # (Auto) 1.3 TH/MM3 Eosinophils # (Auto) 0.3 TH/MM3 Basophils # (Auto) 0.0 TH/MM3 CBC Comment AUTO DIFF Differential Total Cells 100 Counted Neutrophils % (Manual) 70 % Lymphocytes % 22 % Monocytes % 6 % Eosinophils % 1 % Neutrophils # (Manual) 10.7 TH/MM3 Metamyelocytes 1 % Differential Comment FINAL DIFF MANUAL Smudge Cells PRESENT Platelet Estimate NORMAL Platelet Morphology Comment NORMAL Red Cell Morphology Comment NORMAL Sodium Level 138 MEQ/L Potassium Level 4.4 MEQ/L Chloride Level 103 MEQ/L Carbon Dioxide Level 27.9 MEQ/L Anion Gap 7 MEQ/L Blood Urea Nitrogen 18 MG/DL Creatinine 0.84 MG/DL Estimat Glomerular Filtration 88 ML/MIN Rate Random Glucose 125 MG/DL Calcium Level 9.1 MG/DL Objective Remarks GENERAL: Well-developed well-nourished obese. In no acute distress. SKIN: Warm and dry. No lesions noted. HEENT: Normocephalic. Pupils equal and round. Mucous membranes pink and moist. CARDIOVASCULAR: Regular rate and rhythm. No murmur appreciated. RESPIRATORY: No accessory muscle use. Clear to auscultation. Breath sounds equal bilaterally. GASTROINTESTINAL: Abdomen soft, non-tender, nondistended. Bowel sounds x4. MUSCULOSKELETAL: No obvious deformities. No clubbing or cyanosis. No edema. NEUROLOGICAL: Awake and alert. Normal speech. Appears generally weak. Doesn't really persist the patient with neuro exam as he recently urinated and defecated himself. PSYCHIATRIC: Appropriate mood and affect; insight and judgment fair to normal. Medications and IVs Current Medications Medications (Trade) Dose Ordered Sig/Emily Route Start Time Stop Time Status Last Admin (NS 1000 ml Inj) 1,000 ml @ 70 mls/hr [id number] IV 02/23/17 23:13 03/01/17 00:00 (NS Flush) 2 ml UNSCH PRN IV FLUSH 02/23/17 23:15 (NS Flush) 2 ml BID IV FLUSH 02/24/17 09:00 02/26/17 08:55 (Zofran Inj) 4 mg Q6H PRN IVP 02/23/17 23:15 02/24/17 12:00 (Tylenol) 650 mg Q6H PRN PO 02/23/17 23:15 ([place] 5-325 Mg) 1 tab Q4H PRN PO 02/23/17 23:15 02/28/17 05:19 (Christina-Colace) 1 tab BID PO 02/24/17 09:00 02/28/17 23:54 (Milk Of Magnesia Liq) 30 ml Q12H PRN PO 02/23/17 23:15 (Senokot) 17.2 mg Q12H PRN PO 02/23/17 23:15 (Dulcolax Supp) 10 mg DAILY PRN RECTAL 02/23/17 23:15 (Lactulose Liq) 30 ml DAILY PRN PO 02/23/17 23:15 (Zyloprim) 300 mg DAILY PO 02/24/17 09:00 03/01/17 08:12 (Ecotrin Ec) 81 mg DAILY PO 02/24/17 09:00 03/01/17 08:12 (Lipitor) 20 mg HS PO 02/24/17 21:00 02/28/17 23:53 (Hydrodiuril) 25 mg DAILY PO 02/24/17 09:00 03/01/17 08:12 (Imdur) 30 mg DAILY PO 02/24/17 09:00 03/01/17 08:13 (Synthroid) 50 mcg DAILY@0600 PO 02/24/17 06:00 03/01/17 05:35 (Cozaar) 50 mg DAILY PO 02/24/17 09:00 03/01/17 08:12 (Lopressor) 100 mg DAILY PO 02/24/17 09:00 Hold (Zoloft) 100 mg DAILY PO 02/24/17 09:00 03/01/17 08:12 Patient Own Medication PT OWN MED: NON-FORMULARY ... DAILY INH 02/24/17 09:00 Hold (Flexeril) 10 mg Q8H PRN PO 02/25/17 14:30 03/01/17 08:12 ([place] 10-325 Mg) 1 tab Q6H PRN PO 02/28/17 01:15 03/01/17 09:10 (Lactinex) 1 tab Q12HR PO 02/28/17 12:00 03/01/17 08:12 A/P Assessment and Plan 81-year-old male with a PMH of Anxiety, Depression, HTN, Diet Controlled DM, COPD and UTI who presented with complaints of abdominal pain. UTI: Recurrent. +dysuria/abdominal pain, U/a w/ evidence of UTI. Leukocytosis slightly decreased from admission, but remains persistent. Afebrile. Recent admit 02/12-02/18/17 w/ E. Coli UTI, DC'd on Ertapenem 1gm IV qd per ID, following w/ Dr. Turner. ID consulted, abx switched to aztreonam. Blood/Urine Cultures negative 5 days. removed antibiotics as per ID specialist signed off the case. Symptomatic Bradycardia: HR 40-50's while in ER, c/o dizziness/lightheadedness upon standing x4 days. Cardiology consulted. Per cards bradycardia could be a combination of BB and morphine. Beta jaiden held. Nuclear stress performed and showed "decreased perfusion at stress to the septum which appears to heart at rest suggesting LAD ischemia to the septum". ECHO showed grade 3 diastolic dysfunction with concentric ventricular hypertrophy. Cardiology performed cardiac catheterization 02/27 which showed no significant lesions. Dr. Carmen recommends continued medical management for CAD. Hypertension: Better control at this time. Back pain: Possible flank pain secondary to UTI vs chronic low back pain by history. Check lower back x-ray. Flexeril available prn for spasms. PT consulted, initially recommended SNF, will ask for reevaluation. [place] as needed. Loose stool: One episode. Possibly antibiotic associated. Start Lactinex. Rule out C. difficile. Dysphagia asked for Swallow test was performed and recommended to get GI specialist consult was done. he has history of ERCP and Biliary stent placement. DVT Prophylaxis: SCD/Teds. Discussed with Nurse Miss Almeida, ordered for OT consult, GI specialist consult , tried to contact his Children Mr. Mathew and Noelle Bahenans but no answer left message. Discharge Planning Once cleared by GI specialist. Mook Barton MD Mar 01, 2017 09:26
[2017-03-01 12:00] VITALS: BP 152/64; PULSE 79; RESP 18; TEMP 96; O2SAT 99
--- NOTE | 2017-03-01 15:30 | PD.CARD.PN ---
Subjective Subjective Remarks Patient seen this morning, no chest pain, no shortness of breath Mildly nauseated, back pain Objective Medications Current Medications Medications (Trade) Dose Ordered Sig/Emily Route Start Time Stop Time Status Last Admin (NS 1000 ml Inj) 1,000 ml @ 70 mls/hr [id number] IV 02/23/17 23:13 03/01/17 00:00 (NS Flush) 2 ml UNSCH PRN IV FLUSH 02/23/17 23:15 (NS Flush) 2 ml BID IV FLUSH 02/24/17 09:00 02/26/17 08:55 (Zofran Inj) 4 mg Q6H PRN IVP 02/23/17 23:15 03/01/17 09:18 (Tylenol) 650 mg Q6H PRN PO 02/23/17 23:15 ([place] 5-325 Mg) 1 tab Q4H PRN PO 02/23/17 23:15 02/28/17 05:19 (Christina-Colace) 1 tab BID PO 02/24/17 09:00 02/28/17 23:54 (Milk Of Magnesia Liq) 30 ml Q12H PRN PO 02/23/17 23:15 (Senokot) 17.2 mg Q12H PRN PO 02/23/17 23:15 (Dulcolax Supp) 10 mg DAILY PRN RECTAL 02/23/17 23:15 (Lactulose Liq) 30 ml DAILY PRN PO 02/23/17 23:15 (Zyloprim) 300 mg DAILY PO 02/24/17 09:00 03/01/17 08:12 (Ecotrin Ec) 81 mg DAILY PO 02/24/17 09:00 03/01/17 08:12 (Lipitor) 20 mg HS PO 02/24/17 21:00 02/28/17 23:53 (Hydrodiuril) 25 mg DAILY PO 02/24/17 09:00 03/01/17 08:12 (Imdur) 30 mg DAILY PO 02/24/17 09:00 03/01/17 08:13 (Synthroid) 50 mcg DAILY@0600 PO 02/24/17 06:00 03/01/17 05:35 (Cozaar) 50 mg DAILY PO 02/24/17 09:00 03/01/17 08:12 (Lopressor) 100 mg DAILY PO 02/24/17 09:00 Hold (Zoloft) 100 mg DAILY PO 02/24/17 09:00 03/01/17 08:12 Patient Own Medication PT OWN MED: NON-FORMULARY ... DAILY INH 02/24/17 09:00 Hold (Flexeril) 10 mg Q8H PRN PO 02/25/17 14:30 03/01/17 08:12 ([place] 10-325 Mg) 1 tab Q6H PRN PO 02/28/17 01:15 03/01/17 09:10 (Lactinex) 1 tab Q12HR PO 02/28/17 12:00 03/01/17 08:12 Vital Signs / I&O Vital Signs Date Time Temp Pulse Resp B/P Pulse Ox O2 Delivery O2 Flow Rate FiO2 03/01/17 12:00 96.0 79 18 152/64 99 03/01/17 10:10 18 03/01/17 08:00 96.0 68 18 182/80 99 03/01/17 03:20 Nasal Cannula 2.00 03/01/17 00:00 96.9 75 18 185/77 100 02/28/17 19:00 96.5 75 17 118/52 99 02/28/17 16:00 96.7 76 18 159/73 98 I/O 02/28/17 02/28/17 02/28/17 03/01/17 03/01/17 03/01/17 07:00 15:00 23:00 07:00 15:00 23:00 Intake Total 959 ml 240 ml 1290 ml 666 ml Output Total 900 ml 650 ml 700 ml Balance 59 ml -410 ml 590 ml 666 ml Intake Oral 480 ml 240 ml 480 ml 480 ml IV Total 479 ml 810 ml 186 ml Output Urine Total 900 ml 650 ml 700 ml # Voids 3 3 # Bowel Movements 0 1 0 0 Physical Exam GENERAL: AAO, NAD SKIN: Warm and dry. HEAD: Atraumatic. Normocephalic. EYES: Pupils equal and round. No scleral icterus. No injection or drainage. ENT: No nasal bleeding or discharge. Mucous membranes pink and moist. NECK: Trachea midline. No JVD. CARDIOVASCULAR: Regularly regular RESPIRATORY: No accessory muscle use. Decreased breath sounds bilaterally GASTROINTESTINAL: Abdomen soft, non-tender, nondistended. Hepatic and splenic margins not palpable. MUSCULOSKELETAL: Extremities without clubbing, cyanosis, or edema. No obvious deformities. Left radial no hematoma, neurovascularly intact distally NEUROLOGICAL: Awake and alert. No obvious cranial nerve deficits. Motor grossly within normal limits. Five out of 5 muscle strength in the arms and legs. Normal speech. PSYCHIATRIC: Appropriate mood and affect; insight and judgment normal. Assessment and Plan Problem List: (1) Chest pain (2) HTN (hypertension) (3) HLD (hyperlipidemia) (4) UTI (urinary tract infection) (5) Abdominal pain Assessment and Plan 1) ?Sympotomatic bradycardia on arrival, but appears to have multiple symptoms Heart rates better off BB Appeared to be a combination of BB and Morphine 2) ?Afib by history Patient unsure where this is from No previous notes showing Afib Patient previously saw Dr. Tinoco in the office (2014) and no documentation of Afib, would not anticoagulate unless further evidence 3) Abnormal stress test, anterior ischemia Post-cath showing no significant lesions, con't with medical management of CAD Creatinine stable Mildly hypertensive, restarted on HCTZ/Losartan yesterday now better controlled 4) Will sign off, call with questions Problem Qualifiers (1) UTI (urinary tract infection): Qualified Code: N30.01 - Acute cystitis with hematuria (2) Abdominal pain: Qualified Code: R10.30 - Lower abdominal pain Dakota Carmen DO Mar 01, 2017 15:30
[2017-03-01 16:00] VITALS: BP 143/75; PULSE 76; RESP 18; TEMP 96; O2SAT 100
--- NOTE | 2017-03-01 17:06 | HHI.GIFU ---
Subjective Remarks This is a 81 yo male with hx DM, AF, COPD who presented for vomiting, chills, malaise and recurrent UTIs. GI has been consulted for dysphagia. He says he has had trouble swallowing for 2-3 months, it comes and goes. There is some nausesa with this. yesterday he feels like food got stuck and he vomited. He admits sometimes having choking sensation when he eats. No hematemesis, hx GERD. Never had EGD. Thinks he had colonoscopy last year in [facility] and says it was normal. He had ERCP with stent placement 02-13-17. He reportedly had loose stool, has hx c diff. Pt is poor historian. (Stefania Avila) Objective Vitals I&O Vital Signs Date Time Temp Pulse Resp B/P Pulse Ox O2 Delivery O2 Flow Rate FiO2 03/01/17 16:37 18 03/01/17 12:00 96.0 79 18 152/64 99 03/01/17 08:00 96.0 68 18 182/80 99 03/01/17 03:20 Nasal Cannula 2.00 03/01/17 00:00 96.9 75 18 185/77 100 02/28/17 19:00 96.5 75 17 118/52 99 I/O 02/28/17 02/28/17 02/28/17 03/01/17 03/01/17 03/01/17 07:00 15:00 23:00 07:00 15:00 23:00 Intake Total 959 ml 240 ml 1290 ml 666 ml Output Total 900 ml 650 ml 700 ml Balance 59 ml -410 ml 590 ml 666 ml Intake Oral 480 ml 240 ml 480 ml 480 ml IV Total 479 ml 810 ml 186 ml Output Urine Total 900 ml 650 ml 700 ml # Voids 3 3 # Bowel Movements 0 1 0 0 Laboratory Date/Time Procedure Status Source Growth 02/26/17 18:20 Gram Stain - Final Complete Sputum Oral Tracheal Aspirate 02/26/17 18:20 Sputum Culture - Final Complete Sputum Oral Tracheal Aspirate HEAVY GROWTH NORMAL RESPIRATORY GOSIA Imaging Last Impressions Lumbar Spine X-Ray 02/28/17 0000 Signed Impressions: Service Date/Time: February 16:31 - CONCLUSION: Mild wedging of L1. No acute fracture seen. Discogenic sclerosis at multiple levels. Severe right hip osteoarthritis. Carlos Israel MD Myocardial Perfusion Scan Nuc Med 02/25/17 0000 Signed Impressions: Service Date/Time: Saturday, February 25, 2017 10:43 - CONCLUSION: There is decreased perfusion at stress to the septum which appears to heart at rest suggesting LAD ischemia to the septum. Ejection fraction is normal at 66%%. It is new since 2013. RISK CATEGORY: Intermediate (1-3%% Annual Mortality Rate) Carlos Israel MD Chest X-Ray 02/24/17 0000 Signed Impressions: Service Date/Time: Friday, February 24, 2017 13:28 - CONCLUSION: Slight CHF. Lev Dueñas MD Abdomen/Pelvis CT 02/23/17 191 Signed Impressions: Service Date/Time: Thursday, February 23, 2017 19:44 - CONCLUSION: 1. Left inguinal hernia not present previously. 2. Placement of a biliary stent, otherwise not changed. Lev Dueñas MD Physical Exam HEENT: PERRL; normocephalic; atraumatic; no jaundice. CHEST: CTA CARDIAC: irr HR ABDOMEN: Soft, nondistended, LLQ TTP; no hepatosplenomegaly; bowel sounds are present in all four quadrants. EXTREMITIES: No clubbing, cyanosis, or edema. SKIN: Normal; no rash; no jaundice. BAND NAILER: lethargic (Stefania Avila) Assessment and Plan Plan ASSESSMENT - dysphagia - onset 2-3 months ago, intermittent. per ST he had aspiration with thin liquids. he admits occasional choking sensation, also bolus sensation. pt poor historian. Denies GERD. CT 02-23-17--> inguinal hernia left, biliary stent per EMR he had ERCP 02-15-17 with stent placement, sphincterotomy -- >periampullary diverticulum stricture distal CBD, stent placed. pt hesitant to have any procedures, seems confused as well - elevated CA 19-9 02/16/17 - UTI per primary PLAN - consider EGD - consider MBS - diet per ST - monitor LFTs - further recommendations to follow - supportive care This pt seen by myself and Dr Alexander and this note is written on her behalf ( Stefania Avila) Physician Comments seen, examined agree with above we will order ba swallow first (Vianey Alexander MD) Stefania Avila Mar 01, 2017 17:06 Vianey Alexander MD Mar 01, 2017 21:52
[2017-03-01] MEDS: SODIUM CHLOR 0.9% 1000 ML INJ 1,000 ML IV SCH ×2 (18:21)
[2017-03-01 20:47] VITALS: BP 144/54; PULSE 78; RESP 18; TEMP 97.8; O2SAT 100
--- NOTE | 2017-03-01 22:26 | MB ---
cc: VIANEY ROSALES M.D. DATE OF CONSULTATION 03/01/17 DATE OF 1935 HISTORY OF PRESENT ILLNESS Mr. Sykes is an 81-year-old gentleman with multiple medical problems was admitted to the hospital on 02/24/2017 for failing outpatient therapy for urinary tract infection. The patient has multiple medical problems has been seen recently at the hospital for CBD stone had an ERCP with stent placement. The patient reports having some difficulty swallowing for the last 2 months. Today he actually was eating and he choked on the food. Since then he was placed on a liquid diet. The patient stated he thinks that he is having coughing after eating for 6 to 7 months. He is unable to tell me if he has difficulty swallowing before, if he has acid reflux or he was ever evaluated for this issue. Overall, he is a very poor historian. PAST MEDICAL HISTORY Diabetes, COPD, high blood pressure, atrial fibrillation, anxiety, depression, questionable common bile duct stone. PAST SURGICAL HISTORY CABG, prostatectomy, left hip replacement. ALLERGIES KEFLEX, PLAVIX, SULFA. FAMILY HISTORY No family history of colon cancer or any other GI pathology. SOCIAL HISTORY Denies any smoking, drinking or drug use. CURRENT MEDICATIONS He is taking 1. Lactinex. 2. [place]. 3. Flexeril. 4. Lipitor. 5. Christina-Colace. 6. Allopurinol. 7. Ecotrin. 8. Hydrox___. 9. Imdur. 10. Cozaar. 11. Metoprolol. 12. Sertraline. 13. Synthroid. 14. Tylenol. 15. Milk of Magnesia. 16. Senokot. 17. Lactulose. REVIEW OF SYSTEMS He denies any fever, chills, weight loss or weight gain. ENT: No alteration in baseline hearing or visual acuity PULMONARY: Denies any chest pain, shortness of breath. GASTROINTESTINAL: As above. GENITOURINARY: Denies dysuria, hematuria. HEMATOLOGIC: No history of anemia or bleeding disorder. SKIN: No alteration in baseline skin lesion. NEUROLOGIC: No history of TIA or CVA kind of symptoms. PHYSICAL EXAMINATION GENERAL: On clinical exam he is sitting comfortably in bed in no acute distress. VITAL SIGNS: Temperature is 97.8, pulse 78, respiration 18, blood pressure 144/54. HEENT: PERRLA. NECK: No JVD. No lymphadenopathy. CHEST: Clear to auscultation and palpation. CARDIOVASCULAR: S1-S2. No murmur. ABDOMEN: Soft, obese. Bowel sounds are present. GLOVE TAGGER: Awake, alert, oriented x3. No focal signs identified. LABORATORY DATA His white count 15, hemoglobin 11 and platelet count 276. His chemistry was normal except mild elevation of the BUN and creatinine and glucose. IMAGING STUDIES The patient had a CT abdomen and pelvis which showed left inguinal hernia which was new, biliary stent, otherwise unchanged. IMPRESSION Mr. Molina is a very pleasant gentleman who developed dysphagia for the last 2-3 months, getting worse recently, per speech therapy had aspiration with thin liquids, admits choking episodes RECOMMENDATIONS Barium swallow. May need modified barium swallow. Endoscopy with possible dilatation if clinically indicated. Supportive care. Further recommendation will depend on the patient's clinical status and the above results. Thank you again. We will continue to follow the patient along with you. Vianey Rosales MD BSB/EO /10:00 PM /10:14 PM [facility]
[2017-03-01] MEDS: ATORVASTATIN 20 MG TAB PO SCH (23:13)
[2017-03-02] VITALS (7 sets, daily range): BP systolic 152–193; BP diastolic 69–77; PULSE 70–89; RESP 18–19; TEMP 96–98.1; O2SAT 97–100
[2017-03-02] MEDS: LEVOTHYROXINE SODIUM 50 MCG TAB PO SCH (06:09)
[2017-03-02] MEDS: SODIUM CHLOR 0.9% 1000 ML INJ 1,000 ML IV SCH ×2 (06:13→22:57)
[2017-03-02] MEDS: SODIUM CHLORIDE 0.9% FLUSH 10 ML FLUSH IV FLUSH SCH ×3 (09:00→21:21)
[2017-03-02] MEDS: DOCUSATE SODIUM 50 MG/SENNA 8.6 MG TAB PO SCH ×2 (09:10→21:20)
[2017-03-02] MEDS: ISOSORBIDE MONONITRATE 30 MG TAB PO SCH (09:10)
[2017-03-02] MEDS: LACTOBACILLUS ACIDOPHILUS TAB PO SCH ×2 (09:10→21:20)
[2017-03-02] MEDS: HYDROCHLOROTHIAZIDE 25 MG TAB PO SCH (09:10)
[2017-03-02] MEDS: LOSARTAN 50 MG TAB PO SCH (09:11)
[2017-03-02] MEDS: ALLOPURINOL 300 MG TAB PO SCH (09:11)
[2017-03-02] MEDS: ASPIRIN EC 81 MG TABEC PO SCH (09:11)
[2017-03-02] MEDS: SERTRALINE HCL 100 MG TAB PO SCH (09:11)
--- NOTE | 2017-03-02 09:12 | HHI.PR ---
Subjective Remarks Follow-up for back pain. The patient continues to complain of left flank pain, states it has improved some since admission, but is still present. He states that he had a normal bowel movement earlier this morning, and recently had one loose bowel movement. He is still having urinary frequency and difficulty holding his urine. He denies any fevers or chills. He denies any chest pain or shortness of breath. He states he hasn't really been able to ambulate much here. States he has been having generalized leg pain, which has been present for some time. He states he mostly lives alone. 03/01: Seen in his bedroom discussed with Speech therapy recommended to get GI specialist consult. tried to contact his relative Noelle Molina or Mr. Quincy Molina but no answer to both phones called I left a message on [phone], he states is having some abdominal pain and nausea, shocking with solid food on liquid diet at this time. 03/02: Seen yesterday by GI specialist due to Dysphagia, Barium swallow may need modified barium swallow, Endoscopy with possible Dilatation if indicated, discussed with nurse Mr. Licona the Barium Swallow may be performed on Saturday03/04/17, will follow recommendations by GI later today, no nausea, vomit or diarrhea. Objective Vital Signs Date Time Temp Pulse Resp B/P Pulse Ox O2 Delivery O2 Flow Rate FiO2 03/02/17 05:58 98.1 75 18 152/73 100 03/02/17 02:31 Nasal Cannula 2.00 03/02/17 00:13 18 03/02/17 00:11 97.7 77 18 177/69 99 03/01/17 20:47 97.8 78 18 144/54 100 03/01/17 16:00 96.0 76 18 143/75 100 03/01/17 12:00 96.0 79 18 152/64 99 I/O 03/01/17 03/01/17 03/01/17 03/02/17 03/02/17 03/02/17 07:00 15:00 23:00 07:00 15:00 23:00 Intake Total 666 ml 1040 ml 568 ml 436 ml Output Total 550 ml Balance 666 ml 490 ml 568 ml 436 ml Intake Oral 480 ml 1040 ml IV Total 186 ml 568 ml 436 ml Output Urine Total 550 ml # Voids 3 # Bowel Movements 0 Result Diagram: 7/20/17 0528 02/28/17 0528 Imaging Last Impressions Lumbar Spine X-Ray 02/28/17 0000 Signed Impressions: Service Date/Time: February 16:31 - CONCLUSION: Mild wedging of L1. No acute fracture seen. Discogenic sclerosis at multiple levels. Severe right hip osteoarthritis. Carlos Israel MD Myocardial Perfusion Scan Nuc Med 02/25/17 0000 Signed Impressions: Service Date/Time: Saturday, February 25, 2017 10:43 - CONCLUSION: There is decreased perfusion at stress to the septum which appears to heart at rest suggesting LAD ischemia to the septum. Ejection fraction is normal at 66%%. It is new since 2013. RISK CATEGORY: Intermediate (1-3%% Annual Mortality Rate) Carlos Israel MD Chest X-Ray 02/24/17 0000 Signed Impressions: Service Date/Time: Friday, February 24, 2017 13:28 - CONCLUSION: Slight CHF. Lev Dueñas MD Abdomen/Pelvis CT 02/23/17 1911 Signed Impressions: Service Date/Time: Thursday, February 23, 2017 19:44 - CONCLUSION: 1. Left inguinal hernia not present previously. 2. Placement of a biliary stent, otherwise not changed. Lev Dueñas MD Procedures None Other Results Laboratory Tests Test 02/26/17 02/27/17 02/28/17 05:45 05:20 05:28 Nucleated Red Blood Cells 1 /100 WBC Band Neutrophils % 1 % Basophils % 1 % Magnesium Level 2.0 MG/DL White Blood Count 15.0 TH/MM3 Red Blood Count 3.83 MIL/MM3 Hemoglobin 11.5 GM/DL Hematocrit 35.3 % Mean Corpuscular Volume 92.3 FL Mean Corpuscular Hemoglobin 30.1 PG Mean Corpuscular Hemoglobin 32.7 % Concent Red Cell Distribution Width 12.7 % Platelet Count 276 TH/MM3 Mean Platelet Volume 7.5 FL Neutrophils (%) (Auto) 38.5 % Lymphocytes (%) (Auto) 51.2 % Monocytes (%) (Auto) 8.4 % Eosinophils (%) (Auto) 1.7 % Basophils (%) (Auto) 0.2 % Neutrophils # (Auto) 5.8 TH/MM3 Lymphocytes # (Auto) 7.7 TH/MM3 Monocytes # (Auto) 1.3 TH/MM3 Eosinophils # (Auto) 0.3 TH/MM3 Basophils # (Auto) 0.0 TH/MM3 CBC Comment AUTO DIFF Differential Total Cells 100 Counted Neutrophils % (Manual) 70 % Lymphocytes % 22 % Monocytes % 6 % Eosinophils % 1 % Neutrophils # (Manual) 10.7 TH/MM3 Metamyelocytes 1 % Differential Comment FINAL DIFF MANUAL Smudge Cells PRESENT Platelet Estimate NORMAL Platelet Morphology Comment NORMAL Red Cell Morphology Comment NORMAL Sodium Level 138 MEQ/L Potassium Level 4.4 MEQ/L Chloride Level 103 MEQ/L Carbon Dioxide Level 27.9 MEQ/L Anion Gap 7 MEQ/L Blood Urea Nitrogen 18 MG/DL Creatinine 0.84 MG/DL Estimat Glomerular Filtration 88 ML/MIN Rate Random Glucose 125 MG/DL Calcium Level 9.1 MG/DL Objective Remarks GENERAL: Well-developed well-nourished obese. In no acute distress. SKIN: Warm and dry. No lesions noted. HEENT: Normocephalic. Pupils equal and round. Mucous membranes pink and moist. CARDIOVASCULAR: Regular rate and rhythm. No murmur appreciated. RESPIRATORY: No accessory muscle use. Clear to auscultation. Breath sounds equal bilaterally. GASTROINTESTINAL: Abdomen soft, non-tender, nondistended. Bowel sounds x4. MUSCULOSKELETAL: No obvious deformities. No clubbing or cyanosis. No edema. NEUROLOGICAL: Awake and alert. Normal speech. Appears generally weak. Doesn't really persist the patient with neuro exam as he recently urinated and defecated himself. PSYCHIATRIC: Appropriate mood and affect; insight and judgment fair to normal. Medications and IVs Current Medications Medications (Trade) Dose Ordered Sig/Emily Route Start Time Stop Time Status Last Admin (NS 1000 ml Inj) 1,000 ml @ 70 mls/hr [id number] IV 02/23/17 23:13 03/02/17 06:13 (NS Flush) 2 ml UNSCH PRN IV FLUSH 02/23/17 23:15 (NS Flush) 2 ml BID IV FLUSH 02/24/17 09:00 02/26/17 08:55 (Zofran Inj) 4 mg Q6H PRN IVP 02/23/17 23:15 03/01/17 09:18 (Tylenol) 650 mg Q6H PRN PO 02/23/17 23:15 ([place] 5-325 Mg) 1 tab Q4H PRN PO 02/23/17 23:15 02/28/17 05:19 (Christina-Colace) 1 tab BID PO 02/24/17 09:00 03/01/17 23:13 (Milk Of Magnesia Liq) 30 ml Q12H PRN PO 02/23/17 23:15 (Senokot) 17.2 mg Q12H PRN PO 02/23/17 23:15 (Dulcolax Supp) 10 mg DAILY PRN RECTAL 02/23/17 23:15 (Lactulose Liq) 30 ml DAILY PRN PO 02/23/17 23:15 (Zyloprim) 300 mg DAILY PO 02/24/17 09:00 03/01/17 08:12 (Ecotrin Ec) 81 mg DAILY PO 02/24/17 09:00 03/01/17 08:12 (Lipitor) 20 mg HS PO 02/24/17 21:00 03/01/17 23:13 (Hydrodiuril) 25 mg DAILY PO 02/24/17 09:00 03/01/17 08:12 (Imdur) 30 mg DAILY PO 02/24/17 09:00 03/01/17 08:13 (Synthroid) 50 mcg DAILY@0600 PO 02/24/17 06:00 03/02/17 06:09 (Cozaar) 50 mg DAILY PO 02/24/17 09:00 03/01/17 08:12 (Lopressor) 100 mg DAILY PO 02/24/17 09:00 Hold (Zoloft) 100 mg DAILY PO 02/24/17 09:00 03/01/17 08:12 Patient Own Medication PT OWN MED: NON-FORMULARY ... DAILY INH 02/24/17 09:00 Hold (Flexeril) 10 mg Q8H PRN PO 02/25/17 14:30 03/01/17 16:23 ([place] 10-325 Mg) 1 tab Q6H PRN PO 02/28/17 01:15 03/01/17 23:13 (Lactinex) 1 tab Q12HR PO 02/28/17 12:00 03/01/17 23:13 A/P Assessment and Plan 81-year-old male with a PMH of Anxiety, Depression, HTN, Diet Controlled DM, COPD and UTI who presented with complaints of abdominal pain. UTI: Recurrent. +dysuria/abdominal pain, U/a w/ evidence of UTI. Leukocytosis slightly decreased from admission, but remains persistent. Afebrile. Recent admit 02/12-02/18/17 w/ E. Coli UTI, DC'd on Ertapenem 1gm IV qd per ID, following w/ Dr. Turner. ID consulted, abx switched to aztreonam. Blood/Urine Cultures negative 5 days. removed antibiotics as per ID specialist signed off the case. Symptomatic Bradycardia: HR 40-50's while in ER, c/o dizziness/lightheadedness upon standing x4 days. Cardiology consulted. Per cards bradycardia could be a combination of BB and morphine. Beta jaiden held. Nuclear stress performed and showed "decreased perfusion at stress to the septum which appears to heart at rest suggesting LAD ischemia to the septum". ECHO showed grade 3 diastolic dysfunction with concentric ventricular hypertrophy. Cardiology performed cardiac catheterization 02/27 which showed no significant lesions. Dr. Carmen recommends continued medical management for CAD. Hypertension: Better control at this time. Back pain: Possible flank pain secondary to UTI vs chronic low back pain by history. Check lower back x-ray. Flexeril available prn for spasms. PT consulted, initially recommended SNF, will ask for reevaluation. [facility] as needed. Loose stool: One episode. Possibly antibiotic associated. Start Lactinex. Rule out C. difficile. Dysphagia asked for Swallow test was performed and recommended to get GI specialist consult was done. he has history of ERCP and Biliary stent placement. as per Nurse probable will perform Barium swallow for March 04 2017, will follow GI specialist recommendations may need EGD performed before to try to discharge the patient. DVT Prophylaxis: SCD/Teds. Discussed with Nurse Mr Licona all questions answered to the best of my abilities. Again today I tried to contact his Children Mr. Mathew and Noelle Molina but no answer left message. told them I am in house to answer and update about their Father condition and plan of care. Discharge Planning Once cleared by GI specialist. Mook Barton MD Mar 02, 2017 09:12
[2017-03-02] MEDS: CYCLOBENZAPRINE HCL 10 MG TAB PO PRN (14:18)
[2017-03-02] MEDS: amLODIPine BESYLATE 5 MG TAB PO SCH (14:18)
--- NOTE | 2017-03-02 17:00 | HHI.GIFU ---
Subjective Remarks Resting in bed. No n/v. Requesting that diet be advanced. He is tolerating full liquids. He states that he does fine with liquids, but sometimes solids get caught up in his upper esophagus. (Kyrstina Crump) Objective Vitals I&O Vital Signs Date Time Temp Pulse Resp B/P Pulse Ox O2 Delivery O2 Flow Rate FiO2 03/02/17 16:00 96.9 82 19 193/76 99 03/02/17 12:00 96.6 80 19 174/77 97 03/02/17 08:00 96.0 70 19 180/77 99 03/02/17 05:58 98.1 75 18 152/73 100 03/02/17 02:31 Nasal Cannula 2.00 03/02/17 00:13 18 03/02/17 00:11 97.7 77 18 177/69 99 03/01/17 20:47 97.8 78 18 144/54 100 I/O 03/01/17 03/01/17 03/01/17 03/02/17 03/02/17 03/02/17 07:00 15:00 23:00 07:00 15:00 23:00 Intake Total 666 ml 1040 ml 568 ml 436 ml Output Total 550 ml Balance 666 ml 490 ml 568 ml 436 ml Intake Oral 480 ml 1040 ml IV Total 186 ml 568 ml 436 ml Output Urine Total 550 ml # Voids 3 # Bowel Movements 0 Laboratory Date/Time Procedure Status Source Growth 02/26/17 18:20 Gram Stain - Final Complete Sputum Oral Tracheal Aspirate 02/26/17 18:20 Sputum Culture - Final Complete Sputum Oral Tracheal Aspirate HEAVY GROWTH NORMAL RESPIRATORY G[facility] Imaging Last Impressions Lumbar Spine X-Ray 02/28/17 0000 Signed Impressions: Service Date/Time: February 16:31 - CONCLUSION: Mild wedging of L1. No acute fracture seen. Discogenic sclerosis at multiple levels. Severe right hip osteoarthritis. Carlos Israel MD Myocardial Perfusion Scan Nuc Med 02/25/17 0000 Signed Impressions: Service Date/Time: Saturday, February 25, 2017 10:43 - CONCLUSION: There is decreased perfusion at stress to the septum which appears to heart at rest suggesting LAD ischemia to the septum. Ejection fraction is normal at 66%%. It is new since 2013. RISK CATEGORY: Intermediate (1-3%% Annual Mortality Rate) Carlos Israel MD Chest X-Ray 02/24/17 0000 Signed Impressions: Service Date/Time: Friday, February 24, 2017 13:28 - CONCLUSION: Slight CHF. Lev Dueñas MD Abdomen/Pelvis CT 02/23/17 1911 Signed Impressions: Service Date/Time: Thursday, February 23, 2017 19:44 - CONCLUSION: 1. Left inguinal hernia not present previously. 2. Placement of a biliary stent, otherwise not changed. Lev Dueñas MD Physical Exam HEENT: Normocephalic; atraumatic; no jaundice. CHEST: CTA CARDIAC: RRR ABDOMEN: Soft, nondistended, nontender; no hepatosplenomegaly; bowel sounds are present in all four quadrants. EXTREMITIES: No clubbing, cyanosis, or edema. SKIN: Normal; no rash; no jaundice. HOTEL RECEPTIONIST: Alert oriented to self and place (Krystina Crump) Assessment and Plan Plan ASSESSMENT - Dysphagia. Onset 2-[address] following, recommends full liquids, MBS - pending. He is tolerating the full liquids. Abdomen/Pelvis CT (02/23/17)---->1. Left inguinal hernia not present previously. 2. Placement of a biliary stent, otherwise not changed. - GERD. PPI - Symptomatic bradycardia. Myocardial Perfusion Scan Nuc Med (02/25/17)----> There is decreased perfusion at stress to the septum which appears to heart at rest suggesting LAD ischemia to the septum. Ejection fraction is normal at 66%%. It is new since 2013. RISK CATEGORY: Intermediate (1-3%% Annual Mortality Rate). S/P Cardiology evaluation, signed off. - HTN, per attending. - Recently seen for biliary obstruction. S/P recent ERCP with stent placement, sphincterotomy (02/15/17)----> periampullary diverticulum stricture distal CBD, stent placed. LFTs normal during this hospitalization. PLAN - Full liquids per ST recommendations - Cont. ST - MBS pending - Monitor labs - PPI - Consider EGD +/- dilatation based on results of MBS. - Supportive care - Further recommendations to follow based on results of above - This pt seen by myself and Dr Alexander and this note is written on her behalf ( Krystina Crump) Physician Comments seen, examined agree with above (Vianey Alexander MD) Krystina Crump Mar 02, 2017 17:00 Vianey Alexander MD Mar 02, 2017 18:27
[2017-03-02] MEDS: ATORVASTATIN 20 MG TAB PO SCH (21:20)
[2017-03-02] MEDS: cloNIDine HCL 0.1 MG TAB PO PRN (23:54)
[2017-03-03 03:34] VITALS: BP 177/78; PULSE 72; RESP 18; TEMP 96.4; O2SAT 96
[2017-03-03] MEDS: LEVOTHYROXINE SODIUM 50 MCG TAB PO SCH (06:13)
[2017-03-03 08:00] VITALS: BP 144/50; PULSE 82; RESP 20; TEMP 95.9; O2SAT 99
[2017-03-03] MEDS: SODIUM CHLORIDE 0.9% FLUSH 10 ML FLUSH IV FLUSH SCH ×2 (08:47→22:43)
[2017-03-03] MEDS: SERTRALINE HCL 100 MG TAB PO SCH (08:47)
[2017-03-03] MEDS: LOSARTAN 50 MG TAB PO SCH (08:48)
[2017-03-03] MEDS: ASPIRIN EC 81 MG TABEC PO SCH (08:48)
[2017-03-03] MEDS: DOCUSATE SODIUM 50 MG/SENNA 8.6 MG TAB PO SCH ×2 (08:48→22:43)
[2017-03-03] MEDS: LACTOBACILLUS ACIDOPHILUS TAB PO SCH ×2 (08:48→22:43)
[2017-03-03] MEDS: HYDROCHLOROTHIAZIDE 25 MG TAB PO SCH (08:48)
[2017-03-03] MEDS: ISOSORBIDE MONONITRATE 30 MG TAB PO SCH (08:48)
[2017-03-03] MEDS: ALLOPURINOL 300 MG TAB PO SCH (08:48)
[2017-03-03] MEDS: amLODIPine BESYLATE 5 MG TAB PO SCH (08:48)
--- NOTE | 2017-03-03 09:48 | HHI.PR ---
Subjective Remarks Follow-up for back pain. The patient continues to complain of left flank pain, states it has improved some since admission, but is still present. He states that he had a normal bowel movement earlier this morning, and recently had one loose bowel movement. He is still having urinary frequency and difficulty holding his urine. He denies any fevers or chills. He denies any chest pain or shortness of breath. He states he hasn't really been able to ambulate much here. States he has been having generalized leg pain, which has been present for some time. He states he mostly lives alone. 03/01: Seen in his bedroom discussed with Speech therapy recommended to get GI specialist consult. tried to contact his relative Noelle Molina or Mr. Quincy Molina but no answer to both phones called I left a message on [phone], he states is having some abdominal pain and nausea, shocking with solid food on liquid diet at this time. 03/02: Seen yesterday by GI specialist due to Dysphagia, Barium swallow may need modified barium swallow, Endoscopy with possible Dilatation if indicated, discussed with nurse Mr. Licona the Barium Swallow may be performed on Saturday03/04/17, will follow recommendations by GI later today. 03/03: Discussed with nurse Mr. Licona, patient stable in his bedroom, GI specialist awaiting for Modified Barium Swallow if pathologic will continue with EGD and Dilatation. no nausea, vomit or diarrhea. Objective Vital Signs Date Time Temp Pulse Resp B/P Pulse Ox O2 Delivery O2 Flow Rate FiO2 03/03/17 03:34 96.4 72 18 177/78 96 03/02/17 23:50 96.4 70 19 181/77 100 03/02/17 19:39 96.7 89 18 161/74 100 03/02/17 16:00 96.9 82 19 193/76 99 03/02/17 12:00 96.6 80 19 174/77 97 I/O 03/02/17 03/02/17 03/02/17 03/03/17 03/03/17 03/03/17 06:59 14:59 22:59 06:59 14:59 22:59 Intake Total 436 ml 720 ml 480 ml 480 ml Output Total 800 ml 550 ml 450 ml Balance 436 ml -80 ml -70 ml 30 ml Intake Oral 720 ml 480 ml 480 ml IV Total 436 ml Output Urine Total 800 ml 550 ml 450 ml # Voids 1 1 # Bowel Movements 1 0 0 Result Diagram: 02/28/1728 02/28/17527 Imaging Last Impressions Lumbar Spine X-Ray 02/28/17 0000 Signed Impressions: Service Date/Time: February 16:31 - CONCLUSION: Mild wedging of L1. No acute fracture seen. Discogenic sclerosis at multiple levels. Severe right hip osteoarthritis. Carlos Israel MD Myocardial Perfusion Scan Nuc Med 02/25/17 0000 Signed Impressions: Service Date/Time: Saturday, February 25, 2017 10:43 - CONCLUSION: There is decreased perfusion at stress to the septum which appears to heart at rest suggesting LAD ischemia to the septum. Ejection fraction is normal at 66%%. It is new since 2013. RISK CATEGORY: Intermediate (1-3%% Annual Mortality Rate) Carlos Israel MD Chest X-Ray 02/24/17 0000 Signed Impressions: Service Date/Time: Friday, February 24, 2017 13:28 - CONCLUSION: Slight CHF. Lev Dueñas MD Abdomen/Pelvis CT 02/23/17 1911 Signed Impressions: Service Date/Time: Thursday, February 23, 2017 19:44 - CONCLUSION: 1. Left inguinal hernia not present previously. 2. Placement of a biliary stent, otherwise not changed. Lev Dueñas MD Procedures Cardiac Catheterization saphenous vein grafts where patent. Other Results Laboratory Tests Test 02/27/17 02/28/17 05:20 05:28 Band Neutrophils % 1 % Basophils % 1 % Magnesium Level 2.0 MG/DL White Blood Count 15.0 TH/MM3 Red Blood Count 3.83 MIL/MM3 Hemoglobin 11.5 GM/DL Hematocrit 35.3 % Mean Corpuscular Volume 92.3 FL Mean Corpuscular Hemoglobin 30.1 PG Mean Corpuscular Hemoglobin 32.7 % Concent Red Cell Distribution Width 12.7 % Platelet Count 276 TH/MM3 Mean Platelet Volume 7.5 FL Neutrophils (%) (Auto) 38.5 % Lymphocytes (%) (Auto) 51.2 % Monocytes (%) (Auto) 8.4 % Eosinophils (%) (Auto) 1.7 % Basophils (%) (Auto) 0.2 % Neutrophils # (Auto) 5.8 TH/MM3 Lymphocytes # (Auto) 7.7 TH/MM3 Monocytes # (Auto) 1.3 TH/MM3 Eosinophils # (Auto) 0.3 TH/MM3 Basophils # (Auto) 0.0 TH/MM3 CBC Comment AUTO DIFF Differential Total Cells 100 Counted Neutrophils % (Manual) 70 % Lymphocytes % 22 % Monocytes % 6 % Eosinophils % 1 % Neutrophils # (Manual) 10.7 TH/MM3 Metamyelocytes 1 % Differential Comment FINAL DIFF MANUAL Smudge Cells PRESENT Platelet Estimate NORMAL Platelet Morphology Comment NORMAL Red Cell Morphology Comment NORMAL Sodium Level 138 MEQ/L Potassium Level 4.4 MEQ/L Chloride Level 103 MEQ/L Carbon Dioxide Level 27.9 MEQ/L Anion Gap 7 MEQ/L Blood Urea Nitrogen 18 MG/DL Creatinine 0.84 MG/DL Estimat Glomerular Filtration 88 ML/MIN Rate Random Glucose 125 MG/DL Calcium Level 9.1 MG/DL Objective Remarks GENERAL: Well-developed well-nourished obese. In no acute distress. SKIN: Warm and dry. No lesions noted. HEENT: Normocephalic. Pupils equal and round. Mucous membranes pink and moist. CARDIOVASCULAR: Regular rate and rhythm. No murmur appreciated. RESPIRATORY: No accessory muscle use. Clear to auscultation. Breath sounds equal bilaterally. GASTROINTESTINAL: Abdomen soft, non-tender, nondistended. Bowel sounds x4. MUSCULOSKELETAL: No obvious deformities. No clubbing or cyanosis. No edema. NEUROLOGICAL: Awake and alert. Normal speech. Appears generally weak. Doesn't really persist the patient with neuro exam as he recently urinated and defecated himself. PSYCHIATRIC: Appropriate mood and affect; insight and judgment fair to normal. Medications and IVs Current Medications Medications (Trade) Dose Ordered Sig/Emily Route Start Time Stop Time Status Last Admin (NS 1000 ml Inj) 1,000 ml @ 70 mls/hr [id number] IV 02/23/17 23:13 03/02/17 06:13 (NS Flush) 2 ml UNSCH PRN IV FLUSH 02/23/17 23:15 (NS Flush) 2 ml BID IV FLUSH 02/24/17 09:00 03/03/17 08:47 (Zofran Inj) 4 mg Q6H PRN IVP 02/23/17 23:15 03/01/17 09:18 (Tylenol) 650 mg Q6H PRN PO 02/23/17 23:15 ([place] 5-325 Mg) 1 tab Q4H PRN PO 02/23/17 23:15 02/28/17 05:19 (Christina-Colace) 1 tab BID PO 02/24/17 09:00 03/03/17 08:48 (Milk Of Magnesia Liq) 30 ml Q12H PRN PO 02/23/17 23:15 (Senokot) 17.2 mg Q12H PRN PO 02/23/17 23:15 (Dulcolax Supp) 10 mg DAILY PRN RECTAL 02/23/17 23:15 (Lactulose Liq) 30 ml DAILY PRN PO 02/23/17 23:15 (Zyloprim) 300 mg DAILY PO 02/24/17 09:00 03/03/17 08:48 (Ecotrin Ec) 81 mg DAILY PO 02/24/17 09:00 03/03/17 08:48 (Lipitor) 20 mg HS PO 02/24/17 21:00 03/02/17 21:20 (Hydrodiuril) 25 mg DAILY PO 02/24/17 09:00 03/03/17 08:48 (Imdur) 30 mg DAILY PO 02/24/17 09:00 03/03/17 08:48 (Synthroid) 50 mcg DAILY@0600 PO 02/24/17 06:00 03/03/17 06:13 (Cozaar) 50 mg DAILY PO 02/24/17 09:00 03/03/17 08:48 (Lopressor) 100 mg DAILY PO 02/24/17 09:00 Hold (Zoloft) 100 mg DAILY PO 02/24/17 09:00 03/03/17 08:47 Patient Own Medication PT OWN MED: NON-FORMULARY ... DAILY INH 02/24/17 09:00 Hold (Flexeril) 10 mg Q8H PRN PO 02/25/17 14:30 03/02/17 14:18 ([place] 10-325 Mg) 1 tab Q6H PRN PO 02/28/17 01:15 03/01/17 23:13 (Lactinex) 1 tab Q12HR PO 02/28/17 12:00 03/03/17 08:48 (Norvasc) 5 mg DAILY PO 03/02/17 13:00 03/03/17 08:48 (Catapres) 0.1 mg Q6H PRN PO 03/02/17 13:00 03/02/17 23:54 A/P Assessment and Plan 81-year-old male with a PMH of Anxiety, Depression, HTN, Diet Controlled DM, COPD and UTI who presented with complaints of abdominal pain. UTI: Recurrent. +dysuria/abdominal pain, U/a w/ evidence of UTI. Leukocytosis slightly decreased from admission, but remains persistent. Afebrile. Recent admit 02/12-02/18/17 w/ E. Coli UTI, DC'd on Ertapenem 1gm IV qd per ID, following w/ Dr. Turner. ID consulted, abx switched to aztreonam. Blood/Urine Cultures negative 5 days. removed antibiotics as per ID specialist signed off the case. Symptomatic Bradycardia: HR 40-50's while in ER, c/o dizziness/lightheadedness upon standing x4 days. Cardiology consulted. Per cards bradycardia could be a combination of BB and morphine. Beta jaiden held. Nuclear stress performed and showed "decreased perfusion at stress to the septum which appears to heart at rest suggesting LAD ischemia to the septum". ECHO showed grade 3 diastolic dysfunction with concentric ventricular hypertrophy. Cardiology performed cardiac catheterization 02/27 which showed no significant lesions. Dr. Carmen recommends continued medical management for CAD. Hypertension: Uncontrolled increased Amlodipine to 10 mg daily. better control now. Back pain: Possible flank pain secondary to UTI vs chronic low back pain by history. Check lower back x-ray. Flexeril available prn for spasms. PT consulted, initially recommended SNF, will ask for reevaluation. [facility] as needed. Loose stool: One episode. Possibly antibiotic associated. Start Lactinex. Rule out C. difficile. Dysphagia asked for Swallow test was performed and recommended to get GI specialist consult was done. he has history of ERCP and Biliary stent placement. as per Nurse probable will perform Barium swallow for March 04 2017, will follow GI specialist recommendations may need EGD performed before to try to discharge the patient. Obesity strongly recommended diet and exercise as outpatient. DVT Prophylaxis: SCD/Teds. Discussed with Nurse Mr Licona all questions answered to the best of my abilities. awaiting for Modified Barium Swallow for tomorrow. Discharge Planning Once cleared by GI specialist. Mook Barton MD Mar 03, 2017 09:48
[2017-03-03] MEDS ORDERED: amLODIPine BESYLATE 5 MG TAB PO ONE (10:00)
[2017-03-03 12:00] VITALS: BP 143/76; PULSE 84; RESP 18; TEMP 96.3; O2SAT 98
[2017-03-03] MEDS: SODIUM CHLOR 0.9% 1000 ML INJ 1,000 ML IV SCH (13:15)
[2017-03-03 16:00] VITALS: BP 136/76; PULSE 82; RESP 18; TEMP 96.9; O2SAT 96
[2017-03-03 19:10] VITALS: BP 185/76; PULSE 96; RESP 19; TEMP 96.7; O2SAT 94
[2017-03-03] MEDS: ATORVASTATIN 20 MG TAB PO SCH (22:43)
[2017-03-03] MEDS: CYCLOBENZAPRINE HCL 10 MG TAB PO PRN (22:43)
[2017-03-04 00:01] VITALS: BP 137/67; PULSE 89; RESP 17; TEMP 96.4; O2SAT 97
[2017-03-04] MEDS: SODIUM CHLOR 0.9% 1000 ML INJ 1,000 ML IV SCH ×2 (03:33→17:51)
[2017-03-04] MEDS: cloNIDine HCL 0.1 MG TAB PO PRN (04:55)
[2017-03-04] MEDS: LEVOTHYROXINE SODIUM 50 MCG TAB PO SCH (06:39)
[2017-03-04 06:40] VITALS: BP 170/79; PULSE 79; RESP 17; TEMP 96.7; O2SAT 98
[2017-03-04 08:00] VITALS: BP 186/78; PULSE 74; RESP 20; TEMP 96.4; O2SAT 98
[2017-03-04] MEDS: DOCUSATE SODIUM 50 MG/SENNA 8.6 MG TAB PO SCH ×2 (08:42→21:50)
[2017-03-04] MEDS: LOSARTAN 50 MG TAB PO SCH (08:42)
[2017-03-04] MEDS: ISOSORBIDE MONONITRATE 30 MG TAB PO SCH (08:42)
[2017-03-04] MEDS: ASPIRIN EC 81 MG TABEC PO SCH (08:42)
[2017-03-04] MEDS: LACTOBACILLUS ACIDOPHILUS TAB PO SCH ×2 (08:42→21:51)
[2017-03-04] MEDS: SERTRALINE HCL 100 MG TAB PO SCH (08:42)
[2017-03-04] MEDS: HYDROCHLOROTHIAZIDE 25 MG TAB PO SCH (08:44)
[2017-03-04] MEDS: ALLOPURINOL 300 MG TAB PO SCH (08:46)
[2017-03-04] MEDS: SODIUM CHLORIDE 0.9% FLUSH 10 ML FLUSH IV FLUSH SCH ×2 (08:50→21:52)
--- NOTE | 2017-03-04 09:53 | HHI.PR ---
Subjective Remarks Follow-up for back pain. The patient continues to complain of left flank pain, states it has improved some since admission, but is still present. He states that he had a normal bowel movement earlier this morning, and recently had one loose bowel movement. He is still having urinary frequency and difficulty holding his urine. He denies any fevers or chills. He denies any chest pain or shortness of breath. He states he hasn't really been able to ambulate much here. States he has been having generalized leg pain, which has been present for some time. He states he mostly lives alone. 03/01: Seen in his bedroom discussed with Speech therapy recommended to get GI specialist consult. tried to contact his relative Noelle Molina or Mr. Quincy Molina but no answer to both phones called I left a message on [phone], he states is having some abdominal pain and nausea, shocking with solid food on liquid diet at this time. 03/02: Seen yesterday by GI specialist due to Dysphagia, Barium swallow may need modified barium swallow, Endoscopy with possible Dilatation if indicated, discussed with nurse Mr. Licona the Barium Swallow may be performed on Saturday03/04/17, will follow recommendations by GI later today. 03/03: Discussed with nurse Mr. Liocna, patient stable in his bedroom, GI specialist awaiting for Modified Barium Swallow if pathologic will continue with EGD and Dilatation. 03/04; Stable in his bedroom, no complaint, continue with uncontrolled Blood pressure, added Coreg low dose and follow during the day to try to control his blood pressure, No nausea, vomit or diarrhea, he is been left NPO for EGD and Dilatation during the morning. Objective Vital Signs Date Time Temp Pulse Resp B/P Pulse Ox O2 Delivery O2 Flow Rate FiO2 03/04/17 08:00 96.4 74 20 186/78 98 03/04/17 06:40 96.7 79 17 170/79 98 03/04/17 00:01 96.4 89 17 137/67 97 03/03/17 19:10 96.7 96 19 185/76 94 03/03/17 16:00 96.9 82 18 136/76 96 03/03/17 12:00 96.3 84 18 143/76 98 I/O 03/03/17 03/03/17 03/03/17 03/04/1717 7/24/17 07:00 15:00 23:00 07:00 15:00 23:00 Intake Total 480 ml 720 ml 720 ml 0 ml Output Total 450 ml 775 ml 800 ml 950 ml Balance 30 ml -55 ml -80 ml -950 ml Intake Oral 480 ml 720 ml 720 ml 0 ml Output Urine Total 450 ml 775 ml 800 ml 950 ml # Bowel Movements 0 1 1 0 Result Diagram: 02/28/1728 02/28/17527 Imaging Last Impressions Lumbar Spine X-Ray 02/28/17 0000 Signed Impressions: Service Date/Time: February 16:31 - CONCLUSION: Mild wedging of L1. No acute fracture seen. Discogenic sclerosis at multiple levels. Severe right hip osteoarthritis. Carlos Israel MD Myocardial Perfusion Scan Nuc Med 02/25/17 0000 Signed Impressions: Service Date/Time: Saturday, February 25, 2017 10:43 - CONCLUSION: There is decreased perfusion at stress to the septum which appears to heart at rest suggesting LAD ischemia to the septum. Ejection fraction is normal at 66%%. It is new since 2013. RISK CATEGORY: Intermediate (1-3%% Annual Mortality Rate) Carlos Israel MD Chest X-Ray 02/24/17 0000 Signed Impressions: Service Date/Time: Friday, February 24, 2017 13:28 - CONCLUSION: Slight CHF. Lev Dueñas MD Abdomen/Pelvis CT 02/23/17 1911 Signed Impressions: Service Date/Time: Thursday, February 23, 2017 19:44 - CONCLUSION: 1. Left inguinal hernia not present previously. 2. Placement of a biliary stent, otherwise not changed. Lev Dueñas MD Procedures Cardiac Catheterization saphenous vein grafts where patent. Other Results Laboratory Tests Test 02/28/17 05:28 White Blood Count 15.0 TH/MM3 Red Blood Count 3.83 MIL/MM3 Hemoglobin 11.5 GM/DL Hematocrit 35.3 % Mean Corpuscular Volume 92.3 FL Mean Corpuscular Hemoglobin 30.1 PG Mean Corpuscular Hemoglobin 32.7 % Concent Red Cell Distribution Width 12.7 % Platelet Count 276 TH/MM3 Mean Platelet Volume 7.5 FL Neutrophils (%) (Auto) 38.5 % Lymphocytes (%) (Auto) 51.2 % Monocytes (%) (Auto) 8.4 % Eosinophils (%) (Auto) 1.7 % Basophils (%) (Auto) 0.2 % Neutrophils # (Auto) 5.8 TH/MM3 Lymphocytes # (Auto) 7.7 TH/MM3 Monocytes # (Auto) 1.3 TH/MM3 Eosinophils # (Auto) 0.3 TH/MM3 Basophils # (Auto) 0.0 TH/MM3 CBC Comment AUTO DIFF Differential Total Cells 100 Counted Neutrophils % (Manual) 70 % Lymphocytes % 22 % Monocytes % 6 % Eosinophils % 1 % Neutrophils # (Manual) 10.7 TH/MM3 Metamyelocytes 1 % Differential Comment FINAL DIFF MANUAL Smudge Cells PRESENT Platelet Estimate NORMAL Platelet Morphology Comment NORMAL Red Cell Morphology Comment NORMAL Sodium Level 138 MEQ/L Potassium Level 4.4 MEQ/L Chloride Level 103 MEQ/L Carbon Dioxide Level 27.9 MEQ/L Anion Gap 7 MEQ/L Blood Urea Nitrogen 18 MG/DL Creatinine 0.84 MG/DL Estimat Glomerular Filtration 88 ML/MIN Rate Random Glucose 125 MG/DL Calcium Level 9.1 MG/DL Objective Remarks GENERAL: Well-developed well-nourished obese. In no acute distress. SKIN: Warm and dry. No lesions noted. HEENT: Normocephalic. Pupils equal and round. Mucous membranes pink and moist. CARDIOVASCULAR: Regular rate and rhythm. No murmur appreciated. RESPIRATORY: No accessory muscle use. Clear to auscultation. Breath sounds equal bilaterally. GASTROINTESTINAL: Abdomen soft, non-tender, nondistended. Bowel sounds x4. MUSCULOSKELETAL: No obvious deformities. No clubbing or cyanosis. No edema. NEUROLOGICAL: Awake and alert. Normal speech. Appears generally weak. Doesn't really persist the patient with neuro exam as he recently urinated and defecated himself. PSYCHIATRIC: Appropriate mood and affect; insight and judgment fair to normal. Medications and IVs Current Medications Medications (Trade) Dose Ordered Sig/Emily Route Start Time Stop Time Status Last Admin (NS 1000 ml Inj) 1,000 ml @ 70 mls/hr [id number] IV 02/23/17 23:13 03/02/17 06:13 (NS Flush) 2 ml UNSCH PRN IV FLUSH 02/23/17 23:15 (NS Flush) 2 ml BID IV FLUSH 02/24/17 09:00 03/04/17 08:50 (Zofran Inj) 4 mg Q6H PRN IVP 02/23/17 23:15 03/01/17 09:18 (Tylenol) 650 mg Q6H PRN PO 02/23/17 23:15 ([place] 5-325 Mg) 1 tab Q4H PRN PO 02/23/17 23:15 02/28/17 05:19 (Christina-Colace) 1 tab BID PO 02/24/17 09:00 03/04/17 08:42 (Milk Of Magnesia Liq) 30 ml Q12H PRN PO 02/23/17 23:15 (Senokot) 17.2 mg Q12H PRN PO 02/23/17 23:15 (Dulcolax Supp) 10 mg DAILY PRN RECTAL 02/23/17 23:15 (Lactulose Liq) 30 ml DAILY PRN PO 02/23/17 23:15 (Zyloprim) 300 mg DAILY PO 02/24/17 09:00 03/04/17 08:46 (Ecotrin Ec) 81 mg DAILY PO 02/24/17 09:00 03/04/17 08:42 (Lipitor) 20 mg HS PO 02/24/17 21:00 03/03/17 22:43 (Hydrodiuril) 25 mg DAILY PO 02/24/17 09:00 03/04/17 08:44 (Imdur) 30 mg DAILY PO 02/24/17 09:00 03/04/17 08:42 (Synthroid) 50 mcg DAILY@0600 PO 02/24/17 06:00 03/04/17 06:39 (Cozaar) 50 mg DAILY PO 02/24/17 09:00 03/04/17 08:42 (Lopressor) 100 mg DAILY PO 02/24/17 09:00 Hold (Zoloft) 100 mg DAILY PO 02/24/17 09:00 03/04/17 08:42 Patient Own Medication PT OWN MED: NON-FORMULARY ... DAILY INH 02/24/17 09:00 Hold (Flexeril) 10 mg Q8H PRN PO 02/25/17 14:30 03/03/17 22:43 ([place] 10-325 Mg) 1 tab Q6H PRN PO 02/28/17 01:15 03/01/17 23:13 (Lactinex) 1 tab Q12HR PO 02/28/17 12:00 03/04/17 08:42 (Catapres) 0.1 mg Q6H PRN PO 03/02/17 13:00 03/04/17 04:55 (Norvasc) 10 mg DAILY PO 03/04/17 09:00 03/04/17 08:43 A/P Assessment and Plan 81-year-old male with a PMH of Anxiety, Depression, HTN, Diet Controlled DM, COPD and UTI who presented with complaints of abdominal pain. UTI: Recurrent. +dysuria/abdominal pain, U/a w/ evidence of UTI. Leukocytosis slightly decreased from admission, but remains persistent. Afebrile. Recent admit 02/12-02/18/17 w/ E. Coli UTI, DC'd on Ertapenem 1gm IV qd per ID, following w/ Dr. Turner. ID consulted, abx switched to aztreonam. Blood/Urine Cultures negative 5 days. removed antibiotics as per ID specialist signed off the case. Symptomatic Bradycardia: HR 40-50's while in ER, c/o dizziness/lightheadedness upon standing x4 days. Cardiology consulted. Per cards bradycardia could be a combination of BB and morphine. Beta jaiden held. Nuclear stress performed and showed "decreased perfusion at stress to the septum which appears to heart at rest suggesting LAD ischemia to the septum". ECHO showed grade 3 diastolic dysfunction with concentric ventricular hypertrophy. Cardiology performed cardiac catheterization 02/27 which showed no significant lesions. Dr. Carmen recommends continued medical management for CAD. at this time due to Hypertension uncontrolled started on Coreg Low dose and follow during the day. Hypertension Uncontrolled added Coreg 3.125 mg BID by mouth and follow closely during the day. Back pain: Possible flank pain secondary to UTI vs chronic low back pain by history. Check lower back x-ray. Flexeril available prn for spasms. PT consulted, initially recommended SNF, will ask for reevaluation. [place] as needed. Dysphagia asked for Swallow test by Speech Therapy recommended for GI specialist consult, recommended to perform Modified Barium Swallow, he has history of ERCP and Biliary stent placement. today will go for EGD and Possible Dilatation. Obesity strongly recommended diet and exercise as outpatient. DVT Prophylaxis: SCD/Teds. Discussed with Patient and Nurse Mr Licona all questions answered to the best of my abilities. Discharge Planning Once cleared by GI specialist. Mook Barton MD Mar 04, 2017 09:53 Mook Barton MD Mar 04, 2017 09:53
[2017-03-04] MEDS: CARVEDILOL 3.125 MG TAB PO SCH ×2 (10:30→21:52)
[2017-03-04 12:00] VITALS: BP 136/75; PULSE 82; RESP 16; TEMP 95.9; O2SAT 98
[2017-03-04] MEDS ORDERED: PROPOFOL 200 MG/20 ML AMP IV ONE (17:38)
[2017-03-04] MEDS ORDERED: DO NOT ADM ANY ANTICOAGULANT DRUGS PRN (18:00)
--- NOTE | 2017-03-04 18:31 | PD.PROCEDR ---
GI Procedure REFERRING PHYSICIAN [place] PROCEDURE PERFORMED EGD with biopsy INDICATION FOR PROCEDURE Dysphagia PROCEDURE: The procedure, risks and benefits were discussed with Mr. Molina and informed consent was obtained. Anesthesia sedated him with Diprivan. He was placed in the left lateral decubitus position. EGD: The Pentax videoscope was introduced through the oropharynx and advanced to the second portion of the duodenum under direct visualization. Retroflexion was performed in the stomach. FINDINGS: Esophagus this appeared to be normal biopsies were taken from the distal esophagus Stomach this appeared to be unremarkable and within normal limits ESTIMATED BLOOD LOSS: None SPECIMENS REMOVED: Duodenal COMPLICATIONS: None IMPRESSION: Normal esophagus Mild erosive duodenitis PLAN: Await biopsy Continue PPI We'll check barium swallow Johny Jiménez MD Mar 04, 2017 18:31
[2017-03-04 19:00] VITALS: BP 169/73; PULSE 84; RESP 16; TEMP 96.1; O2SAT 98
[2017-03-04] MEDS: ATORVASTATIN 20 MG TAB PO SCH (21:53)
[2017-03-04] MEDS: CYCLOBENZAPRINE HCL 10 MG TAB PO PRN (23:28)
[2017-03-05] VITALS (8 sets, daily range): BP systolic 101–161; BP diastolic 55–75; PULSE 70–83; RESP 16–18; TEMP 96.2–97.8; O2SAT 95–98
[2017-03-05] MEDS: cloNIDine HCL 0.1 MG TAB PO PRN (05:55)
[2017-03-05] MEDS: LEVOTHYROXINE SODIUM 50 MCG TAB PO SCH (05:55)
[2017-03-05] MEDS: SODIUM CHLOR 0.9% 1000 ML INJ 1,000 ML IV SCH ×2 (08:09→22:27)
[2017-03-05] MEDS: DOCUSATE SODIUM 50 MG/SENNA 8.6 MG TAB PO SCH ×2 (08:57→21:00)
[2017-03-05] MEDS: SERTRALINE HCL 100 MG TAB PO SCH (08:57)
[2017-03-05] MEDS: SODIUM CHLORIDE 0.9% FLUSH 10 ML FLUSH IV FLUSH SCH ×2 (08:57→21:00)
[2017-03-05] MEDS: LOSARTAN 50 MG TAB PO SCH (08:57)
[2017-03-05] MEDS: ASPIRIN EC 81 MG TABEC PO SCH (08:57)
[2017-03-05] MEDS: ALLOPURINOL 300 MG TAB PO SCH (08:57)
[2017-03-05] MEDS: CARVEDILOL 3.125 MG TAB PO SCH ×2 (08:57→22:13)
[2017-03-05] MEDS: ISOSORBIDE MONONITRATE 30 MG TAB PO SCH (08:57)
[2017-03-05] MEDS: LACTOBACILLUS ACIDOPHILUS TAB PO SCH ×2 (08:57→22:12)
[2017-03-05] MEDS: HYDROCHLOROTHIAZIDE 25 MG TAB PO SCH (08:57)
--- NOTE | 2017-03-05 11:00 | HHI.PR ---
Subjective Remarks Follow-up for back pain. The patient continues to complain of left flank pain, states it has improved some since admission, but is still present. He states that he had a normal bowel movement earlier this morning, and recently had one loose bowel movement. He is still having urinary frequency and difficulty holding his urine. He denies any fevers or chills. He denies any chest pain or shortness of breath. He states he hasn't really been able to ambulate much here. States he has been having generalized leg pain, which has been present for some time. He states he mostly lives alone. 03/01: Seen in his bedroom discussed with Speech therapy recommended to get GI specialist consult. tried to contact his relative Noelle Molina or Mr. Quincy Molina but no answer to both phones called I left a message on [phone], he states is having some abdominal pain and nausea, shocking with solid food on liquid diet at this time. 03/02: Seen yesterday by GI specialist due to Dysphagia, Barium swallow may need modified barium swallow, Endoscopy with possible Dilatation if indicated, discussed with nurse Mr. Licona the Barium Swallow may be performed on Saturday03/04/17, will follow recommendations by GI later today. 03/03: Discussed with nurse Mr. Licona, patient stable in his bedroom, GI specialist awaiting for Modified Barium Swallow if pathologic will continue with EGD and Dilatation. 03/04; Stable in his bedroom, no complaint, continue with uncontrolled Blood pressure, added Coreg low dose and follow during the day to try to control his blood pressure, No nausea, vomit or diarrhea, he is been left NPO for EGD and Dilatation during the morning. 03/05: Seen in his bedroom and discussed with nurse he had his EGD and Biopsy performed yesterday, just came from his Modified Barium Swallow performed, now tolerating diet, awaiting final by GI specialist for discharge, no nausea, vomit or diarrhea. Objective Vital Signs Date Time Temp Pulse Resp B/P Pulse Ox O2 Delivery O2 Flow Rate FiO2 03/05/17 08:00 96.2 75 16 146/70 95 03/05/17 04:40 96.5 80 18 161/67 97 03/05/17 00:45 96.9 80 18 111/62 96 03/05/17 00:03 98 Nasal Cannula 2.00 03/04/17 19:00 96.1 84 16 169/73 98 03/04/17 18:30 98.9 72 20 163/81 100 Nasal Cannula 2 03/04/17 18:15 72 20 163/81 100 03/04/17 18:00 74 17 136/65 100 Nasal Cannula 2 03/04/17 17:57 97.9 78 12 116/56 95 Nasal Cannula 2 03/04/17 12:00 95.9 82 16 136/75 98 I/O 03/04/17 03/04/17 03/04/17 03/05/17 03/05/17 03/05/17 07:00 15:00 23:00 07:00 15:00 23:00 Intake Total 0 ml 0 ml 480 ml 240 ml Output Total 950 ml 800 ml 400 ml Balance -950 ml 0 ml -320 ml -160 ml Intake Oral 0 ml 0 ml 480 ml 240 ml Output Urine Total 950 ml 800 ml 400 ml # Voids 5 # Bowel Movements 0 0 0 0 Imaging Last Impressions Lumbar Spine X-Ray 02/28/17 0000 Signed Impressions: Service Date/Time: February 16:31 - CONCLUSION: Mild wedging of L1. No acute fracture seen. Discogenic sclerosis at multiple levels. Severe right hip osteoarthritis. Carlos Israel MD Myocardial Perfusion Scan Nuc Med 02/25/17 0000 Signed Impressions: Service Date/Time: Saturday, February 25, 2017 10:43 - CONCLUSION: There is decreased perfusion at stress to the septum which appears to heart at rest suggesting LAD ischemia to the septum. Ejection fraction is normal at 66%%. It is new since 2013. RISK CATEGORY: Intermediate (1-3%% Annual Mortality Rate) Carlos Israel MD Chest X-Ray 02/24/17 0000 Signed Impressions: Service Date/Time: Friday, February 24, 2017 13:28 - CONCLUSION: Slight CHF. Lev Dueñas MD Abdomen/Pelvis CT 02/23/17 191 Signed Impressions: Service Date/Time: Thursday, February 23, 2017 19:44 - CONCLUSION: 1. Left inguinal hernia not present previously. 2. Placement of a biliary stent, otherwise not changed. Lev Dueñas MD Procedures Cardiac Catheterization saphenous vein grafts where patent. Other Results No new results. Objective Remarks GENERAL: Well-developed well-nourished obese. In no acute distress. SKIN: Warm and dry. No lesions noted. HEENT: Normocephalic. Pupils equal and round. Mucous membranes pink and moist. CARDIOVASCULAR: Regular rate and rhythm. No murmur appreciated. RESPIRATORY: No accessory muscle use. Clear to auscultation. Breath sounds equal bilaterally. GASTROINTESTINAL: Abdomen soft, non-tender, nondistended. Bowel sounds x4. MUSCULOSKELETAL: No obvious deformities. No clubbing or cyanosis. No edema. NEUROLOGICAL: Awake and alert. Normal speech. Appears generally weak. Doesn't really persist the patient with neuro exam as he recently urinated and defecated himself. PSYCHIATRIC: Appropriate mood and affect; insight and judgment fair to normal. Medications and IVs Current Medications Medications (Trade) Dose Ordered Sig/Emily Route Start Time Stop Time Status Last Admin (NS 1000 ml Inj) 1,000 ml @ 70 mls/hr [id number] IV 02/23/17 23:13 03/02/17 06:13 (NS Flush) 2 ml UNSCH PRN IV FLUSH 02/23/17 23:15 (NS Flush) 2 ml BID IV FLUSH 02/24/17 09:00 03/04/17 21:52 (Zofran Inj) 4 mg Q6H PRN IVP 02/23/17 23:15 03/01/17 09:18 (Tylenol) 650 mg Q6H PRN PO 02/23/17 23:15 ([place] 5-325 Mg) 1 tab Q4H PRN PO 02/23/17 23:15 02/28/17 05:19 (Christina-Colace) 1 tab BID PO 02/24/17 09:00 03/05/17 08:57 (Milk Of Magnesia Liq) 30 ml Q12H PRN PO 02/23/17 23:15 (Senokot) 17.2 mg Q12H PRN PO 02/23/17 23:15 (Dulcolax Supp) 10 mg DAILY PRN RECTAL 02/23/17 23:15 (Lactulose Liq) 30 ml DAILY PRN PO 02/23/17 23:15 (Zyloprim) 300 mg DAILY PO 02/24/17 09:00 03/05/17 08:57 (Ecotrin Ec) 81 mg DAILY PO 02/24/17 09:00 03/05/17 08:57 (Lipitor) 20 mg HS PO 02/24/17 21:00 03/04/17 21:53 (Hydrodiuril) 25 mg DAILY PO 02/24/17 09:00 03/05/17 08:57 (Imdur) 30 mg DAILY PO 02/24/17 09:00 03/05/17 08:57 (Synthroid) 50 mcg DAILY@0600 PO 02/24/17 06:00 03/05/17 05:55 (Cozaar) 50 mg DAILY PO 02/24/17 09:00 03/05/17 08:57 (Zoloft) 100 mg DAILY PO 02/24/17 09:00 03/05/17 08:57 Patient Own Medication PT OWN MED: NON-FORMULARY ... DAILY INH 02/24/17 09:00 Hold (Flexeril) 10 mg Q8H PRN PO 02/25/17 14:30 03/04/17 23:28 ([place] 10-325 Mg) 1 tab Q6H PRN PO 02/28/17 01:15 03/01/17 23:13 (Lactinex) 1 tab Q12HR PO 02/28/17 12:00 03/05/17 08:57 (Catapres) 0.1 mg Q6H PRN PO 03/02/17 13:00 03/05/17 05:55 (Norvasc) 10 mg DAILY PO 03/04/17 09:00 03/05/17 08:57 (Coreg) 3.125 mg Q12HR PO 03/04/17 10:00 03/05/17 08:57 Miscellaneous Information ALL NURSING DEPARTME... UNSCH PRN .XX 03/04/17 18:00 03/05/17 17:59 A/P Assessment and Plan 81-year-old male with a PMH of Anxiety, Depression, HTN, Diet Controlled DM, COPD and UTI who presented with complaints of abdominal pain. UTI: Recurrent. +dysuria/abdominal pain, U/a w/ evidence of UTI. Leukocytosis slightly decreased from admission, but remains persistent. Afebrile. Recent admit 02/12-02/18/17 w/ E. Coli UTI, DC'd on Ertapenem 1gm IV qd per ID, following w/ Dr. Turner. ID consulted, abx switched to aztreonam. Blood/Urine Cultures negative 5 days. removed antibiotics as per ID specialist signed off the case. Symptomatic Bradycardia: HR 40-50's while in ER, c/o dizziness/lightheadedness upon standing x4 days. Cardiology consulted. Per cards bradycardia could be a combination of BB and morphine. Beta jaiden held. Nuclear stress performed and showed "decreased perfusion at stress to the septum which appears to heart at rest suggesting LAD ischemia to the septum". ECHO showed grade 3 diastolic dysfunction with concentric ventricular hypertrophy. Cardiology performed cardiac catheterization 02/27 which showed no significant lesions. Dr. Carmen recommends continued medical management for CAD. at this time due to Hypertension uncontrolled started on Coreg Low dose and follow during the day. Hypertension better control. Back pain: Possible flank pain secondary to UTI vs chronic low back pain by history. Check lower back x-ray. Flexeril available prn for spasms. PT consulted, initially recommended SNF, will ask for reevaluation. [place] as needed. 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 Obesity strongly recommended diet and exercise as outpatient. DVT Prophylaxis: SCD/Teds. Discussed with Patient and Nurse Miss Ceja, all questions answered to the best of my abilities. Discharge Planning Once cleared by GI specialist. patient will go to [facility]. Mook Barton MD Mar 05, 2017 11:00
--- NOTE | 2017-03-05 11:06 | RADRPT ---
EXAM DATE/TIME: 03/05/2017 00:00 [facility] COMPARISON: No previous studies available for comparison. INDICATIONS : Dysphagia, vomiting, choking on solid food for 2 weeks FLUORO TIME: 1.4 minutes IMAGE COUNT: 0 CONTRAST: Dose as prescribed by speech pathologist. MEDICAL HISTORY : Cardiovascular disease. Mini stroke SURGICAL HISTORY : CABG. ENCOUNTER: Initial ACUITY: 2 weeks PAIN SCORE: 0/10 LOCATION: Bilateral esophagus FINDINGS: A modified barium swallow was performed with Speech Pathology. The patient was given thin barium, ap plesauce thick barium and barium coated cracker. 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 The re is no evidence of significant pooling in the paired vallecula or piriform sinuses. No penetration of the supraglottic larynx or tracheal aspiration occurs. The oral phase demonstrates minimal delay ed posterior propulsion. The patient swallowed a barium tablet without difficulty. CONCLUSION: 1. No evidence of penetration of the supraglottic larynx or tracheal aspiration. 2. Mild cricopharyngeal achalasia. Roosevelt Danielle MD on March 05, 2017 at 10:53 Board Certified Radiologist. This report was verified electronically.
--- NOTE | 2017-03-05 11:08 | RADRPT ---
EXAM DATE/TIME: 03/05/2017 09:59 [facility] COMPARISON: No previous studies available for comparison. INDICATIONS : Dysphagia, difficulty swallowing solids, some vomiting for 2 weeks FLUORO TIME: 1.1 minutes IMAGE COUNT: 20 CONTRAST: 1. Liquid E-Z Paque Barium Sulfate (60% w/v, 41% w.w) MEDICAL HISTORY : Mini stroke SURGICAL HISTORY : CABG. ENCOUNTER: Initial ACUITY: 2 weeks PAIN SCORE: 0/10 LOCATION: Bilateral esophagus FINDINGS: A single contrast barium swallow was performed as the patient was unable to stand upright. There is evidence of a "corkscrew" esophagus indicating moderate to severe esophageal dysmotility. No definit e esophageal mass is noted. No reflex was noted on this limited exam. CONCLUSION: 1. 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 Roosevelt Danielle MD on March 05, 2017 at 10:55 Board Certified Radiologist. This report was verified electronically.
--- NOTE | 2017-03-05 17:22 | HHI.GIFU ---
Subjective Remarks Pt resting in bed. Says he is eating ok. Per nursing and OT staff pt ate entire lunch, nothing left, no issues eating. (Stefania Avila) Objective Vitals I&O Vital Signs Date Time Temp Pulse Resp B/P Pulse Ox O2 Delivery O2 Flow Rate FiO2 03/05/17 12:00 97.8 83 18 101/55 98 03/05/17 11:06 95 Nasal Cannula 2.00 03/05/17 08:00 96.2 75 16 146/70 95 03/05/17 04:40 96.5 80 18 161/67 97 03/05/17 00:45 96.9 80 18 111/62 96 03/05/17 00:03 98 Nasal Cannula 2.00 03/04/17 19:00 96.1 84 16 169/73 98 03/04/17 18:30 98.9 72 20 163/81 100 Nasal Cannula 2 03/04/17 18:15 72 20 163/81 100 03/04/17 18:00 74 17 136/65 100 Nasal Cannula 2 03/04/17 17:57 97.9 78 12 116/56 95 Nasal Cannula 2 I/O 03/04/17 03/04/17 03/04/17 03/05/17 03/05/17 03/05/17 07:00 15:00 23:00 07:00 15:00 23:00 Intake Total 0 ml 0 ml 480 ml 240 ml Output Total 950 ml 800 ml 400 ml Balance -950 ml 0 ml -320 ml -160 ml Intake Oral 0 ml 0 ml 480 ml 240 ml Output Urine Total 950 ml 800 ml 400 ml # Voids 5 # Bowel Movements 0 0 0 0 Imaging Last Impressions Modified Barium Swallow 03/05/17 0000 Signed Impressions: Service Date/Time: Sunday, March 05, 2017 00:00 - CONCLUSION: 1. No evidence of penetration of the supraglottic larynx or tracheal aspiration. 2. Mild cricopharyngeal achalasia. Rooesvelt Danielle MD Barium Swallow X-Ray 03/05/17 0000 Signed Impressions: Service Date/Time: Sunday, March 05, 2017 09:59 - CONCLUSION: 1. 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 Roosevelt Danielle MD Lumbar Spine X-Ray 02/28/17 0000 Signed Impressions: Service Date/Time: February 16:31 - CONCLUSION: Mild wedging of L1. No acute fracture seen. Discogenic sclerosis at multiple levels. Severe right hip osteoarthritis. Carlos Israel MD Myocardial Perfusion Scan Nuc Med 02/25/17 0000 Signed Impressions: Service Date/Time: Saturday, February 25, 2017 10:43 - CONCLUSION: There is decreased perfusion at stress to the septum which appears to heart at rest suggesting LAD ischemia to the septum. Ejection fraction is normal at 66%%. It is new since 2013. RISK CATEGORY: Intermediate (1-3%% Annual Mortality Rate) Carlos Israel MD Chest X-Ray 02/24/17 0000 Signed Impressions: Service Date/Time: Friday, February 24, 2017 13:28 - CONCLUSION: Slight CHF. Lev Dueñas MD Abdomen/Pelvis CT 02/23/17 191 Signed Impressions: Service Date/Time: Thursday, February 23, 2017 19:44 - CONCLUSION: 1. Left inguinal hernia not present previously. 2. Placement of a biliary stent, otherwise not changed. Lev Dueñas MD Physical Exam HEENT: Normocephalic; atraumatic; no jaundice. CHEST: CTA CARDIAC: RRR ABDOMEN: Soft, nondistended, nontender; no hepatosplenomegaly; bowel sounds are present in all four quadrants. EXTREMITIES: No clubbing, cyanosis, or edema. SKIN: Normal; no rash; no jaundice. ELDER COUNSELOR: Alert oriented to self and place (Stefania Avila ANIMAL BREEDER) Assessment and Plan Plan ASSESSMENT - Dysphagia. Onset 2-[address] following, recommends full liquids, MBS- no evidence cricopharyngeal aspiration, mild achalasia Ba swallow --> corkscrew esophagus, moderate to severe dysmotility. ST recommends mech soft diet, chopped meat, extra gravy, pt tolerating Abdomen/Pelvis CT (02/23/17)---->1. Left inguinal hernia not present previously. 2. Placement of a biliary stent, otherwise not changed. - GERD. PPI - Symptomatic bradycardia. Myocardial Perfusion Scan Nuc Med (02/25/17)----> There is decreased perfusion at stress to the septum which appears to heart at rest suggesting LAD ischemia to the septum. Ejection fraction is normal at 66%%. It is new since 2013. RISK CATEGORY: Intermediate (1-3%% Annual Mortality Rate). S/P Cardiology evaluation, signed off. - HTN, per attending. - Recently seen for biliary obstruction. S/P recent ERCP with stent placement, sphincterotomy (02/15/17)----> periampullary diverticulum stricture distal CBD, stent placed. LFTs normal during this hospitalization. PLAN - consider calcium channel jaiden for esophageal dysmotility - Monitor labs - PPI - mech soft diet, chopped meat, extra gravy per ST recs - Supportive care - okay to d/c to rehab from GI standpoint - This pt seen by myself and Dr Jiménez and this note is written on his behalf (Stefania Avila) Physician Comments Patient seen and examined Agree with above Continue with current supportive care Monitor labs Barium swallow noted with what appears to be diffuse esophageal dysmotility with a corkscrew esophagus and another study showing mild cricopharyngeal achalasia again not much can be done about this at this point we can consider Botox injection whether in the proximal or distal esophagus as needed Not much to add from a GI perspective at this point we will sign off (Johny Jiménez MD) Stefania Avila Mar 05, 2017 17:22 Jhony Jiménez MD Mar 06, 2017 00:08
[2017-03-05] MEDS: ATORVASTATIN 20 MG TAB PO SCH (22:12)
[2017-03-06 00:10] VITALS: BP 128/58; PULSE 79; RESP 18; TEMP 96.4; O2SAT 99
[2017-03-06 04:10] VITALS: BP 99/51; PULSE 79; RESP 18; TEMP 97.4; O2SAT 96
[2017-03-06] MEDS: LEVOTHYROXINE SODIUM 50 MCG TAB PO SCH (06:00)
[2017-03-06 08:16] VITALS: BP 136/58; PULSE 98; RESP 20; TEMP 97.3; O2SAT 95
[2017-03-06] MEDS: SODIUM CHLORIDE 0.9% FLUSH 10 ML FLUSH IV FLUSH SCH (09:00)
[2017-03-06] MEDS: ISOSORBIDE MONONITRATE 30 MG TAB PO SCH (10:24)
[2017-03-06] MEDS: LACTOBACILLUS ACIDOPHILUS TAB PO SCH (10:24)
[2017-03-06] MEDS: ASPIRIN EC 81 MG TABEC PO SCH (10:24)
[2017-03-06] MEDS: LOSARTAN 50 MG TAB PO SCH (10:24)
[2017-03-06] MEDS: CYCLOBENZAPRINE HCL 10 MG TAB PO PRN (10:24)
[2017-03-06] MEDS: HYDROCHLOROTHIAZIDE 25 MG TAB PO SCH (10:25)
[2017-03-06] MEDS: CARVEDILOL 3.125 MG TAB PO SCH (10:25)
[2017-03-06] MEDS: SERTRALINE HCL 100 MG TAB PO SCH (10:25)
[2017-03-06] MEDS: DOCUSATE SODIUM 50 MG/SENNA 8.6 MG TAB PO SCH (10:25)
[2017-03-06] MEDS: ALLOPURINOL 300 MG TAB PO SCH (10:25)
[2017-03-06 12:30] VITALS: BP 143/69; PULSE 79; RESP 20; TEMP 97.1; O2SAT 99
[2017-03-06] MEDS: SODIUM CHLOR 0.9% 1000 ML INJ 1,000 ML IV SCH (12:45)
[2017-03-06] MEDS ORDERED: LACT PO (13:00)
[2017-03-06] MEDS ORDERED: HYDR-3516 PO (13:00)
--- NOTE | 2017-03-06 13:03 | HHI.DS ---
Discharge Summary Admission Date Feb 23, 2017 at 10:57 pm Discharge Date: Mar 06, 2017 Admitting Diagnosis UTI failing outpt, leukocytosis (1) UTI (urinary tract infection) ICD Code: N39.0 Diagnosis: Principal (2) Failure of outpatient treatment ICD Code: Z78.9 (3) Symptomatic bradycardia ICD Code: R00.1 Diagnosis: Principal Procedures Cardiac cath 02/27/2017 IMPRESSION 1. Chest pain atypical for coronary insufficiency. 2. Abnormal stress test showing possible septal ischemia. 3. Coronary artery disease with a history of coronary artery bypass grafting x4 (2004, 11/13 bypass grafts patent). RECOMMENDATIONS 1. Mr. Molina' catheterization shows no significant disease correlating with his current ischemia. At this time he has no significant lesions that need to be intervened upon. 2. We will continue medical management of his coronary artery disease. 3. He did receive a large amount of contrast as his overall anatomy was difficult. We will plan on watching him overnight and gently hydrating him and if stable in the morning can be discharged from a cardiovascular standpoint. I will have them hold his hydrochlorothiazide and losartan in the morning to make sure that his creatinine is within an acceptable range before giving his medications. 4. I discussed this with the primary team and his [id number] about my findings. 5. Upon discharge, the patient can follow up with Dr. Tinoco in the outpatient office. EGD 03/04/2017 IMPRESSION: Normal esophagus Mild erosive duodenitis Brief History - From Admission This is an 81-year-old male with a PMH of Anxiety, Depression, A. fib, HTN, Diet Controlled DM, COPD and UTI who presented to the ER with complaints of abdominal pain. Recent admit 02/12-02/18/17 for similar complaints, found to have UTI and abnormal Gallbladder US w/ questionable filling defect, s/p ERCP 02/13/17 w/ findings suspicious for CBD stone, s/p Stent Placement. Eval by ID for E. Coli UTI, +Allergy to Keflex, ultimately d/c'd home w/ Ertapenem 1gm IV qd via PICC Line. Today w/ abdominal pain and some dysuria. Denies fever, chills. On arrival, BP 153/70, HR 64, O2 sat 97% on RA, Afebrile. While in ER, patient noted to have episodes of bradycardia with HR 40s. Does report associated dizziness/lightheadedness x4 days when standing from sitting position. Denies syncope. No h/o similar symptoms, does not follow w/ Cardiology. WBC 18.2. Chemistry essentially unremarkable except for GFR 72. Lactic Acid normal. Lipase 423. INR 0.9. UA positive for UTI. CT Abd/Pelvis with inguinal hernia not present previously, biliary stent otherwise not changed. S/p Blood/Urine Culture in ER. Imaging Last Impressions Modified Barium Swallow 03/05/17 0000 Signed Impressions: Service Date/Time: Sunday, March 05, 2017 00:00 - CONCLUSION: 1. No evidence of penetration of the supraglottic larynx or tracheal aspiration. 2. Mild cricopharyngeal achalasia. Roosevelt Danielle MD Barium Swallow X-Ray 03/05/17 0000 Signed Impressions: Service Date/Time: Sunday, March 05, 2017 09:59 - CONCLUSION: 1. 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 Roosevelt Danielle MD Lumbar Spine X-Ray 02/28/17 0000 Signed Impressions: Service Date/Time: February 16:31 - CONCLUSION: Mild wedging of L1. No acute fracture seen. Discogenic sclerosis at multiple levels. Severe right hip osteoarthritis. Carlos Israel MD Myocardial Perfusion Scan Nuc Med 02/25/17 0000 Signed Impressions: Service Date/Time: Saturday, February 25, 2017 10:43 - CONCLUSION: There is decreased perfusion at stress to the septum which appears to heart at rest suggesting LAD ischemia to the septum. Ejection fraction is normal at 66%%. It is new since 2013. RISK CATEGORY: Intermediate (1-3%% Annual Mortality Rate) Carlos Israel MD Chest X-Ray 02/24/17 0000 Signed Impressions: Service Date/Time: Friday, February 24, 2017 13:28 - CONCLUSION: Slight CHF. Lev Dueñas MD Abdomen/Pelvis CT 02/23/17 191 Signed Impressions: Service Date/Time: Thursday, February 23, 2017 19:44 - CONCLUSION: 1. Left inguinal hernia not present previously. 2. Placement of a biliary stent, otherwise not changed. Lev Dueñas MD PE at Discharge GENERAL: Well-developed well-nourished obese. In no acute distress. SKIN: Warm and dry. No lesions noted. HEENT: Normocephalic. Pupils equal and round. Mucous membranes pink and moist. CARDIOVASCULAR: Regular rate and rhythm. No murmur appreciated. RESPIRATORY: No accessory muscle use. Clear to auscultation. Breath sounds equal bilaterally. GASTROINTESTINAL: Abdomen soft, non-tender, nondistended. Bowel sounds x4. MUSCULOSKELETAL: No obvious deformities. No clubbing or cyanosis. No edema. NEUROLOGICAL: Awake and alert. Normal speech. Appears generally weak. Doesn't really persist the patient with neuro exam as he recently urinated and defecated himself. PSYCHIATRIC: Appropriate mood and affect; insight and judgment fair to normal. Hospital Course 81-year-old male with a PMH of Anxiety, Depression, HTN, Diet Controlled DM, COPD and UTI who presented with complaints of abdominal pain. UTI: Recurrent. +dysuria/abdominal pain, U/a w/ evidence of UTI. Leukocytosis slightly decreased from admission, but remains persistent. Afebrile. Recent admit 02/12-02/18/17 w/ E. Coli UTI, DC'd on Ertapenem 1gm IV qd per ID, following w/ Dr. Turner. ID consulted, abx switched to aztreonam. Blood/Urine Cultures negative 5 days. Patient received 14 days of appropriate abx and ID discontinued Abx. Patient does not need any further Abx. Symptomatic Bradycardia: HR 40-50's while in ER, c/o dizziness/lightheadedness upon standing x4 days. Cardiology consulted. Per cards bradycardia could be a combination of BB and morphine. Beta jaiden held. Nuclear stress performed and showed "decreased perfusion at stress to the septum which appears to heart at rest suggesting LAD ischemia to the septum". ECHO showed grade 3 diastolic dysfunction with concentric ventricular hypertrophy. Cardiology performed cardiac catheterization 02/27 which showed no significant lesions. Dr. Carmen recommends continued medical management for CAD. at this time due to Hypertension uncontrolled started on Coreg Low dose and follow during the day. Hypertension - Continue Amlodipine, Losartan, HCTZ. Back pain: [place] PRN. Dysphagia asked for Swallow test by Speech Therapy recommended for GI specialist consult, now status post EGD and Biopsy, found Esophagus appeared normal, Mild Erosive Duodenitis, following Doctor Johny Jiménez, status post Modified Barium Swallo found Corkscrew Esophagus, Severe dysmotility, Diffuse esophageal Spasm. No further recommendations from GI at this point. Future consideration of Botox injection in the outpatient setting. Obesity strongly recommended diet and exercise as outpatient. Pt Condition on Discharge: Good Discharge Disposition: Discharge to SNF Discharge Time: > 30 minutes Discharge Instructions DIET: Follow Instructions for: Heart Healthy Diet Speech Therapy-Diet Recommends: Mechanical Soft, Chopped Meat w/Gravy Activities you can perform: Regular-No Restrictions Follow up Referrals: SNF/[facility]/ New Medications: Guaifenesin-Codeine Liq (Guaifenesin AC Liq) 100-10 Mg/5 Ml Syrp 10 ML PO Q6H PRN COUGH #1 Ref 0 BOTTLE Amlodipine (Norvasc) 10 Mg Tab 10 MG PO DAILY Blood Pressure Management #30 TAB Carvedilol (Coreg) 3.125 Mg Tab 3.125 MG PO Q12HR Heart #60 TAB Cyclobenzaprine (Flexeril) 10 Mg Tab 10 MG PO Q8H PRN SPASM #30 TAB Lactobacillus Acidophilus (Acidophilus/l-Sporogenes) 1 Tab Tab 1 TAB PO Q12HR Infection #14 TAB Changed Medications: Hydrocodone-Acetaminophen (Hydrocodone-Acetaminophen) 5-325 mg Tab 1 TAB PO Q6HR PRN moderate to severe pain #12 Ref 0 TAB (Changed from: Q4H; 20) Continued Medications: Allopurinol (Allopurinol) 300 Mg Tab 300 MG PO DAILY Gout #30 Ref 0 TAB Ascorbic Acid (Vitamin C) 250 Mg Tab 500 MG PO Nutritional Supplement Ref [address] (Aspir-81) 81 Mg Tabdr 81 MG PO DAILY Atorvastatin (Atorvastatin) 20 Mg Tab 20 MG PO HS Cholesterol Management #30 Ref 0 TAB Docusate Sodium (Colace) 100 Mg Capsule 100 MG PO BID PRN CONSTIPATION #40 Ref 0 CAP Hydrochlorothiazide (Hydrochlorothiazide) 25 Mg Tab 25 MG PO DAILY #30 Ref 0 TAB Isosorbide Mononitrate (Isosorbide Mononitrate) 20 Mg Tab 30 MG PO DAILY Take 2 doses 7 hours apart. Prevent Chest Pain #60 Ref 0 TAB Levothyroxine (Levothyroxine) 50 Mcg Tab 50 MCG PO DAILY Thyroid #30 Ref 0 TAB Losartan (Losartan) 50 Mg Tab 50 MG PO DAILY Blood Pressure Management #30 Ref 0 TAB Sertraline (Sertraline) 100 Mg Tab 100 MG PO DAILY #30 Ref 0 TAB Tiotropium-Olodaterol Inh (Stiolto Respimat Inh) 2.5-2.5 Mcg/Act Aero 2.5 PUFF INH DAILY COPD #1 Ref 0 INHALER Discontinued Medications: Ertapenem Inj (Invanz Inj) 1 Gm Addvial 1 GM IV Q24H ADMINISTER IN 100ML NS Infection Days 10 Ref 0 INJECTION Metoprolol Tartrate (Metoprolol Tartrate) 100 Mg Tab 100 MG PO DAILY #30 Ref 0 TAB Doroteo Suh DO Mar 06, 2017 1:03 pm
[2017-03-06] MEDS ORDERED: CARV3.125 PO (13:07)
[2017-03-06] MEDS ORDERED: AMLO10 PO (13:07)
[2017-03-06] MEDS ORDERED: GUAISYP4 PO (13:20)
[2017-03-06] MEDS ORDERED: CYCL1TAB29 PO (13:20)
[2017-03-06 16:00] VITALS: BP 155/71; PULSE 88; RESP 20; TEMP 96.7; O2SAT 97
== END 2017-03-06 18:00 | DRG 690 ==
LOC: NEPE 17:45 → NEDA 22:57 → N06B 02-24 00:54
PROVIDERS: ADMIT Hospitalist; ATTEND Hospitalist
PROC: 4A023N7 Measurement of Cardiac Sampling and Pressure, Left Heart, Percutaneous Approach (ICD-10-PCS; 2017-03-04)
PROC: B2111ZZ Fluoroscopy of Multiple Coronary Arteries using Low Osmolar Contrast (ICD-10-PCS; 2017-03-04)
PROC: B2131ZZ Fluoroscopy of Multiple Coronary Artery Bypass Grafts using Low Osmolar Contrast (ICD-10-PCS; 2017-03-04)
PROC: B2181ZZ Fluoroscopy of Left Internal Mammary Bypass Graft using Low Osmolar Contrast (ICD-10-PCS; 2017-03-04)
PROC: 0DB38ZX Excision of Lower Esophagus, Via Natural or Artificial Opening Endoscopic, Diagnostic (ICD-10-PCS; principal; 2017-03-04 17:25)
DX: N30.01 Acute cystitis with hematuria (principal); J44.9 Chronic obstructive pulmonary disease, unspecified; I48.91 Unspecified atrial fibrillation; R00.1 Bradycardia, unspecified; F32.9 Major depressive disorder, single episode, unspecified; D72.820 Lymphocytosis (symptomatic); E11.9 Type 2 diabetes mellitus without complications; I10 Essential (primary) hypertension; I45.10 Unspecified right bundle-branch block; I44.0 Atrioventricular block, first degree; R10.30 Lower abdominal pain, unspecified; R07.89 Other chest pain; K40.90 Unilateral inguinal hernia, without obstruction or gangrene, not specified as recurrent; M19.90 Unspecified osteoarthritis, unspecified site; F41.9 Anxiety disorder, unspecified; E78.00 Pure hypercholesterolemia, unspecified; K21.9 Gastro-esophageal reflux disease without esophagitis; K44.9 Diaphragmatic hernia without obstruction or gangrene; I25.2 Old myocardial infarction; E03.9 Hypothyroidism, unspecified; I25.10 Atherosclerotic heart disease of native coronary artery without angina pectoris; M54.9 Dorsalgia, unspecified; I51.7 Cardiomegaly; Z85.850 Personal history of malignant neoplasm of thyroid; Z85.46 Personal history of malignant neoplasm of prostate; Z95.1 Presence of aortocoronary bypass graft; Z96.642 Presence of left artificial hip joint; Z88.1 Allergy status to other antibiotic agents; Z95.5 Presence of coronary angioplasty implant and graft; Z87.442 Personal history of urinary calculi; Z86.73 Personal history of transient ischemic attack (TIA), and cerebral infarction without residual deficits; Z79.01 Long term (current) use of anticoagulants; R13.10 Dysphagia, unspecified; K29.80 Duodenitis without bleeding; Z87.440 Personal history of urinary (tract) infections; E78.5 Hyperlipidemia, unspecified; R35.0 Frequency of micturition; M79.606 Pain in leg, unspecified; K22.4 Dyskinesia of esophagus
CPT/HCPCS: 71010; 72110; 74176; 74230; 78452; 80048; 80053; 81001; 83605; 83690; 83735; 85007; 85027; 85610; 85730; 87040; 87070; 87086; 87205; 88305; 93005; 93017; 93306; 93454; 96374; 96375; A9502; C1769; C1893; J0360; J1335; J1644; J2250; J2270; J2405; J2785; J3010; J7030; J7040; Q9967

== ENCOUNTER 2017-05-03 21:28 | Observation (INO) | payer MEDICARE, OTHER ==
[~2017-05-03] VITALS: Ht 188 cm; Wt 104.0 kg
[~2017-05-03 21:28] MED LIST changes: +AMLO10 PO; +CARV3.125 PO; +CYCL1TAB29 PO; -EPIN1INJ21 IV PUSH; -EPIN1INJ21 SQ; +GUAISYP4 PO; -INVA1INJ IV; +LACT PO; -METO100T PO; -POTA1POW PO; -SOLU250I IV PUSH
[2017-05-03 21:40] VITALS: BP 180/110; PULSE 83; RESP 18; TEMP 98.4; O2SAT 97
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
[2017-05-03] MEDS ORDERED: SODIUM CHLORIDE 0.9% FLUSH 10 ML FLUSH IVF PRN (22:00)
[2017-05-03] MEDS ORDERED: NITROGLYCERIN 2% OINT 1 GM PACKET TOP ONE (22:00)
[2017-05-03 22:07] LABS: BASOPHIL # 0.2 TH/MM3 (0-0.2); BASOPHIL % 1.3 % (0.0-2.0); EOSINOPHIL # 0.3 TH/MM3 (0-0.4); EOSINOPHIL % 1.9 % (0.0-4.0); HEMATOCRIT 40.5 % (39.0-51.0); LYMPHOCYTE # 10.2 TH/MM3 (1.0-4.8); MEAN CELL VOLUME 89.7 FL (80.0-100.0); MEAN CORPUSCULAR HEMOGLOBIN 29.6 PG (27.0-34.0); MONO % 8.7 % (0.0-8.0); NEUT % 29.1 % (16.0-70.0); PLATELET COUNT 240 TH/MM3 (150-450); RED BLOOD COUNT 4.51 MIL/MM3 (4.50-5.90); RED CELL DISTRIBUTION WIDTH 13.4 % (11.6-17.2); WHITE BLOOD COUNT 17.3 TH/MM3 (4.0-11.0)
[2017-05-03 22:10] LABS: CHLORIDE 100 MEQ/L (98-107); POTASSIUM 3.5 MEQ/L (3.5-5.1); SODIUM (NA) 137 MEQ/L (136-145)
[2017-05-03 22:14] LABS: ANION GAP 8 MEQ/L (5-15); BICARBONATE 28.8 MEQ/L (21.0-32.0); BLOOD UREA NITROGEN 28 MG/DL (7-18); HEMO FLAGS AUTO DIFF; MAGNESIUM 2.3 MG/DL (1.5-2.5)
[2017-05-03 22:17] LABS: ALT (GPT) 20 U/L (12-78); APTT (PATIENT) 24.5 SEC (24.3-30.1); AST (GOT) 19 U/L (15-37); GLOMERULAR FILTRATION RATE 64 ML/MIN (>89); INTERNATIONAL NORMALIZED RATIO 0.9 RATIO; PROTHROMBIN TIME - PATIENT 10.1 SEC (9.8-11.6)
[2017-05-03 22:18] LABS: TOTAL BILIRUBIN ADULT 0.3 MG/DL (0.2-1.0)
[2017-05-03 22:20] LABS: ALKALINE PHOSPHATASE 104 U/L (45-117)
[2017-05-03] MEDS ORDERED: NITR1SUB3 SL (22:22)
[2017-05-03 22:34] LABS: EOSINOPHILS 2 % (0-4); NEUTROPHIL # MANUAL DIFF 4.5 TH/MM3 (1.8-7.7); POLYS (SEG NEUTROPHILS) 26 % (16-70)
[2017-05-03 22:35] VITALS: BP 153/65; PULSE 74; RESP 18; O2SAT 96
[2017-05-03 22:35] LABS: PLATELET ESTIMATE SMEAR NORMAL (NORMAL); PLATELET MORPHOLOGY NORMAL (NORMAL); SCAN/DIFF FINAL DIFF MANUAL; SMUDGE CELLS PRESENT PRESENT
[2017-05-04] VITALS (7 sets, daily range): BP systolic 114–163; BP diastolic 65–79; PULSE 68–73; RESP 18–22; TEMP 96.5–97.8; O2SAT 94–97
[2017-05-04] MEDS ORDERED: ACETAMINOPHEN/HYDROcodone 325 MG/5 MG TAB PO PRN (00:45)
[2017-05-04] MEDS ORDERED: ACETAMINOPHEN 325 MG TAB PO PRN (00:45)
[2017-05-04] MEDS ORDERED: LACTULOSE SYRUP 20 GM/30 ML CUP PO PRN (00:45)
[2017-05-04] MEDS ORDERED: NITROGLYCERIN 2% OINT 1 GM PACKET TOPICAL PRN (00:45)
[2017-05-04] MEDS ORDERED: BISACODYL 10 MG SUPP RECTAL PRN (00:45)
[2017-05-04] MEDS ORDERED: MORPHINE SULFATE 4 MG/ML INJ IV PUSH PRN (00:45)
[2017-05-04] MEDS ORDERED: SENNOSIDES 8.6 MG TAB PO PRN (00:45)
[2017-05-04] MEDS ORDERED: CYCLOBENZAPRINE HCL 10 MG TAB PO PRN (00:45)
[2017-05-04] MEDS ORDERED: ONDANSETRON HCL 4 MG/2 ML VIAL IVP PRN (00:45)
[2017-05-04] MEDS ORDERED: SODIUM CHLORIDE 0.9% FLUSH 10 ML FLUSH IV FLUSH PRN (00:45)
[2017-05-04] MEDS ORDERED: MAGNESIUM HYDROXIDE SUSP 30 ML CUP PO PRN (00:45)
[2017-05-04] MEDS ORDERED: LEVOTHYROXINE SODIUM 50 MCG TAB PO SCH (06:00)
[2017-05-04] MEDS ORDERED: ISOSORBIDE MONONITRATE 30 MG TAB PO SCH ×2 (07:00→19:00)
--- NOTE | 2017-05-04 07:53 | RADRPT ---
EXAM DATE/TIME: 05/03/2017 22:13 [place] COMPARISON: No previous studies available for comparison. INDICATIONS : Chest pain. MEDICAL HISTORY : Cardiovascular disease. Congestive heart failure. Hypertension SURGICAL HISTORY : Prostatectomy. Appendectomy. CABG ENCOUNTER: Initial ACUITY: 1 day PAIN SCORE: 7/10 LOCATION: Bilateral chest FINDINGS: Median sternotomy wires are noted status post cardiac surgery. The heart is normal. The pulmonary v ascular pattern is normal. The lungs are clear. Degenerative changes and scoliosis of the thoracic spine are noted. CONCLUSION: 1. No acute cardiopulmonary disease. 2. Degenerative changes and scoliosis of the thoracic spine. Roosevelt Danielle MD on May 03, 2017 at 22:51 Board Certified Radiologist. This report was verified electronically.
[2017-05-04] MEDS ORDERED: ALLOPURINOL 300 MG TAB PO SCH (09:00)
[2017-05-04] MEDS ORDERED: TIOTROPIUM OLODATEROL INH SCH (09:00)
[2017-05-04] MEDS ORDERED: LOSARTAN 50 MG TAB PO SCH (09:00)
[2017-05-04] MEDS ORDERED: SERTRALINE HCL 100 MG TAB PO SCH (09:00)
[2017-05-04] MEDS ORDERED: DOCUSATE SODIUM 50 MG/SENNA 8.6 MG TAB PO SCH (09:00)
[2017-05-04] MEDS ORDERED: CARVEDILOL 3.125 MG TAB PO SCH (09:00)
[2017-05-04] MEDS ORDERED: ASPIRIN EC 81 MG TABEC PO SCH (09:00)
[2017-05-04] MEDS ORDERED: SODIUM CHLORIDE 0.9% FLUSH 10 ML FLUSH IV FLUSH SCH (09:00)
[2017-05-04 09:50] LABS: AUTOMATED NEUTROPHIL # 3.9 TH/MM3 (1.8-7.7); BASOPHIL # 0.1 TH/MM3 (0-0.2); BASOPHIL % 0.7 % (0.0-2.0); EOSINOPHIL # 0.3 TH/MM3 (0-0.4); EOSINOPHIL % 2.6 % (0.0-4.0); HEMATOCRIT 37.4 % (39.0-51.0); LYMPH % 55.7 % (9.0-44.0); LYMPHOCYTE # 6.8 TH/MM3 (1.0-4.8); MEAN CELL VOLUME 91.2 FL (80.0-100.0); MEAN CORPUSCULAR HEMOGLOBIN 29.9 PG (27.0-34.0); MEAN CORPUSCULAR HGB CONC 32.7 % (32.0-36.0); MONO % 9.1 % (0.0-8.0); NEUT % 31.9 % (16.0-70.0); PLATELET COUNT 191 TH/MM3 (150-450); RED CELL DISTRIBUTION WIDTH 13.2 % (11.6-17.2); WHITE BLOOD COUNT 12.2 TH/MM3 (4.0-11.0)
[2017-05-04 09:56] LABS: HEMO FLAGS AUTO DIFF
[2017-05-04 10:17] LABS: EOSINOPHILS 3 % (0-4); NEUTROPHIL # MANUAL DIFF 4.9 TH/MM3 (1.8-7.7); POLYS (SEG NEUTROPHILS) 40 % (16-70); WBC DIFF SAMPLE 100
[2017-05-04 10:19] LABS: PLATELET ESTIMATE SMEAR NORMAL (NORMAL); PLATELET MORPHOLOGY NORMAL (NORMAL); SCAN/DIFF FINAL DIFF MANUAL
--- NOTE | 2017-05-04 13:51 | HHI.HP ---
[facility] Primary Care Physician Sapna Gardner MD Admission Diagnosis chest pain etiology undetermined Diagnoses: Travel History International Travel<30 Days: No Contact w/Intl Traveler <30 Da: No Traveled to Known Affected Are: No History of Present Illness The patient is a 89-year-old male that complains of severe chest for one day. he is currently pain free, but had reproducible CP in the ER. He thought he was mildly SOB and came to the ER. He has a history of CABG and AFIB and was worried it was his heart causing the pain. He also has severe dysphagia being followed in the outpatient setting. Here his Cardiac enzymes and EKG have been inconsistent with ACS. His pain is better with NItro and rest. he is recommended for further observation Review of Systems Constitutional: DENIES: Diaphoretic episodes, Fatigue, Fever, Weight gain, Weight loss, Chills, Dizziness, Change in appetite, Night Sweats Endocrine: DENIES: Heat/cold intolerance, Polydipsia, Polyuria, Polyphagia Eyes: DENIES: Blurred vision, Diplopia, Eye inflammation, Eye pain, Vision loss , Photosensitivity, Double Vision Ears, nose, mouth, throat: DENIES: Tinnitus, Hearing loss, Vertigo, Nasal discharge, Oral lesions, Throat pain, Hoarseness, Ear Pain, Running Nose, Epistaxis, Sinus Pain, Toothache, Odynophagia Respiratory: DENIES: Apneas, Cough, Snoring, Wheezing, Hemoptysis, Sputum production, Shortness of breath Cardiovascular: COMPLAINS OF: Chest pain Gastrointestinal: DENIES: Abdominal pain, Black stools, Bloody stools, Constipation, Diarrhea, Nausea, Vomiting, Difficulty Swallowing, Anorexia Genitourinary: DENIES: Sexual dysfunction, Urinary frequency, Urinary incontinence, Urgency, Hematuria, Dysuria, Nocturia, Penile Discharge, Testicular Pain, Testicular Swelling Musculoskeletal: DENIES: Joint pain, Muscle aches, Stiffness, Joint Swelling, Back pain, Neck pain Integumentary: DENIES: Abnormal pigmentation, Nail changes, Pruritus, Rash Hematologic/lymphatic: DENIES: Bruising, Lymphadenopathy Immunologic/allergic: DENIES: Eczema, Urticaria Neurologic: COMPLAINS OF: Abnormal gait (uses walker), DENIES: Headache, Localized weakness, Paresthesias, Seizures, Speech Problems, Tremor, Poor Balance Psychiatric: DENIES: Anxiety, Confusion, Mood changes, Depression, Hallucinations, Agitation, Suicidal Ideation, Homicidal Ideation, Delusions Past Family Social History Past Medical History copd cad hypothyroid gout cva dysphasia Past Surgical History cabg tonsils left hip Reported Medications reviewed in the emr ptn denies any new meds Allergies: Coded Allergies: Sulfa (Sulfonamide Antibiotics) (Unverified Allergy, Severe, RASH, 05/03/17 ) cephalexin (Unverified Allergy, Severe, RASH, 05/03/17) rash clopidogrel (Unverified Allergy, Severe, RASH, 05/03/17) Active Ordered Medications reviewed in the emr Family History doesn' know Social History lives with family quit smoking 50 yrs ago no etoh Physical Exam Vital Signs Vital Signs Date Time Temp Pulse Resp B/P (MAP) Pulse Ox O2 Delivery O2 Flow Rate FiO2 05/04/17 12:00 96.6 73 20 127/65 (85) 97 05/04/17 08:00 96.5 72 20 131/75 (93) 94 05/04/17 02:05 97.8 70 22 155/79 (104) 97 05/04/17 02:00 68 05/04/17 02:00 74 18 97 05/04/17 01:59 72 18 158/66 (96) 97 Room Air 05/04/17 00:12 71 18 163/67 (99) 97 Room Air 05/03/17 22:35 74 18 153/65 (94) 96 Room Air 05/03/17 21:44 83 18 97 Room Air 05/03/17 21:40 97 05/03/17 21:40 98.4 83 18 180/110 (133) 97 05/03/17 21:40 Room Air Physical Exam GENERAL: This is a well-nourished, well-developed patient, in no apparent distress. no reproducible CP (resolved with nitro paste) SKIN: No rashes, ecchymoses or lesions. Cool and dry. HEAD: Atraumatic. Normocephalic. No temporal or scalp tenderness. EYES: Pupils equal round and reactive. Extraocular motions intact. No scleral icterus. No injection or drainage. ENT: Nose without bleeding, purulent drainage or septal hematoma. Throat without erythema, tonsillar hypertrophy or exudate. Uvula midline. Airway patent. NECK: Trachea midline. No JVD or lymphadenopathy. Supple, nontender, no meningeal signs. CARDIOVASCULAR: Regular rate and rhythm without murmurs, gallops, or rubs. RESPIRATORY: Clear to auscultation. Breath sounds equal bilaterally. No wheezes , rales, or rhonchi. GASTROINTESTINAL: Abdomen soft, non-tender, nondistended. No hepato-splenomegaly , or palpable masses. No guarding. MUSCULOSKELETAL: Extremities without clubbing, cyanosis, or edema. No joint tenderness, effusion, or edema noted. No calf tenderness. Negative Homans sign bilaterally. NEUROLOGICAL: Awake and alert. Cranial nerves II through XII intact. Motor and sensory grossly within normal limits. Five out of 5 muscle strength in all muscle groups. Normal speech. Laboratory Laboratory Tests Test 05/03/17 21:30 05/04/17 06:45 05/04/17 12:20 White Blood Count 17.3 12.2 Red Blood Count 4.51 4.10 Hemoglobin 13.4 12.2 Hematocrit 40.5 37.4 Mean Corpuscular Volume 89.7 91.2 Mean Corpuscular Hemoglobin 29.6 29.9 Mean Corpuscular Hemoglobin Concent 33.0 32.7 Red Cell Distribution Width 13.4 13.2 Platelet Count 240 191 Mean Platelet Volume 7.9 7.9 Neutrophils (%) (Auto) 29.1 31.9 Lymphocytes (%) (Auto) 59.0 55.7 Monocytes (%) (Auto) 8.7 9.1 Eosinophils (%) (Auto) 1.9 2.6 Basophils (%) (Auto) 1.3 0.7 Neutrophils # (Auto) 5.0 3.9 Lymphocytes # (Auto) 10.2 6.8 Monocytes # (Auto) 1.5 1.1 Eosinophils # (Auto) 0.3 0.3 Basophils # (Auto) 0.2 0.1 CBC Comment AUTO DIFF AUTO DIFF Neutrophils % (Manual) 26 40 Lymphocytes % 67 52 Monocytes % 5 5 Eosinophils % 2 3 Neutrophils # (Manual) 4.5 4.9 Differential Comment FINAL DIFF MANUAL FINAL DIFF MANUAL Smudge Cells PRESENT Platelet Estimate NORMAL NORMAL Platelet Morphology Comment NORMAL NORMAL Red Cell Morphology Comment NORMAL NORMAL Prothrombin Time 10.1 Prothromb Time International Ratio 0.9 Activated Partial Thromboplast Time 24.5 Blood Urea Nitrogen 28 Creatinine 1.10 Random Glucose 120 Total Protein 8.1 Albumin 3.9 Calcium Level 9.7 Magnesium Level 2.3 Alkaline Phosphatase 104 Aspartate Amino Transf (AST/SGOT) 19 Alanine Aminotransferase (ALT/SGPT) 20 Total Bilirubin 0.3 Sodium Level 137 Potassium Level 3.5 Chloride Level 100 Carbon Dioxide Level 28.8 Anion Gap 8 Estimat Glomerular Filtration Rate 64 Troponin I LESS THAN 0.02 LESS THAN 0.02 LESS THAN 0.02 Differential Total Cells Counted 100 Result Diagram: 05/04/17 0645 05/03/172129 Imaging cxray on my review shows no acute disease Caprini VTE Risk Assessment Caprini VTE Risk Assessment: Mod/High Risk (score >= 2) Caprini Risk Assessment Model Point Value = 1 Point Value = 2 Point Value = 3 Point Value = 5 Age 41-60 Minor surgery BMI > 25 kg/m2 Swollen legs Varicose veins or History of unexplained or recurrent spontaneous Oral contraceptives or hormone replacement Sepsis (< 1 month) Serious lung disease, including pneumonia (< 1 month) Abnormal pulmonary function Acute myocardial infarction Congestive heart failure (< 1 month) History of inflammatory bowel disease Medical patient at bed rest Age 61-74 Arthroscopic surgery Major open surgery (> 45 min) Laparoscopic surgery (> 45 min) Malignancy Confined to bed (> 72 hours) Immobilizing plaster cast Central venous access Age >= 75 History of VTE Family history of VTE Factor V Leiden Prothrombin [id number] Lupus anticoagulant Anticardiolipin antibodies Elevated serum homocysteine Heparin-induced thrombocytopenia Other congenital or acquired thrombophilia Stroke (< 1 month) Elective arthroplasty Hip, pelvis, or leg fracture Acute spinal cord injury (< 1 month) Prophylaxis Regimen Total Risk Factor Score Risk Level Prophylaxis Regimen 0-1 Low Early ambulation 2 Moderate Order ONE of the following: *Sequential Compression Device (SCD) *Heparin 5000 units SQ BID 3-4 Higher Order ONE of the following medications: *Heparin 5000 units SQ TID *Enoxaparin/Lovenox 40 mg SQ daily (WT < 150 kg, CrCl > 30 mL/min) *Enoxaparin/Lovenox 30 mg SQ daily (WT < 150 kg, CrCl > 10-29 mL/min) *Enoxaparin/Lovenox 30 mg SQ BID (WT < 150 kg, CrCl > 30 mL/min) AND/OR *Sequential Compression Device (SCD) 5 or more Highest Order ONE of the following medications: *Heparin 5000 units SQ TID (Preferred with Epidurals) *Enoxaparin/Lovenox 40 mg SQ daily (WT < 150 kg, CrCl > 30 mL/min) *Enoxaparin/Lovenox 30 mg SQ daily (WT < 150 kg, CrCl > 10-29 mL/min) *Enoxaparin/Lovenox 30 mg SQ BID (WT < 150 kg, CrCl > 30 mL/min) AND *Sequential Compression Device (SCD) Assessment and Plan Problem List: (1) Chest pain ICD Code: R07.9 - Chest pain Status: Acute Plan: atypical but high risk wells criteria is not met likely musculoskeletal patient 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
[2017-05-04] MEDS ORDERED: PANTOPRAZOLE SOD 40 MG DELAYED RELEASE TAB PO SCH (14:00)
--- NOTE | 2017-05-04 16:57 | EKG ---
Date Performed: 05/03/2017 Time Performed: 21:33:52 PTAGE: 82 years EKG: ECTOPIC ATRIAL RHYTHM RIGHT BUNDLE BRANCH BLOCK DIFFUSED NONSPECIFIC ST T-WAVE CHANGE ANTER OLATERLY ABNORMAL ECG PREVIOUS TRACING : 02/23/2017 20.02 SINCE PREVIOUS TRACING , THE ST DEPRESSION IS NEW. Clinical correlation is recommended DOCTOR: Fabiano Del Toro Interpretating Date/Time 05/04/2017 16:57:06
--- NOTE | 2017-05-04 17:25 | MB ---
cc: KALINA FUENTES MD DATE OF CONSULTATION: 05/04/17 REASON FOR CONSULTATION Atypical chest pain. HISTORY OF PRESENT ILLNESS The patient is a pleasant 82-year-old gentleman who sees my partner Dr. Tinoco who has a history of coronary artery disease and also atypical chest pain who presented with several days of a dull central chest discomfort. Of note, the patient was in the hospital for similar complaints about two months ago at which time he had a cardiac catheterization performed which showed four out of four patent bypass grafts. The patient and his daughter tell me that he has been taking his blood pressure many times a day at the apparent advice of a home health nurse but this has clearly (and the patient admits this) caused significant anxiety to the patient which may be contributing. Currently he is asymptomatic denying any residual chest discomfort, shortness breath, lightheadedness or dizziness. PAST MEDICAL HISTORY 1. Coronary artery disease status post CABG x4. 2. COPD. 3. Hypothyrodism. 4. Gout. 5. CVA. CURRENT MEDICATIONS 1. Lipitor 20 mg q.h.s. 2. Protonix 40 mg daily. 3. Norvasc 10 mg daily. 4. Allopurinol. 5. Aspirin 81 mg daily. 6. Coreg 3.125 b.i.d. 7. Cozaar 50 mg daily. 8. Zoloft 100 mg daily. 9. Imdur 30 mg daily. ALLERGIES SULFA, CEPHALEXIN, CLOPIDOGREL. PHYSICAL EXAMINATION VITAL SIGNS: Afebrile, pulse 73, respiratory rate 20, BP 127/65, sating 97%. GENERAL: A very pleasant well-appearing gentleman in no distress. NECK: No JVD. LUNGS: Clear to auscultation bilaterally. CARDIOVASCULAR: Regular rate and rhythm. No murmurs appreciated. ABDOMEN: Benign. EXTREMITIES: No edema. LABORATORY DATA White count 12.2, hematocrit 37.4, platelets 191. Sodium 137, potassium 3.5, chloride 100, bicarb 28.8, BUN 28, creatinine 1.10, glucose 120. Cardiac enzymes are negative x3. EKG shows sinus/ectopic atrial rhythm with right bundle-branch block and nonspecific ST changes. IMPRESSION Atypical chest pain. The patient's chest pain is rather atypical and it seems to be exacerbated by anxiety by overtaking his blood pressure. His cardiac enzymes are normal and he had a cardiac catheterization only two months ago showing four out of four patent bypass grafts. Thus, I believe the patient can be discharged home from a cardiac standpoint, and we will go to b.i.d. on his isosorbide as his blood pressure was quite high on admission anyway, this can be further adjusted as an outpatient as needed. Thank you again for the opportunity to participate in this patient's care. MD LIVIER Camargo/ALBINA /4:40 PM /4:59 PM
[2017-05-04] MEDS ORDERED: ISOS30TA3 PO (17:33)
--- NOTE | 2017-05-04 17:34 | HHI.DCPOC ---
Discharge Care Plan Diagnosis: (1) Chest pain Goals to Promote Your Health * To prevent worsening of your condition and complications * To maintain your health at the optimal level Directions to Meet Your Goals Take your medications as prescribed Follow your dietary instruction Follow activity as directed Keep your appointments as scheduled Take your immunizations and boosters as scheduled If your symptoms worsen call your PCP, if no PCP go to Urgent Care Center or Emergency Room Smoking is Dangerous to Your Health. Avoid second hand smoke Call the 24-hour hour crisis hotline for domestic abuse at Olive Mora MD May 04, 2017 17:34
[2017-05-04] MEDS ORDERED: ATORVASTATIN 20 MG TAB PO SCH (21:00)
[2017-05-05] MEDS ORDERED: TIOTROPIUM OLODATEROL INH SCH (09:00)
== END 2017-05-04 19:45 | disposition home or self-care (01) ==
LOC: PHED 21:28 → PHEDA 05-04 00:27 → PH3B 05-04 01:48
PROVIDERS: ADMIT Hospitalist; ATTEND Hospitalist
DX: R07.89 Other chest pain (principal); I25.10 Atherosclerotic heart disease of native coronary artery without angina pectoris; I48.91 Unspecified atrial fibrillation; E78.00 Pure hypercholesterolemia, unspecified; E11.9 Type 2 diabetes mellitus without complications; K21.9 Gastro-esophageal reflux disease without esophagitis; I10 Essential (primary) hypertension; I25.2 Old myocardial infarction; E03.9 Hypothyroidism, unspecified; J44.9 Chronic obstructive pulmonary disease, unspecified; M10.9 Gout, unspecified; Z95.1 Presence of aortocoronary bypass graft; Z86.73 Personal history of transient ischemic attack (TIA), and cerebral infarction without residual deficits; R13.10 Dysphagia, unspecified
CPT/HCPCS: 71020; 80053; 83735; 84484; 85007; 85027; 85610; 85730; 93005; 99285; G0378

== ENCOUNTER 2017-11-01 15:30 | Observation (INO) | payer OTHER ==
[~2017-11-01] VITALS: Ht 177.8 cm; Wt 100.0 kg
[~2017-11-01 15:30] MED LIST changes: -COLA100C PO; +COLA100C5 PO; +CYCL10TA PO; -CYCL1TAB29 PO; -GUAISYP4 PO; -ISOS20TA PO; +ISOS30TA3 PO; -LACT PO; +NITR1SUB3 SL
[2017-11-01] MEDS ORDERED: SODIUM CHLOR 0.9% 1000 ML INJ 1,000 ML IV ONE (15:42)
[2017-11-01] MEDS ORDERED: SODIUM CHLORIDE 0.9% FLUSH 10 ML FLUSH IVF PRN (15:45)
[2017-11-01] MEDS ORDERED: MORPHINE SULFATE 4 MG/ML INJ IV PUSH ONE (15:45)
[2017-11-01] MEDS ORDERED: ONDANSETRON HCL 4 MG/2 ML VIAL IVP ONE (15:45)
[2017-11-01 15:46] VITALS: BP 154/73; PULSE 87; RESP 18; TEMP 98.1; O2SAT 97
--- NOTE | 2017-11-01 16:00 | PD ---
HPI Chief Complaint: Fall Time Seen by Provider: 15:31 Travel History International Travel<30 days: No Contact w/Intl Traveler<30days: No Traveled to known affect area: No History of Present Illness HPI 82-year-old male presents to the emergency department via EMS for evaluation of dizziness, fall. Patient states he has blood drawn. He was at home and elected to go the bathroom. He states that upon walking the stairs, he felt dizzy. He states that then he fell backwards and hit his head. He has a laceration to the left perietal scalp. He states that he did have loss of consciousness. Patient complains of headache, neck pain, back pain, right upper leg pain. Patient states his tetanus immunization is up-to-date. Patient has past medical history of anxiety, depression, A. fib, hypertension, diet controlled diabetes, COPD, UTI, coronary artery disease with a history of coronary artery bypass grafting 4 in 2004. Upon further questioning, he also complains of midsternal chest pain. He is unsure when it started. Patient also complains of generalized abdominal pain as well. He states his current pain is 10/10 without alleviating or exacerbating factors. Patient is on aspirin, but no other anticoagulants. Patient is anxious on exam. Moderate severity. PFSH Past Medical History Hx Anticoagulant Therapy: Yes Arthritis: Yes Asthma: No Autoimmune Disease: No Blood Disorders: No Anxiety: Yes Depression: Yes Heart Rhythm Problems: No Cancer: Yes (prostate) Cardiac Catheterization: Yes (Stents x 3) Cardiovascular Problems: Yes High Cholesterol: Yes Chemotherapy: No Chest Pain: Yes Congestive Heart Failure: No COPD: No Cerebrovascular Accident: Yes (NO RESIDUAL ) Diabetes: Yes (DIET CONTROLLED) Patient Takes Glucophage: No Diminished Hearing: No Endocrine: Yes Gastrointestinal Disorders: No GERD: Yes Genitourinary: Yes Headaches: No Hepatitis: No Hiatal Hernia: No Heparin Induced Thrombocytopen: No Hypertension: Yes Immune Disorder: No Implanted Vascular Access Dvce: Yes Kidney Stones: Yes Medical other: No Musculoskeletal: Yes Neurologic: No Psychiatric: Yes Reproductive: No Respiratory: Yes Immunizations Current: Yes Migraines: No Myocardial Infarction: Yes Pneumonia: Yes Radiation Therapy: No Renal Failure: No Seizures: No Sleep Apnea: No Thyroid Disease: Yes Ulcer: No PNEUMOCCOCAL Vaccine (Year): 2008 ?: Not Past Surgical History Abdominal Surgery: No AICD: No Arteriovenous Shunt: No Body Medical Devices: cardiac stents Cardiac Surgery: Yes (CARDIAC STENTS X 3,CABG) Coronary Artery Bypass Graft: Yes (4 VESSEL) Coronary Stent: Yes (x 3) Ear Surgery: No Endocrine Surgery: Yes Eye Surgery: No Genitourinary Surgery: Yes (prostatectomy) Gynecologic Surgery: No Insulin Pump: No Joint Replacement: Yes (LEFT HIP) Neurologic Surgery: No Oral Surgery: Yes (TONCILECTOMY) Pacemaker: No Thoracic Surgery: No Tonsillectomy: Yes Other Surgery: No (RIGHT KIDNEY STENT, VEIN STRIPING) Family History Family Myocardial Infarction: Yes Social History Alcohol Use: No (PT DENIES) Tobacco Use: No Substance Use: No Allergies-Medications (Allergen,Severity, Reaction): Coded Allergies: Sulfa (Sulfonamide Antibiotics) (Unverified Allergy, Severe, RASH, 05/03/17 ) cephalexin (Unverified Allergy, Severe, RASH, 05/03/17) rash clopidogrel (Unverified Allergy, Severe, RASH, 05/03/17) Reported Meds & Prescriptions Reported Meds & Active Scripts Active Isosorbide Mononitrate ER (Isosorbide Mononitrate) 30 Mg Marga 30 Mg PO DAILY@ 0700,1900 Norvasc (Amlodipine Besylate) 10 Mg Tab 10 Mg PO DAILY Coreg (Carvedilol) 3.125 Mg Tab 3.125 Mg PO Q12HR Hydrocodone-Acetaminophen 5-325 mg Tab 1 Tab PO Q6HR PRN Colace (Docusate Sodium) 100 Mg Capsule 100 Mg PO BID PRN Reported Stiolto Respimat Inh (Tiotropium-Olodaterol Inh) 2.5-2.5 Mcg/Act Aero 2.5 Puff INH DAILY Levothyroxine (Levothyroxine Sodium) 50 Mcg Tab 50 Mcg PO DAILY Aspir-81 (Aspirin) 81 Mg Tabdr 81 Mg PO DAILY Vitamin C (Ascorbic Acid) 250 Mg Tab 500 Mg PO Hydrochlorothiazide 25 Mg Tab 25 Mg PO DAILY Losartan (Losartan Potassium) 50 Mg Tab 50 Mg PO DAILY Allopurinol 300 Mg Tab 300 Mg PO DAILY Atorvastatin (Atorvastatin Calcium) 20 Mg Tab 20 Mg PO HS Sertraline (Sertraline HCl) 100 Mg Tab 100 Mg PO DAILY Review of Systems Except as stated in HPI: all other systems reviewed are Neg Physical Exam Narrative GENERAL: Well-nourished, well-developed male patient, afebrile. SKIN: Focused skin assessment warm/dry. Patient has [-] centimeter laceration to the left scalp. HEAD: Normocephalic. EYES: No scleral icterus. No injection or drainage. PERRLA. ENT: Mucosa pink and moist. No erythema or exudates. No uvular edema. No uvular , palatal, or tonsillar deviation. Airway patent. Nasal turbinates appear normal without nasal blood, purulent drainage or septal hematoma. Bilateral tympanic membranes are clear without erythema or perforation. NECK: Supple, trachea midline. No JVD or lymphadenopathy. CARDIOVASCULAR: Regular rate and rhythm without murmurs, gallops, or rubs. Right pedal pulses 2+ RESPIRATORY: Breath sounds equal bilaterally. No accessory muscle use. Lungs sounds are clear to auscultation GASTROINTESTINAL: Abdomen soft and nondistended. He has generalized tenderness to palpation. MUSCULOSKELETAL: No cyanosis, or edema. Patient has pain over right femur. BACK: Nontender without obvious deformity. No CVA tenderness. Data Data Last Documented VS Vital Signs Date Time Temp Pulse Resp B/P (MAP) Pulse Ox O2 Delivery O2 Flow Rate FiO2 11/01/17 18:18 79 18 125/59 (81) 94 Room Air 11/01/17 15:46 98.1 Orders Orders Electrocardiogram (11/01/17 15:42) Complete Blood Count With Diff (11/01/17 15:42) Comprehensive Metabolic Panel (11/01/17 15:42) Magnesium (Mg) (11/01/17 15:42) Ckmb (Isoenzyme) Profile (11/01/17 15:42) Troponin I (11/01/17 15:42) Act Partial Throm Time (Ptt) (11/01/17 15:42) Prothrombin Time / Inr (Pt) (11/01/17 15:42) Urinalysis - C+S If Indicated (11/01/17 15:42) Chest, Single Ap (11/01/17 15:42) Ct Brain W/O Iv Contrast(Rout) (11/01/17 15:42) Ct Cerv Spine W/O Contrast (11/01/17 15:42) Ecg Monitoring (11/01/17 15:42) Iv Access Insert/Monitor (11/01/17 15:42) Oximetry (11/01/17 15:42) Ondansetron Inj (Zofran Inj) (11/01/17 15:45) Sodium Chloride 0.9% Flush (Ns Flush) (11/01/17 15:45) Sodium Chlor 0.9% 1000 Ml Inj (Ns 1000 M (11/01/17 15:42) Spine, Thoracic-Ap/Lat/Sw(3vw) (11/01/17 ) Ct Abd/Pel W Iv Contrast(Rout) (11/01/17 ) Hip, Uni(Ap&Lat) W Ap Pelvis (11/01/17 ) Femur (Ap & Lat/2vws) (11/01/17 ) Morphine Inj (Morphine Inj) (11/01/17 15:45) Lidocai-Epi 1%-1:100,000 Inj (Xylocaine- (11/01/17 19:15) Lidocai-Epi 1%-1:100,000 Inj (Xylocaine- (11/01/17 19:19) Ct Lumb Spine W Iv Contrast (11/01/17 ) Labs Laboratory Tests Test 11/01/17 16:00 11/01/17 18:00 Prothrombin Time 10.1 SEC Prothromb Time International Ratio 1.0 RATIO Activated Partial Thromboplast Time 22.7 SEC Blood Urea Nitrogen 19 MG/DL Creatinine 1.29 MG/DL Random Glucose 133 MG/DL Total Protein 8.1 GM/DL Albumin 3.4 GM/DL Calcium Level 9.2 MG/DL Magnesium Level 2.1 MG/DL Alkaline Phosphatase 98 U/L Aspartate Amino Transf (AST/SGOT) 22 U/L Alanine Aminotransferase (ALT/SGPT) 22 U/L Total Bilirubin 0.5 MG/DL Sodium Level 139 MEQ/L Potassium Level 4.2 MEQ/L Chloride Level 101 MEQ/L Carbon Dioxide Level 30.1 MEQ/L Anion Gap 8 MEQ/L Estimat Glomerular Filtration Rate 53 ML/MIN Total Creatine Kinase 48 U/L Troponin I LESS THAN 0.02 NG/ML White Blood Count 23.0 TH/MM3 Red Blood Count 4.01 MIL/MM3 Hemoglobin 11.9 GM/DL Hematocrit 36.6 % Mean Corpuscular Volume 91.2 FL Mean Corpuscular Hemoglobin 29.8 PG Mean Corpuscular Hemoglobin Concent 32.7 % Red Cell Distribution Width 13.7 % Platelet Count 291 TH/MM3 Mean Platelet Volume 7.9 FL Neutrophils (%) (Auto) 45.2 % Lymphocytes (%) (Auto) 44.3 % Monocytes (%) (Auto) 9.4 % Eosinophils (%) (Auto) 0.7 % Basophils (%) (Auto) 0.4 % Neutrophils # (Auto) 10.4 TH/MM3 Lymphocytes # (Auto) 10.2 TH/MM3 Monocytes # (Auto) 2.2 TH/MM3 Eosinophils # (Auto) 0.2 TH/MM3 Basophils # (Auto) 0.1 TH/MM3 CBC Comment AUTO DIFF Urine Color YELLOW Urine Turbidity CLEAR Urine pH 8.0 Urine Specific [place] 1.013 Urine Protein NEG mg/dL Urine Glucose (UA) NEG mg/dL Urine Ketones NEG mg/dL Urine Occult Blood NEG Urine Nitrite NEG Urine Bilirubin NEG Urine Urobilinogen LESS THAN 2.0 MG/DL Urine Leukocyte Esterase TRACE Urine WBC 5 /hpf Microscopic Urinalysis Comment CULT NOT INDICATED MDM Medical Decision Making Medical Screen Exam Complete: Yes Emergency Medical Condition: Yes Medical Record Reviewed: Yes Interpretation(s) Last Impressions Head CT 11/01/171541 Signed Impressions: Service Date/Time: Wednesday, November 01, 2017 18:47 - CONCLUSION: 1. No acute findings. 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 Chris Palafox MD Chest X-Ray 11/01/17 154 Signed Impressions: Service Date/Time: Wednesday, November 01, 2017 16:07 - CONCLUSION: Mild compensated cardiomegaly Tano Ames MD FACR Cervical Spine CT 11/01/17 1542 Signed Impressions: Service Date/Time: Wednesday, November 01, 2017 18:47 - CONCLUSION: 1. Moderate degenerative disc disease. No acute fracture. No prevertebral soft tissue swelling. Chris Palafox MD Thoracic Spine X-Ray 11/01/17 0000 Signed Impressions: Service Date/Time: Wednesday, November 01, 2017 16:11 - CONCLUSION: No acute abnormality. Floyd Vogel Jr., MD Hip and Pelvis X-Ray 11/01/17 0000 Signed Impressions: Service Date/Time: Wednesday, November 01, 2017 16:14 - CONCLUSION: Degenerative changes, negative for fracture Tano Ames MD FACR Femur X-Ray 11/01/17 0000 Signed Impressions: Service Date/Time: Wednesday, November 01, 2017 16:14 - CONCLUSION: No fracture or dislocation. Floyd Vogel Jr., MD Abdomen/Pelvis CT 11/01/17 0000 Signed Impressions: Service Date/Time: Wednesday, November 01, 2017 18:58 - CONCLUSION: 1. Negative for acute traumatic injury within the abdomen and pelvis. 2. Non acute findings include nonobstructing renal calculi. Renal cysts also present. 3. Gastric distention with large air-fluid level. 4. Mild constipation. 5. 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 Chris Palafox MD Differential Diagnosis ACS versus electrolyte abnormality versus dehydration versus fracture versus contusion versus intracranial abnormality versus closed head injury versus laceration Narrative Course 82-year-old male presents to the emergency department for evaluation after he was dizzy and fell causing LOC. EKG, CBC, CMP, magnesium, CK, troponin, PTT, PT /INR, UA are ordered and pending. Chest x-ray, x-ray of thoracic spine, x-ray of the right hip with pelvis, x-ray of the right femur are ordered and pending. CT of the brain, CT of the cervical spine, CT lumbar spine, CT abdomen/pelvis with IV contrast are ordered and pending. Patient is given normal saline 1 L IV bolus, Zofran 4 mg IV, morphine 4 mg IV. EKG shows SR, no acute ST changes. CBC shows leukocytosis of 23.0. CMP shows BUN 19, glucose 133. Magnesium is 2.1. CK is 48. Troponin is less than 0.02. Coags show no acute abnormality. UA is negative for acute infection. Chest x -ray shows mild compensated cardiomegaly. X-ray of the thoracic spine shows no acute abnormality. X-ray of the right hip with pelvis shows degenerative changes, negative for fracture. X-ray of the right femur shows no fracture or dislocation. CT of the brain shows no acute findings. CT of the cervical spine shows moderate degenerative disc disease, no acute fracture urine CT of the lumbar spine is pending. CT of the abdomen/pelvis is Negative for acute traumatic injury within the abdomen and pelvis; Non acute findings include nonobstructing renal calculi. 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 Upon further conversation with the patient is family, he is being evaluated by Dr. Meeks for elevated white count. Family states it has never been 23.0, but has been elevated. The patient states he does not feel comfortable going home. He is still complaining of mild left-sided chest pain. Patient will be admitted for observation for chest pain, dizziness. He verbalizes agreement. Procedures Procedure Narrative LACERATION LOCATION: left scalp LENGTH: 4 cm NUMBER OF STITCHES/LENORE: 5 lenore REPAIR: The area of the laceration was prepped with Betadine and sterilely draped. The laceration was infiltrated with 1% lidocaine with epinephrine. The wound was copiously irrigated and explored without evidence of foreign body, tendon injury or neurovascular injury. The wound was closed using lenore. This was a using layer repair. A sterile dressing was applied. The patient was advised to keep the dressing clean and dry. Patient tolerated the procedure well. Diagnosis Primary Impression: Chest pain Qualified Codes: R07.9 - Chest pain, unspecified Additional Impressions: Dizziness Scalp laceration Qualified Codes: S01.01XA - Laceration without foreign body of scalp, initial encounter Admitting Information Admitting Physician Requests: Observation Benita Diaz Nov 01, 2017 16:00
[2017-11-01 16:05] VITALS: RESP 18; O2SAT 98
[2017-11-01 16:21] LABS: PROTHROMBIN TIME - PATIENT 10.1 SEC (9.8-11.6)
--- NOTE | 2017-11-01 16:36 | RADRPT ---
EXAM DATE/TIME: 11/01/2017 16:14 [facility] COMPARISON: No previous studies available for comparison. INDICATIONS : Fell today. MEDICAL HISTORY : Cardiovascular disease. Hypertension chf, SURGICAL HISTORY : CABG. Prostatectomy. ENCOUNTER: Initial ACUITY: 1 day PAIN SCORE: Non-responsive. LOCATION: Right femur FINDINGS: Two view examination of the right femur demonstrates no evidence of fracture or dislocation. Advanced osteoarthritis involving the hip joint. Bony mineralization is normal. The soft tissue structures a re intact. CONCLUSION: No fracture or dislocation. Floyd Vogel Jr., MD on November 01, 2017 at 16:30 Board Certified Radiologist. This report was verified electronically.
--- NOTE | 2017-11-01 16:39 | RADRPT ---
EXAM DATE/TIME: 11/01/2017 16:11 [facility] COMPARISON: No previous studies available for comparison. INDICATIONS : Fell today. MEDICAL HISTORY : Congestive heart failure. Hypertension Cardiovascular disease. SURGICAL HISTORY : Prostatectomy. CABG. ENCOUNTER: Initial ACUITY: 1 day PAIN SCORE: Non-responsive. LOCATION: Bilateral thoracic spine FINDINGS: AP and lateral views of the thoracic spine including swimmer's view reveal diffuse degenerative abdul es. No fracture or dislocation. Median sternotomy wires. CONCLUSION: No acute abnormality. Floyd Vogel Jr., MD on November 01, 2017 at 16:35 Board Certified Radiologist. This report was verified electronically.
--- NOTE | 2017-11-01 16:45 | RADRPT ---
EXAM DATE/TIME: 11/01/2017 16:07 [facility] COMPARISON: CHEST SINGLE AP, February 24, 2017, 13:28. INDICATIONS : Fell today. MEDICAL HISTORY : Cardiovascular disease. Congestive heart failure. Hypertension. SURGICAL HISTORY : Prostatectomy. CABG. ENCOUNTER: Initial ACUITY: 1 day PAIN SCORE: Non-responsive. LOCATION: Bilateral chest FINDINGS: A single view of the chest demonstrates the lungs to be symmetrically aerated without evidence of mas s, infiltrate or effusion. Sternal wires mediastinal gas are noted. Mild cardiomegaly Osseous struc tures are intact. CONCLUSION: Mild compensated cardiomegaly Tano Ames MD FACR on November 01, 2017 at 16:42 Board Certified Radiologist. This report was verified electronically.
--- NOTE | 2017-11-01 16:46 | RADRPT ---
EXAM DATE/TIME: 11/01/2017 16:14 [facility] COMPARISON: No previous studies available for comparison. INDICATIONS : Fell today. MEDICAL HISTORY : Congestive heart failure. Cardiovascular disease. Hypertension. SURGICAL HISTORY : Prostatectomy. CABG. ENCOUNTER: Initial ACUITY: 1 day PAIN SCORE: Non-responsive. LOCATION: Right hip and pelvis FINDINGS: Degenerative changes right hip. Bone is articulating with bone. Total hip on the left. Degenerative changes lower lumbar spine. CONCLUSION: Degenerative changes, negative for fracture Tano Ames MD FACR on November 01, 2017 at 16:43 Board Certified Radiologist. This report was verified electronically.
[2017-11-01 16:47] LABS: ALBUMIN 3.4 GM/DL (3.4-5.0); ALKALINE PHOSPHATASE 98 U/L (45-117); ALT (GPT) 22 U/L (12-78); AST (GOT) 22 U/L (15-37); BICARBONATE 30.1 MEQ/L (21.0-32.0); BLOOD UREA NITROGEN 19 MG/DL (7-18); CALCIUM 9.2 MG/DL (8.5-10.1); CHLORIDE 101 MEQ/L (98-107); CREATININE 1.29 MG/DL (0.60-1.30); GLOMERULAR FILTRATION RATE 53 ML/MIN (>89); GLUCOSE,RANDOM 133 MG/DL (74-106); MAGNESIUM 2.1 MG/DL (1.5-2.5); SODIUM (NA) 139 MEQ/L (136-145); TOTAL BILIRUBIN ADULT 0.5 MG/DL (0.2-1.0); TOTAL PROTEIN 8.1 GM/DL (6.4-8.2); TROPONIN I LESS THAN 0.02 NG/ML (0.02-0.05)
[2017-11-01 18:18] VITALS: BP 125/59; PULSE 79; RESP 18; O2SAT 94
[2017-11-01 18:26] LABS: AUTOMATED NEUTROPHIL # 10.4 TH/MM3 (1.8-7.7); BASOPHIL # 0.1 TH/MM3 (0-0.2); BASOPHIL % 0.4 % (0.0-2.0); EOSINOPHIL # 0.2 TH/MM3 (0-0.4); EOSINOPHIL % 0.7 % (0.0-4.0); HEMATOCRIT 36.6 % (39.0-51.0); HEMOGLOBIN 11.9 GM/DL (13.0-17.0); LYMPH % 44.3 % (9.0-44.0); LYMPHOCYTE # 10.2 TH/MM3 (1.0-4.8); MEAN CELL VOLUME 91.2 FL (80.0-100.0); MEAN CORPUSCULAR HEMOGLOBIN 29.8 PG (27.0-34.0); MEAN CORPUSCULAR HGB CONC 32.7 % (32.0-36.0); MEAN PLATELET VOLUME 7.9 FL (7.0-11.0); MONO % 9.4 % (0.0-8.0); MONOCYTE # 2.2 TH/MM3 (0-0.9); NEUT % 45.2 % (16.0-70.0); PLATELET COUNT 291 TH/MM3 (150-450); RED BLOOD COUNT 4.01 MIL/MM3 (4.50-5.90); RED CELL DISTRIBUTION WIDTH 13.7 % (11.6-17.2)
[2017-11-01 18:32] LABS: BILIRUBIN, URINE NEG (NEG); BLOOD, URINE NEG (NEG); GLUCOSE,URINE NEG (NEG); KETONE, URINE NEG (NEG); NITRITE,URINE NEG (NEG); URINE COLOR YELLOW (YELLW/STRAW); URINE LEUKOCYTE ESTERASE TRACE (NEG)
[2017-11-01] MEDS ORDERED: IOHEXOL 350 MG/ML 10 ML VIAL (for RAD DIAG) IVCONTRAST ONE (18:58)
[2017-11-01] MEDS ORDERED: LIDOCAINE 1%/EPINEPHrine 1:100,000 SOLN 20 ML VIAL INFIL ONE (19:15)
[2017-11-01] MEDS ORDERED: LIDOCAINE 1%/EPINEPHrine 1:100,000 SOLN 30 ML VIAL ONE (19:19)
--- NOTE | 2017-11-01 19:25 | RADRPT ---
EXAM DATE/TIME: 11/01/2017 18:47 [facility] COMPARISON: No previous studies available for comparison. INDICATIONS : TRauma, patient fell hit back of head. RADIATION DOSE: 64.63 CTDIvol (mGy) MEDICAL HISTORY : Cerebrovascular disease. Cardiovascular disease Hypertension.diabetic, prostate cancer SURGICAL HISTORY : CABG Prostatectomy. ENCOUNTER: Initial ACUITY: 1 day PAIN SCALE: 5/10 LOCATION: cranial TECHNIQUE: Multiple contiguous axial images were obtained of the head. Using automated exposure control and adj ustment of the mA and/or kV according to patient size, radiation dose was kept as low as reasonably a chievable to obtain optimal diagnostic quality images. DICOM format image data is available electro nically for review and comparison. FINDINGS: There is a remote infarct in the left side posteriorly. There is no acute cranial hemorrhage and no m ass effect or shift. No hydrocephalus. No abnormal extra-axial fluid collections are present. No acut e bony abnormalities. Left parietal scalp hematoma. CONCLUSION: 1. No acute findings. 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 Chris Palafox MD on November 01, 2017 at 19:20 Board Certified Radiologist. This report was verified electronically.
--- NOTE | 2017-11-01 19:29 | RADRPT ---
EXAM DATE/TIME: 11/01/2017 18:47 [facility] COMPARISON: No previous studies available for comparison. INDICATIONS : TRauma, patient fell, neck pain. RADIATION DOSE: 25.65 CTDIvol (mGy) MEDICAL HISTORY : Cardiovascular disease. Cerebrovascular disease. Hypertension.diabetic, prostate cancer SURGICAL HISTORY : CABG Prostatectomy. ENCOUNTER: Initial ACUITY: 1 day PAIN SCALE: 5/10 LOCATION: neck TECHNIQUE: Volumetric scanning of the cervical spine was performed. Multiplanar reconstructions in the sagittal, coronal and oblique axial planes were performed. Using automated exposure control and adjustment o f the mA and/or kV according to patient size, radiation dose was kept as low as reasonably achievable to obtain optimal diagnostic quality images. DICOM format image data is available electronically f or review and comparison. FINDINGS: VERTEBRAE: Normal vertebral body height. ALIGNMENT: No evidence of subluxation. C2-C3: The bony spinal canal is normal in size. No evidence of disc bulge or herniation. The neural forami na are bilaterally patent. C3-C4: The bony spinal canal is normal in size. No evidence of disc bulge or herniation. The neural forami na are bilaterally patent. C4-C5: The bony spinal canal is normal in size. No evidence of disc bulge or herniation. The neural forami na are bilaterally patent. C5-C6: The bony spinal canal is normal in size. No evidence of disc bulge or herniation. The neural forami na are bilaterally patent. C6-C7: The bony spinal canal is normal in size. No evidence of disc bulge or herniation. The neural forami na are bilaterally patent. C7-T1: The bony spinal canal is normal in size. No evidence of disc bulge or herniation. The neural forami na are bilaterally patent. CONCLUSION: 1. Moderate degenerative disc disease. No acute fracture. No prevertebral soft tissue swelling. Chris Palafox MD on November 01, 2017 at 19:23 Board Certified Radiologist. This report was verified electronically.
--- NOTE | 2017-11-01 20:13 | RADRPT ---
EXAM DATE/TIME: 11/01/2017 18:58 [facility] COMPARISON: No previous studies available for comparison. INDICATIONS : Trauma, fall. IV CONTRAST: 100 cc Omnipaque 350 (iohexol) IV ORAL CONTRAST: No oral contrast ingested. RADIATION DOSE: 8.67 CTDIvol (mGy) MEDICAL HISTORY : Cardiovascular disease. Renal calculi. Diabetes mellitus type 2.Carcinoma, prostate. SURGICAL HISTORY : CABG Prostatectomy.Hip replacement. ENCOUNTER: Initial ACUITY: 1 day PAIN SCALE: 5/10 LOCATION: abdomen TECHNIQUE: Volumetric scanning of the abdomen and pelvis was performed. Using automated exposure control and ad justment of the mA and/or kV according to patient size, radiation dose was kept as low as reasonably achievable to obtain optimal diagnostic quality images. DICOM format image data is available electro nically for review and comparison. FINDINGS: Minimal dependent atelectasis in the lungs. No effusions. Moderate coronary calcifications. No acute findings in the liver, spleen, adrenals or pancreas. Bilateral renal cysts and tiny nonobstr ucting bilateral renal calculi. No hydronephrosis. Stomach is fairly markedly distended with large air-fluid level. No small bowel obstruction. Mild con stipation. Previous left hip replacement. Advanced osteoarthritis of the right hip. Advanced degenera tive change of the lumbar spine with a moderate to severe canal stenosis at L3-4. CONCLUSION: 1. Negative for acute traumatic injury within the abdomen and pelvis. 2. Non acute findings include nonobstructing renal calculi. Renal cysts also present. 3. Gastric distention with large air-fluid level. 4. Mild constipation. 5. 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 Chris Palafox MD on November 01, 2017 at 20:06 Board Certified Radiologist. This report was verified electronically.
--- NOTE | 2017-11-01 21:31 | RADRPT ---
EXAM DATE/TIME: 11/01/2017 18:47 [facility] COMPARISON: No previous studies available for comparison. INDICATIONS : Trauma, fall. IV CONTRAST: 100 cc Omnipaque 350 (iohexol) IV ; Cumulative dose for multiple exams. RADIATION DOSE: CTDIvol (mGy) ; Reconstructed from previous dataset, no dose MEDICAL HISTORY : None SURGICAL HISTORY : None. ENCOUNTER: Initial ACUITY: 1 day PAIN SCALE: 5/10 LOCATION: Paraspinal TECHNIQUE: Volumetric scanning of the lumbar spine was performed. Multiplanar reconstructions in the sagittal, coronal and oblique axial planes were performed. Using automated exposure control and adjustment of the mA and/or kV according to patient size, radiation dose was kept as low as reasonably achievable t o obtain optimal diagnostic quality images. DICOM format image data is available electronically for review and comparison. FINDINGS: There is advanced degenerative disc disease in the lumbar spine. There is a minimal degenerative ante rolisthesis of L3 on L4. Mild lateral recess stenosis present at [id number]. At L2-3 there is a modera te central canal and lateral recess stenosis and moderate bilateral foraminal stenosis. At L3-4 there is a severe central canal lateral recess stenosis and mild to moderate bilateral forami nal stenosis. At L4-5 and L5-S1 there is mild canal and lateral recess stenosis as well as bilateral foraminal encr oachment. CONCLUSION: 1. No acute fracture. 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 Chris Palafox MD on November 01, 2017 at 21:26 Board Certified Radiologist. This report was verified electronically.
--- NOTE | 2017-11-01 21:35 | HHI.HP ---
[facility] Service [facility] Primary Care Physician Sapna Gardner MD Admission Diagnosis Diagnoses: (1) Syncope Diagnosis: Principal (2) Scalp laceration Diagnosis: Principal (3) Chest pain Diagnosis: Principal (4) Leukocytosis Diagnosis: Principal Travel History International Travel<30 Days: No Contact w/Intl Traveler <30 Da: No Traveled to Known Affected Are: No History of Present Illness This is an 82-year-old male with a PMH of Anxiety, Depression, Prostate CA, HTN , Hyperlipidemia and CAD who was brought to the ER by EMS after syncopal event. Pt states he was walking down the [place] his [place], walked up a step, had sudden episode of dizziness and chest pain w/ subsequent syncopal event. Unsure how long LOC, reports some confusion when he came to but able to get his cell phone and call 911. Currently chest pain free. On arrival, BP 154/73, HR 87, O2 sat 97% on RA, Afebrile. WBC 23. Troponin negative. INR 1.0. UA negative for UTI. CT head negative for acute findings. CT C-spine with moderate degenerative disc disease. CXR with mild compensated cardiomegaly. CT Abdomen/Pelvis negative for acute traumatic injury. Femur X-ray negative. Hip X-ray negative for fracture. CT L-spine negative for acute fracture. CT T- spine negative for acute fracture. Review of Systems Except as stated in HPI: all other systems reviewed are Neg ROS: 14 point review of systems otherwise negative. Past Family Social History Past Medical History PMH: Anxiety, Depression, Prostate CA, HTN, Hyperlipidemia and CAD Past Surgical History PAST SURGICAL HISTORY: Cardiac Stent, CABG, Prostatectomy, Left Hip Replacement , Tonsillectomy, Right Kidney Stent Allergies: Coded Allergies: Sulfa (Sulfonamide Antibiotics) (Unverified Allergy, Severe, RASH, 05/03/17 ) cephalexin (Unverified Allergy, Severe, RASH, 05/03/17) rash clopidogrel (Unverified Allergy, Severe, RASH, 05/03/17) Family History PAST FAMILY HISTORY: Reviewed. No h/o DM or CAD Social History PAST SOCIAL HISTORY: Negative for alcohol, tobacco or drugs. Physical Exam Vital Signs Vital Signs Date Time Temp Pulse Resp B/P (MAP) Pulse Ox O2 Delivery O2 Flow Rate FiO2 11/01/17 18:18 79 18 125/59 (81) 94 Room Air 11/01/17 16:05 18 98 Room Air 11/01/17 15:47 88 18 96 Room Air 11/01/17 15:46 98.1 87 18 154/73 (100) 97 Room Air Physical Exam PE: GENERAL: Pleasant elderly white male in no acute distress. HEENT: PERRLA, EOMI. No scleral icterus or conjunctival pallor. No lid lag or facial droop. Head laceration s/p repair CARDIOVASCULAR: Regular rate and rhythm. No obvious murmurs to auscultation. No chest tenderness to palpation. RESPIRATORY: No obvious rhonchi or wheezing. Clear to auscultation. Breath sounds equal bilaterally. GASTROINTESTINAL: Abdomen soft, non-tender, nondistended. BS normal. MUSCULOSKELETAL: Extremities without clubbing, cyanosis, or edema. No obvious deformities. NEUROLOGICAL: Awake, alert and oriented x4. No focal neurologic deficits. Moving both upper and lower extremities spontaneously. Laboratory Laboratory Tests Test 11/01/17 16:00 11/01/17 18:00 Prothrombin Time 10.1 Prothromb Time International Ratio 1.0 Activated Partial Thromboplast Time 22.7 Blood Urea Nitrogen 19 Creatinine 1.29 Random Glucose 133 Total Protein 8.1 Albumin 3.4 Calcium Level 9.2 Magnesium Level 2.1 Alkaline Phosphatase 98 Aspartate Amino Transf (AST/SGOT) 22 Alanine Aminotransferase (ALT/SGPT) 22 Total Bilirubin 0.5 Sodium Level 139 Potassium Level 4.2 Chloride Level 101 Carbon Dioxide Level 30.1 Anion Gap 8 Estimat Glomerular Filtration Rate 53 Total Creatine Kinase 48 Troponin I LESS THAN 0.02 White Blood Count 23.0 Red Blood Count 4.01 Hemoglobin 11.9 Hematocrit 36.6 Mean Corpuscular Volume 91.2 Mean Corpuscular Hemoglobin 29.8 Mean Corpuscular Hemoglobin Concent 32.7 Red Cell Distribution Width 13.7 Platelet Count 291 Mean Platelet Volume 7.9 Neutrophils (%) (Auto) 45.2 Lymphocytes (%) (Auto) 44.3 Monocytes (%) (Auto) 9.4 Eosinophils (%) (Auto) 0.7 Basophils (%) (Auto) 0.4 Neutrophils # (Auto) 10.4 Lymphocytes # (Auto) 10.2 Monocytes # (Auto) 2.2 Eosinophils # (Auto) 0.2 Basophils # (Auto) 0.1 CBC Comment AUTO DIFF Urine Color YELLOW Urine Turbidity CLEAR Urine pH 8.0 Urine Specific [place] 1.013 Urine Protein NEG Urine Glucose (UA) NEG Urine Ketones NEG Urine Occult Blood NEG Urine Nitrite NEG Urine Bilirubin NEG Urine Urobilinogen LESS THAN 2.0 Urine Leukocyte Esterase TRACE Urine WBC 5 Microscopic Urinalysis Comment CULT NOT INDICATED Result Diagram: 11/01/17 1800 11/01/17 1600 Caprini VTE Risk Assessment Caprini VTE Risk Assessment: No/Low Risk (score <= 1) Caprini Risk Assessment Model Point Value = 1 Point Value = 2 Point Value = 3 Point Value = 5 Age 41-60 Minor surgery BMI > 25 kg/m2 Swollen legs Varicose veins or History of unexplained or recurrent spontaneous Oral contraceptives or hormone replacement Sepsis (< 1 month) Serious lung disease, including pneumonia (< 1 month) Abnormal pulmonary function Acute myocardial infarction Congestive heart failure (< 1 month) History of inflammatory bowel disease Medical patient at bed rest Age 61-74 Arthroscopic surgery Major open surgery (> 45 min) Laparoscopic surgery (> 45 min) Malignancy Confined to bed (> 72 hours) Immobilizing plaster cast Central venous access Age >= 75 History of VTE Family history of VTE Factor V Leiden Prothrombin [id number] Lupus anticoagulant Anticardiolipin antibodies Elevated serum homocysteine Heparin-induced thrombocytopenia Other congenital or acquired thrombophilia Stroke (< 1 month) Elective arthroplasty Hip, pelvis, or leg fracture Acute spinal cord injury (< 1 month) Prophylaxis Regimen Total Risk Factor Score Risk Level Prophylaxis Regimen 0-1 Low Early ambulation 2 Moderate Order ONE of the following: *Sequential Compression Device (SCD) *Heparin 5000 units SQ BID 3-4 Higher Order ONE of the following medications: *Heparin 5000 units SQ TID *Enoxaparin/Lovenox 40 mg SQ daily (WT < 150 kg, CrCl > 30 mL/min) *Enoxaparin/Lovenox 30 mg SQ daily (WT < 150 kg, CrCl > 10-29 mL/min) *Enoxaparin/Lovenox 30 mg SQ BID (WT < 150 kg, CrCl > 30 mL/min) AND/OR *Sequential Compression Device (SCD) 5 or more Highest Order ONE of the following medications: *Heparin 5000 units SQ TID (Preferred with Epidurals) *Enoxaparin/Lovenox 40 mg SQ daily (WT < 150 kg, CrCl > 30 mL/min) *Enoxaparin/Lovenox 30 mg SQ daily (WT < 150 kg, CrCl > 10-29 mL/min) *Enoxaparin/Lovenox 30 mg SQ BID (WT < 150 kg, CrCl > 30 mL/min) AND *Sequential Compression Device (SCD) Assessment and Plan Problem List: (1) Syncope ICD Code: R55 - Syncope and collapse (2) Scalp laceration ICD Code: S01.01XA - Laceration without foreign body of scalp, initial encounter Status: Acute (3) Chest pain ICD Code: R07.9 - Chest pain Status: Acute (4) Leukocytosis ICD Code: D72.829 - Elevated white blood cell count, unspecified Assessment and Plan A/P: 1. Syncope: acute episode of dizziness, chest pain and syncopal event. CT Head/C-Spine w/ no acute fracture, trauma series imaging negative, images reviewed by me. Initial trop negative. Telemetry, check serial cardiac enzymes to eval for possible ischemia. IVF for hydration. 2. Scalp Laceration: secondary to above, s/p repair in ER, wound management. 3. Chest Pain: r/o ACS, initial trop negative, check serial enzymes, telemetry , Morphine prn, Resume home medications, hold ASA for head trauma/scalp laceration. 4. Leukocytosis: WBC 23, possibly secondary to fall/injury, no signs of infection, previously falling w/ Dr. Meeks for same, will repeat labs in am, outpatient follow up w/ Hematology as scheduled. 5. DVT Prophylaxis: SCD/Teds 6. Social work for d/c planning as needed. 7. Case discussed w/ ER physician at length, labs/records/imaging reviewed by me. Problem Qualifiers (1) Scalp laceration: Qualified Codes: S01.01XA - Laceration without foreign body of scalp, initial encounter (2) Chest pain: Qualified Codes: R07.9 - Chest pain, unspecified Evon Banuelos MD Nov 01, 2017 21:35
[2017-11-01] MEDS ORDERED: ACETAMINOPHEN/HYDROcodone 325 MG/5 MG TAB PO PRN (21:45)
[2017-11-01] MEDS ORDERED: ACETAMINOPHEN 325 MG TAB PO PRN (21:45)
[2017-11-01] MEDS ORDERED: SENNOSIDES 8.6 MG TAB PO PRN (21:45)
[2017-11-01] MEDS ORDERED: BISACODYL 10 MG SUPP RECTAL PRN (21:45)
[2017-11-01] MEDS ORDERED: LACTULOSE SYRUP 20 GM/30 ML CUP PO PRN (21:45)
[2017-11-01] MEDS ORDERED: MAGNESIUM HYDROXIDE SUSP 30 ML CUP PO PRN (21:45)
[2017-11-01] MEDS ORDERED: MORPHINE SULFATE 2 MG/ML INJ IV PUSH PRN (21:45)
[2017-11-01 21:46] LABS: LYMPHOCYTES 49 % (9-44); MONOCYTES 12 % (0-8); POLYS (SEG NEUTROPHILS) 39 % (16-70); SMUDGE CELLS PRESENT PRESENT
[2017-11-01 22:12] VITALS: BP 146/83; PULSE 81; RESP 16; O2SAT 90; O2SAT 93
[2017-11-01] MEDS: SODIUM CHLOR 0.9% 1000 ML INJ 1,000 ML IV SCH (22:17)
[2017-11-01] MEDS ORDERED: diphenhydrAMINE HCL 50 MG/ML VIAL IV PUSH PRN (23:00)
[2017-11-02] VITALS (8 sets, daily range): BP systolic 109–142; BP diastolic 54–78; PULSE 72–80; RESP 15–20; TEMP 97.8–99; O2SAT 93–98
[2017-11-02] MEDS ORDERED: ZOLPIDEM TARTRATE 5 MG TAB PO PRN (04:45)
[2017-11-02 08:39] LABS: AUTOMATED NEUTROPHIL # 8.2 TH/MM3 (1.8-7.7); BASOPHIL % 0.3 % (0.0-2.0); EOSINOPHIL # 0.2 TH/MM3 (0-0.4); EOSINOPHIL % 1.4 % (0.0-4.0); HEMATOCRIT 33.1 % (39.0-51.0); HEMOGLOBIN 11.2 GM/DL (13.0-17.0); LYMPH % 36.8 % (9.0-44.0); LYMPHOCYTE # 6.1 TH/MM3 (1.0-4.8); MEAN CELL VOLUME 92.5 FL (80.0-100.0); MEAN CORPUSCULAR HEMOGLOBIN 31.2 PG (27.0-34.0); MEAN CORPUSCULAR HGB CONC 33.7 % (32.0-36.0); MEAN PLATELET VOLUME 7.8 FL (7.0-11.0); MONO % 12.4 % (0.0-8.0); MONOCYTE # 2.1 TH/MM3 (0-0.9); NEUT % 49.1 % (16.0-70.0); PLATELET COUNT 238 TH/MM3 (150-450); RED BLOOD COUNT 3.58 MIL/MM3 (4.50-5.90); RED CELL DISTRIBUTION WIDTH 14.1 % (11.6-17.2); WHITE BLOOD COUNT 16.7 TH/MM3 (4.0-11.0)
[2017-11-02] MEDS: SODIUM CHLORIDE 0.9% FLUSH 10 ML FLUSH IV FLUSH SCH ×2 (09:00→21:00)
[2017-11-02] MEDS: DOCUSATE SODIUM 50 MG/SENNA 8.6 MG TAB PO SCH ×2 (09:00→21:51)
[2017-11-02] MEDS ORDERED: TIOTROPIUM BROMIDE 18 MCG INH INH SCH (09:00)
[2017-11-02 09:22] LABS: ALBUMIN 2.8 GM/DL (3.4-5.0); ALKALINE PHOSPHATASE 81 U/L (45-117); ALT (GPT) 15 U/L (12-78); AST (GOT) 13 U/L (15-37); BICARBONATE 23.8 MEQ/L (21.0-32.0); BLOOD UREA NITROGEN 16 MG/DL (7-18); CALCIUM 8.7 MG/DL (8.5-10.1); CHLORIDE 107 MEQ/L (98-107); CREATININE 0.91 MG/DL (0.60-1.30); GLOMERULAR FILTRATION RATE 80 ML/MIN (>89); GLUCOSE,RANDOM 121 MG/DL (74-106); SODIUM (NA) 139 MEQ/L (136-145); TOTAL BILIRUBIN ADULT 0.3 MG/DL (0.2-1.0); TOTAL PROTEIN 6.6 GM/DL (6.4-8.2); TROPONIN I LESS THAN 0.02 NG/ML (0.02-0.05)
[2017-11-02] MEDS: CARVEDILOL 3.125 MG TAB PO SCH ×2 (09:31→21:51)
[2017-11-02] MEDS: SERTRALINE HCL 100 MG TAB PO SCH (09:31)
[2017-11-02] MEDS: SODIUM CHLOR 0.9% 1000 ML INJ 1,000 ML IV SCH ×2 (09:32→17:31)
[2017-11-02 10:14] LABS: BANDS 1 % (0-6); LYMPHOCYTES 47 % (9-44); MONOCYTES 5 % (0-8); NEUTROPHIL # MANUAL DIFF 7.7 TH/MM3 (1.8-7.7); POLYS (SEG NEUTROPHILS) 45 % (16-70)
--- NOTE | 2017-11-02 16:38 | HHI.PR ---
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 He also tells me that he had chest pain 10/10 earlier today but didn't call anyone because "I don't believe in medication". Currently he is chest pain free. Denies any palpitations, nausea or vomiting, SOB. His fringing machine operator is Dr. Tinoco. At this time, he also denied any lightheadedness or dizziness. when asked about any weakness on his lower ext, he tells me that his right leg "gives out" from time to time. Has to use a walker at times. states that he does get back pains which comes and goes. Denies any urinary or stool incontinence. Objective Vitals Vital Signs Date Time Temp Pulse Resp B/P (MAP) Pulse Ox O2 Delivery O2 Flow Rate FiO2 11/02/17 15:02 98.4 77 16 135/60 (85) 98 11/02/17 13:35 72 11/02/17 12:11 97.8 73 20 109/54 (72) 93 11/02/17 08:48 99.0 75 15 142/65 (90) 98 Nasal Cannula 11/02/17 06:38 72 16 129/59 (82) 97 Room Air 11/02/17 02:06 80 16 142/78 (99) 96 Nasal Cannula 2.00 11/01/17 22:14 98 Nasal Cannula 3.00 11/01/17 22:12 81 16 146/83 (104) 93 Room Air 11/01/17 18:18 79 18 125/59 (81) 94 Room Air Result Diagram: 11/02/17 0750 11/02/17 0750 Imaging Last Impressions Head CT 11/01/171541 Signed Impressions: Service Date/Time: Wednesday, November 01, 2017 18:47 - CONCLUSION: 1. No acute findings. 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 Chris Palafox MD Chest X-Ray 11/01/171541 Signed Impressions: Service Date/Time: Wednesday, November 01, 2017 16:07 - CONCLUSION: Mild compensated cardiomegaly Tano Ames MD FACR Cervical Spine CT 11/01/171541 Signed Impressions: Service Date/Time: Wednesday, November 01, 2017 18:47 - CONCLUSION: 1. Moderate degenerative disc disease. No acute fracture. No prevertebral soft tissue swelling. Chris Palafox MD Thoracic Spine X-Ray 11/01/17 Signed Impressions: Service Date/Time: Wednesday, November 01, 2017 16:11 - CONCLUSION: No acute abnormality. Floyd Vogel Jr., MD Lumbar Spine CT 11/01/17 0000 Signed Impressions: Service Date/Time: Wednesday, November 01, 2017 18:47 - CONCLUSION: 1. No acute fracture. 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 Chris Palafox MD Hip and Pelvis X-Ray 11/01/17 Signed Impressions: Service Date/Time: Wednesday, November 01, 2017 16:14 - CONCLUSION: Degenerative changes, negative for fracture Tano Ames MD FACR Femur X-Ray 11/01/17 Signed Impressions: Service Date/Time: Wednesday, November 01, 2017 16:14 - CONCLUSION: No fracture or dislocation. Floyd Vogel Jr., MD Abdomen/Pelvis CT 11/01/17 Signed Impressions: Service Date/Time: Wednesday, November 01, 2017 18:58 - CONCLUSION: 1. Negative for acute traumatic injury within the abdomen and pelvis. 2. Non acute findings include nonobstructing renal calculi. Renal cysts also present. 3. Gastric distention with large air-fluid level. 4. Mild constipation. 5. 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 Chris Palafox MD Objective Remarks GENERAL: Pleasant elderly white male in no acute distress. HEENT: EOMI. Head laceration s/p repair CARDIOVASCULAR: Regular rate and rhythm. No obvious murmurs to auscultation. No chest tenderness to palpation. RESPIRATORY: No obvious rhonchi or wheezing. Clear to auscultation. Breath sounds equal bilaterally. GASTROINTESTINAL: Abdomen soft, non-tender, nondistended. BS normal. MUSCULOSKELETAL: Extremities without edema. No obvious deformities. NEUROLOGICAL: appears anxious. Moving both upper and lower extremities spontaneously. A/P Problem List: (1) Syncope ICD Code: R55 - Syncope and collapse (2) Scalp laceration ICD Code: S01.01XA - Laceration without foreign body of scalp, initial encounter Status: Acute (3) Chest pain ICD Code: R07.9 - Chest pain Status: Acute (4) Leukocytosis ICD Code: D72.829 - Elevated white blood cell count, unspecified Assessment and Plan 1. Syncope/Chest Pain: acute episode of dizziness, chest pain and syncopal event. Trop neg x 3. check lexiscan (myocardial perfusion scan in 2017 showed intermediate risk). Pt does have a hx of CAD. Check ECHO. ECHO in 2017 showed grade 3 diastolic dysfunction. carotid u/s ordered. morpine/nitropast prn chest pain. on lipitor and coreg. resume ASA and pt's imdur. 2. Scalp Laceration: secondary to above, s/p repair in ER, wound management. 3. Leukocytosis: WBC 23, possibly secondary to fall/injury, no signs of infection, previously falling w/ Dr. Meeks for same, will repeat labs in am, outpatient follow up w/ Hematology as scheduled. 4: Severe spinal stenosis noted at L3-4. Check MRI Lumbar and consult neurosx for further eval and recs. Appreciate assistance. 5. DVT Prophylaxis: SCD/Teds Discharge Planning lexiscan in AM. f/u L MRI. Problem Qualifiers (1) Scalp laceration: Qualified Codes: S01.01XA - Laceration without foreign body of scalp, initial encounter (2) Chest pain: Qualified Codes: R07.9 - Chest pain, unspecified Cha Huitron MD Nov 02, 2017 16:38
[2017-11-02] MEDS ORDERED: MORPHINE SULFATE 2 MG/ML INJ IV PUSH PRN (17:00)
[2017-11-02] MEDS ORDERED: NITROGLYCERIN 2% OINT 1 GM PACKET TOPICAL PRN (17:00)
[2017-11-02] MEDS: ASPIRIN EC 81 MG TABEC PO SCH (18:06)
[2017-11-02] MEDS: ISOSORBIDE MONONITRATE 30 MG CR TAB (IMDUR) PO SCH (18:06)
--- NOTE | 2017-11-02 19:27 | EKG ---
Date Performed: 11/01/2017 Time Performed: 16:38:36 PTAGE: 82 years EKG: ECTOPIC ATRIAL RHYTHM RIGHT BUNDLE BRANCH BLOCK ABNORMAL ECG Since PREVIOUS TRACING , no significant change noted PREVIOUS TRACIN05/03/2017 21.33 DOCTOR: Qing Mckay Interpretating Date/Time 11/02/2017 19:24:32
--- NOTE | 2017-11-02 19:27 | EKG ---
Date Performed: 11/01/2017 Time Performed: 18:29:19 PTAGE: 82 years EKG: Sinus rhythm WITH FIRST DEGREE AV BLOCK RIGHT BUNDLE BRANCH BLOCK ABNORMAL ECG Since PREVIOUS TRACING , no significant change noted PREVIOUS TRACIN11/01/2017 16.38 DOCTOR: Qing Mckay Interpretating Date/Time 11/02/2017 19:24:41
--- NOTE | 2017-11-02 21:02 | MB ---
cc: Serge RAMEY Jorge DATE: 11/02/2017 CHIEF COMPLAINT: Back pain. HISTORY OF PRESENT ILLNESS: This is an 82-year-old male patient who presented to the ER after a syncopal episode at home. The patient reports that since this episode he has noted increasing back pain. He has a history of back pain for approximately 10-15 years. He has not really seen a physician for this. At times, he has some pain going down especially into the right leg. The patient underwent evaluation in the ER where he was found to have spinal stenosis by CT. The patient denies any other significant problems. He has some difficulty with urination because it causes pain, but otherwise is unremarkable. PAST MEDICAL HISTORY: Remarkable for anxiety, depression, prostate CA, hypertension, hyperlipidemia, coronary artery disease. PAST SURGICAL HISTORY: Includes cardiac stenting, CABG, prostatectomy, left hip replacement, tonsillectomy, and right kidney stent. ALLERGIES: INCLUDE SULFA, CEPHALEXIN AND CLOPIDOGREL. FAMILY HISTORY: He denies any diabetes mellitus or cardiac history. SOCIAL HISTORY: Reveals that he does not use alcohol, tobacco, or drugs. MEDICATIONS: Include allopurinol, levothyroxine, atorvastatin, isosorbide, aspirin, nitroglycerin, Ambien, Benadryl, Zofran, hydrocodone. REVIEW OF SYSTEMS: Unremarkable except pertaining to the above history. PHYSICAL EXAMINATION: VITAL SIGNS: Temperature of 98.1, blood pressure 154/73, pulse of 87, respirations of 18. HEENT: Unremarkable, except for a small head laceration that has been repaired. NECK: Supple. CHEST: Symmetric. LUNGS: Clear. HEART: Shows a regular rhythm. Normal heart sounds. ABDOMEN: Soft and nontender. EXTREMITIES: Clear. NEUROLOGIC: The patient is alert and awake, follows commands well. He is oriented x3. He has a fluent speech. Affect appears normal. Cranial nerves 2-12 are intact. Motor exam is 5+/5. Sensory exam shows decreased sensation throughout the right leg. Deep tendon reflexes are 3+ at the right knee jerk, trace at the left knee jerk and trace at the ankle jerks. Examination of the back shows marked tenderness over the left SI joint area and tenderness throughout the paraspinal muscles. Ambulation was not attempted. IMAGING STUDIES: Review of the CT scan of the spine shows what appears to be significant degenerative changes with evidence of severe stenosis at the level of L2-L3 and L3-L4. ASSESSMENT AND PLAN: Chronic back pain secondary to degenerative disease of the spine and spinal stenosis. Because of his recent injury, he has had some increase in the back pain due to the fall. I would recommend conservative management at the present time with some physical therapy with local treatment modalities to the back and exercise program. He should also be evaluated as an outpatient once his medical problems are stabilized for determination if he is a surgical candidate or not. Serge PIÑA//dylan , 06:45 PM , 08:24 PM MTDD
[2017-11-02] MEDS: ATORVASTATIN 20 MG TAB PO SCH (21:51)
--- NOTE | 2017-11-02 22:12 | RADRPT ---
EXAM DATE/TIME: 11/02/2017 21:19 [place] COMPARISON: US CAROTID ARTERIES, February 13, 2017, 9:19. INDICATIONS : Syncope. MEDICAL HISTORY : Myocardial infarction. Congestive heart failure. Renal calculi. Carcinoma, prostate. Thyroid disease. CVA. Afib. HTN. COPD. Pneumonia. Dyspnea. GERD. Arthritis. Diabetes. UTI Sepsis. Depression. Anxiety . Anticoagulant therapy. SURGICAL HISTORY : Tonsillectomy. CABG. Coronary artery stent. Cataract. Cardiac cath. Left hip replacement. Right kidne y stent. Radiation therapy. Blood transfusions. ENCOUNTER: Subsequent ACUITY: > 1 year PAIN SCORE: 3/10 LOCATION: Bilateral neck PEAK SYSTOLIC VELOCITIES (cm/sec): ICA/CCA RATIO: Right: 2.1 Left: 2.0 ICA: Right: 151.6 Left: 305.0 CCA: Right: 72.7 Left: 153.8 ECA: Right: 187.2 Left: 130.7 VERTEBRAL: Right: 45.2 antegrade Left: 125.9 antegrade Elevated flow velocities and ICA/CCA ratios have been found to correlate with increased degrees of vessel stenosis, calculated as percentage of diameter relative to a normal segment of distal ICA/CCA FINDINGS: RIGHT CAROTID: Decreasing stenosis on the right when compared to the previous study. Borderline significant. LEFT CAROTID: Increasing stenosis on the left when compared to the previous study. Velocities and ratio would sugg est this is significant. VERTEBRAL ARTERIES: Antegrade flow is seen in both vertebral arteries. MISCELLANEOUS: None. CONCLUSION: Depression of the known carotid disease. Disease on the left to be significant. Either CT angiograph y or MR angiography would be of benefit. Tano Ames MD FACR on November 02, 2017 at 22:06 Board Certified Radiologist. This report was verified electronically.
[2017-11-03 00:18] VITALS: BP 98/52; PULSE 73; RESP 18; TEMP 98.3; O2SAT 94
[2017-11-03] MEDS: SODIUM CHLOR 0.9% 1000 ML INJ 1,000 ML IV SCH ×3 (03:31→23:31)
[2017-11-03 03:41] VITALS: BP 106/55; PULSE 62; RESP 18; TEMP 98; O2SAT 95
[2017-11-03] MEDS: LEVOTHYROXINE SODIUM 50 MCG TAB PO SCH (06:40)
[2017-11-03] MEDS: ISOSORBIDE MONONITRATE 30 MG CR TAB (IMDUR) PO SCH ×2 (06:43→18:18)
[2017-11-03 07:25] VITALS: PULSE 62
[2017-11-03] MEDS: ALLOPURINOL 300 MG TAB PO SCH (08:13)
[2017-11-03] MEDS: DOCUSATE SODIUM 50 MG/SENNA 8.6 MG TAB PO SCH ×2 (08:14→22:03)
[2017-11-03] MEDS: [UNRECOGNIZED DRUG - OTHER] INH SCH (08:14)
[2017-11-03] MEDS: CARVEDILOL 3.125 MG TAB PO SCH ×2 (08:14→22:04)
[2017-11-03] MEDS: ASPIRIN EC 81 MG TABEC PO SCH (08:14)
[2017-11-03] MEDS: SERTRALINE HCL 100 MG TAB PO SCH (08:14)
[2017-11-03] MEDS: SODIUM CHLORIDE 0.9% FLUSH 10 ML FLUSH IV FLUSH SCH ×2 (08:14→21:00)
[2017-11-03 09:07] VITALS: BP 134/63; PULSE 60; RESP 20; TEMP 98.2; O2SAT 98
[2017-11-03] MEDS: SODIUM CHLORIDE 0.9% FLUSH 10 ML FLUSH IV FLUSH PRN ×2 (09:34→16:01)
[2017-11-03] MEDS: ONDANSETRON HCL 4 MG/2 ML VIAL IVP PRN (09:34)
--- NOTE | 2017-11-03 09:57 | HHI.PR ---
Subjective Remarks Pt states that he feels dizzy and not feeling well. complains of nausea but no vomiting. not sure if he has chest pains but complains of abdominal discomfort. Objective Vitals Vital Signs Date Time Temp Pulse Resp B/P (MAP) Pulse Ox O2 Delivery O2 Flow Rate FiO2 11/03/17 09:07 98.2 60 20 134/63 (86) 98 11/03/17 03:41 98.0 62 18 106/55 (72) 95 11/03/17 00:18 98.3 73 18 98/52 (67) 94 11/02/17 20:10 98.1 76 18 118/58 (78) 98 11/02/17 15:27 75 11/02/17 15:02 98.4 77 16 135/60 (85) 98 11/02/17 13:35 72 11/02/17 12:11 97.8 73 20 109/54 (72) 93 I/O 11/02/17 11/02/17 11/02/17 11/03/17 11/03/17 11/03/17 07:00 15:00 23:00 07:00 15:00 23:00 Output Total 600 ml 400 ml 400 ml Balance -600 ml -400 ml -400 ml Output Urine Total 600 ml 400 ml 400 ml Result Diagram: 11/02/17 0750 11/02/17 0750 Imaging Last Impressions Head CT 11/01/17 154 Signed Impressions: Service Date/Time: Wednesday, November 01, 2017 18:47 - CONCLUSION: 1. No acute findings. 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 Chris Palafox MD Chest X-Ray 11/01/17 154 Signed Impressions: Service Date/Time: Wednesday, November 01, 2017 16:07 - CONCLUSION: Mild compensated cardiomegaly Tano Ames MD FACR Cervical Spine CT 11/01/17 154 Signed Impressions: Service Date/Time: Wednesday, November 01, 2017 18:47 - CONCLUSION: 1. Moderate degenerative disc disease. No acute fracture. No prevertebral soft tissue swelling. Chris Palafox MD Thoracic Spine X-Ray 11/01/17 0000 Signed Impressions: Service Date/Time: Wednesday, November 01, 2017 16:11 - CONCLUSION: No acute abnormality. Floyd Vogel Jr., MD Lumbar Spine CT 11/01/17 Signed Impressions: Service Date/Time: Wednesday, November 01, 2017 18:47 - CONCLUSION: 1. No acute fracture. 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 Chris Palafox MD Hip and Pelvis X-Ray 11/01/17 0000 Signed Impressions: Service Date/Time: Wednesday, November 01, 2017 16:14 - CONCLUSION: Degenerative changes, negative for fracture Tano Ames MD FACR Femur X-Ray 11/01/17 Signed Impressions: Service Date/Time: Wednesday, November 01, 2017 16:14 - CONCLUSION: No fracture or dislocation. Floyd Vogel Jr., MD Abdomen/Pelvis CT 11/01/17 0000 Signed Impressions: Service Date/Time: Wednesday, November 01, 2017 18:58 - CONCLUSION: 1. Negative for acute traumatic injury within the abdomen and pelvis. 2. Non acute findings include nonobstructing renal calculi. Renal cysts also present. 3. Gastric distention with large air-fluid level. 4. Mild constipation. 5. 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 Chris Palafox MD Objective Remarks GENERAL: Pleasant elderly white male in no acute distress. HEENT: EOMI. Head laceration s/p repair CARDIOVASCULAR: Regular rate and rhythm. No obvious murmurs to auscultation. No chest tenderness to palpation. RESPIRATORY: No obvious rhonchi or wheezing. Clear to auscultation. Breath sounds equal bilaterally. GASTROINTESTINAL: Abdomen soft, non-tender, nondistended. BS normal. MUSCULOSKELETAL: Extremities without edema. No obvious deformities. NEUROLOGICAL: appears anxious. sitting on wheelchair A/P Problem List: (1) Syncope ICD Code: R55 - Syncope and collapse (2) Scalp laceration ICD Code: S01.01XA - Laceration without foreign body of scalp, initial encounter Status: Acute (3) Chest pain ICD Code: R07.9 - Chest pain Status: Acute (4) Leukocytosis ICD Code: D72.829 - Elevated white blood cell count, unspecified Assessment and Plan 1. Syncope/Chest Pain: acute episode of dizziness, chest pain and syncopal event. Trop neg x 3. check lexiscan (myocardial perfusion scan in 2017 showed intermediate risk). Pt does have a hx of CAD. Check ECHO. ECHO in 2017 showed grade 3 diastolic dysfunction. carotid u/s showed increased L carotid stenosis. Carotid angiogram ordered. If shows mod to severe stenosis, will consult vasc sx. continue morpine/nitropast prn chest pain. on lipitor and coreg. on ASA and imdur. Cardiology consult in place 2. Scalp Laceration: secondary to above, s/p repair in ER, wound management. 3. Leukocytosis: WBC 23, possibly secondary to fall/injury, no signs of infection, previously falling w/ Dr. Meeks for same, will repeat labs in am, outpatient follow up w/ Hematology as scheduled. 4: Severe spinal stenosis noted at L3-4. MRI Lumbar pending, neurosx evaluated the pt and recommended conservative management for now. PT eval in place. 5. DVT Prophylaxis: SCD/Teds Discharge Planning lexiscan pending CTA carotids pending. May need vascular sx consult. cards consult pending. Problem Qualifiers (1) Scalp laceration: Qualified Codes: S01.01XA - Laceration without foreign body of scalp, initial encounter (2) Chest pain: Qualified Codes: R07.9 - Chest pain, unspecified Cha Huitron MD Nov 03, 2017 09:57
[2017-11-03] MEDS ORDERED: IOHEXOL 350 MG/ML 10 ML VIAL (for RAD DIAG) IVCONTRAST ONE (10:08)
--- NOTE | 2017-11-03 10:26 | RADRPT ---
EXAM DATE/TIME: 11/03/2017 09:00 [facility] COMPARISON: CT LUMBAR SPINE W CONTRAST, November 01, 2017, 18:47. INDICATIONS : Fall, back pain. MEDICAL HISTORY : Chronic obstructive pulmonary disease. Diabetes mellitus type 2. Carcinoma, prostate. SURGICAL HISTORY : Coronary artery stent. CABG Tonsillectomy. ENCOUNTER: Initial ACUITY: 1 day PAIN SCORE: 4/10 LOCATION: Paraspinal TECHNIQUE: Multiplanar multisequence MRI of the lumbar spine was performed without contrast. FINDINGS: There is grade I anterolisthesis of L3 in relation to L4 and L4 in relation to L5. Diffuse degenerati ve disc disease is noted at all levels. There is mild chronic compression deformity involving L1. No acute compression fracture is noted. Severe circumferential spinal stenosis is noted at L2-3 and L3-4 . Moderate circumferential spinal stenosis is noted at L4-5. Mild circumferential spinal stenosis is noted at L1-2. Facet joint hypertrophy is noted bilaterally at all levels within lumbar spine. There are cystic lesions arising from both kidneys. T12-L1: Facet joint hypertrophy and ligamentous laxity is noted bilaterally. Minimal bilateral foraminal narr owing is noted. No spinal stenosis or focal disc herniation is noted. No significant disc bulge is no dangelo. L1-L2: Mild circumferential spinal stenosis and bilateral foraminal narrowing is noted secondary to diffuse disc bulge, facet joint hypertrophy and ligamentous laxity. No focal disc herniation is noted. L2-L3: Severe circumferential spinal stenosis, severe right foraminal narrowing, and moderate left neurofora tal narrowing are noted secondary to diffuse disc bulge, facet joint hypertrophy and ligamentous la xity. No focal disc herniation is noted L3-L4: Severe circumferential spinal stenosis, moderate to severe right neuroforaminal narrowing and mild le ft neuroforaminal narrowing are noted secondary to diffuse disc bulge, facet hypertrophy and ligament ous laxity. Grade I anterolisthesis of L3 in relation to L4 is noted. No focal disc herniation is not ed. L4-L5: Moderate circumferential spinal stenosis and mild bilateral foraminal narrowing is noted secondary to diffuse disc bulge, facet joint hypertrophy and grade I anterolisthesis of L4 in relation to L5. No focal disc herniation is noted. L5-S1: Moderate bilateral foraminal narrowing is noted secondary to diffuse disc osteophyte complex and face t joint hypertrophy bilaterally. No significant spinal stenosis is noted. No focal disc herniation is noted. CONCLUSION: 1. Severe spinal stenosis severe right foraminal narrowing and moderate left foraminal narrowing at L 2-3. 2. Severe spinal stenosis, moderate to severe right neural foraminal narrowing and mild left neurofor aminal narrowing at L3-4. 3. Moderate spinal stenosis and mild bilateral foraminal narrowing at L4-5. 4. Moderate bilateral foraminal narrowing at L5-S1. 5. Mild spinal stenosis and bilateral foraminal narrowing at L1-2. 6. Grade I anterolisthesis of L3 in relation to L4 and L4 in relation to L5. 7. Mild chronic compression deformity involving L1. 8. Diffuse degenerative disc disease throughout the lumbar spine. 9. Bilateral renal cysts. Roosevelt Danielle MD on November 03, 2017 at 10:07 Board Certified Radiologist. This report was verified electronically.
--- NOTE | 2017-11-03 11:11 | RADRPT ---
EXAM DATE/TIME: 11/03/2017 09:53 [facility] COMPARISON: No previous studies available for comparison. INDICATIONS : Syncope, rwecent fall with lac to left paritial. IV CONTRAST: 80 cc Omnipaque 350 (iohexol) IV RADIATION DOSE: 27.93 CTDIvol (mGy) MEDICAL HISTORY : Cerebrovascular disease. Cardiovascular disease Hypertension.Diabetes, prostate ca SURGICAL HISTORY : CABG ENCOUNTER: Initial ACUITY: 2 days PAIN SCALE: 0/10 LOCATION: cranial Elevated flow velocities and ICA/CCA ratios have been found to correlate with increased degrees of vessel stenosis, calculated as percentage of diameter relative to a normal segment of distal ICA/CCA. TECHNIQUE: Volumetric scanning was performed using a multirow detector CT scanner. The data was post processed with a variety of visualization algorithms including full-volume maximum intensity projection, multip lanar sliding thin-slab reformation, curved-planar reformation, and surface-rendering techniques. Us ing automated exposure control and adjustment of the mA and/or kV according to patient size, radiatio n dose was kept as low as reasonably achievable to obtain optimal diagnostic quality images. DICOM f ormat image data is available electronically for review and comparison. FINDINGS: AORTIC ARCH: There is a three-vessel origin of the great vessels from the aorta. No evidence of ostial narrowing. RIGHT CAROTID: Less than 50% stenosis is noted involving the right proximal internal carotid artery with scattered c alcified atherosclerotic plaques noted. The right external carotid artery is patent without significa nt stenosis. LEFT CAROTID: There is a shelf-like plaque approximate 2.4 cm distal to the bifurcation which results in approximat e 60% stenosis. Extensive calcified atherosclerotic plaque is noted within the left proximal internal carotid artery. The left external carotid artery is patent without significant stenosis. VERTEBRALS: The left vertebral artery is dominant. No stenotic lesions are seen. CONCLUSION: 1. Approximate 60% stenosis of the left proximal internal carotid artery secondary to shelf- like isidro que or proximally 2.4 cm from the bifurcation. 2. Less than 50% stenosis involving the right proximal internal carotid artery. Roosevelt Danielle MD on November 03, 2017 at 11:02 Board Certified Radiologist. This report was verified electronically.
--- NOTE | 2017-11-03 11:29 | MB ---
cc: Chinedu Masterson MD DATE: 11/01/2017 REASON FOR CONSULTATION: Atypical chest pain and syncope. HISTORY OF PRESENT ILLNESS: The patient is a pleasant 82-year-old gentleman with quite a few hospital admissions for chest pain, including 4 nuclear stress tests I see in the chart, most recently 02/2017. He was walking and tripped on a stair with certain loss of consciousness. He is a very vague historian. He said he does have off and on chest pressure. Again, he is a very vague historian and says he feels generally unwell, but is unable to give much in the way of details. I do note that he is a DNR. PAST MEDICAL HISTORY: Coronary artery disease, status post CABG x 4, COPD, hypothyroidism, gout, and CVA. CURRENT MEDICATIONS: 1. Synthroid. 2. Lipitor 20 mg at bedtime. 3. Imdur 30 mg daily. 4. Aspirin 81 mg daily. 5. Carvedilol 3.125 mg every 12 hours. ALLERGIES: SULFA, CEPHALEXIN, PLAVIX. PHYSICAL EXAMINATION: VITAL SIGNS: Afebrile, pulse 60, respiratory rate 20, blood pressure 134/63, saturating 98% on 2 liters. GENERAL: Pleasant, elderly gentleman who is a vague historian, in no distress. NECK: No JVD. LUNGS: Clear to auscultation bilaterally. CARDIOVASCULAR: Regular rate and rhythm. No murmurs appreciated. ABDOMEN: Benign. EXTREMITIES: No edema. LABORATORY DATA: White count 16.7, down from 23; hematocrit 33.1; platelets 238. Sodium 139, potassium 4.0, chloride 107, bicarbonate 23.8, BUN 16, creatinine 0.91, glucose 121. Cardiac enzymes are negative x 3. EKG from admission shows sinus rhythm with nonspecific ST changes more prominent anterolaterally than previous. ASSESSMENT AND PLAN: 1. Chest pain. The patient's chest pain is very vague, but an EKG is slightly more abnormal. I will have him undergo a nuclear stress test. 2. Syncope. It is unclear if the patient truly lost consciousness or had a mechanical fall. He will get an echocardiogram and CTA carotids have been ordered. I will continue to monitor him on telemetry. If the above testing are unremarkable, he likely could be discharged home tomorrow. Thank you again for the opportunity to participate in this patient's care. MD LIVIER Camargo/JULIO , 10:44 AM , 11:28 AM
[2017-11-03] MEDS ORDERED: REGADENOSON INJ 0.4 MG/5 ML SYR ONE (11:54)
--- NOTE | 2017-11-03 13:54 | RADRPT ---
EXAM DATE/TIME: 11/03/2017 11:28 [facility] COMPARISON: MYOCARDIAL PERF PHARM SPECT, GATED W/EF, February 25, 2017, 10:43. INDICATIONS : Syncope. Mid chest pain for one day. Coronary artery disease. Stent. DOSE: 30.1 mCi Tc99m Myoview at stress. 10.0 mCi Tc99m Myoview at rest. 0.4 mg Lexiscan STRESS SYMPTOMS: Shortness of breath. EJECTION FRACTION: 62% MEDICAL HISTORY : Carcinoma, prostate. Hypertension. SURGICAL HISTORY : CABG Tonsillectomy. Prostatectomy. ENCOUNTER: Initial ACUITY: 1 day PAIN SCALE: 2/10 LOCATION: Midsternal chest TECHNIQUE: The patient underwent pharmacologic stress with infusion of prescribed dose. Continuous ECG tracing was monitored during stress. Gated SPECT imaging was performed after stress and conventional SPECT i maging was performed at rest. The examination was performed on a SPECT/CT scanner, both attenuation and non-corrected datasets were reviewed. FINDINGS: DISTRIBUTION: The maximum perfused segment at stress is in the septal wall. PERFUSION STUDY: The pattern of perfusion at stress is within normal limits. GATED STUDY: There is intact wall motion and thickening without hypokinetic or dyskinetic segments. Left ventricul ar ejection fraction is equal to 62%. CONCLUSION: No evidence of infarct, ischemia or focal wall motion laterally. RISK CATEGORY: Low risk (less than 1% annual mortality rate) Roosevelt Danielle MD on November 03, 2017 at 13:48 Board Certified Radiologist. This report was verified electronically.
--- NOTE | 2017-11-03 15:34 | ECHRPT ---
Indication: SYNCOPE CONCLUSIONS Normal left ventricular size. Wall thickness is normal other than mild focal hypertrophy of the basal septum. The left ventricular systolic function is low normal with an estimated ejection fraction in the rang e of 50- 55%. Aortic valve sclerosis is present. There is mild tricuspid valve regurgitation. BP: / HR: Rhythm: MEASUREMENTS (Male / Female) Normal Values Technical Quality: 2D ECHO LV Diastolic Diameter PLAX 4.0 cm 4.2 - 5.9 / 3.9 - 5.3 cm LV Systolic Diameter PLAX 3.1 cm IVS Diastolic Thickness 1.1 cm 0.6 - 1.0 / 0.6 - 0.9 cm LVPW Diastolic Thickness 0.8 cm 0.6 - 1.0 / 0.6 - 0.9 cm LV Relative Wall Thickness 0.5 RV Internal Dim ED PLAX 2.1 cm M-MODE Aortic Root Diameter MM 3.3 cm AV Cusp Separation MM 2.1 cm DOPPLER Mitral E Point Velocity 63.2 cm/s Mitral A Point Velocity 80.5 cm/s Mitral E to A Ratio 0.8 TR Peak Velocity 223.0 cm/s TR Peak Gradient 19.9 mmHg Right Atrial Pressure 10.0 mmHg Pulmonary Artery Systolic Pressu 29.9 mmHg Right Ventricular Systolic Press 29.9 mmHg FINDINGS LEFT VENTRICLE Normal left ventricular size. Wall thickness is normal. The left ventricular systolic function is low normal with an estimated ejection fraction in the rang e of 50- 55%. Nonobstructive prominent basal hypertrophy is present consistent with sigmoid septum. RIGHT VENTRICLE Normal right ventricular size and systolic function. LEFT ATRIUM The left atrial size is normal. RIGHT ATRIUM The right atrial size is normal. ATRIAL SEPTUM Normal atrial septal thickness without atrial level shunting by limited color doppler interrogation. AORTA The aortic root and proximal ascending aorta are normal in size on limited imaging. MITRAL VALVE Structurally normal mitral valve. No mitral valve stenosis or regurgitation. AORTIC VALVE Aortic valve sclerosis is present. TRICUSPID VALVE There is mild tricuspid valve regurgitation. PULMONARY VALVE No pulmonary valve regurgitation or stenosis. VESSELS The inferior vena cava is normal in size. PERICARDIUM No pericardial effusion. Chinedu Masterson MD (Electronically Signed) Final Date:03 November 2017 15:34
[2017-11-03 16:47] VITALS: BP 117/70; PULSE 78; RESP 18; TEMP 98.2; O2SAT 99
[2017-11-03 21:12] VITALS: BP 139/80; PULSE 89; RESP 18; TEMP 98.2; O2SAT 98
[2017-11-03] MEDS: ATORVASTATIN 20 MG TAB PO SCH (22:04)
[2017-11-04 00:14] VITALS: BP 129/60; PULSE 73; RESP 18; TEMP 98.1; O2SAT 97
[2017-11-04 03:42] VITALS: BP 134/61; PULSE 72; RESP 18; TEMP 98.3; O2SAT 93
[2017-11-04] MEDS: LEVOTHYROXINE SODIUM 50 MCG TAB PO SCH (06:12)
[2017-11-04] MEDS: ISOSORBIDE MONONITRATE 30 MG CR TAB (IMDUR) PO SCH (07:14)
[2017-11-04 08:00] VITALS: PULSE 68
[2017-11-04 08:16] VITALS: BP 124/60; PULSE 67; RESP 20; TEMP 97.8; O2SAT 97
--- NOTE | 2017-11-04 09:09 | PD.CARD.PN ---
Subjective Subjective Remarks Pt say his chest pain is better; he is still very vague about sx. Objective Medications Current Medications Medications (Trade) Dose Ordered Sig/Emily Route Start Time Stop Time Status Last Admin Sodium Chloride 1,000 ml @ 100 mls/hr Q10H IV 11/01/17 21:31 11/03/17 16:01 (NS Flush) 2 ml UNSCH PRN IV FLUSH 11/01/17 21:45 11/03/17 16:01 (NS Flush) 2 ml BID IV FLUSH 11/02/17 09:00 (Zofran Inj) 4 mg Q6H PRN IVP 11/01/17 21:45 11/03/17 09:34 (Tylenol) 650 mg Q6H PRN PO 11/01/17 21:45 ([place] 5-325 Mg) 1 tab Q4H PRN PO 11/01/17 21:45 (Morphine Inj) 2 mg Q3H PRN IV PUSH 11/01/17 21:45 11/01/17 22:17 (Christina-Colace) 1 tab BID PO 11/02/17 09:00 11/03/17 22:03 (Milk Of Magnesia Liq) 30 ml Q12H PRN PO 11/01/17 21:45 (Senokot) 17.2 mg Q12H PRN PO 11/01/17 21:45 (Dulcolax Supp) 10 mg DAILY PRN RECTAL 11/01/17 21:45 (Lactulose Liq) 30 ml DAILY PRN PO 11/01/17 21:45 (Lipitor) 20 mg HS PO 11/02/17 21:00 11/03/17 22:04 (Coreg) 3.125 mg Q12HR PO 11/02/17 09:00 11/03/17 22:04 (Zoloft) 100 mg DAILY PO 11/02/17 09:00 11/03/17 08:14 (Benadryl Inj) 25 mg Q4H PRN IV PUSH 11/01/17 23:00 11/01/17 23:03 (Ambien) 5 mg HS PRN PO 11/02/17 04:45 Patient Own Medication *tiotropium bromide and olodate... DAILY INH 11/03/17 09:00 Future hold 11/03/17 08:14 (Nitroglycerin 2% Oint) 0.5 inch Q6HR PRN TOPICAL 11/02/17 17:00 (Morphine Inj) 1 mg Q4H PRN IV PUSH 11/02/17 17:00 (Ecotrin Ec) 81 mg DAILY PO 11/02/17 17:15 11/03/17 08:14 (Imdur) 30 mg DAILY@0700,1900 PO 11/02/17 19:00 11/04/17 07:14 (Zyloprim) 300 mg DAILY PO 11/03/17 09:00 11/03/17 08:13 (Synthroid) 50 mcg DAILY@0600 PO 11/03/17 06:00 11/04/17 06:12 Vital Signs / I&O Vital Signs Date Time Temp Pulse Resp B/P (MAP) Pulse Ox O2 Delivery O2 Flow Rate FiO2 11/04/17 08:16 97.8 67 20 124/60 (81) 97 11/04/17 03:42 98.3 72 18 134/61 (85) 93 11/04/17 00:14 98.1 73 18 129/60 (83) 97 11/03/17 21:12 98.2 89 18 139/80 (99) 98 11/03/17 16:47 98.2 78 18 117/70 (86) 99 11/03/17 09:07 98.2 60 20 134/63 (86) 98 I/O 11/03/17 11/03/17 11/03/17 11/04/17 11/04/17 11/04/17 07:00 15:00 23:00 07:00 15:00 23:00 Intake Total 1000 ml Output Total 400 ml 400 ml 600 ml 650 ml Balance -400 ml -400 ml 400 ml -650 ml Intake IV Total 1000 ml Output Urine Total 400 ml 400 ml 600 ml 650 ml # Voids 2 Physical Exam GENERAL: This is a well-nourished, well-developed patient, in no apparent distress. CARDIOVASCULAR: Regular rate and rhythm without murmurs, gallops, or rubs. RESPIRATORY: Clear to auscultation. Breath sounds equal bilaterally. No wheezes , rales, or rhonchi. GASTROINTESTINAL: Abdomen soft, non-tender, nondistended. Normal active bowel sounds MUSCULOSKELETAL: Extremities without clubbing, cyanosis, or edema. NEURO: Alert & Oriented x4 to person, place, time, situation. Moves all ext x4 Imaging Last Impressions Neck CTA 11/03/17 0000 Signed Impressions: Service Date/Time: Friday, November 03, 2017 09:53 - CONCLUSION: 1. Approximate 60%% stenosis of the left proximal internal carotid artery secondary to shelf- like plaque or proximally 2.4 cm from the bifurcation. 2. Less than 50%% stenosis involving the right proximal internal carotid artery. Roosevelt Danielle MD Myocardial Perfusion Scan Nuc Med 11/03/17 0000 Signed Impressions: Service Date/Time: Friday, November 03, 2017 11:28 - CONCLUSION: No evidence of infarct, ischemia or focal wall motion laterally. RISK CATEGORY: Low risk (less than 1%% annual mortality rate) Roosevelt Danielle MD Lumbar Spine MRI 11/03/17 0000 Signed Impressions: Service Date/Time: Friday, November 03, 2017 09:00 - CONCLUSION: 1. Severe spinal stenosis severe right foraminal narrowing and moderate left foraminal narrowing at L2-3. 2. Severe spinal stenosis, moderate to severe right neural foraminal narrowing and mild left neuroforaminal narrowing at L3-4. 3. Moderate spinal stenosis and mild bilateral foraminal narrowing at L4-5. 4. Moderate bilateral foraminal narrowing at L5-S1. 5. Mild spinal stenosis and bilateral foraminal narrowing at L1-2. 6. Grade I anterolisthesis of L3 in relation to L4 and L4 in relation to L5. 7. Mild chronic compression deformity involving L1. 8. Diffuse degenerative disc disease throughout the lumbar spine. 9. Bilateral renal cysts. Roosevelt Danielle MD Carotid Artery Ultrasound 11/02/17 0000 Signed Impressions: Service Date/Time: Thursday, November 02, 2017 21:19 - CONCLUSION: Depression of the known carotid disease. Disease on the left to be significant. Either CT angiography or MR angiography would be of benefit. Tano Ames MD FACR Head CT 11/01/17 154 Signed Impressions: Service Date/Time: Wednesday, November 01, 2017 18:47 - CONCLUSION: 1. No acute findings. 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 Chris Palafox MD Chest X-Ray 11/01/17 1542 Signed Impressions: Service Date/Time: Wednesday, November 01, 2017 16:07 - CONCLUSION: Mild compensated cardiomegaly Tano Ames MD FACR Cervical Spine CT 11/01/17 1542 Signed Impressions: Service Date/Time: Wednesday, November 01, 2017 18:47 - CONCLUSION: 1. Moderate degenerative disc disease. No acute fracture. No prevertebral soft tissue swelling. Chris Palafox MD Thoracic Spine X-Ray 11/01/17 0000 Signed Impressions: Service Date/Time: Wednesday, November 01, 2017 16:11 - CONCLUSION: No acute abnormality. Floyd Vogel Jr., MD Lumbar Spine CT 11/01/17 0000 Signed Impressions: Service Date/Time: Wednesday, November 01, 2017 18:47 - CONCLUSION: 1. No acute fracture. 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 Chris Palafox MD Hip and Pelvis X-Ray 11/01/17 0000 Signed Impressions: Service Date/Time: Wednesday, November 01, 2017 16:14 - CONCLUSION: Degenerative changes, negative for fracture Tano Ames MD FACR Femur X-Ray 11/01/17 0000 Signed Impressions: Service Date/Time: Wednesday, November 01, 2017 16:14 - CONCLUSION: No fracture or dislocation. Floyd Vogel Jr., MD Abdomen/Pelvis CT 11/01/17 0000 Signed Impressions: Service Date/Time: Wednesday, November 01, 2017 18:58 - CONCLUSION: 1. Negative for acute traumatic injury within the abdomen and pelvis. 2. Non acute findings include nonobstructing renal calculi. Renal cysts also present. 3. Gastric distention with large air-fluid level. 4. Mild constipation. 5. 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 Chris Palafox MD Assessment and Plan Problem List: (1) Chest pain ICD Codes: R07.9 - Chest pain Status: Acute Plan: vague; now s/p non-ischemic nuc stress; continue medical mgt. (2) Syncope ICD Codes: R55 - Syncope and collapse Plan: vs fall, details unclear, workup here negative; if arrhythmogenic syncope continues to be a concern, a jail monitor/loop recorder could be considered as an outpt. Assessment and Plan Ok to d/c home from cardiac standpoint. He can f/u with Dr. Lazo in 1-2 weeks. Problem Qualifiers (1) Chest pain: Qualified Codes: R07.9 - Chest pain, unspecified Chinedu Masterson MD Nov 04, 2017 09:08
[2017-11-04] MEDS: ALLOPURINOL 300 MG TAB PO SCH (09:22)
[2017-11-04] MEDS: DOCUSATE SODIUM 50 MG/SENNA 8.6 MG TAB PO SCH (09:22)
[2017-11-04] MEDS: CARVEDILOL 3.125 MG TAB PO SCH (09:22)
[2017-11-04] MEDS: ASPIRIN EC 81 MG TABEC PO SCH (09:22)
[2017-11-04] MEDS: [UNRECOGNIZED DRUG - OTHER] INH SCH (09:22)
[2017-11-04] MEDS: SERTRALINE HCL 100 MG TAB PO SCH (09:22)
[2017-11-04] MEDS: SODIUM CHLORIDE 0.9% FLUSH 10 ML FLUSH IV FLUSH SCH (09:23)
[2017-11-04] MEDS: SODIUM CHLOR 0.9% 1000 ML INJ 1,000 ML IV SCH (09:23)
[2017-11-04 11:09] VITALS: BP 115/55; PULSE 70; RESP 20; TEMP 97.9; O2SAT 95
[2017-11-04] MEDS ORDERED: WALKER WHEELS/F1 MIS (12:00)
--- NOTE | 2017-11-04 12:02 | HHI.FF ---
Face to Face Verification Diagnosis: (1) Spinal stenosis (2) HTN (hypertension) Physical Therapy Order: Evaluate and Treat Home Health Nursing Order: Nursing assessment with vital signs [employer] Counselor Order: To Provide: Long range planning I have seen patient Fabiano Molina on 11/04/17. My clinical findings support the need for the requested home health care services because: Limited ability to care for self I certify that my clinical findings support that this patient is homebound because: Unsafe to leave home unassisted Martinez Jones MD Nov 04, 2017 12:02
--- NOTE | 2017-11-04 12:14 | HHI.PR ---
Subjective Remarks Patient says he is feeling all right. Feels like he is still pretty weak, however says he feels like he can go home. Denies any chest pain or shortness of breath. Objective Vital Signs Date Time Temp Pulse Resp B/P (MAP) Pulse Ox O2 Delivery O2 Flow Rate FiO2 11/04/17 11:09 97.9 70 20 115/55 (75) 95 11/04/17 08:16 97.8 67 20 124/60 (81) 97 11/04/17 03:42 98.3 72 18 134/61 (85) 93 11/04/17 00:14 98.1 73 18 129/60 (83) 97 11/03/17 21:12 98.2 89 18 139/80 (99) 98 11/03/17 16:47 98.2 78 18 117/70 (86) 99 I/O 11/03/17 11/03/17 11/03/17 11/04/17 11/04/17 11/04/17 07:00 15:00 23:00 07:00 15:00 23:00 Intake Total 1000 ml 1000 ml Output Total 400 ml 400 ml 600 ml 650 ml Balance -400 ml -400 ml 400 ml -650 ml 1000 ml Intake IV Total 1000 ml 1000 ml Output Urine Total 400 ml 400 ml 600 ml 650 ml # Voids 2 Result Diagram: 11/02/17 0750 11/02/17 0750 Objective Remarks GENERAL: Patient sitting up in bed. Appears comfortable. SKIN: Warm and dry. HEAD: Normocephalic. EYES: No scleral icterus. No injection or drainage. NECK: Supple, trachea midline. No JVD. CARDIOVASCULAR: Regular rate and rhythm without murmurs, gallops, or rubs. RESPIRATORY: Breath sounds equal bilaterally. No accessory muscle use. GASTROINTESTINAL: Abdomen soft, non-tender, nondistended. MUSCULOSKELETAL: No cyanosis, or edema. BACK: Nontender without obvious deformity. No CVA tenderness. A/P Assessment and Plan //Syncope/Chest Pain: acute episode of dizziness, chest pain and syncopal event. Trop neg x 3. check lexiscan (myocardial perfusion scan in 2017 showed intermediate risk). Pt does have a hx of CAD. Check ECHO. ECHO in 2017 showed grade 3 diastolic dysfunction. carotid u/s showed increased L carotid stenosis. Carotid angiogram ordered. If shows mod to severe stenosis, will consult vasc sx. continue morpine/nitropast prn chest pain. on lipitor and coreg. on ASA and imdur. Cardiology consult in place = Cardiology has cleared for discharge. Follow-up with cardiology as outpatient //Significant carotid stenosis with possible unstable plaque. Left infarct on CT head. = With history of syncope on admission, could be significant Consult vascular surgery for possible need for CEA //Scalp Laceration: secondary to above, s/p repair in ER, wound management. // Leukocytosis: WBC 23, possibly secondary to fall/injury, no signs of infection, previously falling w/ Dr. Meeks for same, will repeat labs in am, outpatient follow up w/ Hematology as scheduled.. This appears chronic. //Severe spinal stenosis noted at L3-4. MRI Lumbar pending, neurosx evaluated the pt and recommended conservative management for now. PT eval in place. = Neurosurgery has cleared for home with home health PT and follow-up neurosurgery as outpatient //DVT Prophylaxis: SCD/Teds Discharge Planning PT has cleared for home health Vascular surgery consult pending for carotid stenosis. Cardiology has cleared for discharge home Neurosurgery has cleared for discharge home follow-up neurosurgery as outpatient Martinez Jones MD Nov 04, 2017 12:14
[2017-11-04] MEDS ORDERED: COMMODE 3-IN-11 MIS (12:41)
[2017-11-04 15:25] VITALS: BP 144/66; PULSE 68; RESP 20; TEMP 97.4; O2SAT 98
[2017-11-04] MEDS: ONDANSETRON HCL 4 MG/2 ML VIAL IVP PRN (16:48)
--- NOTE | 2017-11-04 18:17 | HHI.DS ---
Discharge Summary Admission Date Nov 01, 2017 at 21:40 Discharge Date: Nov 04, 2017 Admitting Diagnosis syncope (1) Syncope ICD Code: R55 - Syncope and collapse (2) Scalp laceration ICD Code: S01.01XA - Laceration without foreign body of scalp, initial encounter Status: Acute (3) Chest pain ICD Code: R07.9 - Chest pain Status: Acute (4) Leukocytosis ICD Code: D72.829 - Elevated white blood cell count, unspecified Procedures scalp laceration repair. Brief History - From Admission This is an 82-year-old male with a PMH of Anxiety, Depression, Prostate CA, HTN , Hyperlipidemia and CAD who was brought to the ER by EMS after syncopal event. Pt states he was walking down the [place], walked up a step, had sudden episode of dizziness and chest pain w/ subsequent syncopal event. Unsure how long LOC, reports some confusion when he came to but able to get his cell phone and call 911. Currently chest pain free. On arrival, BP 154/73, HR 87, O2 sat 97% on RA, Afebrile. WBC 23. Troponin negative. INR 1.0. UA negative for UTI. CT head negative for acute findings. CT C-spine with moderate degenerative disc disease. CXR with mild compensated cardiomegaly. CT Abdomen/Pelvis negative for acute traumatic injury. Femur X-ray negative. Hip X-ray negative for fracture. CT L-spine negative for acute fracture. CT T- spine negative for acute fracture. CBC/BMP: 11/02/17 0750 11/02/17 0750 Significant Findings Laboratory Tests Test 11/02/17 00:50 11/02/17 07:50 Troponin I LESS THAN 0.02 NG/ML LESS THAN 0.02 NG/ML White Blood Count 16.7 TH/MM3 (4.0-11.0) Red Blood Count 3.58 MIL/MM3 (4.50-5.90) Hemoglobin 11.2 GM/DL (13.0-17.0) Hematocrit 33.1 % (39.0-51.0) Monocytes (%) (Auto) 12.4 % (0.0-8.0) Neutrophils # (Auto) 8.2 TH/MM3 (1.8-7.7) Lymphocytes # (Auto) 6.1 TH/MM3 (1.0-4.8) Monocytes # (Auto) 2.1 TH/MM3 (0-0.9) Lymphocytes % 47 % (9-44) Random Glucose 121 MG/DL (74-106) Albumin 2.8 GM/DL (3.4-5.0) Aspartate Amino Transf (AST/SGOT) 13 U/L (15-37) Estimat Glomerular Filtration Rate 80 ML/MIN (>89) Imaging Last Impressions Neck CTA 11/03/17 0000 Signed Impressions: Service Date/Time: Friday, November 03, 2017 09:53 - CONCLUSION: 1. Approximate 60%% stenosis of the left proximal internal carotid artery secondary to shelf- like plaque or proximally 2.4 cm from the bifurcation. 2. Less than 50%% stenosis involving the right proximal internal carotid artery. Roosevelt Danielle MD Myocardial Perfusion Scan Nuc Med 11/03/17 0000 Signed Impressions: Service Date/Time: Friday, November 03, 2017 11:28 - CONCLUSION: No evidence of infarct, ischemia or focal wall motion laterally. RISK CATEGORY: Low risk (less than 1%% annual mortality rate) Roosevelt Danielle MD Lumbar Spine MRI 11/03/17 0000 Signed Impressions: Service Date/Time: Friday, November 03, 2017 09:00 - CONCLUSION: 1. Severe spinal stenosis severe right foraminal narrowing and moderate left foraminal narrowing at L2-3. 2. Severe spinal stenosis, moderate to severe right neural foraminal narrowing and mild left neuroforaminal narrowing at L3-4. 3. Moderate spinal stenosis and mild bilateral foraminal narrowing at L4-5. 4. Moderate bilateral foraminal narrowing at L5-S1. 5. Mild spinal stenosis and bilateral foraminal narrowing at L1-2. 6. Grade I anterolisthesis of L3 in relation to L4 and L4 in relation to L5. 7. Mild chronic compression deformity involving L1. 8. Diffuse degenerative disc disease throughout the lumbar spine. 9. Bilateral renal cysts. Roosevelt Danielle MD Carotid Artery Ultrasound 11/02/17 0000 Signed Impressions: Service Date/Time: Thursday, November 02, 2017 21:19 - CONCLUSION: Depression of the known carotid disease. Disease on the left to be significant. Either CT angiography or MR angiography would be of benefit. Tano Ames MD FACR Head CT 11/01/17 1542 Signed Impressions: Service Date/Time: Wednesday, November 01, 2017 18:47 - CONCLUSION: 1. No acute findings. 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 Chris Palafox MD Chest X-Ray 11/01/17 1542 Signed Impressions: Service Date/Time: Wednesday, November 01, 2017 16:07 - CONCLUSION: Mild compensated cardiomegaly Tano Ames MD FACR Cervical Spine CT 11/01/17 1542 Signed Impressions: Service Date/Time: Wednesday, November 01, 2017 18:47 - CONCLUSION: 1. Moderate degenerative disc disease. No acute fracture. No prevertebral soft tissue swelling. Chris Palafox MD Thoracic Spine X-Ray 11/01/17 0000 Signed Impressions: Service Date/Time: Wednesday, November 01, 2017 16:11 - CONCLUSION: No acute abnormality. Floyd Vogel Jr., MD Lumbar Spine CT 11/01/17 0000 Signed Impressions: Service Date/Time: Wednesday, November 01, 2017 18:47 - CONCLUSION: 1. No acute fracture. 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 Chris Palafox MD Hip and Pelvis X-Ray 11/01/17 0000 Signed Impressions: Service Date/Time: Wednesday, November 01, 2017 16:14 - CONCLUSION: Degenerative changes, negative for fracture Tano Ames MD FACR Femur X-Ray 11/01/17 0000 Signed Impressions: Service Date/Time: Wednesday, November 01, 2017 16:14 - CONCLUSION: No fracture or dislocation. Floyd Vogel Jr., MD Abdomen/Pelvis CT 11/01/17 0000 Signed Impressions: Service Date/Time: Wednesday, November 01, 2017 18:58 - CONCLUSION: 1. Negative for acute traumatic injury within the abdomen and pelvis. 2. Non acute findings include nonobstructing renal calculi. Renal cysts also present. 3. Gastric distention with large air-fluid level. 4. Mild constipation. 5. 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 Chris Palafox MD PE at Discharge GENERAL: Pleasant elderly white male in no acute distress. HEENT: EOMI. Head laceration s/p repair CARDIOVASCULAR: Regular rate and rhythm. No obvious murmurs to auscultation. No chest tenderness to palpation. RESPIRATORY: No obvious rhonchi or wheezing. Clear to auscultation. Breath sounds equal bilaterally. GASTROINTESTINAL: Abdomen soft, non-tender, nondistended. BS normal. MUSCULOSKELETAL: Extremities without edema. No obvious deformities. NEUROLOGICAL: appears anxious. sitting on wheelchair Hospital Course Patient had scalp laceration repaired, will need removal of sutures in [address] head on admission with no acute findings, however did show remote left infarct. Carotid ultrasound showed left carotid stenosis as above, with CTA as above. Vascular surgery consulted recommends continue on aspirin and statin, no need for intervention at this time. Patient does have chronic leukocytosis for which she follows with hematology. White count up to 23 on admission, however decreased to 16.7 at discharge. MRI lumbar spine with L3-4 cyanosis. Neurosurgery recommends conservative management. Patient to follow-up with neurology as outpatient. For problem-based summary from most recent progress note, please see below. //Syncope/Chest Pain: acute episode of dizziness, chest pain and syncopal event. Trop neg x 3. check lexiscan (myocardial perfusion scan in 2017 showed intermediate risk). Pt does have a hx of CAD. Check ECHO. ECHO in 2017 showed grade 3 diastolic dysfunction. carotid u/s showed increased L carotid stenosis. Carotid angiogram ordered. If shows mod to severe stenosis, will consult vasc sx. continue morpine/nitropast prn chest pain. on lipitor and coreg. on ASA and imdur. Cardiology consult in place = Cardiology has cleared for discharge. Follow-up with cardiology as outpatient //Significant carotid stenosis with possible unstable plaque. 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 = With history of syncope on admission, could be significant Consult vascular surgery for possible need for CEA //Scalp Laceration: secondary to above, s/p repair in ER, wound management. // Leukocytosis: WBC 23, possibly secondary to fall/injury, no signs of infection, previously falling w/ Dr. Meeks for same, will repeat labs in am, outpatient follow up w/ Hematology as scheduled.. This appears chronic. //Severe spinal stenosis noted at L3-4. MRI Lumbar pending, neurosx evaluated the pt and recommended conservative management for now. PT eval in place. = Neurosurgery has cleared for home with home health PT and follow-up neurosurgery as outpatient //DVT Prophylaxis: SCD/Teds Pt Condition on Discharge: Good Discharge Disposition: Disch w/ Home Health Serv Discharge Time: > 30 minutes Discharge Instructions DIET: Follow Instructions for: Heart Healthy Diet Activities you can perform: Regular-No Restrictions Follow up Referrals: Cardiology - 2 Weeks with Chinedu Masterson MD Neurology - 1 Week with Serge Blount MD PCP Follow-up - 1 Week with Sapna Gardner MD New Medications: Commode 3-in-1 (Commode 3-in-1) 1 Mis Mis EA .XX DIRECTED, #1 0 Refills Walker with Front Wheels (Walker with Front Wheels) 1 Mis Mis EA .XX DIRECTED, #1 0 Refills Continued Medications: Allopurinol (Allopurinol) 300 Mg Tab 300 MG PO DAILY for Gout, #30 TAB 0 Refills Amlodipine (Norvasc) 10 Mg Tab 10 MG PO DAILY for Blood Pressure Management, #30 TAB Ascorbic Acid (Vitamin C) 250 Mg Tab 500 MG PO for Nutritional Supplement, TAB [address] (Aspir-81) 81 Mg Tabdr 81 MG PO DAILY Atorvastatin (Atorvastatin) 20 Mg Tab 20 MG PO HS for Cholesterol Management, #30 TAB 0 Refills Carvedilol (Coreg) 3.125 Mg Tab 3.125 MG PO Q12HR for Heart, #60 TAB Docusate Sodium (Colace) 100 Mg Capsule 100 MG PO BID PRN for CONSTIPATION, #40 CAP 0 Refills Hydrochlorothiazide (Hydrochlorothiazide) 25 Mg Tab 25 MG PO DAILY, #30 TAB 0 Refills Hydrocodone-Acetaminophen (Hydrocodone-Acetaminophen) 5-325 mg Tab 1 TAB PO Q6HR PRN for moderate to severe pain, #12 TAB 0 Refills Isosorbide Mononitrate ER (Isosorbide Mononitrate ER) 30 Mg Marga 30 MG PO DAILY@0700,1900 for heart, #60 TAB Levothyroxine (Levothyroxine) 50 Mcg Tab 50 MCG PO DAILY for Thyroid, #30 TAB 0 Refills Losartan (Losartan) 50 Mg Tab 50 MG PO DAILY for Blood Pressure Management, #30 TAB 0 Refills Sertraline (Sertraline) 100 Mg Tab 100 MG PO DAILY, #30 TAB 0 Refills Tiotropium-Olodaterol Inh (Stiolto Respimat Inh) 2.5-2.5 Mcg/Act Aero 2.5 PUFF INH DAILY for COPD, #1 INHALER 0 Refills Martinez Jones MD Nov 04, 2017 18:17
--- NOTE | 2017-11-04 18:27 | PD.VS.CON ---
History of Present Illness Chief Complaint: carotid stenosis Consult Requested by: medical service History of Present Illness 82 yo man who pass out walking a few days ago. Does not have full recall of event but no antecedent focal neurological events. Does relate a history of TIA but can't tell me the symptoms of such. Work-up of syncope included carotid duplex and then CTA neck. Past/Family/Social History Past Medical History HTN CAD prostate CA ? TIA XOL Past Surgical History CABG hip surgery Social History nonsmoker Family History [place] Home Medications Active Scripts Commode 3-in-1 (Commode 3-in-1) 1 Mis AKIRA SousaXX DIRECTED, #1 0 Refills Prov:Martinez Jones MD 11/04/17 Walker with Front Wheels (Walker with Front Wheels) 1 AKIRA SorensenXX DIRECTED, #1 0 Refills Prov:Martinez Jones MD 11/04/17 Isosorbide Mononitrate ER (Isosorbide Mononitrate ER) 30 Mg Marga, 30 MG PO DAILY@0700,1900 for heart, #60 TAB Prov:Olive Mora MD 05/04/17 Amlodipine (Norvasc) 10 Mg Tab, 10 MG PO DAILY for Blood Pressure Management, # 30 TAB Prov:Doroteo Suh DO 03/06/17 Carvedilol (Coreg) 3.125 Mg Tab, 3.125 MG PO Q12HR for Heart, #60 TAB Prov:Doroteo Suh DO 03/06/17 Hydrocodone-Acetaminophen (Hydrocodone-Acetaminophen) 5-325 mg Tab, 1 TAB PO Q6HR Y for moderate to severe pain, #12 TAB 0 Refills Prov:Doroteo Suh DO 03/06/17 Docusate Sodium (Colace) 100 Mg Capsule, 100 MG PO BID Y for CONSTIPATION, #40 CAP 0 Refills Prov:Abeba Wong MD 02/17/17 Reported Medications Tiotropium-Olodaterol Inh (Stiolto Respimat Inh) 2.5-2.5 Mcg/Act Aero, 2.5 PUFF INH DAILY for COPD, #1 INHALER 0 Refills 02/12/17 Levothyroxine (Levothyroxine) 50 Mcg Tab, 50 MCG PO DAILY for Thyroid, #30 TAB 0 Refills 02/12/[address] (Aspir-81) 81 Mg Tabdr, 81 MG PO DAILY 02/12/17 Ascorbic Acid (Vitamin C) 250 Mg Tab, 500 MG PO for Nutritional Supplement, TAB 0 Refills 02/12/17 Hydrochlorothiazide (Hydrochlorothiazide) 25 Mg Tab, 25 MG PO DAILY, #30 TAB 0 Refills 02/12/17 Losartan (Losartan) 50 Mg Tab, 50 MG PO DAILY for Blood Pressure Management, # 30 TAB 0 Refills 02/12/17 Allopurinol (Allopurinol) 300 Mg Tab, 300 MG PO DAILY for Gout, #30 TAB 0 Refills 02/12/17 Atorvastatin (Atorvastatin) 20 Mg Tab, 20 MG PO HS for Cholesterol Management, # 30 TAB 0 Refills 02/12/17 Sertraline (Sertraline) 100 Mg Tab, 100 MG PO DAILY, #30 TAB 0 Refills 02/12/17 Discontinued Reported Medications Nitroglycerin SL (Nitroglycerin SL) 0.4 Mg Subl, 0.4 MG SL DIRECTED Y for CHEST PAIN, #100 TAB.SL 0 Refills ONE TABLET UNDER THE TONGUE NEEDED FOR CHEST PAIN, MAY REPEAT EVERY FIVE MINUTES FOR A TOTAL OF 3 DOSES OR CALL 911 IF NO RELIEF 05/03/17 Discontinued Scripts Cyclobenzaprine (Flexeril) 10 Mg Tab, 10 MG PO Q8H Y for SPASM, #30 TAB Prov:Doroteo Suh DO 03/06/17 Coded Allergies: Sulfa (Sulfonamide Antibiotics) (Unverified Allergy, Severe, RASH, 05/03/17 ) cephalexin (Unverified Allergy, Severe, RASH, 05/03/17) rash clopidogrel (Unverified Allergy, Severe, RASH, 05/03/17) Review of Systems Cardiovascular: DENIES: Chest pain, Palpitations Neurologic: COMPLAINS OF: Poor Balance Physical Exam Vitals/I&O Date Time Temp Pulse Resp B/P (MAP) Pulse Ox O2 Delivery O2 Flow Rate FiO2 11/04/17 15:25 97.4 68 20 144/66 (92) 98 11/04/17 11:09 97.9 70 20 115/55 (75) 95 11/04/17 08:16 97.8 67 20 124/60 (81) 97 11/04/17 08:00 68 11/04/17 03:42 98.3 72 18 134/61 (85) 93 11/04/17 00:14 98.1 73 18 129/60 (83) 97 11/03/17 21:12 98.2 89 18 139/80 (99) 98 11/04/17 11/04/17 11/04/17 07:00 15:00 23:00 Intake Total 1000 ml Output Total 650 ml Balance -650 ml 1000 ml Neuro: alert, pleasant, conversant CHÁVEZ with 5/5 strength HEENT: NC/AT Neck: no JVD Heart: reg rate, no M Lungs: clear B Abdomen: NT Vascular: palpable UE pulses Extremities: 5/5 strength Last 48 hours Impressions Neck CTA 11/03/17 0000 Signed Impressions: Service Date/Time: Friday, November 03, 2017 09:53 - CONCLUSION: 1. Approximate 60%% stenosis of the left proximal internal carotid artery secondary to shelf- like plaque or proximally 2.4 cm from the bifurcation. 2. Less than 50%% stenosis involving the right proximal internal carotid artery. Roosevelt Danielle MD Myocardial Perfusion Scan Nuc Med 11/03/17 0000 Signed Impressions: Service Date/Time: Friday, November 03, 2017 11:28 - CONCLUSION: No evidence of infarct, ischemia or focal wall motion laterally. RISK CATEGORY: Low risk (less than 1%% annual mortality rate) Roosevelt Danielle MD Lumbar Spine MRI 11/03/17 0000 Signed Impressions: Service Date/Time: Friday, November 03, 2017 09:00 - CONCLUSION: 1. Severe spinal stenosis severe right foraminal narrowing and moderate left foraminal narrowing at L2-3. 2. Severe spinal stenosis, moderate to severe right neural foraminal narrowing and mild left neuroforaminal narrowing at L3-4. 3. Moderate spinal stenosis and mild bilateral foraminal narrowing at L4-5. 4. Moderate bilateral foraminal narrowing at L5-S1. 5. Mild spinal stenosis and bilateral foraminal narrowing at L1-2. 6. Grade I anterolisthesis of L3 in relation to L4 and L4 in relation to L5. 7. Mild chronic compression deformity involving L1. 8. Diffuse degenerative disc disease throughout the lumbar spine. 9. Bilateral renal cysts. Roosevelt Danielle MD Assessment and Plan Plan Asymptomatic carotid stenosis. By duplex criteria 50-79% at most and by my read of CTA, 50% bilaterally. Given age, no further carotid imaging needs to be done. Already sees another vascular surgeon who follows his carotids. Happy to help at any point and the patient and his local vascular surgeon have my numbers. Ok to d/c from vascular surgery standpoint. Needs only antiplatelet and statin. Roosevelt Mujica MD FACS RPVI spout tender [facility] - Heart and Vascular Surgery at [facility] [phone] Roosevelt Mujica MD Nov 04, 2017 18:26
== END 2017-11-04 20:00 | disposition home or self-care (01) ==
LOC: NEPE 15:30 → NEDA 21:40 → NEDH 11-02 01:49 → NEPGCP 11-02 12:22
PROVIDERS: ADMIT Internal Medicine; ATTEND Internal Medicine
DX: R55 Syncope and collapse (principal); S01.01XA Laceration without foreign body of scalp, initial encounter; D72.829 Elevated white blood cell count, unspecified; R07.9 Chest pain, unspecified; R51 Headache; M54.2 Cervicalgia; M54.9 Dorsalgia, unspecified; M79.651 Pain in right thigh; I25.10 Atherosclerotic heart disease of native coronary artery without angina pectoris; I44.0 Atrioventricular block, first degree; I45.10 Unspecified right bundle-branch block; R94.31 Abnormal electrocardiogram [ECG] [EKG]; R10.84 Generalized abdominal pain; I11.9 Hypertensive heart disease without heart failure; I25.2 Old myocardial infarction; E78.00 Pure hypercholesterolemia, unspecified; J44.9 Chronic obstructive pulmonary disease, unspecified; E11.9 Type 2 diabetes mellitus without complications; K21.9 Gastro-esophageal reflux disease without esophagitis; E03.9 Hypothyroidism, unspecified; N28.1 Cyst of kidney, acquired; N20.0 Calculus of kidney; M50.30 Other cervical disc degeneration, unspecified cervical region; M48.061 Spinal stenosis, lumbar region without neurogenic claudication; I65.23 Occlusion and stenosis of bilateral carotid arteries; G89.29 Other chronic pain; K59.00 Constipation, unspecified; M51.36 Other intervertebral disc degeneration, lumbar region; F41.9 Anxiety disorder, unspecified; F32.9 Major depressive disorder, single episode, unspecified; M19.90 Unspecified osteoarthritis, unspecified site; Z86.73 Personal history of transient ischemic attack (TIA), and cerebral infarction without residual deficits; Z79.82 Long term (current) use of aspirin; Z85.46 Personal history of malignant neoplasm of prostate; Z95.5 Presence of coronary angioplasty implant and graft; Z79.899 Other long term (current) drug therapy; W19.XXXA Unspecified fall, initial encounter; Y92.009 Unspecified place in unspecified non-institutional (private) residence as the place of occurrence of the external cause
CPT/HCPCS: 12002; 70450; 70498; 71045; 72072; 72125; 72132; 72148; 73502; 73552; 74177; 78452; 80053; 81001; 82550; 83735; 84484; 85007; 85027; 85610; 85730; 93005; 93017; 93306; 93880; 96361; 96374; 96375; 96376; 97162; 97530; 99285; A9502; G0378; G8987; G8988; J1200; J2270; J2405; J2785; J7030; Q9967

== ENCOUNTER 2017-11-12 11:40 | Inpatient (IN) | payer OTHER, MEDICARE ==
[~2017-11-12] VITALS: Ht 188 cm; Wt 95.5 kg
[2017-11-12] VITALS (9 sets, daily range): BP systolic 112–171; BP diastolic 59–78; PULSE 79–89; RESP 16–20; TEMP 98.6–100.8; O2SAT 94–99
[~2017-11-12 11:40] MED LIST changes: +COMMODE 3-IN-11 MIS; -CYCL10TA PO; -NITR1SUB3 SL; +WALKER WHEELS/F1 MIS
[2017-11-12 12:29] LABS: BILIRUBIN, URINE NEG (NEG); BLOOD, URINE NEG (NEG); GLUCOSE,URINE NEG (NEG); KETONE, URINE NEG (NEG); NITRITE,URINE NEG (NEG); URINE COLOR YELLOW (YELLW/STRAW); URINE LEUKOCYTE ESTERASE MOD (NEG)
[2017-11-12 12:39] LABS: RBC, URINE 0-3 /hpf (0-3); SQUAMOUS EPITHELIAL CELL URINE 0-5 /hpf (0-5); WHITE BLOOD CELL CLUMPS FEW
--- NOTE | 2017-11-12 12:41 | PD ---
HPI Chief Complaint: Dizziness Time Seen by Provider: 12:37 Travel History International Travel<30 days: No Contact w/Intl Traveler<30days: No Traveled to known affect area: No History of Present Illness HPI 82-year-old male patient with history of COPD, hypertension, high cholesterol, CHF, TIA, recent UTIs and elevated white blood cell counts being evaluated currently by hematology, here because he is having increased weakness and lethargic according to his daughter over the last week. He states that every time he tries to do anything he gets very dizzy. He also complains of chest discomfort. He denies any vomiting, diarrhea, fevers, or other issues. Modifying Factors: Worse with exertion Associated Signs & Symptoms: General weakness, dizziness, lethargy Risk Factors: Elderly, and recent UTI, WBC elevations PFSH Past Medical History Hx Anticoagulant Therapy: Yes Arthritis: Yes Asthma: No Autoimmune Disease: No Blood Disorders: No Anxiety: Yes Depression: Yes Heart Rhythm Problems: Yes (atrial fibrillation) Cancer: Yes (prostate) Cardiac Catheterization: Yes (Stents x 3) Cardiovascular Problems: Yes (CABG (4)) High Cholesterol: Yes Chemotherapy: No Chest Pain: Yes Congestive Heart Failure: No COPD: Yes (controlled with inhaler ) Cerebrovascular Accident: Yes (NO RESIDUAL ) Diabetes: Yes (DIET CONTROLLED) Patient Takes Glucophage: No Diminished Hearing: No Endocrine: Yes Gastrointestinal Disorders: No ("GI STRETCH IN SEPT" GALLBLADDER STENT, botox inj in esophagus, GERD ) GERD: Yes Genitourinary: No (renal stent, Recurring stones, Recurring UTI) Headaches: No Hepatitis: No Hiatal Hernia: No Heparin Induced Thrombocytopen: No Hypertension: Yes Immune Disorder: No Implanted Vascular Access Dvce: Yes Kidney Stones: Yes Medical other: No Musculoskeletal: Yes (numbness in hands R leg weakness intermittent, back pain) Neurologic: Yes ("mini strokes / TIA") Psychiatric: Yes Reproductive: No Respiratory: Yes Immunizations Current: Yes Migraines: No Myocardial Infarction: Yes Pneumonia: Yes Radiation Therapy: No Renal Failure: No Seizures: No Sleep Apnea: No Thyroid Disease: Yes Ulcer: No PNEUMOCCOCAL Vaccine (Year): 2008 ?: Not Past Surgical History Abdominal Surgery: No AICD: No Arteriovenous Shunt: No Body Medical Devices: cardiac stents Cardiac Surgery: Yes (CARDIAC STENTS X 3,CABG) Coronary Artery Bypass Graft: Yes (4 VESSEL) Coronary Stent: Yes (x 3) Ear Surgery: No Endocrine Surgery: Yes Eye Surgery: No Genitourinary Surgery: Yes (prostatectomy) Gynecologic Surgery: No Insulin Pump: No Joint Replacement: Yes (LEFT HIP) Neurologic Surgery: No Oral Surgery: Yes (TONCILECTOMY) Pacemaker: No Thoracic Surgery: No Tonsillectomy: Yes Other Surgery: No (RIGHT KIDNEY STENT, VEIN STRIPING, GALLBLADDER STENT REMOVAL , HEART SX) Family History Family Myocardial Infarction: Yes Social History Alcohol Use: No (PT DENIES) Tobacco Use: No Substance Use: No Allergies-Medications (Allergen,Severity, Reaction): Coded Allergies: Sulfa (Sulfonamide Antibiotics) (Unverified Allergy, Severe, RASH, 11/12/17) cephalexin (Unverified Allergy, Severe, RASH, 11/12/17) rash clopidogrel (Unverified Allergy, Severe, RASH, 11/12/17) Reported Meds & Prescriptions Reported Meds & Active Scripts Active Commode 3-in-1 (Device) 1 Mis Mis Ea .XX DIRECTED Walker with Front Wheels (Device) 1 Mis Mis Ea .XX DIRECTED Isosorbide Mononitrate ER (Isosorbide Mononitrate) 30 Mg Marga 30 Mg PO DAILY@ 0700,1900 Norvasc (Amlodipine Besylate) 10 Mg Tab 10 Mg PO DAILY Coreg (Carvedilol) 3.125 Mg Tab 3.125 Mg PO Q12HR Colace (Docusate Sodium) 100 Mg Capsule 100 Mg PO BID PRN Reported Stiolto Respimat Inh (Tiotropium-Olodaterol Inh) 2.5-2.5 Mcg/Act Aero 2.5 Puff INH DAILY Levothyroxine (Levothyroxine Sodium) 50 Mcg Tab 50 Mcg PO DAILY Aspir-81 (Aspirin) 81 Mg Tabdr 81 Mg PO DAILY Vitamin C (Ascorbic Acid) 250 Mg Tab 500 Mg PO Hydrochlorothiazide 25 Mg Tab 25 Mg PO DAILY Losartan (Losartan Potassium) 50 Mg Tab 50 Mg PO DAILY Allopurinol 300 Mg Tab 300 Mg PO DAILY Atorvastatin (Atorvastatin Calcium) 20 Mg Tab 20 Mg PO HS Sertraline (Sertraline HCl) 100 Mg Tab 100 Mg PO DAILY Review of Systems Except as stated in HPI: all other systems reviewed are Neg Physical Exam Narrative GENERAL: Well-developed tired appearing elderly white male patient currently in mild distress. Awake and oriented 3. SKIN: Focused skin assessment warm/dry. HEAD: Atraumatic. Normocephalic. EYES: Pupils equal and round. No scleral icterus. No injection or drainage. ENT: No nasal bleeding or discharge. Mucous membranes pink and moist. NECK: Trachea midline. No JVD. Supple. CARDIOVASCULAR: Regular rate and rhythm. No murmur appreciated. RESPIRATORY: No accessory muscle use. Clear to auscultation. Breath sounds equal bilaterally. GASTROINTESTINAL: Abdomen soft, mild diffuse lower abdominal tenderness without guarding rebound, nondistended. Hepatic and splenic margins not palpable. MUSCULOSKELETAL: No obvious deformities. No clubbing. No cyanosis. No edema. NEUROLOGICAL: Awake and alert. No obvious cranial nerve deficits. Motor grossly within normal limits. Normal speech. PSYCHIATRIC: Appropriate mood and affect; insight and judgment normal. Data Data Last Documented VS Vital Signs Date Time Temp Pulse Resp B/P (MAP) Pulse Ox O2 Delivery O2 Flow Rate FiO2 11/12/17 15:44 80 16 155/72 (99) 96 Room Air 11/12/17 13:25 98.7 Orders Orders Urinalysis - C+S If Indicated (11/12/17 12:16) Electrocardiogram (11/12/17 12:38) Complete Blood Count With Diff (11/12/17 12:38) Comprehensive Metabolic Panel (11/12/17 12:38) Magnesium (Mg) (11/12/17 12:38) Ckmb (Isoenzyme) Profile (11/12/17 12:38) Troponin I (11/12/17 12:38) Act Partial Throm Time (Ptt) (11/12/17 12:38) Prothrombin Time / Inr (Pt) (11/12/17 12:38) Chest, Single Ap (11/12/17 12:38) Ct Brain W/O Iv Contrast(Rout) (11/12/17 12:38) Ecg Monitoring (11/12/17 12:38) Iv Access Insert/Monitor (11/12/17 12:38) Oximetry (11/12/17 12:38) Sodium Chloride 0.9% Flush (Ns Flush) (11/12/17 12:45) Urine Culture (11/12/17 12:20) Lactic Acid Sepsis Protocol (11/12/17 12:50) Blood Culture (11/12/17 12:50) Piperacil-Tazo 4.5 Gm Premix (Zosyn 4.5 (11/12/17 12:50) Electrocardiogram (11/12/17 13:47) Labs Laboratory Tests Test 11/12/17 12:20 11/12/17 12:40 11/12/17 12:50 Urine Collection Type CLEAN CATCH Urine Color YELLOW Urine Turbidity CLEAR Urine pH 8.0 Urine Specific [place] 1.015 Urine Protein NEG mg/dL Urine Glucose (UA) NEG mg/dL Urine Ketones NEG mg/dL Urine Occult Blood NEG Urine Nitrite NEG Urine Bilirubin NEG Urine Urobilinogen 0.2 MG/DL Urine Leukocyte Esterase MOD Urine RBC 0-3 /hpf Urine WBC 25-49 /hpf Urine WBC Clumps FEW Urine Squamous Epithelial Cells 0-5 /hpf Microscopic Urinalysis Comment CULTURE INDICATED Urine Collection Time 12:20 White Blood Count 19.1 TH/MM3 Red Blood Count 3.99 MIL/MM3 Hemoglobin 12.1 GM/DL Hematocrit 36.3 % Mean Corpuscular Volume 90.8 FL Mean Corpuscular Hemoglobin 30.3 PG Mean Corpuscular Hemoglobin Concent 33.4 % Red Cell Distribution Width 13.3 % Platelet Count 238 TH/MM3 Mean Platelet Volume 7.9 FL Neutrophils (%) (Auto) 41.8 % Lymphocytes (%) (Auto) 41.6 % Monocytes (%) (Auto) 13.8 % Eosinophils (%) (Auto) 0.9 % Basophils (%) (Auto) 1.9 % Neutrophils # (Auto) 8.0 TH/MM3 Lymphocytes # (Auto) 7.9 TH/MM3 Monocytes # (Auto) 2.6 TH/MM3 Eosinophils # (Auto) 0.2 TH/MM3 Basophils # (Auto) 0.4 TH/MM3 CBC Comment AUTO DIFF Differential Total Cells Counted 100 Neutrophils % (Manual) 47 % Lymphocytes % 42 % Monocytes % 11 % Neutrophils # (Manual) 9.0 TH/MM3 Differential Comment FINAL DIFF MANUAL Platelet Estimate NORMAL Platelet Morphology Comment NORMAL Prothrombin Time 10.2 SEC Prothromb Time International Ratio 1.0 RATIO Activated Partial Thromboplast Time 24.2 SEC Blood Urea Nitrogen 16 MG/DL Creatinine 0.93 MG/DL Random Glucose 104 MG/DL Total Protein 7.6 GM/DL Albumin 3.4 GM/DL Calcium Level 8.6 MG/DL Magnesium Level 2.1 MG/DL Alkaline Phosphatase 105 U/L Aspartate Amino Transf (AST/SGOT) 11 U/L Alanine Aminotransferase (ALT/SGPT) 14 U/L Total Bilirubin 0.5 MG/DL Sodium Level 133 MEQ/L Potassium Level 4.0 MEQ/L Chloride Level 99 MEQ/L Carbon Dioxide Level 24.9 MEQ/L Anion Gap 9 MEQ/L Estimat Glomerular Filtration Rate 78 ML/MIN Total Creatine Kinase 18 U/L Troponin I LESS THAN 0.02 NG/ML Lactic Acid Level 1.1 mmol/L MDM Medical Decision Making Medical Screen Exam Complete: Yes Emergency Medical Condition: Yes Medical Record Reviewed: Yes Interpretation(s) EKG shows NSR, no ST elevation or depression, and no arrhythmias. No significant T-wave inversions. Laboratory Tests Test 11/12/17 12:20 11/12/17 12:40 11/12/17 12:50 Urine Leukocyte Esterase MOD (NEG) Urine WBC 25-49 /hpf (0-5) Urine WBC Clumps FEW (NONE) White Blood Count 19.1 TH/MM3 (4.0-11.0) Red Blood Count 3.99 MIL/MM3 (4.50-5.90) Hemoglobin 12.1 GM/DL (13.0-17.0) Hematocrit 36.3 % (39.0-51.0) Monocytes (%) (Auto) 13.8 % (0.0-8.0) Neutrophils # (Auto) 8.0 TH/MM3 (1.8-7.7) Lymphocytes # (Auto) 7.9 TH/MM3 (1.0-4.8) Monocytes # (Auto) 2.6 TH/MM3 (0-0.9) Basophils # (Auto) 0.4 TH/MM3 (0-0.2) Monocytes % 11 % (0-8) Neutrophils # (Manual) 9.0 TH/MM3 (1.8-7.7) Activated Partial Thromboplast Time 24.2 SEC (24.3-30.1) Aspartate Amino Transf (AST/SGOT) 11 U/L (15-37) Sodium Level 133 MEQ/L (136-145) Estimat Glomerular Filtration Rate 78 ML/MIN (>89) Total Creatine Kinase 18 U/L (39-308) Troponin I LESS THAN 0.02 NG/ML Last [address] 11/12/17 0008 Signed Impressions: Service Date/Time: Sunday, November 12, 2017 13:23 - CONCLUSION: No evidence of acute intracranial pathology. No masses are identified. Old left parietal infarct Ron Garcia MD Chest X-Ray 11/12/17 1238 Signed Impressions: Service Date/Time: Sunday, November 12, 2017 12:42 - CONCLUSION: The lungs are clear. Floyd Ramos MD Differential Diagnosis Dizziness, general weakness, lethargy: Dehydration versus sepsis versus metabolic issues versus dysrhythmias versus CVA Narrative Course EKG did not show significant dysrhythmias. Lab work shows a UTI and leukocytosis although this leukocytosis is the very thing he has been seen by hematology for. It is unclear whether he is septic or not. Vital signs are stable. IV antibiotics were initiated after cultures were drawn. While he was at the CAT scan, he had what appeared to have been seizure-like activity but he woke up and was aware and able to talk, and I am questioning whether he may have had been having syncopal episodes. His CAT scan did not show any signs of acute intracranial processes. At this point, my plan would be to admit him for further evaluation and treatment. Case was discussed with Dr. Mora for admission. Diagnosis Primary Impression: UTI (urinary tract infection) Additional Impressions: Syncope Sepsis Admitting Information Admitting Physician Requests: Admit Que Boyd MD Nov 12, 2017 12:41
[2017-11-12] MEDS ORDERED: SODIUM CHLORIDE 0.9% FLUSH 10 ML FLUSH IVF PRN (12:45)
[2017-11-12] MEDS ORDERED: PIPERACIL-TAZO 4.5 GM PREMIX 100 ML IV STA (12:50)
[2017-11-12 12:52] LABS: BASOPHIL # 0.4 TH/MM3 (0-0.2); BASOPHIL % 1.9 % (0.0-2.0); EOSINOPHIL # 0.2 TH/MM3 (0-0.4); EOSINOPHIL % 0.9 % (0.0-4.0); HEMATOCRIT 36.3 % (39.0-51.0); HEMOGLOBIN 12.1 GM/DL (13.0-17.0); LYMPH % 41.6 % (9.0-44.0); LYMPHOCYTE # 7.9 TH/MM3 (1.0-4.8); MEAN CELL VOLUME 90.8 FL (80.0-100.0); MEAN CORPUSCULAR HEMOGLOBIN 30.3 PG (27.0-34.0); MEAN CORPUSCULAR HGB CONC 33.4 % (32.0-36.0); MEAN PLATELET VOLUME 7.9 FL (7.0-11.0); MONO % 13.8 % (0.0-8.0); MONOCYTE # 2.6 TH/MM3 (0-0.9); NEUT % 41.8 % (16.0-70.0); PLATELET COUNT 238 TH/MM3 (150-450); RED BLOOD COUNT 3.99 MIL/MM3 (4.50-5.90); RED CELL DISTRIBUTION WIDTH 13.3 % (11.6-17.2); WHITE BLOOD COUNT 19.1 TH/MM3 (4.0-11.0)
--- NOTE | 2017-11-12 12:58 | RADRPT ---
EXAM DATE/TIME: 11/12/2017 12:42 [facility] COMPARISON: CHEST SINGLE AP, November 01, 2017, 16:07. INDICATIONS : Short of breath, weak, dizziness. MEDICAL HISTORY : Carcinoma, prostate. Hypertension. SURGICAL HISTORY : CABG Tonsillectomy. Prostatectomy. ENCOUNTER: Initial ACUITY: 2 days PAIN SCORE: 0/10 LOCATION: chest FINDINGS: A single view of the chest demonstrates the lungs to be symmetrically aerated without evidence of mas s, infiltrate or effusion. The cardiomediastinal contours are unremarkable. Osseous structures are intact. CONCLUSION: The lungs are clear. Floyd Ramos MD on November 12, 2017 at 12:57 Board Certified Radiologist. This report was verified electronically.
[2017-11-12 13:09] LABS: PROTHROMBIN TIME - PATIENT 10.2 SEC (9.8-11.6)
[2017-11-12 13:34] LABS: LYMPHOCYTES 42 % (9-44); MONOCYTES 11 % (0-8); POLYS (SEG NEUTROPHILS) 47 % (16-70)
[2017-11-12 13:48] LABS: CHLORIDE 99 MEQ/L (98-107); SODIUM (NA) 133 MEQ/L (136-145)
[2017-11-12 13:51] LABS: CALCIUM 8.6 MG/DL (8.5-10.1)
[2017-11-12 13:52] LABS: ALBUMIN 3.4 GM/DL (3.4-5.0); BICARBONATE 24.9 MEQ/L (21.0-32.0); BLOOD UREA NITROGEN 16 MG/DL (7-18); GLUCOSE,RANDOM 104 MG/DL (74-106); MAGNESIUM 2.1 MG/DL (1.5-2.5)
[2017-11-12 13:55] LABS: ALT (GPT) 14 U/L (12-78); AST (GOT) 11 U/L (15-37); CREATININE 0.93 MG/DL (0.60-1.30); GLOMERULAR FILTRATION RATE 78 ML/MIN (>89)
[2017-11-12 13:57] LABS: TOTAL BILIRUBIN ADULT 0.5 MG/DL (0.2-1.0); TOTAL PROTEIN 7.6 GM/DL (6.4-8.2)
[2017-11-12 13:58] LABS: ALKALINE PHOSPHATASE 105 U/L (45-117)
[2017-11-12 14:00] LABS: TROPONIN I LESS THAN 0.02 NG/ML (0.02-0.05)
--- NOTE | 2017-11-12 15:39 | RADRPT ---
EXAM DATE/TIME: 11/12/2017 13:23 [facility] COMPARISON: CT BRAIN W/O CONTRAST, October 12, 2015, 23:32. CT BRAIN W/O CONTRAST, November 01, 2017, 18:47. INDICATIONS : Dizziness and weakness. RADIATION DOSE: 60.37 CTDIvol (mGy) MEDICAL HISTORY : Cerebrovascular disease. Cardiovascular disease Hypertension. SURGICAL HISTORY : Tonsillectomy. ENCOUNTER: Initial ACUITY: 2 days PAIN SCALE: 0/10 LOCATION: cranial TECHNIQUE: Multiple contiguous axial images were obtained of the head. Using automated exposure control and adj ustment of the mA and/or kV according to patient size, radiation dose was kept as low as reasonably a chievable to obtain optimal diagnostic quality images. DICOM format image data is available electro nically for review and comparison. FINDINGS: Noncontrast axial head CT demonstrates the ventricles to be normal in size and configuration with a n ormal sulcal pattern. No acute intracranial hemorrhage, acute cortical infarction, mass or midline sh ift is seen. Old left parietal infarct is present. Posterior fossa structures are unremarkable. Bone windows are unremarkable. CONCLUSION: No evidence of acute intracranial pathology. No masses are identified. Old left parietal infarct Ron Garcia MD on November 12, 2017 at 15:36 Board Certified Radiologist. This report was verified electronically.
[2017-11-12] MEDS ORDERED: ONDANSETRON HCL 4 MG/2 ML VIAL IVP PRN (16:00)
[2017-11-12] MEDS ORDERED: SENNOSIDES 8.6 MG TAB PO PRN (16:00)
[2017-11-12] MEDS ORDERED: SODIUM CHLORIDE 0.9% FLUSH 10 ML FLUSH IV FLUSH PRN (16:00)
[2017-11-12] MEDS ORDERED: BISACODYL 10 MG SUPP RECTAL PRN (16:00)
[2017-11-12] MEDS ORDERED: MAGNESIUM HYDROXIDE SUSP 30 ML CUP PO PRN (16:00)
[2017-11-12] MEDS ORDERED: NALOXONE HCL 0.4 MG/ML AMP IV PUSH PRN (16:00)
--- NOTE | 2017-11-12 16:27 | HHI.HP ---
[facility] Service [place] [facility] Primary Care Physician Sapna Gardner MD Admission Diagnosis UTI/syncope/sepsis Diagnoses: (1) UTI (urinary tract infection) (2) Syncope (3) Leukocytosis Chief Complaint: Generalized weakness Travel History International Travel<30 Days: No Contact w/Intl Traveler <30 Da: No Traveled to Known Affected Are: No History of Present Illness This is an 82-year-old male patient with a known medical history of anxiety, depression, prostate cancer, hypertension, hyperlipidemia and CAD who presented to the ED with complaints of generalized weakness and lethargy over the past week. Patient seen and examined and ER with daughter at bedside. At the time of assessment patient is shivering and cold, states that he has had chills over the past few weeks with no reports of any fever. Daughter states that he was admitted on 11/01/17 status post syncopal episode with complete workup done including head CT, echocardiogram, carotid ultrasound, nuclear stress test, lumbar spine MRI. Patient follows with Dr. Tinoco cardiology. PCP is Dr. Gardner. Patient was discharged home with home health care who reportedly has had worsening generalized weakness and lethargy. Urine culture at the time was negative but upon presentation today patient showing UTI. Continued leukocytosis, white blood cell 19,000, is following with hematology in the outpatient setting. Chest x-ray clear. Head CT negative for any acute event. Past Family Social History Allergies: Coded Allergies: Sulfa (Sulfonamide Antibiotics) (Unverified Allergy, Severe, RASH, 11/12/17) cephalexin (Unverified Allergy, Severe, RASH, 11/12/17) rash clopidogrel (Unverified Allergy, Severe, RASH, 11/12/17) Physical Exam Vital Signs Vital Signs Date Time Temp Pulse Resp B/P (MAP) Pulse Ox O2 Delivery O2 Flow Rate FiO2 11/12/17 15:44 80 16 155/72 (99) 96 Room Air 11/12/17 13:25 98.7 80 20 161/78 (105) 98 Room Air 11/12/17 12:48 16 96 Room Air 11/12/17 12:38 99 21 11/12/17 12:32 79 16 135/59 (84) 98 Room Air 11/12/17 12:05 16 99 Room Air 11/12/17 11:43 98.6 89 18 171/76 (107) 99 Physical Exam GENERAL: This is a well-nourished, well-developed patient, in no apparent distress. SKIN: No rashes, ecchymoses or lesions. Cool and dry. HEAD: Atraumatic. Normocephalic. No temporal or scalp tenderness. EYES: Pupils equal round and reactive. Extraocular motions intact. No scleral icterus. No injection or drainage. ENT: Nose without bleeding, purulent drainage or septal hematoma. Throat without erythema, tonsillar hypertrophy or exudate. Uvula midline. Airway patent. NECK: Trachea midline. No JVD or lymphadenopathy. Supple, nontender, no meningeal signs. CARDIOVASCULAR: Regular rate and rhythm without murmurs, gallops, or rubs. RESPIRATORY: Clear to auscultation. Breath sounds equal bilaterally. No wheezes , rales, or rhonchi. GASTROINTESTINAL: Abdomen soft, non-tender, nondistended. No hepato-splenomegaly , or palpable masses. No guarding. MUSCULOSKELETAL: Extremities without clubbing, cyanosis, or edema. No joint tenderness, effusion, or edema noted. No calf tenderness. Negative Homans sign bilaterally. NEUROLOGICAL: Awake and alert. Cranial nerves II through XII intact. Motor and sensory grossly within normal limits. Five out of 5 muscle strength in all muscle groups. Normal speech. Laboratory Laboratory Tests Test 11/12/17 12:20 11/12/17 12:40 11/12/17 12:50 Urine Collection Type CLEAN CATCH Urine Color YELLOW Urine Turbidity CLEAR Urine pH 8.0 Urine Specific [place] 1.015 Urine Protein NEG Urine Glucose (UA) NEG Urine Ketones NEG Urine Occult Blood NEG Urine Nitrite NEG Urine Bilirubin NEG Urine Urobilinogen 0.2 Urine Leukocyte Esterase MOD Urine RBC 0-3 Urine WBC 25-49 Urine WBC Clumps FEW Urine Squamous Epithelial Cells 0-5 Microscopic Urinalysis Comment CULTURE INDICATED Urine Collection Time 12:20 White Blood Count 19.1 Red Blood Count 3.99 Hemoglobin 12.1 Hematocrit 36.3 Mean Corpuscular Volume 90.8 Mean Corpuscular Hemoglobin 30.3 Mean Corpuscular Hemoglobin Concent 33.4 Red Cell Distribution Width 13.3 Platelet Count 238 Mean Platelet Volume 7.9 Neutrophils (%) (Auto) 41.8 Lymphocytes (%) (Auto) 41.6 Monocytes (%) (Auto) 13.8 Eosinophils (%) (Auto) 0.9 Basophils (%) (Auto) 1.9 Neutrophils # (Auto) 8.0 Lymphocytes # (Auto) 7.9 Monocytes # (Auto) 2.6 Eosinophils # (Auto) 0.2 Basophils # (Auto) 0.4 CBC Comment AUTO DIFF Differential Total Cells Counted 100 Neutrophils % (Manual) 47 Lymphocytes % 42 Monocytes % 11 Neutrophils # (Manual) 9.0 Differential Comment FINAL DIFF MANUAL Platelet Estimate NORMAL Platelet Morphology Comment NORMAL Prothrombin Time 10.2 Prothromb Time International Ratio 1.0 Activated Partial Thromboplast Time 24.2 Blood Urea Nitrogen 16 Creatinine 0.93 Random Glucose 104 Total Protein 7.6 Albumin 3.4 Calcium Level 8.6 Magnesium Level 2.1 Alkaline Phosphatase 105 Aspartate Amino Transf (AST/SGOT) 11 Alanine Aminotransferase (ALT/SGPT) 14 Total Bilirubin 0.5 Sodium Level 133 Potassium Level 4.0 Chloride Level 99 Carbon Dioxide Level 24.9 Anion Gap 9 Estimat Glomerular Filtration Rate 78 Total Creatine Kinase 18 Troponin I LESS THAN 0.02 Lactic Acid Level 1.1 Date/Time Source Procedure Growth Status 11/12/17 12:55 Blood Peripheral Aerobic Blood Culture Pending Received 11/12/17 12:55 Blood Peripheral Anaerobic Blood Culture Pending Received 11/12/17 12:20 Urine Clean Catch Urine Culture Pending Received Result Diagram: 11/12/17 1240 11/12/17 1240 Caprini VTE Risk Assessment Caprini VTE Risk Assessment: Mod/High Risk (score >= 2) Caprini Risk Assessment Model Point Value = 1 Point Value = 2 Point Value = 3 Point Value = 5 Age 41-60 Minor surgery BMI > 25 kg/m2 Swollen legs Varicose veins or History of unexplained or recurrent spontaneous Oral contraceptives or hormone replacement Sepsis (< 1 month) Serious lung disease, including pneumonia (< 1 month) Abnormal pulmonary function Acute myocardial infarction Congestive heart failure (< 1 month) History of inflammatory bowel disease Medical patient at bed rest Age 61-74 Arthroscopic surgery Major open surgery (> 45 min) Laparoscopic surgery (> 45 min) Malignancy Confined to bed (> 72 hours) Immobilizing plaster cast Central venous access Age >= 75 History of VTE Family history of VTE Factor V Leiden Prothrombin [id number] Lupus anticoagulant Anticardiolipin antibodies Elevated serum homocysteine Heparin-induced thrombocytopenia Other congenital or acquired thrombophilia Stroke (< 1 month) Elective arthroplasty Hip, pelvis, or leg fracture Acute spinal cord injury (< 1 month) Prophylaxis Regimen Total Risk Factor Score Risk Level Prophylaxis Regimen 0-1 Low Early ambulation 2 Moderate Order ONE of the following: *Sequential Compression Device (SCD) *Heparin 5000 units SQ BID 3-4 Higher Order ONE of the following medications: *Heparin 5000 units SQ TID *Enoxaparin/Lovenox 40 mg SQ daily (WT < 150 kg, CrCl > 30 mL/min) *Enoxaparin/Lovenox 30 mg SQ daily (WT < 150 kg, CrCl > 10-29 mL/min) *Enoxaparin/Lovenox 30 mg SQ BID (WT < 150 kg, CrCl > 30 mL/min) AND/OR *Sequential Compression Device (SCD) 5 or more Highest Order ONE of the following medications: *Heparin 5000 units SQ TID (Preferred with Epidurals) *Enoxaparin/Lovenox 40 mg SQ daily (WT < 150 kg, CrCl > 30 mL/min) *Enoxaparin/Lovenox 30 mg SQ daily (WT < 150 kg, CrCl > 10-29 mL/min) *Enoxaparin/Lovenox 30 mg SQ BID (WT < 150 kg, CrCl > 30 mL/min) AND *Sequential Compression Device (SCD) Assessment and Plan Assessment and Plan This is an 82-year-old male patient with a known medical history of anxiety, depression, prostate cancer, hypertension, hyperlipidemia and CAD who presented to the ED with complaints of generalized weakness and lethargy over the past week. Generalized weakness suspect secondary to dehydration/UTI -Chest x-ray reviewed showing clear lungs. -Echocardiogram from 11/03/17 showing EF 50-55%. Left ventricular systolic function is low normal. Wall thickness normal. Normal left ventricular size. -Nuclear stress test reviewed from last admission, unremarkable exam. Lumbar spine MRI reviewed showing severe spinal stenosis. Was seen by neurosurgery during prior admission. -Head CT reviewed showing no evidence of acute intracranial pathology. No masses identified. Old left parietal infarct. Will order orthostatics. Follow. -UA showing moderate amount of leukocyte esterase and presence of urine white blood cells. Urine culture pending. Continue to follow. -Was given IV Zosyn in ED. Will continue. -Continue IV fluids. Encourage p.o. intake. Leukocytosis, acute on chronic?: White blood cell is 19,000. Previous admission was roughly 17,000. Patient has been following with hematology in the outpatient setting. We will continue to monitor CBC. Monitor for infection. Afebrile since presentation. Chest x-ray reviewed showing clear lungs. Lactic acid 1.1. Blood cultures pending, follow growth. Urine culture pending. Chronic back pain suspect secondary to degenerative disease of the spine and spinal stenosis: During previous admission patient was seen by neurosurgery who recommended conservative management and physical therapy with exercise program. Hypertension, chronic: Continue to monitor BP trends. Will hold thiazide diuretic and Norvasc for now. Will restart Imdur and losartan. COPD not in exacerbation: Continue home inhalers. Supportive care. Hyperlipidemia, chronic: Continue home statin. History of CAD: Continue home aspirin and beta-jaiden. Continue cardiac telemetry. Monitor for any arrhythmias. DVT prophylaxis: SCDs. Heparin. Physician Certification 2 Midnight Certification Type: Admission for Inpatient Services Order for Inpatient Services The services are ordered in accordance with Medicare regulations or non- Medicare payer requirements, as applicable. In the case of services not specified as inpatient-only, they are appropriately provided as inpatient services in accordance with the 2-midnight benchmark. Estimated LOS (days): 3 3 days is the estimated time the patient will need to remain in the hospital, assuming treatment plan goals are met and no additional complications. Post-Hospital Plan: Not yet determined Pratibha Bell Nov 12, 2017 16:27
[2017-11-12] MEDS: HEPARIN SODIUM - SQ 10,000 UNITS/ML VIAL SQ SCH (17:56)
[2017-11-12] MEDS: SODIUM CHLOR 0.9% 1000 ML INJ 1,000 ML IV SCH (17:56)
[2017-11-12] MEDS: ISOSORBIDE MONONITRATE 30 MG CR TAB (IMDUR) PO SCH (19:59)
[2017-11-12] MEDS: PIPERACIL-TAZO 4.5 GM PREMIX 100 ML IV SCH (21:09)
[2017-11-12] MEDS: SODIUM CHLORIDE 0.9% FLUSH 10 ML FLUSH IV FLUSH SCH (21:09)
[2017-11-12] MEDS: CARVEDILOL 3.125 MG TAB PO SCH (21:09)
[2017-11-12] MEDS: DOCUSATE SODIUM 50 MG/SENNA 8.6 MG TAB PO SCH (21:09)
[2017-11-12] MEDS: ATORVASTATIN 20 MG TAB PO SCH (21:44)
[2017-11-13] VITALS (7 sets, daily range): BP systolic 101–140; BP diastolic 51–65; PULSE 66–87; RESP 16–20; TEMP 97.3–99; O2SAT 94–98
[2017-11-13] MEDS: PIPERACIL-TAZO 4.5 GM PREMIX 100 ML IV SCH ×4 (01:29→21:53)
[2017-11-13] MEDS: ISOSORBIDE MONONITRATE 30 MG CR TAB (IMDUR) PO SCH ×2 (06:24→18:44)
[2017-11-13] MEDS: LEVOTHYROXINE SODIUM 50 MCG TAB PO SCH (06:24)
[2017-11-13] MEDS: HEPARIN SODIUM - SQ 10,000 UNITS/ML VIAL SQ SCH ×2 (06:24→17:36)
[2017-11-13 07:23] LABS: AUTOMATED NEUTROPHIL # 6.8 TH/MM3 (1.8-7.7); BASOPHIL # 0.1 TH/MM3 (0-0.2); BASOPHIL % 0.5 % (0.0-2.0); EOSINOPHIL # 0.1 TH/MM3 (0-0.4); EOSINOPHIL % 0.7 % (0.0-4.0); HEMATOCRIT 32.5 % (39.0-51.0); HEMOGLOBIN 10.5 GM/DL (13.0-17.0); LYMPH % 40.5 % (9.0-44.0); LYMPHOCYTE # 6.6 TH/MM3 (1.0-4.8); MEAN CELL VOLUME 90.7 FL (80.0-100.0); MEAN CORPUSCULAR HEMOGLOBIN 29.3 PG (27.0-34.0); MEAN CORPUSCULAR HGB CONC 32.3 % (32.0-36.0); MONO % 16.4 % (0.0-8.0); MONOCYTE # 2.7 TH/MM3 (0-0.9); NEUT % 41.9 % (16.0-70.0); PLATELET COUNT 198 TH/MM3 (150-450); RED BLOOD COUNT 3.59 MIL/MM3 (4.50-5.90); RED CELL DISTRIBUTION WIDTH 13.1 % (11.6-17.2); WHITE BLOOD COUNT 16.3 TH/MM3 (4.0-11.0)
[2017-11-13 07:33] LABS: CALCIUM 8.6 MG/DL (8.5-10.1)
[2017-11-13 07:34] LABS: BICARBONATE 25.7 MEQ/L (21.0-32.0)
[2017-11-13 07:36] LABS: CREATININE 0.96 MG/DL (0.60-1.30)
--- NOTE | 2017-11-13 08:14 | HHI.PR ---
Subjective Remarks Follow-up sepsis secondary to UTI. Patient seen and examined, lying in bed much improved overnight. States he slept well. Denies any further chills. Has been eating well denies any abdominal pain, nausea or vomiting. Denies any further dizziness. Symptoms have improved. TMAX overnight 100.8. Continue on antibiotics. Urine culture and blood cultures pending. Orthostatics negative. Objective Vitals Vital Signs Date Time Temp Pulse Resp B/P (MAP) Pulse Ox O2 Delivery O2 Flow Rate FiO2 11/13/17 04:00 99.0 76 20 107/51 (69) 95 105/52 (69) 140/65 (90) 11/13/17 00:00 98.4 87 20 124/57 (79) 94 11/12/17 20:41 94 21 11/12/17 20:00 100.0 87 20 132/59 (83) 95 11/12/17 17:00 100.8 82 18 112/72 (85) 95 11/12/17 16:56 11/12/17 15:44 80 16 155/72 (99) 96 Room Air 11/12/17 13:25 98.7 80 20 161/78 (105) 98 Room Air 11/12/17 12:48 16 96 Room Air 11/12/17 12:38 99 21 11/12/17 12:32 79 16 135/59 (84) 98 Room Air 11/12/17 12:05 16 99 Room Air 11/12/17 11:43 98.6 89 18 171/76 (107) 99 I/O 11/12/17 11/12/17 11/12/17 11/13/17 11/13/17 11/13/17 06:59 14:59 22:59 06:59 14:59 22:59 Intake Total 100 ml 120 ml 420 ml Output Total 850 ml Balance 100 ml 120 ml -430 ml Intake Oral 120 ml 420 ml IV Total 100 ml Output Urine Total 850 ml # Voids 0 # Bowel Movements 1 Result Diagram: 11/13/17 0630 11/13/17 0630 Imaging Last Impressions Head CT 11/12/17 7342 Signed Impressions: Service Date/Time: Sunday, November 12, 2017 13:23 - CONCLUSION: No evidence of acute intracranial pathology. No masses are identified. Old left parietal infarct Ron Garcia MD Chest X-Ray 11/12/17 1238 Signed Impressions: Service Date/Time: Sunday, November 12, 2017 12:42 - CONCLUSION: The lungs are clear. Floyd Ramos MD Objective Remarks GENERAL: Well-developed, well-nourished elderly male patient in [place]. SKIN: Warm and dry. No rash. HEAD: Normocephalic. Atraumatic. EYES: Pupils equal and round. No scleral icterus. No injection or drainage. ENT: No nasal bleeding or discharge. Mucous membranes pink and moist. NECK: Supple. Trachea midline. CARDIOVASCULAR: Regular rate and rhythm. S1, S2 noted. No murmur appreciated. RESPIRATORY: No accessory muscle use. Clear to auscultation. Breath sounds equal bilaterally. GASTROINTESTINAL: Abdomen soft, non-tender, nondistended. Normoactive bowel sounds x4. MUSCULOSKELETAL: No obvious deformities. Extremities without clubbing, cyanosis , or edema. NEUROLOGICAL: Awake and alert. No obvious cranial nerve deficits. Motor grossly within normal limits. 5/5 muscle strength in bilateral upper and lower extremities. Normal speech. PSYCHIATRIC: Appropriate mood and affect; insight and judgment normal. A/P Problem List: (1) UTI (urinary tract infection) ICD Code: N39.0 - Urinary tract infection, site not specified Status: Acute (2) Syncope ICD Code: R55 - Syncope and collapse (3) Leukocytosis ICD Code: D72.829 - Elevated white blood cell count, unspecified Assessment and Plan This is an 82-year-old male patient with a known medical history of anxiety, depression, prostate cancer, hypertension, hyperlipidemia and CAD who presented to the ED with complaints of generalized weakness and lethargy over the past week. Generalized weakness suspect secondary to dehydration/UTI -Chest x-ray reviewed showing clear lungs. -Echocardiogram from 11/03/17 showing EF 50-55%. Left ventricular systolic function is low normal. Wall thickness normal. Normal left ventricular size. -Nuclear stress test reviewed from last admission 11/01/17, unremarkable exam. Lumbar spine MRI reviewed from 11/01/17 showing severe spinal stenosis. Was seen by neurosurgery during prior admission. -Head CT reviewed showing no evidence of acute intracranial pathology. No masses identified. Old left parietal infarct. Will order orthostatics. Follow. -UA showing moderate amount of leukocyte esterase and presence of urine white blood cells. -Was given IV Zosyn in ED. Will continue IV Zosyn. Urine culture pending, follow. Blood cultures negative today. Follow. Afebrile overnight. Monitor. -Continue IV fluids. Encourage p.o. intake. Leukocytosis, acute on chronic?: White blood cell is 19,000. Previous admission was roughly 17,000. Patient has been following with hematology in the outpatient setting. We will continue to monitor CBC, white blood cell 16.3 today. Monitor for infection. Chest x-ray reviewed showing clear lungs. Lactic acid 1.1. Chronic back pain suspect secondary to degenerative disease of the spine and spinal stenosis: During previous admission patient was seen by neurosurgery who recommended conservative management and physical therapy with exercise program. Supportive care for now. Denies any pain at this time. Hypertension, chronic: Continue to monitor BP trends. Will hold thiazide diuretic and Norvasc for now. Will restart Imdur and losartan. Blood pressure trends noted, controlled at this time. Orthostatics negative. COPD not in exacerbation: Continue home inhalers. Supportive care. Hyperlipidemia, chronic: Continue home statin. History of CAD: Continue home aspirin and beta-jaiden. Continue cardiac telemetry. Monitor for any arrhythmias. No events overnight. DVT prophylaxis: SCDs. Heparin. Discharge Planning Possible discharge 1-2 days depending on clinical improvement. Blood cultures and urine culture still pending. Febrile still. Pratibha Bell Nov 13, 2017 08:14
[2017-11-13] MEDS: DOCUSATE SODIUM 50 MG/SENNA 8.6 MG TAB PO SCH ×2 (09:00→21:53)
[2017-11-13] MEDS: SODIUM CHLORIDE 0.9% FLUSH 10 ML FLUSH IV FLUSH SCH ×2 (09:00→21:53)
[2017-11-13] MEDS: SODIUM CHLOR 0.9% 1000 ML INJ 1,000 ML IV SCH ×2 (09:20→21:52)
[2017-11-13] MEDS: LOSARTAN 50 MG TAB PO SCH (09:22)
[2017-11-13] MEDS: SERTRALINE HCL 100 MG TAB PO SCH (09:22)
[2017-11-13] MEDS: CARVEDILOL 3.125 MG TAB PO SCH ×2 (09:22→21:53)
[2017-11-13] MEDS: ALLOPURINOL 300 MG TAB PO SCH (09:22)
[2017-11-13] MEDS: ASPIRIN EC 81 MG TABEC PO SCH (09:23)
--- NOTE | 2017-11-13 10:30 | HHI.FF ---
Face to Face Verification Diagnosis: (1) Sepsis (2) UTI (urinary tract infection) Physical Therapy Order: Evaluate and Treat, Improve ambulation, Strength and gait training Home Health Nursing Order: Medical education Signs/symptoms of disease process Medication education-adverse effect Nursing assessment with vital signs I have seen patient Fabiano Molina on 11/13/17. My clinical findings support the need for the requested home health care services because: Deconditioned w/ increased weakness Limited ability to care for self I certify that my clinical findings support that this patient is homebound because: Impaired cognitive ability/safety Unsteady gait/balance Pratibha Bell [facility] Nov 13, 2017 10:30
--- NOTE | 2017-11-13 13:17 | EKG ---
Date Performed: 11/12/2017 Time Performed: 13:47:03 PTAGE: 82 years EKG: ECTOPIC ATRIAL RHYTHM POSSIBLE RIGHT VENTRICULAR CONDUCTION DELAY INFERIOR MYOCARDIAL INFAR CTION ABNORMAL ECG NO PREVIOUS TRACING DOCTOR: Carlos Demarco Interpretating Date/Time 11/13/2017 13:16:30
--- NOTE | 2017-11-13 13:20 | EKG ---
Date Performed: 11/12/2017 Time Performed: 13:01:34 PTAGE: 82 years EKG: ECTOPIC ATRIAL RHYTHM POSSIBLE RIGHT VENTRICULAR CONDUCTION DELAY INFERIOR MYOCARDIAL INFAR CTION ABNORMAL ECG PREVIOUS TRACING : 11/01/2017 18.29 DOCTOR: Carlos Demarco Interpretating Date/Time 11/13/2017 13:19:41
[2017-11-13] MEDS: TIOTROPIUM OLODATEROL INH SCH (17:35)
[2017-11-13] MEDS: ACETAMINOPHEN 325 MG TAB PO PRN (18:45)
[2017-11-13] MEDS: ATORVASTATIN 20 MG TAB PO SCH (21:53)
[2017-11-14] VITALS: BP 126/58; PULSE 70; RESP 20; TEMP 97.8; O2SAT 96
[2017-11-14] MEDS: PIPERACIL-TAZO 4.5 GM PREMIX 100 ML IV SCH ×4 (01:21→20:49)
[2017-11-14] MEDS: ACETAMINOPHEN 325 MG TAB PO PRN (05:09)
[2017-11-14] MEDS: LEVOTHYROXINE SODIUM 50 MCG TAB PO SCH (05:09)
[2017-11-14] MEDS: HEPARIN SODIUM - SQ 10,000 UNITS/ML VIAL SQ SCH ×2 (05:11→18:32)
[2017-11-14] MEDS: ISOSORBIDE MONONITRATE 30 MG CR TAB (IMDUR) PO SCH ×2 (06:39→18:32)
[2017-11-14 06:51] LABS: AUTOMATED NEUTROPHIL # 5.7 TH/MM3 (1.8-7.7); BASOPHIL # 0.1 TH/MM3 (0-0.2); BASOPHIL % 0.6 % (0.0-2.0); EOSINOPHIL # 0.3 TH/MM3 (0-0.4); EOSINOPHIL % 2.2 % (0.0-4.0); HEMATOCRIT 33.2 % (39.0-51.0); HEMOGLOBIN 10.4 GM/DL (13.0-17.0); LYMPH % 39.7 % (9.0-44.0); LYMPHOCYTE # 5.2 TH/MM3 (1.0-4.8); MEAN CELL VOLUME 90.7 FL (80.0-100.0); MEAN CORPUSCULAR HEMOGLOBIN 28.5 PG (27.0-34.0); MEAN CORPUSCULAR HGB CONC 31.4 % (32.0-36.0); MONO % 13.5 % (0.0-8.0); MONOCYTE # 1.8 TH/MM3 (0-0.9); PLATELET COUNT 202 TH/MM3 (150-450); RED BLOOD COUNT 3.66 MIL/MM3 (4.50-5.90); RED CELL DISTRIBUTION WIDTH 13.4 % (11.6-17.2); WHITE BLOOD COUNT 13.1 TH/MM3 (4.0-11.0)
[2017-11-14 07:01] LABS: BICARBONATE 25.2 MEQ/L (21.0-32.0); CALCIUM 8.4 MG/DL (8.5-10.1)
[2017-11-14 07:04] LABS: CREATININE 0.89 MG/DL (0.60-1.30)
[2017-11-14 07:36] LABS: LYMPHOCYTES 31 % (9-44); MONOCYTES 9 % (0-8); NEUTROPHIL # MANUAL DIFF 7.5 TH/MM3 (1.8-7.7); POLYS (SEG NEUTROPHILS) 57 % (16-70)
[2017-11-14 08:00] VITALS: BP 119/64; PULSE 70; RESP 18; TEMP 96; O2SAT 97
[2017-11-14] MEDS: CARVEDILOL 3.125 MG TAB PO SCH ×2 (08:53→20:50)
[2017-11-14] MEDS: ASPIRIN EC 81 MG TABEC PO SCH (08:53)
[2017-11-14] MEDS: ALLOPURINOL 300 MG TAB PO SCH (08:53)
[2017-11-14] MEDS: SERTRALINE HCL 100 MG TAB PO SCH (08:53)
[2017-11-14] MEDS: DOCUSATE SODIUM 50 MG/SENNA 8.6 MG TAB PO SCH ×2 (08:54→20:51)
[2017-11-14] MEDS: SODIUM CHLORIDE 0.9% FLUSH 10 ML FLUSH IV FLUSH SCH ×2 (08:54→20:51)
[2017-11-14] MEDS: LOSARTAN 50 MG TAB PO SCH (08:54)
[2017-11-14] MEDS: TIOTROPIUM OLODATEROL INH SCH (08:56)
--- NOTE | 2017-11-14 10:03 | HHI.PR ---
Subjective Remarks Follow-up sepsis secondary to UTI. Patient seen and examined lying in bed comfortably. Patient states that he did get up last evening and had some dizziness was relieved with rest. Patient denies any nausea or vomiting has been tolerating p.o. intake well. Patient does state that he feels a little bit weak getting up. Physical therapy is still following patient. Spoke to patient, will be considering possibly rehab depending on PT recommendations today. Continue to follow. Vital signs are stable. Afebrile. Objective Vitals Vital Signs Date Time Temp Pulse Resp B/P (MAP) Pulse Ox O2 Delivery O2 Flow Rate FiO2 11/14/17 08:00 96.0 70 18 119/64 (82) 97 11/14/17 00:00 97.8 70 20 126/58 (80) 96 11/13/17 21:08 95 21 11/13/17 20:00 97.4 75 20 133/63 (86) 95 11/13/17 16:00 97.3 66 16 117/58 (77) 97 11/13/17 12:00 97.5 69 18 101/53 (69) 97 I/O 11/13/17 11/13/17 11/13/17 11/14/17 11/14/17 11/14/17 07:00 15:00 23:00 07:00 15:00 23:00 Intake Total 420 ml 1440 ml 1300 ml 1083 ml 360 ml Output Total 850 ml 351 ml 1450 ml Balance -430 ml 1089 ml 1300 ml -367 ml 360 ml Intake Oral 420 ml 240 ml 300 ml 120 ml 360 ml IV Total 1200 ml 1000 ml 963 ml Output Urine Total 850 ml 350 ml 1450 ml Stool Total 1 ml # Voids 2 1 # Bowel Movements 1 1 1 Result Diagram: 11/14/17 0620 11/14/17 0620 Imaging Last Impressions Head CT 11/12/17 1238 Signed Impressions: Service Date/Time: Sunday, November 12, 2017 13:23 - CONCLUSION: No evidence of acute intracranial pathology. No masses are identified. Old left parietal infarct Ron Garcia MD Chest X-Ray 11/12/17 1238 Signed Impressions: Service Date/Time: Sunday, November 12, 2017 12:42 - CONCLUSION: The lungs are clear. Floyd Ramos MD Objective Remarks GENERAL: Well-developed, well-nourished elderly male patient in NAD. SKIN: Warm and dry. No rash. HEAD: Normocephalic. Atraumatic. EYES: Pupils equal and round. No scleral icterus. No injection or drainage. ENT: No nasal bleeding or discharge. Mucous membranes pink and moist. NECK: Supple. Trachea midline. CARDIOVASCULAR: Regular rate and rhythm. S1, S2 noted. No murmur appreciated. RESPIRATORY: No accessory muscle use. Clear to auscultation. Breath sounds equal bilaterally. GASTROINTESTINAL: Abdomen soft, non-tender, nondistended. Normoactive bowel sounds x4. MUSCULOSKELETAL: No obvious deformities. Extremities without clubbing, cyanosis , or edema. NEUROLOGICAL: Awake and alert. No obvious cranial nerve deficits. Motor grossly within normal limits. 5/5 muscle strength in bilateral upper and lower extremities. Normal speech. PSYCHIATRIC: Appropriate mood and affect; insight and judgment normal. A/P Problem List: (1) UTI (urinary tract infection) ICD Code: N39.0 - Urinary tract infection, site not specified Status: Acute (2) Syncope ICD Code: R55 - Syncope and collapse (3) Leukocytosis ICD Code: D72.829 - Elevated white blood cell count, unspecified Assessment and Plan This is an 82-year-old male patient with a known medical history of anxiety, depression, prostate cancer, hypertension, hyperlipidemia and CAD who presented to the ED with complaints of generalized weakness and lethargy over the past week. Generalized weakness suspect secondary to dehydration/UTI -Chest x-ray reviewed showing clear lungs. -Echocardiogram from 11/03/17 showing EF 50-55%. Left ventricular systolic function is low normal. Wall thickness normal. Normal left ventricular size. -Nuclear stress test reviewed from last admission 11/01/17, unremarkable exam. Lumbar spine MRI reviewed from 11/01/17 showing severe spinal stenosis. Was seen by neurosurgery during prior admission. -Head CT reviewed showing no evidence of acute intracranial pathology. No masses identified. Old left parietal infarct. Will order orthostatics. Follow. -UA showing moderate amount of leukocyte esterase and presence of urine white blood cells. -Was given IV Zosyn in ED. Will continue IV Zosyn. Urine culture growing group D enterococcus, awaiting ROXANNE and sensitivity. Blood cultures negative to date. Follow. Afebrile overnight. Monitor. -Continue IV fluids. Encourage p.o. intake. Leukocytosis, acute on chronic?: White blood cell is 19,000. Previous admission was roughly 17,000. Today is 13,000. Patient has been following with hematology in the outpatient setting. We will continue to monitor CBC. Monitor for infection. Chest x-ray reviewed showing clear lungs. Lactic acid 1.1. Afebrile overnight. Chronic back pain suspect secondary to degenerative disease of the spine and spinal stenosis: During previous admission patient was seen by neurosurgery who recommended conservative management and physical therapy with exercise program. Supportive care for now. Denies any pain at this time. Hypertension, chronic: Continue to monitor BP trends. Will hold thiazide diuretic and Norvasc for now. Will restart Imdur and losartan. Blood pressure trends noted, controlled at this time. Orthostatics negative. COPD not in exacerbation: Continue home inhalers. Supportive care. Hyperlipidemia, chronic: Continue home statin. History of CAD: Continue home aspirin and beta-jaiden. Continue cardiac telemetry. Monitor for any arrhythmias. No events overnight. DVT prophylaxis: SCDs. Heparin. Discharge Planning Possible discharge 1-2 days depending on clinical improvement, considering possible rehab for weakness. Blood cultures still pending. Awaiting urine culture ROXANNE. Pratibha Bell Nov 14, 2017 10:03
[2017-11-14 12:00] VITALS: BP 121/55; PULSE 65; RESP 20; TEMP 96.5; O2SAT 97
[2017-11-14] MEDS: SODIUM CHLOR 0.9% 1000 ML INJ 1,000 ML IV SCH ×2 (13:08→16:25)
[2017-11-14 16:00] VITALS: BP 154/75; PULSE 68; RESP 20; TEMP 96.6; O2SAT 100
[2017-11-14 20:00] VITALS: BP 163/72; PULSE 74; RESP 20; TEMP 97; O2SAT 98
[2017-11-14 20:42] VITALS: O2SAT 95
[2017-11-14] MEDS: ATORVASTATIN 20 MG TAB PO SCH (20:50)
[2017-11-15] VITALS: BP_SYST 132; BP_SYST 141; BP_DIAS 59; BP_DIAS 67; PULSE 70; PULSE 76; RESP 20; TEMP 97.2; TEMP 97.6; O2SAT 96
[2017-11-15] MEDS: PIPERACIL-TAZO 4.5 GM PREMIX 100 ML IV SCH ×4 (02:05→21:13)
[2017-11-15] MEDS: SODIUM CHLOR 0.9% 1000 ML INJ 1,000 ML IV SCH (02:05)
[2017-11-15] MEDS: LEVOTHYROXINE SODIUM 50 MCG TAB PO SCH (06:36)
[2017-11-15] MEDS: ISOSORBIDE MONONITRATE 30 MG CR TAB (IMDUR) PO SCH ×2 (06:36→17:52)
[2017-11-15] MEDS: HEPARIN SODIUM - SQ 10,000 UNITS/ML VIAL SQ SCH ×2 (06:37→17:18)
[2017-11-15 06:59] LABS: AUTOMATED NEUTROPHIL # 4.7 TH/MM3 (1.8-7.7); BASOPHIL # 0.1 TH/MM3 (0-0.2); EOSINOPHIL # 0.5 TH/MM3 (0-0.4); EOSINOPHIL % 3.4 % (0.0-4.0); HEMATOCRIT 32.3 % (39.0-51.0); HEMOGLOBIN 10.4 GM/DL (13.0-17.0); MEAN CELL VOLUME 90.2 FL (80.0-100.0); MEAN CORPUSCULAR HEMOGLOBIN 29.1 PG (27.0-34.0); MEAN CORPUSCULAR HGB CONC 32.2 % (32.0-36.0); MEAN PLATELET VOLUME 7.9 FL (7.0-11.0); MONO % 10.1 % (0.0-8.0); MONOCYTE # 1.4 TH/MM3 (0-0.9); NEUT % 34.5 % (16.0-70.0); PLATELET COUNT 211 TH/MM3 (150-450); RED BLOOD COUNT 3.58 MIL/MM3 (4.50-5.90); WHITE BLOOD COUNT 13.7 TH/MM3 (4.0-11.0)
[2017-11-15] MEDS ORDERED: MACR100C2 PO (08:03)
--- NOTE | 2017-11-15 08:06 | HHI.DS ---
Discharge Summary Admission Date Nov 12, 2017 at 15:49 Discharge Date: Nov 15, 2017 Admitting Diagnosis UTI/syncope/sepsis (1) UTI (urinary tract infection) ICD Code: N39.0 - Urinary tract infection, site not specified Status: Acute (2) Syncope ICD Code: R55 - Syncope and collapse (3) Leukocytosis ICD Code: D72.829 - Elevated white blood cell count, unspecified Procedures See below. Brief History - From Admission This is an 82-year-old male patient with a known medical history of anxiety, depression, prostate cancer, hypertension, hyperlipidemia and CAD who presented to the ED with complaints of generalized weakness and lethargy over the past week. Patient seen and examined and ER with daughter at bedside. At the time of assessment patient is shivering and cold, states that he has had chills over the past few weeks with no reports of any fever. Daughter states that he was admitted on 11/01/17 status post syncopal episode with complete workup done including head CT, echocardiogram, carotid ultrasound, nuclear stress test, lumbar spine MRI. Patient follows with Dr. Tinoco cardiology. PCP is Dr. Gardner. Patient was discharged home with home health care who reportedly has had worsening generalized weakness and lethargy. Urine culture at the time was negative but upon presentation today patient showing UTI. Continued leukocytosis, white blood cell 19,000, is following with hematology in the outpatient setting. Chest x-ray clear. Head CT negative for any acute event. CBC/BMP: 11/15/17 0615 11/14/17 0620 Significant Findings Laboratory Tests Test 11/12/17 12:20 11/12/17 12:40 11/12/17 12:50 11/13/17 06:30 Urine Leukocyte Esterase MOD (NEG) Urine WBC 25-49 /hpf (0-5) Urine WBC Clumps FEW (NONE) White Blood Count 19.1 TH/MM3 (4.0-11.0) 16.3 TH/MM3 (4.0-11.0) Red Blood Count 3.99 MIL/MM3 (4.50-5.90) 3.59 MIL/MM3 (4.50-5.90) Hemoglobin 12.1 GM/DL (13.0-17.0) 10.5 GM/DL (13.0-17.0) Hematocrit 36.3 % (39.0-51.0) 32.5 % (39.0-51.0) Monocytes (%) (Auto) 13.8 % (0.0-8.0) 16.4 % (0.0-8.0) Neutrophils # (Auto) 8.0 TH/MM3 (1.8-7.7) Lymphocytes # (Auto) 7.9 TH/MM3 (1.0-4.8) 6.6 TH/MM3 (1.0-4.8) Monocytes # (Auto) 2.6 TH/MM3 (0-0.9) 2.7 TH/MM3 (0-0.9) Basophils # (Auto) 0.4 TH/MM3 (0-0.2) Monocytes % 11 % (0-8) Neutrophils # (Manual) 9.0 TH/MM3 (1.8-7.7) Activated Partial Thromboplast Time 24.2 SEC (24.3-30.1) Aspartate Amino Transf (AST/SGOT) 11 U/L (15-37) Sodium Level 133 MEQ/L (136-145) Estimat Glomerular Filtration Rate 78 ML/MIN (>89) 75 ML/MIN (>89) Total Creatine Kinase 18 U/L (39-308) Troponin I LESS THAN 0.02 NG/ML Random Glucose 131 MG/DL (74-106) Test 11/14/17 06:20 11/15/17 06:15 White Blood Count 13.1 TH/MM3 (4.0-11.0) 13.7 TH/MM3 (4.0-11.0) Red Blood Count 3.66 MIL/MM3 (4.50-5.90) 3.58 MIL/MM3 (4.50-5.90) Hemoglobin 10.4 GM/DL (13.0-17.0) 10.4 GM/DL (13.0-17.0) Hematocrit 33.2 % (39.0-51.0) 32.3 % (39.0-51.0) Mean Corpuscular Hemoglobin Concent 31.4 % (32.0-36.0) Monocytes (%) (Auto) 13.5 % (0.0-8.0) 10.1 % (0.0-8.0) Lymphocytes # (Auto) 5.2 TH/MM3 (1.0-4.8) 7.0 TH/MM3 (1.0-4.8) Monocytes # (Auto) 1.8 TH/MM3 (0-0.9) 1.4 TH/MM3 (0-0.9) Monocytes % 9 % (0-8) Random Glucose 136 MG/DL (74-106) Calcium Level 8.4 MG/DL (8.5-10.1) Estimat Glomerular Filtration Rate 82 ML/MIN (>89) Lymphocytes (%) (Auto) 51.0 % (9.0-44.0) Eosinophils # (Auto) 0.5 TH/MM3 (0-0.4) Imaging Last Impressions Head CT 11/12/17 1238 Signed Impressions: Service Date/Time: Sunday, November 12, 2017 13:23 - CONCLUSION: No evidence of acute intracranial pathology. No masses are identified. Old left parietal infarct Ron Garcia MD Chest X-Ray 11/12/17 1238 Signed Impressions: Service Date/Time: Sunday, November 12, 2017 12:42 - CONCLUSION: The lungs are clear. Floyd Ramos MD PE at Discharge GENERAL: Well-developed, well-nourished elderly male patient in [facility]. SKIN: Warm and dry. No rash. HEAD: Normocephalic. Atraumatic. EYES: Pupils equal and round. No scleral icterus. No injection or drainage. ENT: No nasal bleeding or discharge. Mucous membranes pink and moist. NECK: Supple. Trachea midline. CARDIOVASCULAR: Regular rate and rhythm. S1, S2 noted. No murmur appreciated. RESPIRATORY: No accessory muscle use. Clear to auscultation. Breath sounds equal bilaterally. GASTROINTESTINAL: Abdomen soft, non-tender, nondistended. Normoactive bowel sounds x4. MUSCULOSKELETAL: No obvious deformities. Extremities without clubbing, cyanosis , or edema. NEUROLOGICAL: Awake and alert. No obvious cranial nerve deficits. Motor grossly within normal limits. 5/5 muscle strength in bilateral upper and lower extremities. Normal speech. PSYCHIATRIC: Appropriate mood and affect; insight and judgment normal. Pt update on day of discharge Follow-up sepsis secondary to UTI. Patient seen and examined, lying in bed comfortably. States he feels much improved back at baseline. Afebrile overnight. Denies any dysuria. Has been urinating well. Participating PT, vestibular rehab has been ordered. Patient will be discharged today, [facility] has refused AUTH for patient to rehab. Will order [facility] PT and nursing. Urine culture sensitivity noted. Placed on Macrobid. Hospital Course This is an 82-year-old male patient with a known medical history of anxiety, depression, prostate cancer, hypertension, hyperlipidemia and CAD who presented to the ED with complaints of generalized weakness and lethargy over the past week. Presented with generalized weakness suspect secondary to dehydration/UTI. Chest x-ray reviewed showing clear lungs. Echocardiogram from 11/03/17 showing EF 50-55%. Left ventricular systolic function is low normal. Wall thickness normal. Normal left ventricular size. Nuclear stress test reviewed from last admission 11/01/17, unremarkable exam. Lumbar spine MRI reviewed from 11/01/17 showing severe spinal stenosis. Was seen by neurosurgery during prior admission. Head CT reviewed showing no evidence of acute intracranial pathology. No masses identified. Old left parietal infarct. Orthostatic BPs negative. Urine culture showing enterococcus faciales. Placed on Macrobid upon discharge. Was given IV Zosyn. Blood cultures negative.Afebrile. Patient with leukocytosis, acute on chronic?: White blood cell is 19,000 on presentation, trended down to 13 K upon discharge. Patient has been following with hematology in the outpatient setting. Chest x-ray reviewed showing clear lungs. Lactic acid 1.1. Patient with chronic back pain suspect secondary to degenerative disease of the spine and spinal stenosis. During previous admission patient was seen by neurosurgery who recommended conservative management and physical therapy with exercise program. Supportive care for now. Chronic hypertension, chronic, restarted Imdur and losartan. COPD, hyperlipidemia, CAD all stable during hospitalization. Pt Condition on Discharge: Stable Discharge Disposition: Discharge to SNF Discharge Time: > 30 minutes Discharge Instructions DIET: Follow Instructions for: Heart Healthy Diet Speech Therapy-Diet Recommends: Regular Activities you can perform: Regular-No Restrictions Follow up Referrals: PCP Follow-up - 1 Week New Medications: Nitrofurantoin Monohydrate Macrocrystals (Macrobid) 100 Mg Capsule 100 MG PO BID for Infection for 7 Days, #14 CAP 0 Refills Continued Medications: Allopurinol (Allopurinol) 300 Mg Tab 300 MG PO DAILY for Gout, #30 TAB 0 Refills Ascorbic Acid (Vitamin C) 250 Mg Tab 500 MG PO for Nutritional Supplement, TAB [address] (Aspir-81) 81 Mg Tabdr 81 MG PO DAILY Atorvastatin (Atorvastatin) 20 Mg Tab 20 MG PO HS for Cholesterol Management, #30 TAB 0 Refills Carvedilol (Coreg) 3.125 Mg Tab 3.125 MG PO Q12HR for Heart, #60 TAB Docusate Sodium (Colace) 100 Mg Capsule 100 MG PO BID PRN for CONSTIPATION, #40 CAP 0 Refills Hydrochlorothiazide (Hydrochlorothiazide) 25 Mg Tab 25 MG PO DAILY, #30 TAB 0 Refills Isosorbide Mononitrate ER (Isosorbide Mononitrate ER) 30 Mg Marga 30 MG PO DAILY@0700,1900 for heart, #60 TAB Levothyroxine (Levothyroxine) 50 Mcg Tab 50 MCG PO DAILY for Thyroid, #30 TAB 0 Refills Losartan (Losartan) 50 Mg Tab 50 MG PO DAILY for Blood Pressure Management, #30 TAB 0 Refills Sertraline (Sertraline) 100 Mg Tab 100 MG PO DAILY, #30 TAB 0 Refills Tiotropium-Olodaterol Inh (Stiolto Respimat Inh) 2.5-2.5 Mcg/Act Aero 2.5 PUFF INH DAILY for COPD, #1 INHALER 0 Refills Discontinued Medications: Amlodipine (Norvasc) 10 Mg Tab 10 MG PO DAILY for Blood Pressure Management, #30 TAB Pratibha Bell Nov 15, 2017 08:06
--- NOTE | 2017-11-15 08:06 | HHI.PR ---
Subjective Remarks Follow-up sepsis secondary to UTI. Patient seen and examined, lying in bed comfortably. States he feels much improved back at baseline. Afebrile overnight. Denies any dysuria. Has been urinating well. Participating PT, vestibular rehab has been ordered. Patient will be discharged today, [facility] has refused AUTH For patient to rehab. Will order [facility] PT and nursing. Urine culture sensitivity noted. Placed on Macrobid. Objective Vitals Vital Signs Date Time Temp Pulse Resp B/P (MAP) Pulse Ox O2 Delivery O2 Flow Rate FiO2 11/15/17 00:00 97.6 70 20 132/59 (83) 96 11/14/17 20:42 95 21 11/14/17 20:00 97.0 74 20 163/72 (102) 98 11/14/17 16:00 96.6 68 20 154/75 (101) 100 11/14/17 12:00 96.5 65 20 121/55 (77) 97 11/14/17 08:00 97 21 11/14/17 08:00 96.0 70 18 119/64 (82) 97 I/O 11/14/17 11/14/17 11/14/17 11/15/17 11/15/17 11/15/17 07:00 15:00 23:00 07:00 15:00 23:00 Intake Total 1083 ml 1948 ml 1905 ml 1402 ml Output Total 1450 ml 1300 ml 200 ml 1950 ml Balance -367 ml 648 ml 1705 ml -548 ml Intake Oral 120 ml 1260 ml 100 ml 480 ml IV Total 963 ml 688 ml 1805 ml 922 ml Output Urine Total 1450 ml 1300 ml 200 ml 1950 ml # Voids 2 # Bowel Movements 1 2 Result Diagram: 11/15/17 0615 11/14/17 0620 Imaging Last Impressions Head CT 11/12/17 1238 Signed Impressions: Service Date/Time: Sunday, November 12, 2017 13:23 - CONCLUSION: No evidence of acute intracranial pathology. No masses are identified. Old left parietal infarct Ron Garcia MD Chest X-Ray 11/12/17 1238 Signed Impressions: Service Date/Time: Sunday, November 12, 2017 12:42 - CONCLUSION: The lungs are clear. Floyd Ramos MD Objective Remarks GENERAL: Well-developed, well-nourished elderly male patient in NAD. SKIN: Warm and dry. No rash. HEAD: Normocephalic. Atraumatic. EYES: Pupils equal and round. No scleral icterus. No injection or drainage. ENT: No nasal bleeding or discharge. Mucous membranes pink and moist. NECK: Supple. Trachea midline. CARDIOVASCULAR: Regular rate and rhythm. S1, S2 noted. No murmur appreciated. RESPIRATORY: No accessory muscle use. Clear to auscultation. Breath sounds equal bilaterally. GASTROINTESTINAL: Abdomen soft, non-tender, nondistended. Normoactive bowel sounds x4. MUSCULOSKELETAL: No obvious deformities. Extremities without clubbing, cyanosis , or edema. NEUROLOGICAL: Awake and alert. No obvious cranial nerve deficits. Motor grossly within normal limits. 5/5 muscle strength in bilateral upper and lower extremities. Normal speech. PSYCHIATRIC: Appropriate mood and affect; insight and judgment normal. A/P Problem List: (1) UTI (urinary tract infection) ICD Code: N39.0 - Urinary tract infection, site not specified Status: Acute (2) Syncope ICD Code: R55 - Syncope and collapse (3) Leukocytosis ICD Code: D72.829 - Elevated white blood cell count, unspecified Assessment and Plan This is an 82-year-old male patient with a known medical history of anxiety, depression, prostate cancer, hypertension, hyperlipidemia and CAD who presented to the ED with complaints of generalized weakness and lethargy over the past week. Generalized weakness suspect secondary to dehydration/UTI -Chest x-ray reviewed showing clear lungs. -Echocardiogram from 11/03/17 showing EF 50-55%. Left ventricular systolic function is low normal. Wall thickness normal. Normal left ventricular size. -Nuclear stress test reviewed from last admission 11/01/17, unremarkable exam. Lumbar spine MRI reviewed from 11/01/17 showing severe spinal stenosis. Was seen by neurosurgery during prior admission. -Head CT reviewed showing no evidence of acute intracranial pathology. No masses identified. Old left parietal infarct. Will order orthostatics. Follow. -UA showing moderate amount of leukocyte esterase and presence of urine white blood cells. Urine culture showing enterococcus faciales. Placed on Macrobid upon discharge -Was given IV Zosyn in ED. Will continue IV Zosyn. Blood cultures negative to date. Follow. Afebrile overnight. Monitor. -Continue IV fluids. Encourage p.o. intake. Leukocytosis, acute on chronic?: White blood cell is 19,000. Previous admission was roughly 17,000. Today is 13,000. Patient has been following with hematology in the outpatient setting. We will continue to monitor CBC. Monitor for infection. Chest x-ray reviewed showing clear lungs. Lactic acid 1.1. Afebrile overnight. Chronic back pain suspect secondary to degenerative disease of the spine and spinal stenosis: During previous admission patient was seen by neurosurgery who recommended conservative management and physical therapy with exercise program. Supportive care for now. Denies any pain at this time. Hypertension, chronic: Continue to monitor BP trends. Will hold thiazide diuretic and Norvasc for now. Will restart Imdur and losartan. Blood pressure trends noted, controlled at this time. Orthostatics negative. COPD not in exacerbation: Continue home inhalers. Supportive care. Hyperlipidemia, chronic: Continue home statin. History of CAD: Continue home aspirin and beta-jaiden. Continue cardiac telemetry. Monitor for any arrhythmias. No events overnight. DVT prophylaxis: SCDs. Heparin. Discharge Planning [facility] has refused AUTH for patient to rehab. Will dc home with [facility] PT and nursing. Pratibha Bell Nov 15, 2017 08:05
[2017-11-15] MEDS: ASPIRIN EC 81 MG TABEC PO SCH (08:24)
[2017-11-15] MEDS: DOCUSATE SODIUM 50 MG/SENNA 8.6 MG TAB PO SCH ×2 (08:24→21:13)
[2017-11-15] MEDS: CARVEDILOL 3.125 MG TAB PO SCH ×2 (08:24→21:13)
[2017-11-15] MEDS: ALLOPURINOL 300 MG TAB PO SCH (08:24)
[2017-11-15] MEDS: SERTRALINE HCL 100 MG TAB PO SCH (08:24)
[2017-11-15] MEDS: LOSARTAN 50 MG TAB PO SCH (08:24)
[2017-11-15] MEDS: TIOTROPIUM OLODATEROL INH SCH (08:24)
[2017-11-15] MEDS: SODIUM CHLORIDE 0.9% FLUSH 10 ML FLUSH IV FLUSH SCH ×2 (08:25→21:13)
[2017-11-15 08:27] VITALS: BP 158/72; PULSE 75; RESP 18; O2SAT 96
[2017-11-15 13:30] VITALS: BP 116/58; PULSE 69; RESP 18; TEMP 97.7; O2SAT 96
[2017-11-15 16:00] VITALS: BP_SYST 119; BP_SYST 145; BP_DIAS 71; BP_DIAS 83; PULSE 63; PULSE 72; RESP 18; TEMP 96; TEMP 97.2; O2SAT 100; O2SAT 97
[2017-11-15 20:00] VITALS: BP 157/70; PULSE 73; RESP 20; TEMP 97; O2SAT 98
[2017-11-15] MEDS: ATORVASTATIN 20 MG TAB PO SCH (21:13)
[2017-11-16] VITALS: BP 127/59; PULSE 69; RESP 20; TEMP 96.7; O2SAT 97
[2017-11-16] MEDS: PIPERACIL-TAZO 4.5 GM PREMIX 100 ML IV SCH ×3 (02:17→13:00)
[2017-11-16] MEDS: LEVOTHYROXINE SODIUM 50 MCG TAB PO SCH (06:34)
[2017-11-16] MEDS: ISOSORBIDE MONONITRATE 30 MG CR TAB (IMDUR) PO SCH (06:34)
[2017-11-16] MEDS: HEPARIN SODIUM - SQ 10,000 UNITS/ML VIAL SQ SCH (06:35)
[2017-11-16 07:50] VITALS: BP 145/70; PULSE 72; RESP 20; TEMP 96.7; O2SAT 100
[2017-11-16] MEDS: ASPIRIN EC 81 MG TABEC PO SCH (09:11)
[2017-11-16] MEDS: SERTRALINE HCL 100 MG TAB PO SCH (09:11)
[2017-11-16] MEDS: DOCUSATE SODIUM 50 MG/SENNA 8.6 MG TAB PO SCH (09:11)
[2017-11-16] MEDS: LOSARTAN 50 MG TAB PO SCH (09:12)
[2017-11-16] MEDS: CARVEDILOL 3.125 MG TAB PO SCH (09:12)
[2017-11-16] MEDS: SODIUM CHLORIDE 0.9% FLUSH 10 ML FLUSH IV FLUSH SCH (09:12)
[2017-11-16] MEDS: ALLOPURINOL 300 MG TAB PO SCH (09:12)
[2017-11-16] MEDS: TIOTROPIUM OLODATEROL INH SCH (09:26)
[2017-11-16 11:50] VITALS: BP 144/96; PULSE 70; RESP 20; TEMP 97.5; O2SAT 99
[2017-11-16 11:51] VITALS: BP 131/73; PULSE 73; RESP 20; TEMP 96.1; O2SAT 96
--- NOTE | 2017-11-16 11:56 | HHI.PR ---
Subjective Remarks Follow-up sepsis secondary to UTI. Patient seen and examined, sitting in chair comfortably in no apparent distress. States that he had a great night overall. Feels much improved. Denies any further dizziness. Has actually been ambulating without any lightheadedness or dizziness. Feels much stronger today. Patient has been denied authorization to rehab, will change disposition to home with home health care. Patient is agreeable to this plan. Attempted to call daughter with no answer, will attempt to try to speak with her regarding plan. Vital signs are stable. Afebrile. Patient is tolerating p.o. intake well. Objective Vitals Vital Signs Date Time Temp Pulse Resp B/P (MAP) Pulse Ox O2 Delivery O2 Flow Rate FiO2 11/16/17 07:50 96.7 72 20 145/70 (95) 100 11/16/17 00:00 96.7 69 20 127/59 (81) 97 11/15/17 20:00 97.0 73 20 157/70 (99) 98 11/15/17 16:00 96.0 72 18 119/71 (87) 100 11/15/17 13:30 97.7 69 18 116/58 (77) 96 I/O 11/15/17 11/15/17 11/15/17 11/16/17 11/16/17 11/16/17 07:00 15:00 23:00 07:00 15:00 23:00 Intake Total 1402 ml 100 ml 340 ml Output Total 1950 ml 1950 ml Balance -548 ml 100 ml -1610 ml Intake Oral 480 ml 240 ml IV Total 922 ml 100 ml 100 ml Output Urine Total 1950 ml 1950 ml # Voids 1 1 # Bowel Movements 1 Result Diagram: 11/15/17 0615 11/14/17 0620 Imaging Last Impressions Head CT 11/12/17 1238 Signed Impressions: Service Date/Time: Sunday, November 12, 2017 13:23 - CONCLUSION: No evidence of acute intracranial pathology. No masses are identified. Old left parietal infarct Ron Garcia MD Chest X-Ray 11/12/17 1238 Signed Impressions: Service Date/Time: Sunday, November 12, 2017 12:42 - CONCLUSION: The lungs are clear. Floyd Ramos MD Objective Remarks GENERAL: Well-developed, well-nourished elderly male patient in NAD. SKIN: Warm and dry. No rash. HEAD: Normocephalic. Atraumatic. EYES: Pupils equal and round. No scleral icterus. No injection or drainage. ENT: No nasal bleeding or discharge. Mucous membranes pink and moist. NECK: Supple. Trachea midline. CARDIOVASCULAR: Regular rate and rhythm. S1, S2 noted. No murmur appreciated. RESPIRATORY: No accessory muscle use. Clear to auscultation. Breath sounds equal bilaterally. GASTROINTESTINAL: Abdomen soft, non-tender, nondistended. Normoactive bowel sounds x4. MUSCULOSKELETAL: No obvious deformities. Extremities without clubbing, cyanosis , or edema. NEUROLOGICAL: Awake and alert. No obvious cranial nerve deficits. Motor grossly within normal limits. 5/5 muscle strength in bilateral upper and lower extremities. Normal speech. PSYCHIATRIC: Appropriate mood and affect; insight and judgment normal. Procedures See below. A/P Problem List: (1) UTI (urinary tract infection) ICD Code: N39.0 - Urinary tract infection, site not specified Status: Acute (2) Syncope ICD Code: R55 - Syncope and collapse (3) Leukocytosis ICD Code: D72.829 - Elevated white blood cell count, unspecified Assessment and Plan This is an 82-year-old male patient with a known medical history of anxiety, depression, prostate cancer, hypertension, hyperlipidemia and CAD who presented to the ED with complaints of generalized weakness and lethargy over the past week. Generalized weakness suspect secondary to dehydration/UTI -Chest x-ray reviewed showing clear lungs. -Echocardiogram from 11/03/17 showing EF 50-55%. Left ventricular systolic function is low normal. Wall thickness normal. Normal left ventricular size. -Nuclear stress test reviewed from last admission 11/01/17, unremarkable exam. Lumbar spine MRI reviewed from 11/01/17 showing severe spinal stenosis. Was seen by neurosurgery during prior admission. -Head CT reviewed showing no evidence of acute intracranial pathology. No masses identified. Old left parietal infarct. Will order orthostatics. Follow. -UA showing moderate amount of leukocyte esterase and presence of urine white blood cells. Urine culture showing enterococcus faciales. Placed on Macrobid upon discharge -Was given IV Zosyn in ED. Will continue IV Zosyn. Blood cultures negative to date. Follow. Afebrile overnight. Monitor. -Continue IV fluids. Encourage p.o. intake. Leukocytosis, acute on chronic?: White blood cell is 19,000. Previous admission was roughly 17,000 down to 13,000. Patient has been following with hematology in the outpatient setting. Chest x-ray reviewed showing clear lungs. Lactic acid 1.1. Afebrile overnight. Chronic back pain suspect secondary to degenerative disease of the spine and spinal stenosis: During previous admission patient was seen by neurosurgery who recommended conservative management and physical therapy with exercise program. Supportive care for now. Denies any pain at this time. Hypertension, chronic: Continue to monitor BP trends. Will hold thiazide diuretic and Norvasc for now. Will restart Imdur and losartan. Blood pressure trends noted, controlled at this time. Orthostatics negative. COPD not in exacerbation: Continue home inhalers. Supportive care. Hyperlipidemia, chronic: Continue home statin. History of CAD: Continue home aspirin and beta-jaiden. No events overnight. DVT prophylaxis: SCDs. Heparin. Discharge Planning [employer] has refused AUTH for patient to rehab. Will dc home with [facility] PT and nursing. Pratibha Bell Nov 16, 2017 11:56
== END 2017-11-16 15:34 | disposition home health service (06) | DRG 872 ==
LOC: PHED 11:40 → PHEDA 15:49 → PH3A 16:58
PROVIDERS: ADMIT Hospitalist; ATTEND Hospitalist
DX: A41.9 Sepsis, unspecified organism (principal); J44.9 Chronic obstructive pulmonary disease, unspecified; N39.0 Urinary tract infection, site not specified; B95.2 Enterococcus as the cause of diseases classified elsewhere; I25.10 Atherosclerotic heart disease of native coronary artery without angina pectoris; Z95.1 Presence of aortocoronary bypass graft; E78.5 Hyperlipidemia, unspecified; F41.9 Anxiety disorder, unspecified; F32.9 Major depressive disorder, single episode, unspecified; M48.061 Spinal stenosis, lumbar region without neurogenic claudication; I10 Essential (primary) hypertension; E11.9 Type 2 diabetes mellitus without complications; Z79.82 Long term (current) use of aspirin; Z86.73 Personal history of transient ischemic attack (TIA), and cerebral infarction without residual deficits; Z85.46 Personal history of malignant neoplasm of prostate
CPT/HCPCS: 70450; 71045; 80048; 80053; 81001; 82550; 83605; 83735; 84484; 85007; 85025; 85027; 85610; 85730; 87040; 87077; 87086; 87186; 93005; 96365; J1644; J2543; J7030

== ENCOUNTER 2017-12-03 06:58 | Day surgery (SDC) | payer OTHER ==
[2017-12-03 07:39] LABS: HEMATOCRIT 38.3 % (39.0-51.0); HEMOGLOBIN 12.7 GM/DL (13.0-17.0); MEAN CELL VOLUME 90.2 FL (80.0-100.0); MEAN CORPUSCULAR HEMOGLOBIN 29.9 PG (27.0-34.0); MEAN CORPUSCULAR HGB CONC 33.2 % (32.0-36.0); MEAN PLATELET VOLUME 7.5 FL (7.0-11.0); PLATELET COUNT 203 TH/MM3 (150-450); RED BLOOD COUNT 4.24 MIL/MM3 (4.50-5.90); RED CELL DISTRIBUTION WIDTH 14.2 % (11.6-17.2); WHITE BLOOD COUNT 14.9 TH/MM3 (4.0-11.0)
[2017-12-03 07:40] LABS: HEMO FLAGS AUTO DIFF
[2017-12-03 08:00] LABS: EOSINOPHILS 2 % (0-4); LYMPHOCYTES 59 % (9-44); MONOCYTES 8 % (0-8); NEUTROPHIL # MANUAL DIFF 4.6 TH/MM3 (1.8-7.7); PLATELET ESTIMATE SMEAR NORMAL (NORMAL); PLATELET MORPHOLOGY NORMAL (NORMAL); POLYS (SEG NEUTROPHILS) 31 % (16-70); SCAN/DIFF FINAL DIFF MANUAL; WBC DIFF SAMPLE 100
[2017-12-03 08:01] LABS: SMUDGE CELLS PRESENT PRESENT
[2017-12-03 08:18] LABS: CHLORIDE 105 MEQ/L (98-107); POTASSIUM 3.9 MEQ/L (3.5-5.1); SODIUM (NA) 138 MEQ/L (136-145)
[2017-12-03 08:21] LABS: CALCIUM 9.1 MG/DL (8.5-10.1)
[2017-12-03 08:22] LABS: ALBUMIN 3.3 GM/DL (3.4-5.0); ANION GAP 2 MEQ/L (5-15); BICARBONATE 30.6 MEQ/L (21.0-32.0); BLOOD UREA NITROGEN 21 MG/DL (7-18); GLUCOSE,RANDOM 121 MG/DL (74-106)
[2017-12-03 08:25] LABS: ALT (GPT) 17 U/L (12-78); AST (GOT) 14 U/L (15-37); CREATININE 0.87 MG/DL (0.60-1.30); GLOMERULAR FILTRATION RATE 84 ML/MIN (>89)
[2017-12-03 08:26] LABS: TOTAL BILIRUBIN ADULT 0.2 MG/DL (0.2-1.0); TOTAL PROTEIN 7.3 GM/DL (6.4-8.2)
[2017-12-03 08:28] LABS: LACTIC ACID SEPSIS PROTOCOL 1.1 mmol/L (0.4-2.0)
[2017-12-03 08:28] LABS: ALKALINE PHOSPHATASE 99 U/L (45-117)
[2017-12-03] MEDS: SODIUM CHLOR 0.9% 1000 ML INJ 1,000 ML IV (08:37)
[2017-12-03] MEDS: CLOTRIMAZOLE 1% CREAM 15 GM TOPICAL (09:20)
[2017-12-03] MEDS ORDERED: POVIDONE IODINE 5% (ANTISEPSIS KIT) 4 APPLICATIONS EACH NARE (11:30)
[2017-12-03] MEDS ORDERED: SODIUM CHLORID 0.9% 500 ML IV (11:30)
[2017-12-03] MEDS ORDERED: LACTATED RINGER'S 1000 ML IV (11:30)
[2017-12-03] MEDS ORDERED: METOPROLOL TARTRATE 25 MG TAB PO (11:30)
[2017-12-03] MEDS ORDERED: CHLORHEXIDINE GLUCONATE 2 % 1 PACK (2 CLOTHS) TOPICAL (11:30)
[2017-12-03] MEDS ORDERED: PROPOFOL 200 MG/20 ML AMP IV (12:00)
[2017-12-03] MEDS ORDERED: LIDOCAINE HCL 1% PF 5 ML SYRINGE OTHER (12:00)
[2017-12-03] MEDS ORDERED: PHENYLEPH/NS 1000 MCG/10 ML SYR IV (12:00)
[2017-12-03] MEDS ORDERED: ePHEDrine/NS 25 MG/5 ML SYRINGE IV (12:00)
[2017-12-03] MEDS ORDERED: LACTATED RINGER'S 1000 ML INJ 1,000 ML IV (12:00)
[2017-12-03] MEDS: LEVOFLOXACIN 500 MG PREMIX INJ 100 ML IV (18:35)
[2017-12-03] MEDS ORDERED: ONDANSETRON HCL 4 MG/2 ML VIAL IV PUSH (19:00)
[2017-12-03] MEDS ORDERED: oxyCODONE/ACETAMINOPHEN 5 MG/325 MG TAB PO (19:00)
[2017-12-03] MEDS ORDERED: DO NOT ADM ANY ANTICOAGULANT DRUGS (21:00)
== END 2017-12-03 21:00 | disposition home or self-care (01) ==
LOC: PHED 06:58 → HSDC 08:33
DX: N32.0 Bladder-neck obstruction (principal); R33.9 Retention of urine, unspecified; I10 Essential (primary) hypertension; I25.10 Atherosclerotic heart disease of native coronary artery without angina pectoris; I48.91 Unspecified atrial fibrillation; J44.9 Chronic obstructive pulmonary disease, unspecified; K21.9 Gastro-esophageal reflux disease without esophagitis; E11.9 Type 2 diabetes mellitus without complications; E78.00 Pure hypercholesterolemia, unspecified; I25.2 Old myocardial infarction; Z85.46 Personal history of malignant neoplasm of prostate; Z92.3 Personal history of irradiation; Z86.73 Personal history of transient ischemic attack (TIA), and cerebral infarction without residual deficits; Z87.442 Personal history of urinary calculi; Z95.1 Presence of aortocoronary bypass graft; Z95.5 Presence of coronary angioplasty implant and graft; Z88.2 Allergy status to sulfonamides
CPT/HCPCS: 00910; 51703; 80053; 83605; 85007; 85027; 87040; 99285-25

== ENCOUNTER 2017-12-13 18:48 | Inpatient (IN) | payer OTHER, MEDICARE ==
[~2017-12-13] VITALS: Ht 167.6 cm; Wt 96.3 kg
[~2017-12-13 18:48] MED LIST changes: -AMLO10 PO; -HYDR-3516 PO; +PERC5TAB12 PO; +TIZA4CAP3 PO
[2017-12-13 18:55] VITALS: BP 107/53; PULSE 98; RESP 18; TEMP 99.6; O2SAT 96
[2017-12-13 19:18] VITALS: TEMP 98.2
[2017-12-13] MEDS ORDERED: LEVO75TA3 PO (19:32)
[2017-12-13] MEDS ORDERED: PIPERACIL-TAZO 4.5 GM PREMIX 100 ML IV ONE (19:45)
--- NOTE | 2017-12-13 20:03 | PD ---
HPI Chief Complaint: Complaint Time Seen by Provider: 19:42 Travel History International Travel<30 days: No Contact w/Intl Traveler<30days: No Traveled to known affect area: No History of Present Illness HPI 82-year-old male presents to the emergency department by private transportation the care of his correction [id number] for evaluation of fever ( per daughter in law 102.4F) generalized weakness and patient reporting "I do not feel well, I have any, I am not making much urine". Patient has history of COPD hypertension dyslipidemia CHF TIA atrial fibrillation CABG cardiac catheterization with stents diet-controlled diabetes GERD esophageal Botox injections gallbladder stent renal stent recurrent nephrolithiasis recurrent UTIs BPH prostatectomy tonsillectomy recent hospitalization for urosepsis treated in the hospital with Zosyn and as an outpatient on Macrobid that was completed 2 weeks ago. Patient underwent cystoscopy with bladder neck contracture transurethral incision 12/03/17 and had indwelling urinary catheter removed 3 days ago. Dneiecic-ri-kug has mentioned some nonproductive cough. Patient had some abdominal pain. Patient recently underwent CT imaging at the recommendation of his oncologist Dr. Meeks. [id number] reports today she came home from work and noticed that he was quite lethargic and weak and she checked his temperature and that is when she noticed that he had fever. She administered acetaminophen. She contacted the home health nurse who encouraged her to bring him to the hospital. No reported upper respiratory infection symptoms of sinus pressure drainage sore throat earache also no productive cough or shortness of breath no chest pain no nausea or vomiting no explosive mucoid or bloody diarrhea has had soft stool; no skin rash reported; poor oral intake today and has had some decreased urine output. PFSH Past Medical History Narrative Medical COPD hypertension dyslipidemia UT CHF TIA UTI elevated white cell count prostate cancer prostatectomy recent urethral stricture incision and an indwelling catheter removal CAD with CABG cardiac cath with stents atrial fibrillation dyslipidemia diet-controlled diabetes gallbladder stent esophageal Botox injections GERD nephrolithiasis renal stent spinal stenosis thyroid dysfunction hip surgery Hx Anticoagulant Therapy: Yes Arthritis: Yes Asthma: No Autoimmune Disease: No Blood Disorders: No Anxiety: Yes Depression: Yes Heart Rhythm Problems: Yes (atrial fibrillation) Cancer: Yes (prostate) Cardiac Catheterization: Yes (Stents x 3) Cardiovascular Problems: Yes (CABG (4)) High Cholesterol: Yes Chemotherapy: No Chest Pain: Yes Congestive Heart Failure: No COPD: Yes (controlled with inhaler ) Cerebrovascular Accident: Yes (NO RESIDUAL ) Diabetes: Yes (BORDERLINE) Patient Takes Glucophage: No Diminished Hearing: No Endocrine: Yes GERD: Yes Headaches: No Hepatitis: No Hiatal Hernia: No Heparin Induced Thrombocytopen: No Hypertension: Yes Immune Disorder: No Implanted Vascular Access Dvce: Yes Kidney Stones: Yes Medical other: Yes (CLL) Musculoskeletal: Yes (numbness in hands R leg weakness intermittent, back pain) Neurologic: Yes ("mini strokes / TIA") Psychiatric: Yes Reproductive: No Respiratory: Yes Immunizations Current: Yes Migraines: No Myocardial Infarction: Yes Pneumonia: Yes Radiation Therapy: No Renal Failure: No Seizures: No Sleep Apnea: No Thyroid Disease: Yes Ulcer: No Tetanus Vaccination: Unknown PNEUMOCCOCAL Vaccine (Year): 2008 ?: Not Past Surgical History Abdominal Surgery: No AICD: No Arteriovenous Shunt: No Body Medical Devices: cardiac stents Cardiac Surgery: Yes (CARDIAC STENTS X 3,CABG) Coronary Artery Bypass Graft: Yes (4 VESSEL) Coronary Stent: Yes (x 3) Ear Surgery: No Endocrine Surgery: Yes Eye Surgery: No Genitourinary Surgery: Yes (prostatectomy) Gynecologic Surgery: No Insulin Pump: No Joint Replacement: Yes (LEFT HIP) Neurologic Surgery: No Oral Surgery: Yes (TONCILECTOMY) Pacemaker: No Thoracic Surgery: No Tonsillectomy: Yes Family History Family Myocardial Infarction: Yes Social History Alcohol Use: No (PT DENIES) Tobacco Use: No Substance Use: No Allergies-Medications (Allergen,Severity, Reaction): Coded Allergies: Sulfa (Sulfonamide Antibiotics) (Verified Allergy, Severe, RASH, 12/13/17) cephalexin (Verified Allergy, Severe, RASH, 12/13/17) rash clopidogrel (Verified Allergy, Severe, RASH, 12/13/17) Reported Meds & Prescriptions Reported Meds & Active Scripts Active Commode 3-in-1 (Device) 1 Mis Mis Ea .XX DIRECTED Walker with Front Wheels (Device) 1 Mis Mis Ea .XX DIRECTED Isosorbide Mononitrate ER (Isosorbide Mononitrate) 30 Mg Marga 30 Mg PO DAILY@ 0700,1900 Coreg (Carvedilol) 3.125 Mg Tab 3.125 Mg PO Q12HR Colace (Docusate Sodium) 100 Mg Capsule 100 Mg PO BID PRN Reported Levothyroxine (Levothyroxine Sodium) 75 Mcg Tab 75 Mcg PO DAILY Tizanidine (Tizanidine HCl) 4 Mg Cap 4 Mg PO Q6HR Stiolto Respimat Inh (Tiotropium-Olodaterol Inh) 2.5-2.5 Mcg/Act Aero 2.5 Puff INH DAILY Aspir-81 (Aspirin) 81 Mg Tabdr 81 Mg PO DAILY Vitamin C (Ascorbic Acid) 250 Mg Tab 500 Mg PO Hydrochlorothiazide 25 Mg Tab 25 Mg PO DAILY Losartan (Losartan Potassium) 50 Mg Tab 50 Mg PO DAILY Allopurinol 300 Mg Tab 300 Mg PO DAILY Atorvastatin (Atorvastatin Calcium) 20 Mg Tab 20 Mg PO HS Sertraline (Sertraline HCl) 100 Mg Tab 100 Mg PO DAILY Review of Systems Except as stated in HPI: all other systems reviewed are Neg General / Constitutional: Positive: Fever, Chills Eyes: No: Visual changes HENT: No: Headaches, Sore Throat, Congestion Cardiovascular: Positive: Diaphoresis, No: Chest Pain or Discomfort Respiratory: Positive: Cough, No: Shortness of Breath Gastrointestinal: No: Nausea, Vomiting, Diarrhea, Abdominal Pain Genitourinary: Positive: Decreased Urinary Output, Dribbling, Flank Pain (left) Musculoskeletal: Positive: Myalgias, Arthralgias Skin: No Rash Neurologic: Positive: Weakness Psychiatric: No: Anxiety Endocrine: No: Heat Intolerance, Cold Intolerance Hematologic/Lymphatic: No: Easy Bruising Physical Exam Narrative GENERAL: Well-developed well-nourished mildly ill-appearing adult male in no respiratory distress SKIN: Warm and dry. HEAD: Normocephalic. EYES: No scleral icterus. No injection or drainage. NECK: Supple, trachea midline. No JVD or lymphadenopathy. CARDIOVASCULAR: Regular rate and rhythm without murmurs, gallops, or rubs. RESPIRATORY: Breath sounds equal bilaterally. No accessory muscle use. GASTROINTESTINAL: Abdomen soft, right lower quadrant tenderness to palpation without guarding or rebound nondistended. MUSCULOSKELETAL: No cyanosis, or edema. BACK: Nontender without obvious deformity. Left sided CVA tenderness. Data Data Last Documented VS Vital Signs Date Time Temp Pulse Resp B/P (MAP) Pulse Ox O2 Delivery O2 Flow Rate FiO2 12/13/17 21:22 75 16 114/48 (70) 95 Room Air 12/13/17 19:18 98.2 Orders Orders Electrocardiogram (12/13/17 19:42) Complete Blood Count With Diff (12/13/17 19:42) Comprehensive Metabolic Panel (12/13/17:42) Lactic Acid Sepsis Protocol (12/13/17 19:42) Magnesium (Mg) (12/13/17 19:42) Lipase (12/13/17 19:42) Ckmb (Isoenzyme) Profile (12/13/17:) Troponin I (12/13/17:) Urinalysis - C+S If Indicated (12/13/17 19:42) Blood Culture (12/13/17 19:42) Chest, Single Ap (12/13/17:42) Blood Glucose (12/13/17:) Ecg Monitoring (12/13/17:42) Iv Access Insert/Monitor (12/13/17:42) Oximetry (12/13/17:42) Oxygen Administration (12/13/17:42) Piperacil-Tazo 4.5 Gm Premix (Zosyn 4.5 (12/13/17 19:45) Sodium Chlorid 0.9% 500 Ml Inj (Ns 500 M (12/13/17 20:15) Sodium Chlorid 0.9% 500 Ml Inj (Ns 500 M (12/13/17 21:15) Urinary Catheter Insert/Apply (12/13/17 21:55) Urine Culture (12/13/17 22:10) Sodium Chlor 0.9% 1000 Ml Inj (Ns 1000 M (12/13/17 23:45) Admit Order (Ed Use Only) (12/13/17 ) Med Surg Rn / Telemetry MAYTE.Q8H (12/13/17 23:44) Activity Oob With Assistance (12/13/17 23:44) Notify Dr: Other (12/13/17 23:44) Piperacil-Tazo 4.5 Gm Premix (Zosyn 4.5 (12/14/17 04:00) Admit To Inpatient (12/13/17 ) Vital Signs (Adult) Q4H (12/13/17 23:44) Activity Oob With Assistance (12/13/17 23:44) Med Surg Rn / Telemetry .CONTINUOUS (12/13/17 23:44) Intake + Output MAYTE.QSHIFT (12/13/17 23:44) Diet Regular Basic (12/14/17 Breakfast) Sodium Chlor 0.9% 1000 Ml Inj (Ns 1000 M (12/13/17 23:44) Sodium Chloride 0.9% Flush (Ns Flush) (12/13/17 23:45) Sodium Chloride 0.9% Flush (Ns Flush) (12/14/17 09:00) Ondansetron Inj (Zofran Inj) (12/13/17 23:45) Comprehensive Metabolic Panel (12/14/17 06:00) Complete Blood Count With Diff (12/14/17 06:00) Pt Request For Service (12/13/17 23:44) Case Management Consult (12/13/17 23:44) Scd Bilateral/Knee High MAYTE.BID (12/13/17 23:44) Wang Bilateral/Knee High MAYTE.QSHIFT (12/13/17 23:46) Acetaminophen (Tylenol) (12/13/17 23:45) Acetamin-Hydrocod 325-5 Mg ([place] 5-325 (12/13/17 23:45) Acetamin-Hydrocod 325-10 Mg ([place] 10-32 (12/13/17 23:45) Docusate Sodium-Senna (Christina-Colace) (12/14/17 09:00) Magnesium Hydroxide Liq (Milk Of Magnesi (12/13/17 23:45) Sennosides (Senokot) (12/13/17 23:45) Bisacodyl Supp (Dulcolax Supp) (12/13/17 23:45) Lactulose Liq (Lactulose Liq) (12/13/17 23:45) Inpatient Certification (12/13/17 ) Acetaminophen (Tylenol) (12/14/17 00:00) Labs Laboratory Tests Test 12/13/17 20:14 12/13/17 22:10 White Blood Count 16.0 TH/MM3 Red Blood Count 3.92 MIL/MM3 Hemoglobin 11.4 GM/DL Hematocrit 34.9 % Mean Corpuscular Volume 89.1 FL Mean Corpuscular Hemoglobin 29.2 PG Mean Corpuscular Hemoglobin Concent 32.8 % Red Cell Distribution Width 13.6 % Platelet Count 271 TH/MM3 Mean Platelet Volume 8.4 FL Neutrophils (%) (Auto) 55.3 % Lymphocytes (%) (Auto) 25.9 % Monocytes (%) (Auto) 14.9 % Eosinophils (%) (Auto) 0.0 % Basophils (%) (Auto) 3.9 % Neutrophils # (Auto) 8.9 TH/MM3 Lymphocytes # (Auto) 4.1 TH/MM3 Monocytes # (Auto) 2.4 TH/MM3 Eosinophils # (Auto) 0.0 TH/MM3 Basophils # (Auto) 0.6 TH/MM3 CBC Comment AUTO DIFF Differential Comment AUTO DIFF CONFIRMED Blood Urea Nitrogen 19 MG/DL Creatinine 1.10 MG/DL Random Glucose 138 MG/DL Total Protein 7.6 GM/DL Albumin 3.0 GM/DL Calcium Level 9.0 MG/DL Magnesium Level 2.0 MG/DL Alkaline Phosphatase 91 U/L Aspartate Amino Transf (AST/SGOT) 12 U/L Alanine Aminotransferase (ALT/SGPT) 15 U/L Total Bilirubin 0.6 MG/DL Sodium Level 136 MEQ/L Potassium Level 3.6 MEQ/L Chloride Level 102 MEQ/L Carbon Dioxide Level 24.1 MEQ/L Anion Gap 10 MEQ/L Estimat Glomerular Filtration Rate 64 ML/MIN Lactic Acid Level 0.9 mmol/L Total Creatine Kinase 15 U/L Troponin I LESS THAN 0.02 NG/ML Lipase 106 U/L Urine Color YELLOW Urine Turbidity CLEAR Urine pH 5.5 Urine Specific [place] 1.015 Urine Protein 30 mg/dL Urine Glucose (UA) NEG mg/dL Urine Ketones 15 mg/dL Urine Occult Blood SMALL Urine Nitrite POS Urine Bilirubin NEG Urine Urobilinogen 0.2 MG/DL Urine Leukocyte Esterase LARGE Urine RBC 4-9 /hpf Urine WBC INNUM /hpf Urine WBC Clumps MANY Urine Squamous Epithelial Cells 0-5 /hpf Urine Amorphous Sediment LARGE Urine Bacteria FEW /hpf Microscopic Urinalysis Comment CATH-CULTURE IND MDM Medical Decision Making Medical Screen Exam Complete: Yes Emergency Medical Condition: Yes Medical Record Reviewed: Yes Interpretation(s) EKG: normal sinus rhythm rate 80 first-degree AV block no acute ST elevation or injury pattern right bundle branch block noted Differential Diagnosis Febrile illness, UTI, sirs, sepsis, pneumonia, colitis, diverticulitis, appendicitis, cholecystitis, ascending cholangitis, pancreatitis, ACS Narrative Course Patient placed on nurse monitoring with continuous pulse oximetry IV access obtained specimens collected and sent for resulting EKG ordered which is consistent with normal sinus rhythm rate 80 first-degree AV block no acute ST elevation or injury pattern right bundle branch block noted; sepsis protocol with lactic acid and blood cultures obtained patient administered Zosyn 4.5 g IV piggyback 1 dose; patient had received acetaminophen prior to arrival to the emergency department. Patient will be given fluid bolus however at 500 cc aliquot in view of prior history of CHF Patient with abnormal with nitrites positive WBCs positive clumped WBCs and few bacteria positive cultures indicated cath specimen. Patient meets sepsis criteria will be admitted for sepsis UTI and ongoing IV antibiotics. Critical Care Narrative Aggregate critical care time was 35 minutes. Time to perform other separately billable procedures was not included in the critical care time. My time did not include minutes spent treating any other patients simultaneously or on activities that did not directly contribute to the patient's treatment. The services I provided to this patient were to treat and/or prevent clinically significant deterioration that could result in: Septic shock, I provided critical care services requiring my management, as noted below: Chart data review, documentation time, medication orders and management, vital sign assessments/reviewing monitor data, ordering and reviewing lab tests, ordering and interpreting/reviewing x-rays and diagnostic studies, care of the patient and discussion of the patient with the admitting physicians. Sepsis Criteria SIRS Criteria (2 or more): Temp > 100.9 or < 96.8 (101.2F), Heart rate over 90 , WBC > 63904, < 4000 or > 10% bands Sepsis Criteria (SIRS+source): Infect source susp/known (urine) Physician Communication Physician Communication discussed with [facility] MD Dr Banuelos Diagnosis Primary Impression: Sepsis Qualified Codes: A41.9 - Sepsis, unspecified organism Additional Impression: UTI (urinary tract infection) Admitting Information Admitting Physician Requests: Admit Lety Crocker MD December 13, 2017 20:03
[2017-12-13] MEDS ORDERED: SODIUM CHLORID 0.9% 500 ML INJ 500 ML IV ONE ×2 (20:15→21:15)
[2017-12-13 20:24] VITALS: O2SAT 96
--- NOTE | 2017-12-13 20:27 | RADRPT ---
EXAM DATE/TIME: 12/13/2017 20:10 [facility] COMPARISON: CHEST SINGLE AP, November 12, 2017, 12:42. INDICATIONS : Fever. MEDICAL HISTORY : Cerebrovascular disease. Cardiovascular disease Hypertension SURGICAL HISTORY : Tonsillectomy. CABG. ENCOUNTER: Initial ACUITY: 1 day PAIN SCORE: 0/10 LOCATION: Bilateral chest FINDINGS: Postoperative CABG. Minimal basilar airspace disease. No effusion. No pneumothorax. CONCLUSION: 1. Minimal basilar airspace disease which may represent atelectasis. No dense consolidation or effusi on. Previous CABG. Chris Palafox MD on December 13, 2017 at 20:23 Board Certified Radiologist. This report was verified electronically.
[2017-12-13 20:31] LABS: AUTOMATED NEUTROPHIL # 8.9 TH/MM3 (1.8-7.7); BASOPHIL # 0.6 TH/MM3 (0-0.2); BASOPHIL % 3.9 % (0.0-2.0); HEMATOCRIT 34.9 % (39.0-51.0); HEMOGLOBIN 11.4 GM/DL (13.0-17.0); LYMPH % 25.9 % (9.0-44.0); LYMPHOCYTE # 4.1 TH/MM3 (1.0-4.8); MEAN CELL VOLUME 89.1 FL (80.0-100.0); MEAN CORPUSCULAR HEMOGLOBIN 29.2 PG (27.0-34.0); MEAN CORPUSCULAR HGB CONC 32.8 % (32.0-36.0); MEAN PLATELET VOLUME 8.4 FL (7.0-11.0); MONO % 14.9 % (0.0-8.0); MONOCYTE # 2.4 TH/MM3 (0-0.9); NEUT % 55.3 % (16.0-70.0); PLATELET COUNT 271 TH/MM3 (150-450); RED BLOOD COUNT 3.92 MIL/MM3 (4.50-5.90); RED CELL DISTRIBUTION WIDTH 13.6 % (11.6-17.2)
[2017-12-13 20:38] VITALS: BP 106/49; PULSE 79; RESP 18; O2SAT 93
[2017-12-13 21:22] VITALS: BP 114/48; PULSE 75; RESP 16; O2SAT 95
[2017-12-13 21:28] LABS: CHLORIDE 102 MEQ/L (98-107); SODIUM (NA) 136 MEQ/L (136-145)
[2017-12-13 21:32] LABS: BICARBONATE 24.1 MEQ/L (21.0-32.0); BLOOD UREA NITROGEN 19 MG/DL (7-18); GLUCOSE,RANDOM 138 MG/DL (74-106)
[2017-12-13 21:34] LABS: ALT (GPT) 15 U/L (12-78)
[2017-12-13 21:35] LABS: AST (GOT) 12 U/L (15-37); GLOMERULAR FILTRATION RATE 64 ML/MIN (>89)
[2017-12-13 21:36] LABS: TOTAL BILIRUBIN ADULT 0.6 MG/DL (0.2-1.0); TOTAL PROTEIN 7.6 GM/DL (6.4-8.2)
[2017-12-13 21:55] LABS: ALKALINE PHOSPHATASE 91 U/L (45-117)
[2017-12-13 21:56] LABS: TROPONIN I LESS THAN 0.02 NG/ML (0.02-0.05)
[2017-12-13 22:26] LABS: BILIRUBIN, URINE NEG (NEG); BLOOD, URINE SMALL (NEG); GLUCOSE,URINE NEG (NEG); KETONE, URINE 15 mg/dL (NEG); NITRITE,URINE POS (NEG); PH, URINE 5.5 (5.0-8.5); URINE COLOR YELLOW (YELLW/STRAW); URINE LEUKOCYTE ESTERASE LARGE (NEG)
[2017-12-13 22:48] LABS: BACTERIA, URINE FEW /hpf; SQUAMOUS EPITHELIAL CELL URINE 0-5 /hpf (0-5); WBC, URINE INNUM /hpf (0-5); WHITE BLOOD CELL CLUMPS MANY
[2017-12-13 22:49] LABS: AMORPHOUS SEDIMENT, URINE LARGE
[2017-12-13] MEDS ORDERED: SODIUM CHLORIDE 0.9% FLUSH 10 ML FLUSH IV FLUSH PRN (23:45)
[2017-12-13] MEDS ORDERED: MAGNESIUM HYDROXIDE SUSP 30 ML CUP PO PRN (23:45)
[2017-12-13] MEDS ORDERED: ACETAMINOPHEN/HYDROcodone 325 MG/5 MG TAB PO PRN (23:45)
[2017-12-13] MEDS ORDERED: SENNOSIDES 8.6 MG TAB PO PRN (23:45)
[2017-12-13] MEDS ORDERED: ONDANSETRON HCL 4 MG/2 ML VIAL IVP PRN (23:45)
[2017-12-13] MEDS ORDERED: LACTULOSE SYRUP 20 GM/30 ML CUP PO PRN (23:45)
[2017-12-13] MEDS ORDERED: SODIUM CHLOR 0.9% 1000 ML INJ 1,000 ML IV ONE (23:45)
[2017-12-13] MEDS ORDERED: BISACODYL 10 MG SUPP RECTAL PRN (23:45)
[2017-12-14] VITALS (9 sets, daily range): BP systolic 107–124; BP diastolic 56–64; PULSE 71–104; RESP 18–20; TEMP 96.1–101.8; O2SAT 94–100
[2017-12-14] MEDS ORDERED: ONDANSETRON HCL 4 MG/2 ML VIAL IV PUSH ONE
[2017-12-14] MEDS ORDERED: ACETAMINOPHEN 500 MG CPLT PO ONE
[2017-12-14] MEDS ORDERED: ACETAMINOPHEN 650 MG SUPP RECTAL ONE (00:15)
[2017-12-14] MEDS ORDERED: IOHEXOL 350 MG/ML 10 ML VIAL (for RAD DIAG) IVCONTRAST ONE (00:23)
--- NOTE | 2017-12-14 01:11 | RADRPT ---
EXAM DATE/TIME: 12/14/2017 00:16 [facility] COMPARISON: CT ABDOMEN & PELVIS W CONTRAST, November 01, 2017, 18:58. INDICATIONS : Abdominal pain. IV CONTRAST: 100 cc Omnipaque 350 (iohexol) IV ORAL CONTRAST: No oral contrast ingested. RADIATION DOSE: 16.97 CTDIvol (mGy) MEDICAL HISTORY : Carcinoma, prostate. Hypertension. Renal calculi. SURGICAL HISTORY : CABG Prostatectomy.Hip replacement. Biliary stent. ENCOUNTER: Initial ACUITY: 1 day PAIN SCALE: 5/10 LOCATION: abdomen TECHNIQUE: Volumetric scanning of the abdomen and pelvis was performed. Using automated exposure control and ad justment of the mA and/or kV according to patient size, radiation dose was kept as low as reasonably achievable to obtain optimal diagnostic quality images. DICOM format image data is available electro nically for review and comparison. FINDINGS: LOWER LUNGS: The visualized lower lungs are clear. LIVER: Homogeneous density without lesion. There is no dilation of the biliary tree. No calcified gallston es. SPLEEN: Normal size without lesion. PANCREAS: Within normal limits. KIDNEYS: Compared to the previous exam, the left kidney appears slightly swollen and there is mild perinephric fatty tissue stranding. The collecting system is grossly unchanged with no definite dilatation and n o stones are seen along the course of the ureter. A miniscule nonobstructing calculus in the upper po le collecting system is stable area there are small renal cysts present. On the contralateral right s kendell, stable midpole collecting system calculus is present without evidence of obstruction. Multiple c ysts are present, largest a irregularly shaped collapsing peripherally calcified cyst in the lower po le region which is grossly stable. ADRENAL GLANDS: Within normal limits. VASCULAR: Atherosclerotic changes and dense intimal calcifications involving the aorta and branch vessels BOWEL/MESENTERY: The stomach, small bowel, and colon demonstrate no acute abnormality. There is no free intraperitone al air or fluid. ABDOMINAL WALL: Within normal limits. RETROPERITONEUM: There is no lymphadenopathy. BLADDER: Stable appearance REPRODUCTIVE: Fiducials in the prostate INGUINAL: There is no lymphadenopathy or hernia. MUSCULOSKELETAL: Stable. CONCLUSION: Interval development of left renal swelling and perinephric induration which could be a manifestation of very early obstructive process. No stones are seen along the course of the ureter, however. Otherwise no acute CT findings. Memo Romero MD on December 14, 2017 at 0:48 Board Certified Radiologist. This report was verified electronically.
[2017-12-14] MEDS: SODIUM CHLOR 0.9% 1000 ML INJ 1,000 ML IV SCH ×2 (01:48→09:41)
[2017-12-14] MEDS: PIPERACIL-TAZO 4.5 GM PREMIX 100 ML IV SCH ×4 (03:28→20:14)
[2017-12-14 06:59] LABS: AUTOMATED NEUTROPHIL # 13.7 TH/MM3 (1.8-7.7); BASOPHIL % 0.2 % (0.0-2.0); EOSINOPHIL % 0.1 % (0.0-4.0); HEMOGLOBIN 10.7 GM/DL (13.0-17.0); LYMPH % 24.8 % (9.0-44.0); LYMPHOCYTE # 5.5 TH/MM3 (1.0-4.8); MEAN CELL VOLUME 88.9 FL (80.0-100.0); MEAN CORPUSCULAR HEMOGLOBIN 29.8 PG (27.0-34.0); MEAN CORPUSCULAR HGB CONC 33.5 % (32.0-36.0); MONO % 12.9 % (0.0-8.0); MONOCYTE # 2.8 TH/MM3 (0-0.9); PLATELET COUNT 207 TH/MM3 (150-450); RED CELL DISTRIBUTION WIDTH 13.6 % (11.6-17.2)
[2017-12-14 07:06] LABS: CHLORIDE 104 MEQ/L (98-107); SODIUM (NA) 137 MEQ/L (136-145)
[2017-12-14 07:09] LABS: ALBUMIN 2.6 GM/DL (3.4-5.0); BICARBONATE 27.4 MEQ/L (21.0-32.0); BLOOD UREA NITROGEN 18 MG/DL (7-18); CALCIUM 8.4 MG/DL (8.5-10.1); GLUCOSE,RANDOM 180 MG/DL (74-106)
[2017-12-14 07:12] LABS: ALT (GPT) 11 U/L (12-78); AST (GOT) 10 U/L (15-37)
[2017-12-14 07:13] LABS: GLOMERULAR FILTRATION RATE 58 ML/MIN (>89)
[2017-12-14 07:14] LABS: TOTAL BILIRUBIN ADULT 0.4 MG/DL (0.2-1.0); TOTAL PROTEIN 6.6 GM/DL (6.4-8.2)
[2017-12-14 07:15] LABS: ALKALINE PHOSPHATASE 76 U/L (45-117)
[2017-12-14 08:29] LABS: BANDS 3 % (0-6); LYMPHOCYTES 18 % (9-44); MONOCYTES 9 % (0-8); NEUTROPHIL # MANUAL DIFF 16.1 TH/MM3 (1.8-7.7); POLYS (SEG NEUTROPHILS) 70 % (16-70)
[2017-12-14] MEDS: SODIUM CHLORIDE 0.9% FLUSH 10 ML FLUSH IV FLUSH SCH ×2 (08:37→20:15)
[2017-12-14] MEDS: DOCUSATE SODIUM 50 MG/SENNA 8.6 MG TAB PO SCH ×2 (08:37→20:15)
[2017-12-14] MEDS: ACETAMINOPHEN 325 MG TAB PO PRN ×2 (08:37→20:15)
[2017-12-14] MEDS ORDERED: POTASSIUM CHLORIDE 25 MEQ EFFERVESCENT TAB PO ONE (08:45)
[2017-12-14] MEDS ORDERED: TIOTROPIUM OLODATEROL INH SCH (09:00)
--- NOTE | 2017-12-14 09:17 | HHI.HP ---
[facility] Sapna Gardner MD Admission Diagnosis sepsis; uti Diagnoses: Chief Complaint: Not feeling well Travel History International Travel<30 Days: No Contact w/Intl Traveler <30 Da: No Traveled to Known Affected Are: No History of Present Illness The patient is an 82-year-old male with a past medical history of CAD and prostate cancer who is presenting to the hospital with weakness and difficulty urinating. The patient says that he has lost his appetite recently. He does endorse abdominal pain that he says sometimes goes up to an 8 out of 10 in severity. He is unable to pinpoint an exact location of the pain. He says that for the past couple of days he has not been able to urinate well. He says when he tries to initiate his stream of urine he develops dribbles. He says sometimes he has been urinating without knowing it. He says that he has felt cold and shaky. He continues to have bouts of shakiness and chills. He has been feeling weaker than normal. He does ambulate with a walker. He does endorse shortness of breath that is worse than his baseline. He has been having bowel movements and has been passing gas this morning. He says he ate well this morning. He says he had a fever at home but is unsure of how high it went. He says his [id number] talked with his nurse and he came to the hospital. Review of Systems Except as stated in HPI: all other systems reviewed are Neg Past Family Social History Past Medical History Prostate cancer Coronary artery disease Hypercholesterolemia COPD Cardiac arrhythmia Arthritis Borderline diabetes Leukemia History TIAs Nephrolithiasis Past Surgical History Status post radical prostatectomy with subsequent radiation therapy Status post coronary artery bypass grafting Status post gallbladder stent Status post Botox injections to the esophagus Status post left hip surgery Status post tonsillectomy Status post cystoscopy and transurethral incision of bladder neck contracture Allergies: Coded Allergies: Sulfa (Sulfonamide Antibiotics) (Verified Allergy, Severe, RASH, 12/13/17) cephalexin (Verified Allergy, Severe, RASH, 12/13/17) rash clopidogrel (Verified Allergy, Severe, RASH, 12/13/17) Active Ordered Medications Current Medications Medications (Trade) Dose Ordered Sig/Emily Route Start Time Stop Time Status Last Admin Piperacillin Sod/ Tazobactam Sod 100 ml @ 200 mls/hr Q6H IV 12/14/17 04:00 12/14/17 03:28 Sodium Chloride 1,000 ml @ 100 mls/hr Q10H IV 12/13/17 23:44 12/14/17 01:48 (NS Flush) 2 ml UNSCH PRN IV FLUSH 12/13/17 23:45 (NS Flush) 2 ml BID IV FLUSH 12/14/17 09:00 (Zofran Inj) 4 mg Q6H PRN IVP 12/13/17 23:45 (Tylenol) 650 mg Q6H PRN PO 12/13/17 23:45 12/14/17 08:37 ([place] 5-325 Mg) 1 tab Q4H PRN PO 12/13/17 23:45 ([place] 10-325 Mg) 1 tab Q4H PRN PO 12/13/17 23:45 (Christina-Colace) 1 tab BID PO 12/14/17 09:00 12/14/17 08:37 (Milk Of Magnesia Liq) 30 ml Q12H PRN PO 12/13/17 23:45 (Senokot) 17.2 mg Q12H PRN PO 12/13/17 23:45 (Dulcolax Supp) 10 mg DAILY PRN RECTAL 12/13/17 23:45 (Lactulose Liq) 30 ml DAILY PRN PO 12/13/17 23:45 Family History HTN Social History Quit smoking over 30 years ago. He does not drink alcohol. He lives with his son and step-daughter. Physical Exam Vital Signs Vital Signs Date Time Temp Pulse Resp B/P (MAP) Pulse Ox O2 Delivery O2 Flow Rate FiO2 12/14/17 01:52 93 12/14/17 01:40 100 18 95 12/14/17 00:48 104 18 116/56 (76) 95 Room Air 12/13/17 21:22 75 16 114/48 (70) 95 Room Air 12/13/17 20:38 79 18 106/49 (68) 93 Room Air 12/13/17 20:24 96 Room Air 12/13/17 20:24 96 Room Air 12/13/17 19:23 18 12/13/17 19:18 98.2 12/13/17 18:55 99.6 98 18 107/53 (71) 96 Physical Exam GENERAL: Well-developed well-nourished elderly male, shaking at times. SKIN: Warm and dry. HEAD: Normocephalic. EYES: No scleral icterus. No injection or drainage. NECK: Supple, trachea midline. No JVD or lymphadenopathy. CARDIOVASCULAR: Regular rate and rhythm with grade 2 systolic murmur appreciated. RESPIRATORY: No accessory muscle use. CTAB. GASTROINTESTINAL: Abdomen soft, right lower quadrant tenderness to palpation without guarding or rebound nondistended. MUSCULOSKELETAL: No cyanosis, or edema. BACK: Nontender without obvious deformity. Left sided CVA tenderness. NEURO: No gross deficits. PSYCH: Mood and affect appropriate. Laboratory Laboratory Tests Test 12/13/17 20:14 12/13/17 22:10 12/14/17 06:25 White Blood Count 16.0 22.0 Red Blood Count 3.92 3.60 Hemoglobin 11.4 10.7 Hematocrit 34.9 32.0 Mean Corpuscular Volume 89.1 88.9 Mean Corpuscular Hemoglobin 29.2 29.8 Mean Corpuscular Hemoglobin Concent 32.8 33.5 Red Cell Distribution Width 13.6 13.6 Platelet Count 271 207 Mean Platelet Volume 8.4 8.0 Neutrophils (%) (Auto) 55.3 62.0 Lymphocytes (%) (Auto) 25.9 24.8 Monocytes (%) (Auto) 14.9 12.9 Eosinophils (%) (Auto) 0.0 0.1 Basophils (%) (Auto) 3.9 0.2 Neutrophils # (Auto) 8.9 13.7 Lymphocytes # (Auto) 4.1 5.5 Monocytes # (Auto) 2.4 2.8 Eosinophils # (Auto) 0.0 0.0 Basophils # (Auto) 0.6 0.0 CBC Comment AUTO DIFF AUTO DIFF Differential Comment AUTO DIFF CONFIRMED FINAL DIFF MANUAL Blood Urea Nitrogen 19 18 Creatinine 1.10 1.20 Random Glucose 138 180 Total Protein 7.6 6.6 Albumin 3.0 2.6 Calcium Level 9.0 8.4 Magnesium Level 2.0 Alkaline Phosphatase 91 76 Aspartate Amino Transf (AST/SGOT) 12 10 Alanine Aminotransferase (ALT/SGPT) 15 11 Total Bilirubin 0.6 0.4 Sodium Level 136 137 Potassium Level 3.6 3.4 Chloride Level 102 104 Carbon Dioxide Level 24.1 27.4 Anion Gap 10 6 Estimat Glomerular Filtration Rate 64 58 Lactic Acid Level 0.9 Total Creatine Kinase 15 Troponin I LESS THAN 0.02 Lipase 106 Urine Color YELLOW Urine Turbidity CLEAR Urine pH 5.5 Urine Specific [place] 1.015 Urine Protein 30 Urine Glucose (UA) NEG Urine Ketones 15 Urine Occult Blood SMALL Urine Nitrite POS Urine Bilirubin NEG Urine Urobilinogen 0.2 Urine Leukocyte Esterase LARGE Urine RBC 4-9 Urine WBC INNUM Urine WBC Clumps MANY Urine Squamous Epithelial Cells 0-5 Urine Amorphous Sediment LARGE Urine Bacteria FEW Microscopic Urinalysis Comment CATH-CULTURE IND Differential Total Cells Counted 100 Neutrophils % (Manual) 70 Band Neutrophils % 3 Lymphocytes % 18 Monocytes % 9 Neutrophils # (Manual) 16.1 Platelet Estimate NORMAL Platelet Morphology Comment NORMAL Date/Time Source Procedure Growth Status 12/13/17 20:20 Blood Peripheral Aerobic Blood Culture Pending Received 12/13/17 20:20 Blood Peripheral Anaerobic Blood Culture Pending Received 12/13/17 22:10 Urine Catheterized Urine Urine Culture Pending Received Result Diagram: 12/14/17 0625 12/14/17 0625 Imaging Last Impressions Abdomen/Pelvis CT 12/14/17 0000 Signed Impressions: Service Date/Time: Thursday, December 14, 2017 00:16 - CONCLUSION: Interval development of left renal swelling and perinephric induration which could be a manifestation of very early obstructive process. No stones are seen along the course of the ureter, however. Otherwise no acute CT findings. Memo Romero MD Chest X-Ray 12/13/17 194 Signed Impressions: Service Date/Time: Wednesday, December 13, 2017 20:10 - CONCLUSION: 1. Minimal basilar airspace disease which may represent atelectasis. No dense consolidation or effusion. Previous CABG. MD Sandy Zacarias VTE Risk Assessment Caprini VTE Risk Assessment: Mod/High Risk (score >= 2) Caprini Risk Assessment Model Point Value = 1 Point Value = 2 Point Value = 3 Point Value = 5 Age 41-60 Minor surgery BMI > 25 kg/m2 Swollen legs Varicose veins or History of unexplained or recurrent spontaneous Oral contraceptives or hormone replacement Sepsis (< 1 month) Serious lung disease, including pneumonia (< 1 month) Abnormal pulmonary function Acute myocardial infarction Congestive heart failure (< 1 month) History of inflammatory bowel disease Medical patient at bed rest Age 61-74 Arthroscopic surgery Major open surgery (> 45 min) Laparoscopic surgery (> 45 min) Malignancy Confined to bed (> 72 hours) Immobilizing plaster cast Central venous access Age >= 75 History of VTE Family history of VTE Factor V Leiden Prothrombin [id number] Lupus anticoagulant Anticardiolipin antibodies Elevated serum homocysteine Heparin-induced thrombocytopenia Other congenital or acquired thrombophilia Stroke (< 1 month) Elective arthroplasty Hip, pelvis, or leg fracture Acute spinal cord injury (< 1 month) Prophylaxis Regimen Total Risk Factor Score Risk Level Prophylaxis Regimen 0-1 Low Early ambulation 2 Moderate Order ONE of the following: *Sequential Compression Device (SCD) *Heparin 5000 units SQ BID 3-4 Higher Order ONE of the following medications: *Heparin 5000 units SQ TID *Enoxaparin/Lovenox 40 mg SQ daily (WT < 150 kg, CrCl > 30 mL/min) *Enoxaparin/Lovenox 30 mg SQ daily (WT < 150 kg, CrCl > 10-29 mL/min) *Enoxaparin/Lovenox 30 mg SQ BID (WT < 150 kg, CrCl > 30 mL/min) AND/OR *Sequential Compression Device (SCD) 5 or more Highest Order ONE of the following medications: *Heparin 5000 units SQ TID (Preferred with Epidurals) *Enoxaparin/Lovenox 40 mg SQ daily (WT < 150 kg, CrCl > 30 mL/min) *Enoxaparin/Lovenox 30 mg SQ daily (WT < 150 kg, CrCl > 10-29 mL/min) *Enoxaparin/Lovenox 30 mg SQ BID (WT < 150 kg, CrCl > 30 mL/min) AND *Sequential Compression Device (SCD) Assessment and Plan Assessment and Plan Sepsis/ UTI The pt had fevers at home and urinary complaints. He also had abdominal pain and CVA tenderness. CT showed: Interval development of left renal swelling and perinephric induration which could be a manifestation of very early obstructive process. UA indicative of an infection. - continue IV Zosyn. - follow blood and urine cultures. - pain control with a bowel regimen. - urology consult requested. - IVFs. CAD No cardiac complaints at this time. EF 50-55% on recent echo. - continue cardiac regimen. HTN Blood pressure has been on the low side. - continue Coreg and hold rest of antihypertensive regimen for now. - IVFs. Leukocytosis/ anemia WBC count elevated s/t above, though he has chronic leukocytosis. Hgb is around baseline. - follow CBC. - outpt follow-up with hematology. Hypokalemia S/t decreased PO intake. - replete and monitor. Weakness Likely s/t above. - treatment as above. - PT. - check TSH, B12. Dyspnea CXR unremarkable. Pt has been having a productive cough. - continue home inhaler. - nebs and O2 as needed. PPx: SCDs Discussed Condition With Pt, pt's nurse Physician Certification 2 Midnight Certification Type: Admission for Inpatient Services Order for Inpatient Services The services are ordered in accordance with Medicare regulations or non- Medicare payer requirements, as applicable. In the case of services not specified as inpatient-only, they are appropriately provided as inpatient services in accordance with the 2-midnight benchmark. Estimated LOS (days): 3 days is the estimated time the patient will need to remain in the hospital, assuming treatment plan goals are met and no additional complications. Post-Hospital Plan: Not yet determined Karan Gomez DO December 14, 2017 09:17
[2017-12-14] MEDS: ASPIRIN EC 81 MG TABEC PO SCH (09:40)
[2017-12-14] MEDS: TIOTROPIUM BROMIDE 18 MCG INH INH SCH (10:56)
[2017-12-14] MEDS: CARVEDILOL 3.125 MG TAB PO SCH ×2 (10:57→20:15)
[2017-12-14] MEDS: LEVOTHYROXINE SODIUM 75 MCG TAB PO SCH (10:57)
[2017-12-14] MEDS: SERTRALINE HCL 100 MG TAB PO SCH (10:57)
[2017-12-14] MEDS: ALLOPURINOL 300 MG TAB PO SCH (10:57)
[2017-12-14] MEDS ORDERED: STIOLTO INH SCH (12:00)
[2017-12-14] MEDS ORDERED: ALBUTEROL SULFATE 90 MCG/ACT HFA 8 GM INHALER INH SCH (13:00)
--- NOTE | 2017-12-14 13:44 | EKG ---
Date Performed: 12/13/2017 Time Performed: 19:56:41 PTAGE: 82 years EKG: ECTOPIC ATRIAL RHYTHM RIGHT BUNDLE BRANCH BLOCK ABNORMAL ECG INTERPRETATION BASED ON A DEFA ULT AGE OF 40 YEARS NO PREVIOUS TRACING 11/12/2017/13.47 Since the previous tracing, no significant change note d DOCTOR: Chinedu Masterson Interpretating Date/Time 12/14/2017 13:42:39
--- NOTE | 2017-12-14 16:53 | PD.CONS ---
HPI Service Urology Consult Requested By Reason for Consult Retention, UTI Primary Care Physician Sapna Gardner MD Diagnosis: History of Present Illness 82yo male with history of prostate cancer s/p bladder neck incision on 12/03/[address] Stoner now admitted with UTI and concern for retention. 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 He was in urinary retention two weeks ago at which point he underwent a bladder neck incision with garcia catheter placement. He had his catheter removed 3 days ago. Initially reported good stream, however later on developed urgency, with weak stream and dribbling. He was found to have a UTI on admission today. CT scan did not identify a distended bladder, however noted a thickened bladder wall. Bladder scan at bedside noted 260cc, however it is unclear when the patient last voided as he is doing so in the diaper. No fevers, no pain. Review of Systems ROS Limitations: Clinical Condition Constitutional: DENIES: Fever Eyes: DENIES: Blurred vision Ears, nose, mouth, throat: DENIES: Hearing loss Respiratory: DENIES: Cough Cardiovascular: DENIES: Chest pain Gastrointestinal: DENIES: Nausea, Vomiting Genitourinary: COMPLAINS OF: Urinary frequency, Urinary incontinence, Urgency, Dysuria Musculoskeletal: DENIES: Back pain Integumentary: DENIES: Rash Hematologic/lymphatic: DENIES: Bruising Neurologic: DENIES: Headache Psychiatric: DENIES: Anxiety Except as stated in HPI: all other systems reviewed are Neg Past Family Social History Past Medical History Prostate cancer Coronary artery disease Hypercholesterolemia COPD Cardiac arrhythmia Arthritis Borderline diabetes Leukemia History TIAs Nephrolithiasis Past Surgical History Status post radical prostatectomy with subsequent radiation therapy Status post coronary artery bypass grafting Status post gallbladder stent Status post Botox injections to the esophagus Status post left hip surgery Status post tonsillectomy Status post cystoscopy and transurethral incision of bladder neck contracture Reported Medications Reported Meds & Active Scripts Active Commode 3-in-1 (Device) 1 Mis Mis Ea .XX DIRECTED Walker with Front Wheels (Device) 1 Mis Mis Ea .XX DIRECTED Isosorbide Mononitrate ER (Isosorbide Mononitrate) 30 Mg Marga 30 Mg PO DAILY@ 0700,1900 Coreg (Carvedilol) 3.125 Mg Tab 3.125 Mg PO Q12HR Colace (Docusate Sodium) 100 Mg Capsule 100 Mg PO BID PRN Reported Levothyroxine (Levothyroxine Sodium) 75 Mcg Tab 75 Mcg PO DAILY Tizanidine (Tizanidine HCl) 4 Mg Cap 4 Mg PO Q6HR Stiolto Respimat Inh (Tiotropium-Olodaterol Inh) 2.5-2.5 Mcg/Act Aero 2.5 Puff INH DAILY Aspir-81 (Aspirin) 81 Mg Tabdr 81 Mg PO DAILY Vitamin C (Ascorbic Acid) 250 Mg Tab 500 Mg PO Hydrochlorothiazide 25 Mg Tab 25 Mg PO DAILY Losartan (Losartan Potassium) 50 Mg Tab 50 Mg PO DAILY Allopurinol 300 Mg Tab 300 Mg PO DAILY Atorvastatin (Atorvastatin Calcium) 20 Mg Tab 20 Mg PO HS Sertraline (Sertraline HCl) 100 Mg Tab 100 Mg PO DAILY Allergies: Coded Allergies: Sulfa (Sulfonamide Antibiotics) (Verified Allergy, Severe, RASH, 12/13/17) cephalexin (Verified Allergy, Severe, RASH, 12/13/17) rash clopidogrel (Verified Allergy, Severe, RASH, 12/13/17) Active Ordered Medications Current Medications Medications (Trade) Dose Ordered Sig/Emily Route Start Time Stop Time Status Last Admin Piperacillin Sod/ Tazobactam Sod 100 ml @ 200 mls/hr Q6H IV 12/14/17 04:00 12/14/17 10:56 Sodium Chloride 1,000 ml @ 100 mls/hr Q10H IV 12/13/17 23:44 12/15/17 05:43 12/14/17 01:48 (NS Flush) 2 ml UNSCH PRN IV FLUSH 12/13/17 23:45 (NS Flush) 2 ml BID IV FLUSH 12/14/17 09:00 (Zofran Inj) 4 mg Q6H PRN IVP 12/13/17 23:45 (Tylenol) 650 mg Q6H PRN PO 12/13/17 23:45 12/14/17 08:37 ([place] 5-325 Mg) 1 tab Q4H PRN PO 12/13/17 23:45 ([place] 10-325 Mg) 1 tab Q4H PRN PO 12/13/17 23:45 (Christina-Colace) 1 tab BID PO 12/14/17 09:00 12/14/17 08:37 (Milk Of Magnesia Liq) 30 ml Q12H PRN PO 12/13/17 23:45 (Senokot) 17.2 mg Q12H PRN PO 12/13/17 23:45 (Dulcolax Supp) 10 mg DAILY PRN RECTAL 12/13/17 23:45 (Lactulose Liq) 30 ml DAILY PRN PO 12/13/17 23:45 (Zyloprim) 300 mg DAILY PO 12/14/17 10:00 12/14/17 10:57 (Ecotrin Ec) 81 mg DAILY PO 12/14/17 09:00 12/14/17 09:40 (Lipitor) 20 mg HS PO 12/14/17 21:00 (Coreg) 3.125 mg Q12HR PO 12/14/17 10:00 12/14/17 10:57 (Imdur) 30 mg DAILY@0700,1900 PO 12/14/17 19:00 (Synthroid) 75 mcg DAILY@0600 PO 12/14/17 10:00 12/14/17 10:57 (Zoloft) 100 mg DAILY PO 12/14/17 10:00 12/14/17 10:57 (Spiriva Inh) 18 mcg DAILY INH 12/14/17 10:00 Patient Own Medication PT OWN MED: STIOLT... DAILY INH 12/14/17 12:00 12/14/17 13:31 Family History HTN Social History Quit smoking over 30 years ago. He does not drink alcohol. He lives with his son and step-daughter. Physical Exam Vital Signs Date Time Temp Pulse Resp B/P (MAP) Pulse Ox O2 Delivery O2 Flow Rate FiO2 12/14/17 15:30 98.5 78 20 121/58 (79) 97 12/14/17 12:03 98.1 77 20 107/64 (78) 96 12/14/17 08:00 73 12/14/17 07:30 96.1 71 20 122/59 (80) 100 12/14/17 01:52 93 12/14/17 01:40 100 18 95 12/14/17 00:48 104 18 116/56 (76) 95 Room Air 12/13/17 21:22 75 16 114/48 (70) 95 Room Air 12/13/17 20:38 79 18 106/49 (68) 93 Room Air 12/13/17 20:24 96 Room Air 12/13/17 20:24 96 Room Air 12/13/17 19:23 18 12/13/17 19:18 98.2 12/13/17 18:55 99.6 98 18 107/53 (71) 96 Physical Exam GENERAL: This is a well-nourished, well-developed patient, in no apparent distress. SKIN: No rashes, ecchymoses or lesions. Cool and dry. HEAD: Atraumatic. Normocephalic EYES: Extraocular motions intact. No scleral icterus. No injection or drainage. ENT: Nose without bleeding, purulent drainage. Airway patent. NECK: Trachea midline. No JVD or lymphadenopathy. CARDIOVASCULAR: Normal pulse RESPIRATORY: nonlabored GASTROINTESTINAL: Abdomen soft, non-tender, nondistended. GENITOURINARY: Circumcised phallus, normal urethral meatus MUSCULOSKELETAL: Extremities without clubbing, cyanosis, or edema NEUROLOGICAL: Awake and alert. Motor and sensory grossly within normal limits. Normal speech. Lab results reviewed: Yes Laboratory Tests Test 12/13/17 20:14 12/13/17 22:10 12/14/17 06:25 White Blood Count 16.0 22.0 Red Blood Count 3.92 3.60 Hemoglobin 11.4 10.7 Hematocrit 34.9 32.0 Mean Corpuscular Volume 89.1 88.9 Mean Corpuscular Hemoglobin 29.2 29.8 Mean Corpuscular Hemoglobin Concent 32.8 33.5 Red Cell Distribution Width 13.6 13.6 Platelet Count 271 207 Mean Platelet Volume 8.4 8.0 Neutrophils (%) (Auto) 55.3 62.0 Lymphocytes (%) (Auto) 25.9 24.8 Monocytes (%) (Auto) 14.9 12.9 Eosinophils (%) (Auto) 0.0 0.1 Basophils (%) (Auto) 3.9 0.2 Neutrophils # (Auto) 8.9 13.7 Lymphocytes # (Auto) 4.1 5.5 Monocytes # (Auto) 2.4 2.8 Eosinophils # (Auto) 0.0 0.0 Basophils # (Auto) 0.6 0.0 CBC Comment AUTO DIFF AUTO DIFF Differential Comment AUTO DIFF CONFIRMED FINAL DIFF MANUAL Blood Urea Nitrogen 19 18 Creatinine 1.10 1.20 Random Glucose 138 180 Total Protein 7.6 6.6 Albumin 3.0 2.6 Calcium Level 9.0 8.4 Magnesium Level 2.0 Alkaline Phosphatase 91 76 Aspartate Amino Transf (AST/SGOT) 12 10 Alanine Aminotransferase (ALT/SGPT) 15 11 Total Bilirubin 0.6 0.4 Sodium Level 136 137 Potassium Level 3.6 3.4 Chloride Level 102 104 Carbon Dioxide Level 24.1 27.4 Anion Gap 10 6 Estimat Glomerular Filtration Rate 64 58 Lactic Acid Level 0.9 Total Creatine Kinase 15 Troponin I LESS THAN 0.02 Lipase 106 Urine Color YELLOW Urine Turbidity CLEAR Urine pH 5.5 Urine Specific [place] 1.015 Urine Protein 30 Urine Glucose (UA) NEG Urine Ketones 15 Urine Occult Blood SMALL Urine Nitrite POS Urine Bilirubin NEG Urine Urobilinogen 0.2 Urine Leukocyte Esterase LARGE Urine RBC 4-9 Urine WBC INNUM Urine WBC Clumps MANY Urine Squamous Epithelial Cells 0-5 Urine Amorphous Sediment LARGE Urine Bacteria FEW Microscopic Urinalysis Comment CATH-CULTURE IND Differential Total Cells Counted 100 Neutrophils % (Manual) 70 Band Neutrophils % 3 Lymphocytes % 18 Monocytes % 9 Neutrophils # (Manual) 16.1 Platelet Estimate NORMAL Platelet Morphology Comment NORMAL Vitamin B12 Level 331 Thyroid Stimulating Hormone 3rd Gen 0.848 Date/Time Source Procedure Growth Status 12/13/17 20:20 Blood Peripheral Aerobic Blood Culture - Preliminary NO GROWTH IN 1 DAY Resulted 12/13/17 20:20 Blood Peripheral Anaerobic Blood Culture - Preliminary NO GROWTH IN 1 DAY Resulted 12/13/17 22:10 Urine Catheterized Urine Urine Culture - Preliminary IMMATURE GROWTH - REINCUBATE Resulted Result Diagram: 12/14/17 0625 12/14/17 0625 Personally reviewed images: Yes Imaging Last Impressions Abdomen/Pelvis CT 12/14/17 0000 Signed Impressions: Service Date/Time: Thursday, December 14, 2017 00:16 - CONCLUSION: Interval development of left renal swelling and perinephric induration which could be a manifestation of very early obstructive process. No stones are seen along the course of the ureter, however. Otherwise no acute CT findings. Memo Romero MD Chest X-Ray 12/13/17 194 Signed Impressions: Service Date/Time: Wednesday, December 13, 2017 20:10 - CONCLUSION: 1. Minimal basilar airspace disease which may represent atelectasis. No dense consolidation or effusion. Previous CABG. Chris Palafox MD Assessment and Plan Problem List: (1) UTI (urinary tract infection) ICD Code: N39.0 - Urinary tract infection, site not specified Status: Acute (2) Urinary retention ICD Code: R33.9 - Retention of urine, unspecified Status: Acute (3) Bladder neck contracture ICD Code: N32.0 - Bladder-neck obstruction (4) Sepsis ICD Code: A41.9 - Sepsis, unspecified organism Status: Acute Assessment and Plan -At this time, the patient does appear to be voiding, however it is unclear how effective he is at emptying his bladder -His symptoms may also be attributed to UTI -As he has recently completed a bladder neck incision procedure, expect voiding status to be improved, however may be affected with infection after catheter removal -Continue antibiotics; cultures pending -We will continue to check PVRs, preferably after each void -If PVR>300cc, replace garcia catheter -Will continue to follow Problem Qualifiers (1) Sepsis: Qualified Codes: A41.9 - Sepsis, unspecified organism Santy Soria MD December 14, 2017 16:53
[2017-12-14] MEDS: ISOSORBIDE MONONITRATE 30 MG CR TAB (IMDUR) PO SCH (18:43)
[2017-12-14] MEDS: ATORVASTATIN 20 MG TAB PO SCH (20:15)
[2017-12-15] VITALS (8 sets, daily range): BP systolic 100–130; BP diastolic 54–60; PULSE 71–83; RESP 18–20; TEMP 97.2–99; O2SAT 93–97
[2017-12-15] MEDS: SODIUM CHLOR 0.9% 1000 ML INJ 1,000 ML IV SCH (01:45)
[2017-12-15] MEDS: PIPERACIL-TAZO 4.5 GM PREMIX 100 ML IV SCH ×4 (03:44→21:40)
[2017-12-15] MEDS: LEVOTHYROXINE SODIUM 75 MCG TAB PO SCH (06:15)
[2017-12-15] MEDS: ALLOPURINOL 300 MG TAB PO SCH (08:47)
[2017-12-15] MEDS: SODIUM CHLORIDE 0.9% FLUSH 10 ML FLUSH IV FLUSH SCH ×2 (08:47→21:39)
[2017-12-15] MEDS: ISOSORBIDE MONONITRATE 30 MG CR TAB (IMDUR) PO SCH ×2 (08:47→18:37)
[2017-12-15] MEDS: DOCUSATE SODIUM 50 MG/SENNA 8.6 MG TAB PO SCH ×2 (08:47→21:39)
[2017-12-15] MEDS: CARVEDILOL 3.125 MG TAB PO SCH ×2 (08:47→21:39)
[2017-12-15] MEDS: SERTRALINE HCL 100 MG TAB PO SCH (08:47)
[2017-12-15] MEDS: ASPIRIN EC 81 MG TABEC PO SCH (08:47)
[2017-12-15] MEDS: TIOTROPIUM BROMIDE 18 MCG INH INH SCH (09:48)
[2017-12-15] MEDS ORDERED: RESP: ALBUTEROL 2.5 MG/3 ML NEB (PRN) NEB (10:00)
--- NOTE | 2017-12-15 11:42 | HHI.PR ---
Subjective Remarks The patient was sitting up in a chair. He states he has been incontinent. He did have a bowel movement this morning. Discussed with nursing at the bedside. Objective Vitals Vital Signs Date Time Temp Pulse Resp B/P (MAP) Pulse Ox O2 Delivery O2 Flow Rate FiO2 12/15/17 07:50 97.8 72 20 125/59 (81) 96 12/15/17 04:00 98.4 76 20 106/54 (71) 95 12/15/17 00:00 99.0 83 20 100/55 (70) 93 12/14/17 23:00 91 12/14/17 20:00 101.8 89 20 124/58 (80) 94 12/14/17 15:30 98.5 78 20 121/58 (79) 97 12/14/17 15:00 77 12/14/17 12:03 98.1 77 20 107/64 (78) 96 I/O 12/14/17 12/14/17 12/14/17 12/15/17 12/15/17 12/15/17 07:00 15:00 23:00 07:00 15:00 23:00 Intake Total 1280 ml 1400 ml 1540 ml 240 ml Output Total 200 ml Balance 1280 ml 1400 ml 1340 ml 240 ml Intake Oral 480 ml 1440 ml 240 ml IV Total 800 ml 1400 ml 100 ml Output Urine Total 200 ml # Voids 5 2 # Bowel Movements 1 0 Result Diagram: 12/14/17 0625 12/14/17 0625 Imaging Last Impressions Abdomen/Pelvis CT 12/14/17 0000 Signed Impressions: Service Date/Time: Thursday, December 14, 2017 00:16 - CONCLUSION: Interval development of left renal swelling and perinephric induration which could be a manifestation of very early obstructive process. No stones are seen along the course of the ureter, however. Otherwise no acute CT findings. Memo Romero MD Chest X-Ray 12/13/17 194 Signed Impressions: Service Date/Time: Wednesday, December 13, 2017 20:10 - CONCLUSION: 1. Minimal basilar airspace disease which may represent atelectasis. No dense consolidation or effusion. Previous CABG. Chris Palafox MD Objective Remarks GENERAL: Well-developed well-nourished elderly male in no distress. SKIN: Warm and dry. HEAD: Normocephalic. EYES: No scleral icterus. No injection or drainage. NECK: Supple, trachea midline. No JVD or lymphadenopathy. CARDIOVASCULAR: Regular rate and rhythm with grade 2 systolic murmur appreciated. RESPIRATORY: No accessory muscle use. CTAB. GASTROINTESTINAL: Abdomen soft, right lower quadrant tenderness to palpation without guarding or rebound, nondistended. MUSCULOSKELETAL: No cyanosis, or edema. BACK: Nontender without obvious deformity. Left sided CVA tenderness. NEURO: No gross deficits. Slightly confused. PSYCH: Mood and affect appropriate. A/P Assessment and Plan Sepsis/ UTI The pt had fevers at home and urinary complaints. He also had abdominal pain and CVA tenderness. CT showed: Interval development of left renal swelling and perinephric induration which could be a manifestation of very early obstructive process. UA indicative of an infection. Urology consult appreciated. - continue IV Zosyn. - follow blood and urine cultures. - pain control with a bowel regimen. - urology following. - check postvoid residuals and place Wu catheter if indicated. - IVFs. CAD No cardiac complaints at this time. EF 50-55% on recent echo. - continue cardiac regimen. HTN Blood pressure has been on the low side. - continue Coreg and hold rest of antihypertensive regimen for now. - IVFs. Leukocytosis/ anemia WBC count elevated s/t above, though he has chronic leukocytosis. Hgb is around baseline. - follow CBC. - outpt follow-up with hematology. Hypokalemia S/t decreased PO intake. - replete and monitor. Weakness Likely s/t above. B12 level is borderline low normal. - treatment as above. - PT. - B12 IM x 1. Dyspnea CXR unremarkable. Pt has been having a productive cough. - continue home inhaler. - nebs and O2 as needed. PPx: Karan Rayo DO December 15, 2017 11:42
[2017-12-15] MEDS ORDERED: CYANOCOBALAMIN 1000 MCG/ML VIAL IM ONE (12:00)
[2017-12-15 12:01] LABS: AUTOMATED NEUTROPHIL # 6.8 TH/MM3 (1.8-7.7); BASOPHIL # 0.2 TH/MM3 (0-0.2); BASOPHIL % 1.6 % (0.0-2.0); EOSINOPHIL # 0.2 TH/MM3 (0-0.4); EOSINOPHIL % 1.2 % (0.0-4.0); HEMATOCRIT 31.6 % (39.0-51.0); HEMOGLOBIN 9.9 GM/DL (13.0-17.0); LYMPH % 35.3 % (9.0-44.0); LYMPHOCYTE # 4.7 TH/MM3 (1.0-4.8); MEAN CELL VOLUME 91.2 FL (80.0-100.0); MEAN CORPUSCULAR HEMOGLOBIN 28.5 PG (27.0-34.0); MEAN CORPUSCULAR HGB CONC 31.2 % (32.0-36.0); MEAN PLATELET VOLUME 7.6 FL (7.0-11.0); MONO % 10.9 % (0.0-8.0); MONOCYTE # 1.5 TH/MM3 (0-0.9); PLATELET COUNT 234 TH/MM3 (150-450); RED BLOOD COUNT 3.47 MIL/MM3 (4.50-5.90); RED CELL DISTRIBUTION WIDTH 13.8 % (11.6-17.2); WHITE BLOOD COUNT 13.4 TH/MM3 (4.0-11.0)
[2017-12-15 12:26] LABS: BICARBONATE 25.6 MEQ/L (21.0-32.0); CALCIUM 8.3 MG/DL (8.5-10.1)
[2017-12-15 12:30] LABS: CREATININE 1.1 MG/DL (0.60-1.30)
[2017-12-15] MEDS: ACETAMINOPHEN/HYDROcodone 325 MG/10 MG TAB PO PRN ×2 (13:35→21:39)
[2017-12-15] MEDS: ATORVASTATIN 20 MG TAB PO SCH (21:39)
[2017-12-16] VITALS (7 sets, daily range): BP systolic 117–153; BP diastolic 56–92; PULSE 70–98; RESP 16–19; TEMP 96.6–97.5; O2SAT 95–98
[2017-12-16] MEDS: PIPERACIL-TAZO 4.5 GM PREMIX 100 ML IV SCH ×4 (04:09→20:31)
[2017-12-16] MEDS: LEVOTHYROXINE SODIUM 75 MCG TAB PO SCH (05:46)
[2017-12-16 07:01] LABS: HEMATOCRIT 29.5 % (39.0-51.0); HEMOGLOBIN 9.6 GM/DL (13.0-17.0); MEAN CORPUSCULAR HEMOGLOBIN 29.3 PG (27.0-34.0); MEAN CORPUSCULAR HGB CONC 32.6 % (32.0-36.0); MEAN PLATELET VOLUME 8.2 FL (7.0-11.0); PLATELET COUNT 229 TH/MM3 (150-450); RED BLOOD COUNT 3.28 MIL/MM3 (4.50-5.90); RED CELL DISTRIBUTION WIDTH 13.5 % (11.6-17.2); WHITE BLOOD COUNT 12.1 TH/MM3 (4.0-11.0)
[2017-12-16 07:12] LABS: CALCIUM 8.2 MG/DL (8.5-10.1)
[2017-12-16 07:13] LABS: BICARBONATE 28.1 MEQ/L (21.0-32.0)
[2017-12-16 07:16] LABS: CREATININE 0.97 MG/DL (0.60-1.30)
[2017-12-16] MEDS: CARVEDILOL 3.125 MG TAB PO SCH ×2 (07:49→20:31)
[2017-12-16] MEDS: DOCUSATE SODIUM 50 MG/SENNA 8.6 MG TAB PO SCH ×2 (07:49→20:31)
[2017-12-16] MEDS: SERTRALINE HCL 100 MG TAB PO SCH (07:49)
[2017-12-16] MEDS: ALLOPURINOL 300 MG TAB PO SCH (07:49)
[2017-12-16] MEDS: ISOSORBIDE MONONITRATE 30 MG CR TAB (IMDUR) PO SCH ×2 (07:49→18:03)
[2017-12-16] MEDS: SODIUM CHLORIDE 0.9% FLUSH 10 ML FLUSH IV FLUSH SCH ×2 (07:50→19:51)
[2017-12-16] MEDS: TIOTROPIUM BROMIDE 18 MCG INH INH SCH (07:50)
[2017-12-16] MEDS: ASPIRIN EC 81 MG TABEC PO SCH (07:50)
--- NOTE | 2017-12-16 14:10 | HHI.PR ---
Subjective Remarks The patient was feeling very weak. He said that he would go to rehab if recommended. He said he was breathing comfortably. He said he had a bowel movement yesterday. He said he wanted to shave. Discussed with nursing. Objective Vitals Vital Signs Date Time Temp Pulse Resp B/P (MAP) Pulse Ox O2 Delivery O2 Flow Rate FiO2 12/16/17 12:51 96.6 70 19 123/58 (79) 95 12/16/17 08:26 97.3 72 17 153/66 (95) 97 12/16/17 04:00 97.2 73 18 117/56 (76) 95 12/16/17 00:00 97.1 71 18 126/60 (82) 96 12/15/17 23:00 76 12/15/17 20:00 97.5 72 18 119/58 (78) 96 12/15/17 15:00 98.2 73 20 130/60 (83) 97 I/O 12/15/17 12/15/17 12/15/17 12/16/17 12/16/17 12/16/17 07:00 15:00 23:00 07:00 15:00 23:00 Intake Total 240 ml 900 ml 920 ml 340 ml Output Total 650 ml 650 ml Balance 240 ml 900 ml 270 ml -310 ml Intake Oral 240 ml 720 ml 240 ml IV Total 900 ml 200 ml 100 ml Output Urine Total 650 ml 650 ml Bladder Scan Volume Amount 163 ml 433 ml 90 ml # Voids 2 6 # Bowel Movements 0 1 Result Diagram: 12/16/17 0602 12/16/17 0602 Imaging Last Impressions Abdomen/Pelvis CT 12/14/17 0000 Signed Impressions: Service Date/Time: Thursday, December 14, 2017 00:16 - CONCLUSION: Interval development of left renal swelling and perinephric induration which could be a manifestation of very early obstructive process. No stones are seen along the course of the ureter, however. Otherwise no acute CT findings. Memo Romero MD Chest X-Ray 12/13/171941 Signed Impressions: Service Date/Time: Wednesday, December 13, 2017 20:10 - CONCLUSION: 1. Minimal basilar airspace disease which may represent atelectasis. No dense consolidation or effusion. Previous CABG. Chris Palafox MD Objective Remarks GENERAL: Well-developed well-nourished elderly male in no distress. SKIN: Warm and dry. HEAD: Normocephalic. EYES: No scleral icterus. No injection or drainage. NECK: Supple, trachea midline. No JVD or lymphadenopathy. CARDIOVASCULAR: Regular rate and rhythm with grade 2 systolic murmur appreciated. RESPIRATORY: No accessory muscle use. CTAB. GASTROINTESTINAL: Abdomen soft, mild central tenderness without guarding or rebound, nondistended. MUSCULOSKELETAL: No cyanosis, or edema. BACK: Nontender without obvious deformity. Left sided CVA tenderness. NEURO: No gross deficits. Slightly confused. PSYCH: Mood and affect appropriate. A/P Assessment and Plan Sepsis/ UTI The pt had fevers at home and urinary complaints. He also had abdominal pain and CVA tenderness. CT showed: Interval development of left renal swelling and perinephric induration which could be a manifestation of very early obstructive process. UA indicative of an infection. Urology consult appreciated. - continue IV Zosyn. - follow blood and urine cultures. Gram-positive cocci and Corynebacterium growing in urine. - pain control with a bowel regimen. - urology following. - continue Wu catheter. CAD No cardiac complaints at this time. EF 50-55% on recent echo. - continue cardiac regimen. HTN Blood pressure well controlled. - continue Coreg and hold rest of antihypertensive regimen for now. - IVFs. Leukocytosis/ anemia WBC count elevated s/t above, though he has chronic leukocytosis. Hgb is around baseline. Stable. - outpt follow-up with hematology. Hypokalemia S/t decreased PO intake. - replete and monitor. Weakness Likely s/t above. B12 level is borderline low normal. - treatment as above. - PT/ OT. D/c to SNF. - B12 IM x 1. Dyspnea CXR unremarkable. Pt has been having a productive cough. - continue home inhaler. - nebs and O2 as needed. PPx: SCDs Discharge Planning D/c to SNF in 1-2 days if cleared by urology Karan Gomez DO December 16, 2017 14:10
[2017-12-16] MEDS ORDERED: TEMAZEPAM 7.5 MG CAP PO PRN (17:15)
[2017-12-16] MEDS: ATORVASTATIN 20 MG TAB PO SCH (20:31)
[2017-12-17 04:00] VITALS: BP 150/64; PULSE 72; RESP 15; TEMP 98; O2SAT 97
[2017-12-17] MEDS: PIPERACIL-TAZO 4.5 GM PREMIX 100 ML IV SCH ×3 (05:44→15:56)
[2017-12-17] MEDS: LEVOTHYROXINE SODIUM 75 MCG TAB PO SCH (05:44)
[2017-12-17] MEDS: ISOSORBIDE MONONITRATE 30 MG CR TAB (IMDUR) PO SCH ×2 (05:46→18:18)
[2017-12-17 08:00] VITALS: BP 139/65; PULSE 70; PULSE 74; RESP 18; TEMP 97.5; O2SAT 97
[2017-12-17] MEDS: ALLOPURINOL 300 MG TAB PO SCH (09:06)
[2017-12-17] MEDS: SERTRALINE HCL 100 MG TAB PO SCH (09:06)
[2017-12-17] MEDS: ASPIRIN EC 81 MG TABEC PO SCH (09:06)
[2017-12-17] MEDS: CARVEDILOL 3.125 MG TAB PO SCH (09:06)
[2017-12-17] MEDS: DOCUSATE SODIUM 50 MG/SENNA 8.6 MG TAB PO SCH (09:06)
[2017-12-17] MEDS: SODIUM CHLORIDE 0.9% FLUSH 10 ML FLUSH IV FLUSH SCH (09:06)
[2017-12-17] MEDS: TIOTROPIUM BROMIDE 18 MCG INH INH SCH (09:07)
[2017-12-17 13:14] VITALS: BP 154/65; PULSE 70; RESP 19; TEMP 97.6; O2SAT 96
[2017-12-17] MEDS ORDERED: AUGM875T3 PO (13:53)
--- NOTE | 2017-12-17 13:53 | HHI.DCPOC ---
Discharge Care Plan Diagnosis: (1) Urinary retention (2) UTI (urinary tract infection) (3) Sepsis (4) Leukocytosis Goals to Promote Your Health * To prevent worsening of your condition and complications * To maintain your health at the optimal level Directions to Meet Your Goals Take your medications as prescribed Follow your dietary instruction Follow activity as directed Keep your appointments as scheduled Take your immunizations and boosters as scheduled If your symptoms worsen call your PCP, if no PCP go to Urgent Care Center or Emergency Room Smoking is Dangerous to Your Health. Avoid second hand smoke Call the 24-hour hour crisis hotline for domestic abuse at Karan Gomez DO December 17, 2017 13:53
--- NOTE | 2017-12-17 14:14 | HHI.DS ---
Discharge Summary Admission Date December 13, 2017 at 23:46 Discharge Date: December 17, 2017 Admitting Diagnosis sepsis; uti (1) Urinary retention ICD Code: R33.9 - Retention of urine, unspecified Diagnosis: Principal Status: Acute (2) UTI (urinary tract infection) ICD Code: N39.0 - Urinary tract infection, site not specified Diagnosis: Principal Status: Acute (3) Sepsis ICD Code: A41.9 - Sepsis, unspecified organism Diagnosis: Principal Status: Acute Procedures None Brief History - From Admission The patient is an 82-year-old male with a past medical history of CAD and prostate cancer who is presenting to the hospital with weakness and difficulty urinating. The patient says that he has lost his appetite recently. He does endorse abdominal pain that he says sometimes goes up to an 8 out of 10 in severity. He is unable to pinpoint an exact location of the pain. He says that for the past couple of days he has not been able to urinate well. He says when he tries to initiate his stream of urine he develops dribbles. He says sometimes he has been urinating without knowing it. He says that he has felt cold and shaky. He continues to have bouts of shakiness and chills. He has been feeling weaker than normal. He does ambulate with a walker. He does endorse shortness of breath that is worse than his baseline. He has been having bowel movements and has been passing gas this morning. He says he ate well this morning. He says he had a fever at home but is unsure of how high it went. He says his [id number] talked with his nurse and he came to the hospital. CBC/BMP: 12/16/17 0602 12/16/17 0602 Significant Findings Laboratory Tests Test 12/15/17 11:50 12/16/17 06:02 White Blood Count 13.4 TH/MM3 (4.0-11.0) 12.1 TH/MM3 (4.0-11.0) Red Blood Count 3.47 MIL/MM3 (4.50-5.90) 3.28 MIL/MM3 (4.50-5.90) Hemoglobin 9.9 GM/DL (13.0-17.0) 9.6 GM/DL (13.0-17.0) Hematocrit 31.6 % (39.0-51.0) 29.5 % (39.0-51.0) Mean Corpuscular Hemoglobin Concent 31.2 % (32.0-36.0) Monocytes (%) (Auto) 10.9 % (0.0-8.0) Monocytes # (Auto) 1.5 TH/MM3 (0-0.9) Random Glucose 157 MG/DL (74-106) 116 MG/DL (74-106) Calcium Level 8.3 MG/DL (8.5-10.1) 8.2 MG/DL (8.5-10.1) Estimat Glomerular Filtration Rate 64 ML/MIN (>89) 74 ML/MIN (>89) Blood Urea Nitrogen 19 MG/DL (7-18) Imaging Last Impressions Abdomen/Pelvis CT 12/14/17 0000 Signed Impressions: Service Date/Time: Thursday, December 14, 2017 00:16 - CONCLUSION: Interval development of left renal swelling and perinephric induration which could be a manifestation of very early obstructive process. No stones are seen along the course of the ureter, however. Otherwise no acute CT findings. Memo Romero MD Chest X-Ray 12/13/17 194 Signed Impressions: Service Date/Time: Wednesday, December 13, 2017 20:10 - CONCLUSION: 1. Minimal basilar airspace disease which may represent atelectasis. No dense consolidation or effusion. Previous CABG. Chris Palafox MD PE at Discharge GENERAL: Well-developed well-nourished elderly male in no distress. SKIN: Warm and dry. HEAD: Normocephalic. EYES: No scleral icterus. No injection or drainage. NECK: Supple, trachea midline. No JVD or lymphadenopathy. CARDIOVASCULAR: Regular rate and rhythm with grade 2 systolic murmur appreciated. RESPIRATORY: No accessory muscle use. CTAB. GASTROINTESTINAL: Abdomen soft, mild central tenderness without guarding or rebound, nondistended. MUSCULOSKELETAL: No cyanosis, or edema. BACK: Nontender without obvious deformity. Left sided CVA tenderness. NEURO: No gross deficits. Slightly confused. PSYCH: Mood and affect appropriate. Pt update on day of discharge The patient had 2 bowel movements. He said he has lost his appetite. He said he has been coughing a little bit. Discussed with nursing and case management. Hospital Course Sepsis/ UTI The pt had fevers at home and urinary complaints. He also had abdominal pain and CVA tenderness. CT showed: Interval development of left renal swelling and perinephric induration which could be a manifestation of very early obstructive process. UA indicative of an infection. Urology was consulted. The pt was started on IV Zosyn. Urine culture grew Enterococcus faecalis and Corynebacterium. A Wu catheter was placed for retention. The patient will be discharged on a course of Augmentin. He will follow-up with urology as an outpatient. He will be discharged with the Wu catheter in place. HTN We continued the patient's Coreg. As his blood pressure became elevated we will resume his home blood pressure regimen upon discharge. Leukocytosis/ anemia WBC count elevated s/t above, though he has chronic leukocytosis. Hgb is around baseline. Stable. He will have outpt follow-up with hematology as needed. Weakness B12 level is borderline low normal. S/p B12 IM x 1. He worked with PT/ OT. Dyspnea CXR unremarkable. Pt has been having a productive cough. We continued his home inhaler. He received nebs and O2 as needed. He will be d/c with [facility]. Pt Condition on Discharge: Stable Discharge Disposition: Discharge to SNF Discharge Time: > 30 minutes Discharge Instructions DIET: Follow Instructions for: Heart Healthy Diet Activities you can perform: Weight Bearing as Karan Valdez DO December 17, 2017 14:14
[2017-12-17] MEDS ORDERED: BENZ100 PO (14:15)
[2017-12-17] MEDS: ACETAMINOPHEN/HYDROcodone 325 MG/10 MG TAB PO PRN (15:56)
[2017-12-17 16:35] VITALS: BP 171/82; PULSE 77; RESP 17; TEMP 98.3; O2SAT 98
[2017-12-17 16:56] VITALS: RESP 18
== END 2017-12-17 18:30 | DRG 872 ==
LOC: PHED 18:48 → PHEDA 23:46 → PH3B 12-14 01:34
PROVIDERS: ADMIT Hospitalist; ATTEND Hospitalist
DX: A41.81 Sepsis due to Enterococcus (principal); I50.9 Heart failure, unspecified; N39.0 Urinary tract infection, site not specified; I11.0 Hypertensive heart disease with heart failure; J44.9 Chronic obstructive pulmonary disease, unspecified; N40.0 Benign prostatic hyperplasia without lower urinary tract symptoms; K21.9 Gastro-esophageal reflux disease without esophagitis; I48.91 Unspecified atrial fibrillation; E78.5 Hyperlipidemia, unspecified; I25.10 Atherosclerotic heart disease of native coronary artery without angina pectoris; I25.2 Old myocardial infarction; I44.0 Atrioventricular block, first degree; I45.10 Unspecified right bundle-branch block; R73.03 Prediabetes; D64.9 Anemia, unspecified; E87.6 Hypokalemia; N32.0 Bladder-neck obstruction; M19.90 Unspecified osteoarthritis, unspecified site; F32.9 Major depressive disorder, single episode, unspecified; F41.9 Anxiety disorder, unspecified; Z85.46 Personal history of malignant neoplasm of prostate; Z85.6 Personal history of leukemia; Z86.73 Personal history of transient ischemic attack (TIA), and cerebral infarction without residual deficits; Z87.891 Personal history of nicotine dependence; Z88.1 Allergy status to other antibiotic agents; Z88.5 Allergy status to narcotic agent; Z92.3 Personal history of irradiation; Z95.1 Presence of aortocoronary bypass graft; Z95.5 Presence of coronary angioplasty implant and graft
CPT/HCPCS: 71045; 74177; 80048; 80053; 81001; 82550; 82607; 83605; 83690; 83735; 84443; 84484; 85007; 85025; 85027; 87040; 87086; 93005; 96361; 96365; J2405; J2543; J3420; J7030; J7040; P9612; Q9967

== ENCOUNTER 2018-04-17 16:18 | Inpatient (IN) ==
--- NOTE | 2018-04-17 17:41 | ED ---
HPI General Chief Complaint: Psychiatric Symptoms Stated Complaint: Psych Eval Time Seen by Provider: 04/19/18 09:00 History of Present Illness HPI Narrative: 83[facility] patient who was sent here under [facility]h act for psychiatric evaluation. He has been depressed and feeling suicidal. He verbalized that he wanted to end it all with a bottle of pills. He did not take any extra medications. [facility] he denies any specific physical complaints that are new. He has chronic gait instability and gets around with a wheelchair. He denies fever or vomiting or diarrhea. Symptom severity is moderate. Duration is 2 days. No alleviating factors. Symptoms are exacerbated by a in the family. Related Data Home Medications Medication Instructions Recorded Confirmed allopurinol 300 mg PO DAILY 04/17/18 04/17/18 ascorbic acid (vitamin C) 500 mg PO DAILY 04/17/18 04/17/18 aspirin 81 mg PO DAILY 04/17/18 04/17/18 atorvastatin 20 mg PO DAILY 04/17/18 04/17/18 carvedilol 3.125 mg PO BID 04/17/18 04/17/18 clonazepam [Klonopin] 0.5 mg PO BID 04/17/18 04/17/18 gabapentin 300 mg PO TID 04/17/18 04/17/18 hydrochlorothiazide 25 mg PO DAILY 04/17/18 04/17/18 isosorbide mononitrate 60 mg PO DAILY 04/17/18 04/17/18 levothyroxine 75 mcg PO DAILY 04/17/18 04/17/18 losartan 50 mg PO DAILY 04/17/18 04/17/18 sertraline 100 mg PO DAILY 04/17/18 04/17/18 tiotropium bromide 1 puff INHALATION DAILY 04/17/18 04/17/18 Previous Rx's Medication Instructions Recorded ciprofloxacin HCl [Cipro] 500 mg PO BID 5 Days #10 tab 04/17/18 Allergies Allergy/AdvReac Type Severity Reaction Status Date / Time cephalexin Allergy Severe RASH Verified 12/13/17 19:22 clopidogrel Allergy Severe RASH Verified 12/13/17 19:22 Sulfa (Sulfonamide Allergy Severe RASH Verified 12/13/17 19:22 Antibiotics) Review of Systems ROS: all other systems reviewed are negative [facility] Medical History Medical History Anemia (Acute) Anxiety (Acute) Atherosclerotic heart disease of [place] coronary artery without angina pectoris (Acute) Atrial fibrillation (Acute) COPD (chronic obstructive pulmonary disease) (Acute) Calculus of kidney (Acute) Cardiac arrhythmia (Acute) History of malignant neoplasm of prostate (Acute) Hyperlipidemia (Acute) Hypertension (Acute) Hypokalemia (Acute) Major depressive disorder (Acute) Personal history of leukemia (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), and cerebral infarction without residual deficits (Acute) Repeated falls (Acute) Retention of urine, unspecified (Acute) Type 2 diabetes mellitus (Acute) Unspecified abdominal pain (Acute) Unspecified osteoarthritis, unspecified site (Acute) Surgical History Surgical History Presence of coronary angioplasty implant and graft (Acute) Presence of left artificial hip joint (Acute) Social History Social History Substance History: No History of Abuse Second Hand Smoke Exposure: No Smoking Status: Never smoker How Often Do You Have a Drink Containing Alcohol: Never Recent Travel in [facility] within the Last 8 Weeks: No Recent Out of Country Travel within the Last 8 Weeks: No Exam Narrative Exam Narrative: GENERAL: Well-nourished, well-developed patient in no apparent distress. SKIN: Focused skin assessment reveals no rash and nodules. Skin is Warm and dry. HEAD: Atraumatic. Normocephalic. EYES: Pupils equal and round. No scleral icterus. No injection or drainage. ENT: No nasal bleeding or discharge. Mucous membranes pink and moist. NECK: Trachea midline. No JVD. CARDIOVASCULAR: Regular rate and rhythm. No murmur appreciated. RESPIRATORY: No accessory muscle use. Clear to auscultation. Breath sounds equal bilaterally. GASTROINTESTINAL: Abdomen soft, non-tender, nondistended. Hepatic and splenic margins not palpable. MUSCULOSKELETAL: No obvious deformities. No clubbing. No cyanosis. No edema. NEUROLOGICAL: Awake and alert. No obvious cranial nerve deficits. Motor grossly within normal limits. Normal speech. PSYCHIATRIC: Depressed mood and flat affect; insight and judgment reduced Course Initial Documented Vital Signs Temperature 98.0 F 04/17/18 18:21 Pulse Rate 71 04/17/18 18:21 Respiratory Rate 18 04/17/18 18:21 Blood Pressure 156/69 H 04/17/18 18:21 Pulse Oximetry 97 04/17/18 18:21 Last Documented Vital Signs Temperature 98.0 F 04/19/18 08:11 Pulse Rate 78 04/19/18 10:01 Respiratory Rate 18 /08/18 10:01 Blood Pressure 129/88 04/19/18 10:01 Pulse Oximetry 100 04/19/18 08:11 Medical Decision Making MDM Narrative Medical decision making narrative: IV placed and labs sent. I have ordered medical clearance workup and psychiatric evaluation as he is here under the Ramesh act. Metabolic profile and TSH are normal. CBC shows some leukocytosis but on review of the records the patient's white count is always elevated and sometimes higher than it is now. He does have pyuria so I gave him a dose of Cipro and would have him complete several days of it. I will write him a prescription in case he is cleared psychiatrically but if he is kept in the psychiatric department then he can get the medication every 12 hours. Medical Screen Exam Complete: Yes Emergency Medical Condition: Yes Differential Diagnosis Differential Diagnosis: Depression, suicidal ideation, adjustment disorder Medical Records Medical records reviewed: Yes I reviewed the patient's medical records. Lab Data Lab results reviewed: Yes I reviewed the patient's lab results. Result diagrams: 04/17/18 18:15 04/17/18 18:15 Lab Results 04/17/18 04/17/18 04/17/18 Range/Units 18:15 18:15 19:25 WBC 16.5 H (4.0-11.0) th/mm3 RBC 4.28 L (4.50-5.90) mil/mm3 Hgb 12.6 L (13.0-17.0) gm/dL Hct 38.1 L (39.0-51.0) % MCV 89.1 (80.0-100.0) fL MCH 29.4 (27.0-34.0) pg MCHC 33.0 (32.0-36.0) % RDW 15.0 (11.6-17.2) % Plt Count 205 (150-450) th/mm3 MPV 7.4 (7.0-11.0) fL Prelim Diff (Auto) Slide review pending Neut % (Auto) 30.4 (16.0-70.0) % Lymph % (Auto) 61.1 H (9.0-44.0) % [place] % (Auto) 6.9 (0.0-8.0) % Eos % (Auto) 1.3 (0.0-4.0) % Baso % (Auto) 0.3 (0.0-2.0) % Neut # (Auto) 5.0 (1.8-7.7) th/mm3 Lymph # (Auto) 10.1 H (1.0-4.8) th/mm3 [place] # (Auto) 1.1 H (0.0-0.9) th/mm3 Eos # (Auto) 0.2 (0.0-0.4) th/mm3 Baso # (Auto) 0.1 (0.0-0.2) th/mm3 WBC Differential Manual diff final Seg Neuts % (Manual) 31 (16-70) % Lymphocytes % (Manual) 62 H (9-44) % Atypical Lymphs % (Man) 7 H (0-0) % Abs Neuts (Manual) 5.1 (1.8-7.7) th/mm3 Differential Comment . Smudge Cells Present H (None) Platelet Estimate Normal (Normal) Platelet Morphology Normal (Normal) Spherocytes 1+ H (None) Sodium 137 (136-145) meq/L Potassium 4.3 (3.5-5.1) meq/L Chloride 101 (98-107) meq/L Carbon Dioxide 26.2 (21.0-32.0) meq/L Anion Gap 10 (5-15) meq/L BUN 26 H (7-18) mg/dL Creatinine 1.05 (0.60-1.30) mg/dL Estimated GFR 68 L (>89) mL/min Random Glucose 105 (74-106) mg/dL Calcium 9.2 (8.5-10.1) mg/dL Total Bilirubin 0.4 (0.2-1.0) mg/dL AST 21 (15-37) U/L ALT 22 (12-78) U/L Alkaline Phosphatase 96 (45-117) U/L Total Protein 8.2 (6.4-8.2) g/dL Albumin 3.8 (3.4-5.0) g/dL TSH 2.170 (0.358-3.740) uIU/mL Urine Color Straw (Yellw/Straw) Urine Clarity Hazy H (Clear) Urine pH 7.0 (5.0-8.5) Ur Specific [place] 1.004 (1.002-1.035) Urine Protein Negative (Neg-Trace) mg/dL Urine Glucose (UA) Negative (Negative) mg/dL Urine Ketones Negative (Negative) mg/dL Urine Occult Blood Negative (Negative) Urine Nitrate Negative (Negative) Urine Bilirubin Negative (Negative) Urine Urobilinogen Less than 2 (Less than 2) mg/dL Ur Leukocyte Esterase Large H (Negative) Urine RBC 1 (0-3) /hpf Urine WBC (0-5) /hpf Ur Squamous Epith Cells <1 (0-5) /hpf Urine Bacteria Moderate H (None) /hpf Micro UA Comment Culture indicated Ur Microscopic Review Not Reportable Urine Culture Comments Culture indicated Discharge Plan Discharge Disposition Patient Disposition: 30 Still Patient Discharge Condition Condition: Stable Discharge Details Diagnosis: UTI (urinary tract infection) Physicians Team ED Provider: Carlos Alberto Peace Primary Care Provider: Sapna Gardner Attending Provider: Casa Larios Other Providers: Areli Prakash Discharge Interventions Interventions: Vital Signs Last Done: 04/19/18 10:01 Status ED Status: Admitted Patient
[2018-04-17 18:42] LABS: Baso # (Auto) 0.1 th/mm3 (0.0-0.2); Baso % (Auto) 0.3 % (0.0-2.0); Eos # (Auto) 0.2 th/mm3 (0.0-0.4); Eos % (Auto) 1.3 % (0.0-4.0); Hematocrit 38.1 % (39.0-51.0); Hemoglobin 12.6 gm/dL (13.0-17.0); Lymph # (Auto) 10.1 th/mm3 (1.0-4.8); Lymph % (Auto) 61.1 % (9.0-44.0); Mean Corpuscular Hemoglobin 29.4 pg (27.0-34.0); Mean Corpuscular Volume 89.1 fL (80.0-100.0); Mean Platelet Volume 7.4 fL (7.0-11.0); Mono # (Auto) 1.1 th/mm3 (0.0-0.9); Mono % (Auto) 6.9 % (0.0-8.0); Neut % (Auto) 30.4 % (16.0-70.0); Platelet Count 205 th/mm3 (150-450); Red Blood Count 4.28 mil/mm3 (4.50-5.90); White Blood Count 16.5 th/mm3 (4.0-11.0)
[2018-04-17 19:09] LABS: Albumin 3.8 g/dL (3.4-5.0); Anion Gap 10 meq/L (5-15); Aspartate Aminotransferase 21 U/L (15-37); Blood Urea Nitrogen 26 mg/dL (7-18); Calcium 9.2 mg/dL (8.5-10.1); Carbon Dioxide 26.2 meq/L (21.0-32.0); Chloride 101 meq/L (98-107); Glomerular Filtration Rate 68 mL/min (>89); Glucose,Random 105 mg/dL (74-106); Potassium 4.3 meq/L (3.5-5.1); Sodium 137 meq/L (136-145)
[2018-04-17 19:10] LABS: Alanine Aminotransferase 22 U/L (12-78)
[2018-04-17 19:20] LABS: Alkaline Phosphatase 96 U/L (45-117); Total Protein 8.2 g/dL (6.4-8.2)
[2018-04-17 19:53] LABS: Bacteria,Urine Moderate /hpf; Bilirubin,Urine Negative (Negative); Clarity,Urine Hazy (Clear); Color,Urine Straw (Yellw/Straw); Glucose,Urine (UA) Negative (Negative); Leukocyte Esterase,Urine Large (Negative); Nitrite,Urine Negative (Negative); Specific Gravity,Urine 1.004 (1.002-1.035); Squamous Epithelial Cell,Urine <1 /hpf (0-5)
[2018-04-17 20:01] LABS: Atypical Lymphs 7 % (0-0); Lymphocytes 62 % (9-44)
[2018-04-17 20:02] LABS: Platelet Estimate Normal (Normal); Platelet Morphology Normal (Normal); Smudge Cells Present
[2018-04-17] MEDS ORDERED: Ciprofloxacin 500 MG Tablet PO ONE (20:02)
[2018-04-17 20:03] LABS: Spherocytes 1+
[2018-04-18] MEDS ORDERED: hydroCHLOROthiazide 25 MG Tablet PO ONE (11:11)
[2018-04-18] MEDS ORDERED: Ciprofloxacin 500 MG Tablet PO SCH (14:20)
[2018-04-18] MEDS: Ciprofloxacin 500 MG Tablet PO SCH (15:30)
[2018-04-19] MEDS: Ciprofloxacin 500 MG Tablet PO SCH (02:43)
--- NOTE | 2018-04-19 09:21 | ED ---
HPI - Psych - General Source: patient, other (documentation from SNF psychiatrist) Limitations: physical limitation - History of Present Illness MD complaint: suicidal ideation Onset (ago): week(s) Duration: constant History of same: Yes (Family reports previous staemetns 3 weeks ago) Relieving factors: none Exacerbating factors: other (multiple lossess) Context: significant life stressor Associated psychiatric symptoms: depression Associated symptoms: shortness of breath, other Treatments prior to arrival: none If self harm: other - General Chief Complaint: Psychiatric Symptoms Stated Complaint: Psych Eval Time Seen by Provider: 04/19/18 09:00 - History of Present Illness HPI Narrative: History of Present Illness HPI Narrative: 83-year-old single male, resident of a nursing facility with reported history of depression, here under Ramesh act initiated by Rios Canales, psychiatrist at the facility. The report alleges "the patient is very frustrated, unhappy and angry that he rates his situation an 8 (on a 0-10 range). He has been worrying and thinking of wanting to , declares he could do it with overdose with pills. He indicated that he would do it in other ways. He is angry of being in a room with 4 galan and that he could not do what he wants or loves to do like going fishing, cooking his meals and being independent. He is unlikely to harm himself and is physically capable to do it. The limited resources of the [facility] are not could not meet his special needs presently he needs inpatient psychiatric meds to stabilize him or his medication." The patient is seen in main Ed. He is alert, oriented, cooperative. Speech is clear and logical. Mood is depressed. States " I am trying to cope. I made a big mistake. I was just upset with everything". Patient's roommate 4 days ago. He minimizes his statements. He denies current suicidal ideation. Telephone call to his daughter in law at [phone]. who is his health care surrogate. She has concerns for his safety because this is not the first time that he has verbalized suicidal ideation. Three weeks ago he made a similar statement to his sister. She also acknowledges that he has had significant losses over the past year including the of his best friend on , having to move into a nursing facility in December. (Fátima Caba) - Related Data Home Medications Medication Instructions Recorded Confirmed allopurinol 300 mg PO DAILY 04/17/18 04/17/18 ascorbic acid (vitamin C) 500 mg PO DAILY 04/17/18 04/17/18 aspirin 81 mg PO DAILY 04/17/18 04/17/18 atorvastatin 20 mg PO DAILY 04/17/18 04/17/18 carvedilol 3.125 mg PO BID 04/17/18 04/17/18 clonazepam [Klonopin] 0.5 mg PO BID 04/17/18 04/17/18 gabapentin 300 mg PO TID 04/17/18 04/17/18 hydrochlorothiazide 25 mg PO DAILY 04/17/18 04/17/18 isosorbide mononitrate 60 mg PO DAILY 04/17/18 04/17/18 levothyroxine 75 mcg PO DAILY 04/17/18 04/17/18 losartan 50 mg PO DAILY 04/17/18 04/17/18 sertraline 100 mg PO DAILY 04/17/18 04/17/18 tiotropium bromide 1 puff INHALATION DAILY 04/17/18 04/17/18 Previous Rx's Medication Instructions Recorded ciprofloxacin HCl [Cipro] 500 mg PO BID 5 Days #10 tab 04/17/18 Allergies Allergy/AdvReac Type Severity Reaction Status Date / Time cephalexin Allergy Severe RASH Verified 12/13/17 19:22 clopidogrel Allergy Severe RASH Verified 12/13/17 19:22 Sulfa (Sulfonamide Allergy Severe RASH Verified 12/13/17 19:22 Antibiotics) [facility] - History History Provided By: Medical Record - Medical History Medical History: Medical History (Last Reviewed 04/19/18 @ 11:38 by Areli Prakash MD) Anemia Anxiety Atherosclerotic heart disease of [place] coronary artery without angina pectoris Atrial fibrillation COPD (chronic obstructive pulmonary disease) Calculus of kidney Cardiac arrhythmia History of malignant neoplasm of prostate Hyperlipidemia Hypertension Hypokalemia Major depressive disorder Personal history of leukemia Personal history of transient ischemic attack (TIA), and cerebral infarction without residual deficits Repeated falls Retention of urine, unspecified Type 2 diabetes mellitus Unspecified abdominal pain Unspecified osteoarthritis, unspecified site - Surgical History Surgical History: Surgical History (Last Updated 04/19/18 @ 11:39 by Areli Prakash MD) Hx of CABG Presence of coronary angioplasty implant and graft Presence of left artificial hip joint - Family History Family History: Family History (Last Updated 04/19/18 @ 11:40 by Areli Prakash MD) Mother Diabetes Hypertension Father Hypertension - Tobacco History Second Hand Smoke Exposure: No Smoking Status: Never smoker - Alcohol History How Often Do You Have a Drink Containing Alcohol: Never - Substance Use History Substance History: No History of Abuse - Travel History Recent Travel in the [place] Within the Last 8 Weeks: No Recent Travel Out of the Country Within the Last 8 Weeks: No - Immunization History Tetanus Immunization: Unsure Psychiatric History - Psychiatric History Psychiatric Treatment History: History of Psychiatric Treatment History of Inpatient Treatment: No Firearms in Home: No - Psychiatric History Patient has been receiving psychiatric treatment for the past several months. Denies previous psychiatric hospitalization. Denies previous suicide attempt. ( Fátima Caba) - Family Psychiatric History Negative (Fátima Caba) Mental Status Examination Consciousness: Alert Orientation: x4 Motor Activity: Other Speech: Unremarkable Language: Adequate (Uses a wheelchair) Fund of Knowledge: Adequate Attention and Concentration: Adequate Memory: Unremarkable Mood: Sad Affect: Blunt Thought Process & Associations: Intact, Logical, Goal directed Thought Content: Appropriate Hallucination Type: None Delusion Type: None Suicidal Ideation: No Suicidal Plan: No Suicidal Intention: No Homicidal Ideation: No Homicidal Plan: No Homicidal Intention: No Insight: Fair Judgment: Impulsive Initial Documented Vital Signs Temperature 98.0 F 04/17/18 18:21 Pulse Rate 71 04/17/18 18:21 Respiratory Rate 18 04/17/18 18:21 Blood Pressure 156/69 H 04/17/18 18:21 Pulse Oximetry 97 04/17/18 18:21 Last Documented Vital Signs Temperature 98 F 04/19/18 17:24 Pulse Rate 77 04/19/18 17:24 Respiratory Rate 20 04/19/18 17:24 Blood Pressure 130/64 04/19/18 17:24 Pulse Oximetry 95 04/19/18 17:24 MDM - Psych - Diagnosis (1) Adjustment disorder with depressed mood Status: Acute - Lab Data Result diagrams: 04/17/18 18:15 04/17/18 18:15 - [facility] Narrative Medical decision making narrative: 83-year-old male resident of a nursing facility who is sent to [facility] by the facility psychiatrist for inpatient psychiatric treatment. The patient was placed under an involuntary status by the psychiatrist at the facility indicating that the patient had verbalize suicidal ideation with intent to overdose on pills or to use other means. The facility feels that they are unable to meet his needs at the time of the patient requires inpatient hospitalization for safety, stabilization, and further evaluation. (Fátima Caba) - Lab Data Lab Results 04/17/18 04/17/18 04/17/18 Range/Units 18:15 18:15 19:25 WBC 16.5 H (4.0-11.0) th/mm3 RBC 4.28 L (4.50-5.90) mil/mm3 Hgb 12.6 L (13.0-17.0) gm/dL Hct 38.1 L (39.0-51.0) % MCV 89.1 (80.0-100.0) fL MCH 29.4 (27.0-34.0) pg MCHC 33.0 (32.0-36.0) % RDW 15.0 (11.6-17.2) % Plt Count 205 (150-450) th/mm3 MPV 7.4 (7.0-11.0) fL Prelim Diff (Auto) Slide review pending Neut % (Auto) 30.4 (16.0-70.0) % Lymph % (Auto) 61.1 H (9.0-44.0) % [place] % (Auto) 6.9 (0.0-8.0) % Eos % (Auto) 1.3 (0.0-4.0) % Baso % (Auto) 0.3 (0.0-2.0) % Neut # (Auto) 5.0 (1.8-7.7) th/mm3 Lymph # (Auto) 10.1 H (1.0-4.8) th/mm3 [place] # (Auto) 1.1 H (0.0-0.9) th/mm3 Eos # (Auto) 0.2 (0.0-0.4) th/mm3 Baso # (Auto) 0.1 (0.0-0.2) th/mm3 WBC Differential Manual diff final Seg Neuts % (Manual) 31 (16-70) % Lymphocytes % (Manual) 62 H (9-44) % Atypical Lymphs % (Man) 7 H (0-0) % Abs Neuts (Manual) 5.1 (1.8-7.7) th/mm3 Differential Comment . Smudge Cells Present H (None) Platelet Estimate Normal (Normal) Platelet Morphology Normal (Normal) Spherocytes 1+ H (None) Sodium 137 (136-145) meq/L Potassium 4.3 (3.5-5.1) meq/L Chloride 101 (98-107) meq/L Carbon Dioxide 26.2 (21.0-32.0) meq/L Anion Gap 10 (5-15) meq/L BUN 26 H (7-18) mg/dL Creatinine 1.05 (0.60-1.30) mg/dL Estimated GFR 68 L (>89) mL/min Random Glucose 105 (74-106) mg/dL Calcium 9.2 (8.5-10.1) mg/dL Total Bilirubin 0.4 (0.2-1.0) mg/dL AST 21 (15-37) U/L ALT 22 (12-78) U/L Alkaline Phosphatase 96 (45-117) U/L Total Protein 8.2 (6.4-8.2) g/dL Albumin 3.8 (3.4-5.0) g/dL TSH 2.170 (0.358-3.740) uIU/mL Urine Color Straw (Yellw/Straw) Urine Clarity Hazy H (Clear) Urine pH 7.0 (5.0-8.5) Ur Specific [place] 1.004 (1.002-1.035) Urine Protein Negative (Neg-Trace) mg/dL Urine Glucose (UA) Negative (Negative) mg/dL Urine Ketones Negative (Negative) mg/dL Urine Occult Blood Negative (Negative) Urine Nitrate Negative (Negative) Urine Bilirubin Negative (Negative) Urine Urobilinogen Less than 2 (Less than 2) mg/dL Ur Leukocyte Esterase Large H (Negative) Urine RBC 1 (0-3) /hpf Urine WBC (0-5) /hpf Ur Squamous Epith Cells <1 (0-5) /hpf Urine Bacteria Moderate H (None) /hpf Micro UA Comment Culture indicated Ur Microscopic Review Not Reportable Urine Culture Comments Culture indicated
[2018-04-19] MEDS ORDERED: Aluminum/Magnesium/Simethacone Susp 30 ML UDC PO PRN (09:40)
--- NOTE | 2018-04-19 10:38 | P.CONIM ---
History of Present Illness Service: Hospitalist Consult date: 04/19/18 Reason for Consult: Medical Management Primary Care Provider: Sapna Gardner MD Family Provider: Sapna Gardner MD History of Present Illness: 83 year old male with history of prostate cancer, CAD, HLD, COPD, and chronic leukocytosis admitted to psychiatry under Ramesh Act for suicidal ideations. The patient was at a SNF when he verbalized that he wanted to end his life by taking a bottle of pills. The patient admits to feeling depressed but states after thinking things through he doesn't really want to end his life. He states because of his depression he said something prior to thinking it through. He did not actually take any extra medications. The patient has no somatic complaints. Denies chest pain, shortness of breath, abdominal pain, nausea, vomiting. Upon review of the EMR, the patient has been referred to outpatient heme/onc for evaluation of possible CLL or other lymphoproliferative disorder given his persistent leukocytosis with abnormal differential. Apparently he has seen Dr. Meeks at least once but the patient seems confused when I ask him about it. He denies ever being told he's had leukemia. [facility] - History History Provided By: Medical Record - Medical History Medical History: Medical History (Last Reviewed 04/19/18 @ 11:38 by Areli Prakash MD) Anemia Anxiety Atherosclerotic heart disease of [place] coronary artery without angina pectoris Atrial fibrillation COPD (chronic obstructive pulmonary disease) Calculus of kidney Cardiac arrhythmia History of malignant neoplasm of prostate Hyperlipidemia Hypertension Hypokalemia Major depressive disorder Personal history of leukemia Personal history of transient ischemic attack (TIA), and cerebral infarction without residual deficits Repeated falls Retention of urine, unspecified Type 2 diabetes mellitus Unspecified abdominal pain Unspecified osteoarthritis, unspecified site - Surgical History Surgical History: Surgical History (Last Updated 04/19/18 @ 11:39 by Areli Prakash MD) Hx of CABG Presence of coronary angioplasty implant and graft Presence of left artificial hip joint - Family History Family History: Family History (Last Updated 04/19/18 @ 11:40 by Areli Prakash MD) Mother Diabetes Hypertension Father Hypertension - Social History I have reviewed the patient's Social History: Yes - Tobacco History Second Hand Smoke Exposure: No Smoking Status: Never smoker - Alcohol History How Often Do You Have a Drink Containing Alcohol: Never - Substance Use History Substance History: No History of Abuse - Travel History Recent Travel in the [place] Within the Last 8 Weeks: No Recent Travel Out of the Country Within the Last 8 Weeks: No - Immunization History Tetanus Immunization: Unsure Medications and Allergies Active Medications: Active Medications Al Hydrox/Mg Hydrox/Simethicone (Mag-Al Plus Susp Liq) 30 ml PO Q6H PRN PRN Reason: DYSPEPSIA Al Hydroxide/Mg Hydroxide (Milk Of Magnesia Liq) 30 ml PO Q12H PRN PRN Reason: Mild Constipation Allopurinol (Zyloprim) 300 mg PO DAILY [facility] Ascorbic Acid (Vitamin C) 500 mg PO DAILY [facility] Aspirin (Aspirin Chew) 81 mg PO DAILY [facility] Atorvastatin Calcium (Lipitor) 20 mg PO DAILY [facility] Carvedilol (Coreg) 3.125 mg PO BID [facility] Ciprofloxacin HCl (Cipro) 500 mg PO Q12H SEAN Stop: 04/23/18 14:59 Last Admin: 04/19/18 02:43 Dose: 500 mg Clonazepam (Klonopin) 0.5 mg PO BID [facility] Gabapentin (Neurontin) 300 mg PO TID [facility] Hydrochlorothiazide (Hydrodiuril) 25 mg PO DAILY [facility] Isosorbide Mononitrate (Imdur) 60 mg PO DAILY [facility] Levothyroxine Sodium (Synthroid) 75 mcg PO DAILY [facility] Losartan Potassium (Cozaar) 50 mg PO DAILY [facility] Non-Formulary Medication (Tiotropium [place] [Tiotropium [place]]) 1 puff INHALATION DAILY [facility] Senna/Docusate Sodium (Christina-Colace) 1 tab PO BID [facility] Allergies Allergy/AdvReac Type Severity Reaction Status Date / Time cephalexin Allergy Severe RASH Verified 12/13/17 19:22 clopidogrel Allergy Severe RASH Verified 12/13/17 19:22 Sulfa (Sulfonamide Allergy Severe RASH Verified 12/13/17 19:22 Antibiotics) Home Medications Medication Instructions Recorded Confirmed Type allopurinol 300 mg PO DAILY 04/17/18 04/17/18 History ascorbic acid (vitamin C) 500 mg PO DAILY 04/17/18 04/17/18 History aspirin 81 mg PO DAILY 04/17/18 04/17/18 History atorvastatin 20 mg PO DAILY 04/17/18 04/17/18 History carvedilol 3.125 mg PO BID 04/17/18 04/17/18 History clonazepam [Klonopin] 0.5 mg PO BID 04/17/18 04/17/18 History gabapentin 300 mg PO TID 04/17/18 04/17/18 History hydrochlorothiazide 25 mg PO DAILY 04/17/18 04/17/18 History isosorbide mononitrate 60 mg PO DAILY 04/17/18 04/17/18 History levothyroxine 75 mcg PO DAILY 04/17/18 04/17/18 History losartan 50 mg PO DAILY 04/17/18 04/17/18 History sertraline 100 mg PO DAILY 04/17/18 04/17/18 History tiotropium bromide 1 puff INHALATION DAILY 04/17/18 04/17/18 History Exam Vital signs: Vital Signs 04/18/18 11:07 04/18/18 12:03 04/18/18 12:36 Temperature 97.8 F Pulse Rate 73 77 73 Respiratory Rate 18 18 18 Blood Pressure 204/95 H 194/98 H 180/65 H Pulse Oximetry 96 98 98 04/18/18 13:26 04/18/18 17:28 04/18/18 19:38 Temperature Pulse Rate 82 79 74 Respiratory Rate 18 18 16 Blood Pressure 215/86 H 199/82 H 177/108 H Pulse Oximetry 99 98 98 04/19/18 04:27 04/19/18 08:11 04/19/18 10:01 Temperature 98.0 F Pulse Rate 77 72 78 Respiratory Rate 16 16 18 Blood Pressure 165/72 H 159/68 H 129/88 Pulse Oximetry 97 100 Intake & Output 04/18/18 04/19/18 04/19/18 18:59 06:59 18:59 Output Total 175 / 175 Balance -175 / -175 Output: Urine 175 / 175 Other: # Voids 1 Date of Last Bowel Movement 04/19/18 # Bowel Movements 1 Narrative: GENERAL: WN, WD elderly male sitting up in chair in NAD. SKIN: Warm and dry. HEENT: AT/NC. Pupils equal and round. MMM. NECK: Supple no tender LAD or JVD. HEART: Median sternotomy scar. RRR no m/r/g. LUNGS: CTAB without wheezes or crackles. ABDOMEN: +BS, soft, NT, ND. EXTREMITIES: No LE edema. NEURO: Awake and alert. PSYCH: Depressed mood. Results - Labs CBC & Chem 7: 04/17/18 18:15 04/17/18 18:15 Labs: Laboratory Results - last 24 hr 04/17/18 19:25 Urine Color Straw Urine Clarity Hazy H Urine pH 7.0 Ur Specific [place] 1.004 Urine Protein Negative Urine Glucose (UA) Negative Urine Ketones Negative Urine Occult Blood Negative Urine Nitrate Negative Urine Bilirubin Negative Urine Urobilinogen Less than 2 Ur Leukocyte Esterase Large H Urine RBC 1 Urine WBC Ur Squamous Epith Cells <1 Urine Bacteria Moderate H Micro UA Comment Culture indicated Urine Culture Comments Culture indicated Assessment and Plan - Assessment (1) Suicidal ideations Code(s): R45.851 - Suicidal ideations Status: Acute - Plan 83 year old male with history of prostate cancer, CAD, HLD, COPD, and chronic leukocytosis admitted to psychiatry under Ramesh Act for suicidal ideations. Hospitalist service consulted for medical management. 1. Suicidal ideations - Ramesh Acted and admitted to psych - Management per psych 2. HTN - BP stable - Resume home carvedilol, Losartan, and HCTZ 3. CAD - No active chest pain - Resume home carvedilol and isosorbide mononitrate - Continue home atorvastatin and ASA 4. Hypothyroidism - TSH WNL - Resume home levothyroxine 5. COPD - Not in acute exacerbation - Continue home Spiriva 6. Leukocytosis - WBC 16.5 but this has been ongoing now for some time - Supposedly following with heme/onc as an outpatient but I am not sure if he has been worked up since he has been in and out of the hospital and intermediate multiple times in the last six months - He likely has CLL or other lymphoproliferative disorder given predominance of lymphocytes including atypical lymphos and smudge cells - Will at least obtain a peripheral smear and flow cytometry - Depending on how long patient will be hospitalized will consider heme/onc consult but will hold off for now - Monitor CBC 8. Pyuria - Patient has recurrent UTIs - U/A showing large leukocyte esterase - He was given a dose of Cipro in the ED but review of micro but prior UTI/ sepsis hospitalization showed growth resistant to Cipro - Will treat with Ampicillin while awaiting final culture (allergic to sulfa and Keflex, and Macrobid C/I in geriatric patients) DVT prophylaxis: Ambulatory
[2018-04-19] MEDS ORDERED: clonazePAM 0.5 MG Tablet PO ONE (13:00)
[2018-04-19] MEDS ORDERED: Allopurinol 300 MG Tablet PO ONE (13:00)
[2018-04-19] MEDS ORDERED: Ascorbic Acid 500 MG Tablet PO ONE (13:00)
[2018-04-19] MEDS: Gabapentin 300 MG Capsule PO SCH ×2 (13:04→18:13)
[2018-04-19] MEDS ORDERED: Ciprofloxacin 500 MG Tablet PO SCH (18:00)
[2018-04-19] MEDS: Senna/Docusate Sodium 8.6/50 MG Tablet PO SCH (20:35)
[2018-04-19] MEDS: clonazePAM 0.5 MG Tablet PO SCH (20:35)
[2018-04-20] MEDS: TIOTROPIUM BROMIDE INHALATION SCH (08:00)
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
[2018-04-20] MEDS ORDERED: Isosorbide Mononitrate 30 MG ER 24HR Tablet (Imdur) PO SCH (09:00)
[2018-04-20] MEDS ORDERED: Levothyroxine 75 MCG Tablet PO SCH (09:00)
[2018-04-20 09:17] LABS: Baso % (Auto) 0.3 % (0.0-2.0); Eos # (Auto) 0.2 th/mm3 (0.0-0.4); Eos % (Auto) 1.4 % (0.0-4.0); Hemoglobin 13.1 gm/dL (13.0-17.0); Lymph # (Auto) 9.7 th/mm3 (1.0-4.8); Lymph % (Auto) 64.6 % (9.0-44.0); Mean Corpuscular HGB Conc 32.7 % (32.0-36.0); Mean Corpuscular Hemoglobin 29.7 pg (27.0-34.0); Mean Corpuscular Volume 90.9 fL (80.0-100.0); Mean Platelet Volume 7.5 fL (7.0-11.0); Mono # (Auto) 0.9 th/mm3 (0.0-0.9); Mono % (Auto) 5.8 % (0.0-8.0); Neut # (Auto) 4.2 th/mm3 (1.8-7.7); Neut % (Auto) 27.9 % (16.0-70.0); Platelet Count 202 th/mm3 (150-450); White Blood Count 14.9 th/mm3 (4.0-11.0)
[2018-04-20] MEDS: Gabapentin 300 MG Capsule PO SCH ×3 (09:27→16:59)
[2018-04-20] MEDS: clonazePAM 0.5 MG Tablet PO SCH ×2 (09:28→21:56)
[2018-04-20] MEDS: Ascorbic Acid 500 MG Tablet PO SCH (09:28)
[2018-04-20] MEDS: hydroCHLOROthiazide 25 MG Tablet PO SCH (09:28)
[2018-04-20] MEDS: Allopurinol 300 MG Tablet PO SCH (09:28)
[2018-04-20] MEDS: Isosorbide Mononitrate 30 MG ER 24HR Tablet (Imdur) PO SCH (09:29)
[2018-04-20] MEDS: Senna/Docusate Sodium 8.6/50 MG Tablet PO SCH ×2 (09:29→21:57)
[2018-04-20 09:56] LABS: Lymphocytes 62 % (9-44); Monocytes 5 % (0-8); Smudge Cells Present
[2018-04-20 09:57] LABS: Platelet Estimate Normal (Normal); Platelet Morphology Normal (Normal); RBC Morphology Normal (Normal)
[2018-04-20 10:46] LABS: Calcium 9.2 mg/dL (8.5-10.1); Chol/HDL Ratio 4.21 Ratio; HDL Cholesterol 30.1 mg/dL (40.0-60.0)
[2018-04-20 11:04] LABS: Hemoglobin A1c 6.7 % (4.3-6.0)
--- NOTE | 2018-04-20 12:37 | ECG ---
Date Performed: 04/19/2018 Time Performed: 12:35:04 PTAGE: 83 years EKG: ATRIAL FIBRILLATION RIGHT BUNDLE BRANCH BLOCK ABNORMAL ECG Compared to PREVIOUS TRACING atrial fibrillation is now present PREVIOUS TRACIN12/13/2017 19.56 DOCTOR: Ron Dimas Interpretating Date/Time 04/20/2018 12:34:31
[2018-04-20] MEDS: Sertraline 100 MG Tablet PO SCH (13:14)
--- NOTE | 2018-04-20 14:44 | P.PN ---
Subjective Interval history: Follow-up visit CAD, HLD, COPD, chronic leukocytosis possible CLL. Patient seen and examined today. States he has been doing wonderful. As per nursing no acute issues overnight. No new complaints. Physical Exam Vital signs: Vital Signs 04/19/18 17:24 04/20/18 06:35 04/20/18 09:43 Temperature 98 F 97.5 F L Pulse Rate 77 75 75 Respiratory Rate 20 16 16 Blood Pressure 130/64 155/68 H Pulse Oximetry 95 93 L 04/20/18 13:11 Temperature Pulse Rate 75 Respiratory Rate 18 Blood Pressure Pulse Oximetry Intake & Output 04/19/18 04/20/18 04/20/18 18:59 06:59 18:59 Intake Total 240 / 240 Output Total 175 / 175 Balance 65 / 65 Weight 107.3 kg Intake: Oral 240 / 240 Output: Urine 175 / 175 Other: # Voids 1 Date of Last Bowel Movement 04/19/18 04/19/18 # Bowel Movements 1 Weight On Admission 107.3 kg Narrative: GENERAL: This is a well-nourished, well-developed ELDERLY patient, in no apparent distress. SKIN: Warm and dry HEENT: Normocephalic. Pupils equal round and reactive. Nose without bleeding. Airway patent. NECK: Trachea midline. CARDIOVASCULAR: Regular rate and rhythm without murmurs, gallops, or rubs. RESPIRATORY: Clear to auscultation. Breath sounds equal bilaterally. No wheezes , rales, or rhonchi. GASTROINTESTINAL: Abdomen soft, non-tender, nondistended. Bowel Sounds normoactive x4. MUSCULOSKELETAL: Extremities without clubbing, cyanosis. Left lower extremity trace edema, stasis. Right lower extremity scar from graft. NEUROLOGICAL: Awake and alert. Moves all extremities. Normal speech. Results - Labs CBC & Chem 7: 04/20/18 08:15 04/20/18 08:15 Laboratory Results - last 24 hr 04/19/18 04/20/18 04/20/18 16:30 08:15 08:15 WBC 14.9 H RBC 4.40 L Hgb 13.1 Hct 40.0 MCV 90.9 MCH 29.7 MCHC 32.7 RDW 15.0 Plt Count 202 MPV 7.5 Prelim Diff (Auto) Slide review pending Neut % (Auto) 27.9 Lymph % (Auto) 64.6 H [place] % (Auto) 5.8 Eos % (Auto) 1.4 Baso % (Auto) 0.3 Neut # (Auto) 4.2 Lymph # (Auto) 9.7 H [place] # (Auto) 0.9 Eos # (Auto) 0.2 Baso # (Auto) 0.0 WBC Differential Manual diff final Seg Neuts % (Manual) 33 Lymphocytes % (Manual) 62 H Monocytes % (Manual) 5 Abs Neuts (Manual) 4.9 Differential Comment . Smudge Cells Present H Platelet Estimate Normal Platelet Morphology Normal RBC Morphology Normal Smear Path Review Sodium 140 Potassium 4.0 Chloride 102 Carbon Dioxide 28.0 Anion Gap 10 BUN 37 H Creatinine 1.21 Estimated GFR 57 L Random Glucose 139 H Hemoglobin A1c Calcium 9.2 Triglycerides 84 Cholesterol 127 LDL Cholesterol, Calc 80 HDL Cholesterol 30.1 L Cholesterol/HDL Ratio 4.21 Vitamin B12 601 04/20/18 08:15 WBC RBC Hgb Hct MCV MCH MCHC RDW Plt Count MPV Prelim Diff (Auto) Neut % (Auto) Lymph % (Auto) [place] % (Auto) Eos % (Auto) Baso % (Auto) Neut # (Auto) Lymph # (Auto) [place] # (Auto) Eos # (Auto) Baso # (Auto) WBC Differential Seg Neuts % (Manual) Lymphocytes % (Manual) Monocytes % (Manual) Abs Neuts (Manual) Differential Comment Smudge Cells Platelet Estimate Platelet Morphology RBC Morphology Smear Path Review Sodium Potassium Chloride Carbon Dioxide Anion Gap BUN Creatinine Estimated GFR Random Glucose Hemoglobin A1c 6.7 H Calcium Triglycerides Cholesterol LDL Cholesterol, Calc HDL Cholesterol Cholesterol/HDL Ratio Vitamin B12 Microbiology 04/17/18 19:25 Clean Catch Urine Urine Culture - Final Providencia stuartii Assessment and Plan - Assessment (1) Suicidal ideations Code(s): R45.851 - Suicidal ideations Status: Acute - Plan 83 year old male with history of prostate cancer, CAD, HLD, COPD, and chronic leukocytosis admitted to psychiatry under Ramesh Act for suicidal ideations. Hospitalist service consulted for medical management. Suicidal ideations -Ramesh Acted and admitted to psych -Management per psych HTN CAD HLD -Resume home carvedilol, Losartan, and HCTZ -Resume isosorbide mononitrate, atorvastatin, ASA -Monitor BP trend Hypothyroidism - TSH WNL - Resume home levothyroxine COPD, Not in acute exacerbation - Continue home Spiriva Leukocytosis -WBC 16.5 --> 14.9 - Ongoing -Supposedly following with heme/onc as an outpatient, unsure if he followed up -Likely has CLL or other lymphoproliferative disorder given predominance of lymphocytes including atypical lymphos and smudge cells -Depending on how long patient will be hospitalized will consider heme/onc consult but will hold off for now. Refer in outpatient. -Monitor CBC Pyuria -Patient has recurrent UTIs -U/A showing large leukocyte esterase -He was given a dose of Cipro in the ED but review of micro but prior UTI/ sepsis hospitalization showed growth resistant to Cipro -Cipro sensitive to organism Providencia stuartii (allergic to sulfa and Keflex, and Macrobid C/I in geriatric patients) DVT prophylaxis: Ambulatory Stable from Hospitalist standpoint. We will sign off. Reconsult as needed. Thank you. Code Status: Full code Discussed Condition With: Patient, nursing Discharge Planning: DC disposition by primary team
[2018-04-20] MEDS: Levothyroxine 75 MCG Tablet PO SCH (19:06)
[2018-04-20] MEDS: Ciprofloxacin 500 MG Tablet PO SCH (21:57)
[2018-04-21] MEDS: Levothyroxine 75 MCG Tablet PO SCH (06:36)
[2018-04-21] MEDS: Isosorbide Mononitrate 30 MG ER 24HR Tablet (Imdur) PO SCH (06:37)
[2018-04-21] MEDS: Ciprofloxacin 500 MG Tablet PO SCH (08:41)
[2018-04-21] MEDS: hydroCHLOROthiazide 25 MG Tablet PO SCH (08:41)
[2018-04-21] MEDS: clonazePAM 0.5 MG Tablet PO SCH (08:41)
[2018-04-21] MEDS: Gabapentin 300 MG Capsule PO SCH ×2 (08:42→14:04)
[2018-04-21] MEDS: Sertraline 100 MG Tablet PO SCH (08:42)
[2018-04-21] MEDS: Senna/Docusate Sodium 8.6/50 MG Tablet PO SCH (08:42)
[2018-04-21] MEDS: Allopurinol 300 MG Tablet PO SCH (08:42)
[2018-04-21] MEDS: Ascorbic Acid 500 MG Tablet PO SCH (08:42)
[2018-04-21] MEDS: TIOTROPIUM BROMIDE INHALATION SCH (09:14)
--- NOTE | 2018-04-21 10:52 | P.DSPSY ---
Psychiatry Discharge Summary Inpatient Psychiatric care?: Yes Advance Directives: No Mental Health Advance Directive: No Health Care Proxy: No - Admission Admission Date: April 19, 2018 09:40 - Admission Diagnosis (1) UTI (urinary tract infection) Code(s): N39.0 - Urinary tract infection, site not specified (2) Adjustment disorder with depressed mood Code(s): F43.21 - Adjustment disorder with depressed mood Brief History: Patient is a 84-year-old woman, domiciled in a retirement facility for the past 2-4 months, with a past psychiatric history of depression , no previous psychiatric admissions, no previous suicide attempt or self- injurious behavior, with a past medical history significant for CAD, HLD, COPD, history of prostate cancer, chronic leukocytosis, who was admitted under Ramesh act from [facility] for evaluation the patient endorsing feeling depressed and endorsing suicidal ideation stating wanting to end it all with pills in the context of recent in the family and roommate having 4 years ago which patient was admitted to the inpatient psychiatry for further evaluation and management. As per chart, patient brought in under Ramesh Act from [facility] for evaluation for suicidal ideation. Patient was found sitting in hospital bed, seen with therapists, states that he "made a mistake" referring to his recent suicidal statements. He states having felt tired of looking at the galan, not doing what he would like. He states that he recently had lost his best friend six months ago along with his son-in-law's mother in law also having 17 years . He states that he had been sleeping well , with no change in appetite, energy or concentration and that his mood has been "pretty good". Patient appears to be minimizing his recent depressive symptoms as he was noted to be tearful during interview. Past psychiatric history: prior diagnosis of depression, denies prior psychiatric admissions or suicide attempts. Denies outpatient mental health provider. Substance use history: denies Past medical history: CAD, HLD, COPD, hx of prostate cancer, chronic leukocytosis Allergies: cephalexin, clopidogrel, sulfas Social history: previously living with son and [id number], currently at SNF since several months ago. Tobacco Use In Past 30 Days: No How Often Do You Have a Drink Containing Alcohol: Never Hospital Course: Patient seen today with nurse Janice, chart reviewed, patient is alert fairly well oriented heavyset white male appears stated age muscular and strong. Says he was upset about recent deaths stress for his living that he made a stupid statement. He denies suicidality homicidality voices or visions. States he enjoys where he is living. Though he also acknowledges being somewhat of an extrovert and at times showing some lack of respect for personal space more with females than males. He denies suicidality homicidality voices or visions. States she has been compliant with his medication. He states he wishes to return to his [facility]. He is showing some insight some willingness to show better judgment and personal boundaries. The stomach feel patient does not have any suicidal homicidal tendencies. Thus at this time I feel patient does not meet Ramesh criteria will lift Ramesh act allow patient to be return to [facility] and rehab. No Rx by me he may continue his own scheduled medications except for the prescription for 5 days Cipro by the ED physician - Discharge Discharge Date: 04/21/18 - Discharge Diagnosis (1) UTI (urinary tract infection) Diagnosis: Secondary Code(s): N39.0 - Urinary tract infection, site not specified Status: Acute (2) Adjustment disorder with depressed mood Diagnosis: Principal Code(s): F43.21 - Adjustment disorder with depressed mood Status: Acute Discharge Disposition: Custodial Facility - Discharge Instructions Discharge Diet: Heart Healthy Diet Activities You Can Perform: Weight Bearing As Tolerat - Discharge Time > 30 minutes Mental Status Examination Appearance: Appropriate Consciousness: Alert Orientation: x4 Motor Activity: Other Speech: Unremarkable Language: Adequate (Uses a wheelchair) Fund of Knowledge: Adequate Attention and Concentration: Adequate Memory: Unremarkable Mood: Sad Affect: Sad, Other (tearful at times) Thought Process & Associations: Intact, Logical, Goal directed Thought Content: Appropriate Hallucination Type: None Delusion Type: None Suicidal Ideation: No Suicidal Plan: No Suicidal Intention: No Homicidal Ideation: No Homicidal Plan: No Homicidal Intention: No Insight: Fair Judgment: Impulsive Discharge/Advance Care Plan - Results Vital Signs: Last Vital Signs Temp 97.5 F L 04/21/18 06:11 Pulse 78 04/21/18 09:43 Resp 14 04/21/18 09:43 BP 126/61 04/21/18 07:29 Pulse Ox 97 04/21/18 06:11 Lab Results: Abnormal Lab Results 04/20/18 04/20/18 08:15 08:15 Sodium 140 Potassium 4.0 Chloride 102 Carbon Dioxide 28.0 Anion Gap 10 BUN 37 H Creatinine 1.21 Estimated GFR 57 L Random Glucose 139 H Hemoglobin A1c 6.7 H Calcium 9.2 Triglycerides 84 Cholesterol 127 LDL Cholesterol, Calc 80 HDL Cholesterol 30.1 L Cholesterol/HDL Ratio 4.21 Vitamin B12 601 Laboratory Results Hemoglobin A1c 6.7 % (4.3-6.0) H 04/20/18 08:15 Triglycerides 84 mg/dL (42-150) 04/20/18 08:15 Cholesterol 127 mg/dL (120-200) 04/20/18 08:15 LDL Cholesterol, Calc 80 mg/dL (0-99) 04/20/18 08:15 HDL Cholesterol 30.1 mg/dL (40.0-60.0) L 04/20/18 08:15 TSH 2.170 uIU/mL (0.358-3.740) 04/17/18 18:15 Urine Culture Comments Culture indicated 04/17/18 19:25 Summary of Procedures: None done Pending Results: None - Medications Number of antipsychotic medications at discharge: 0 - Discharge Care Plan Goals to Promote Your Health: * To prevent worsening of your condition and complications * To maintain your health at the optimal level Directions to Meet Your Goals: Take your medications as prescribed Follow your dietary instruction Follow activity as directed Keep your appointments as scheduled Take your immunizations and boosters as scheduled If your symptoms worsen call your PCP, if no PCP go to Urgent Care Center or Emergency Room For 04/03 questions related to your inpatient stay or results of tests pending at discharge, please contact Dr. Memo Moser MD at Smoking is Dangerous to Your Health. Avoid second hand smoking (1) UTI (urinary tract infection) Qualifiers: Urinary tract infection type: site unspecified Hematuria presence: without hematuria Qualified Code(s): N39.0 - Urinary tract infection, site not specified (1) UTI (urinary tract infection) Qualifiers: Urinary tract infection type: site unspecified Hematuria presence: without hematuria Qualified Code(s): N39.0 - Urinary tract infection, site not specified
== END 2018-04-21 14:40 ==
LOC: NEPD 16:18 → NEDA 04-19 09:40 → H250 04-19 10:58
PROVIDERS: ADMIT Psychiatry & Neurology Psychiatry; ATTEND Psychiatry & Neurology Psychiatry